=== PATIENT | female | born 1965 | race Caucasian/White ===

== ENCOUNTER 2021-01-18 08:35 | Outpatient (REF) | payer OTHER, SELFPAY ==
--- NOTE | ~2021-01-18 | XR_ITS ---
EXAMINATION: XR CHEST CLINICAL INFORMATION: Asthma. COMPARISON: None TECHNIQUE: 2 views of the chest were obtained. FINDINGS: The lungs are clear. The cardiomediastinal silhouette is normal in size. There is no pleural effusion or pneumothorax. No acute osseous abnormality. XR/XR chest 2V IMPRESSION: No acute cardiopulmonary findings.
[2021-01-18 11:00] LABS: Basophils Absolute Auto 0.1 X10*3/uL (0.0-0.2); Basophils Percent Auto 0.9 % (0-2); Eosinophils Absolute Auto 3.2 X10*3/uL (0.0-0.4); Eosinophils Percent Auto 38.9 % (0-4); Hemoglobin 12.3 g/dl (12.0-16.0); Imm Gran Abs Auto 0.01 X10*3/uL (0.00-0.03); Imm Gran Pct Auto 0.1 % (0.0-0.4); Lymphocytes Absolute Auto 1.7 X10*3/uL (1.2-4.9); Lymphocytes Percent Auto 20.6 % (20-40); Mean Corpuscular HGB Conc 30.8 g/dl (31.0-35.0); Mean Corpuscular Hemoglobin 29.1 pg (27.0-33.0); Mean Corpuscular Volume 94.6 fL (80-98); Mean Platelet Volume 10.8 fL (9.4-12.3); Monocytes Absolute Auto 0.7 X10*3/uL (0.1-1.2); Monocytes Percent Auto 7.9 % (2-11); Neutrophils Absolute Auto 2.6 X10*3/uL (2.0-8.3); Neutrophils Percent Auto 31.6 % (45-73); Platelet Count 293 X10*3/uL (160-400); Red Blood Count 4.23 X10*6/uL (4.20-5.50); Red Cell Distribution Width 14.4 % (11.0-16.0); White Blood Count 8.2 X10*3/uL (4.8-10.8)
[2021-01-18 11:02] LABS: MANUAL DIFF FLAG SCAN
[2021-01-18 11:34] LABS: SLIDE REVIEW VERIFIED
[2021-01-18 11:35] LABS: Erythrocyte Sedimentation Rate 29 MM/HR (0-20)
[2021-01-20 14:56] LABS: IgA 437 mg/dL (47-310); IgG 1676 mg/dL (600-1640); IgM 199 mg/dL (50-300)
[2021-01-25 23:57] LABS: Asperg fumigatus Precip Abs NEGATIVE (NEGATIVE); Micropoly faeni Abs NEGATIVE (NEGATIVE); Pigeon serum Abs NEGATIVE (NEGATIVE); Saccharo pora viridis Abs NEGATIVE (NEGATIVE); Thermo candidus Abs NEGATIVE (NEGATIVE); Thermoa vulgaris #1 NEGATIVE (NEGATIVE)
== END 2021-01-18 08:36 | disposition home or self-care (01) ==
LOC: HO.XRAY 08:35
PROVIDERS: PCP Internal Medicine; Visit Provider Hospitalist
DX: J45.51 Severe persistent asthma with (acute) exacerbation (principal); R91.8 Other nonspecific abnormal finding of lung field; J30.9 Allergic rhinitis, unspecified; T78.40XA Allergy, unspecified, initial encounter
CPT/HCPCS: 36415; 71046; 82784; 82785; 85025; 85652; 86003; 86331; 86606; 86609; J2930

== ENCOUNTER → 2021-02-15 10:36 | Outpatient (BNVA) | payer OTHER, SELFPAY | PROVIDERS: PCP Internal Medicine; Visit Provider Hospitalist ==

== ENCOUNTER → 2021-04-21 09:20 | Outpatient (REF) | payer OTHER, SELFPAY ==
--- NOTE | ~2021-04-21 | XR_ITS ---
EXAMINATION: XR CHEST CLINICAL INFORMATION: Cough COMPARISON: 01/18/2021 TECHNIQUE: 2 views of the chest were obtained. FINDINGS: No significant abnormality is noted involving the heart, lungs, mediastinum, bony thorax or soft tissues. XR/XR chest 2V IMPRESSION: Unremarkable examination.
--- NOTE | 2021-04-21 10:08 | ECG_ITS ---
Test Reason : copd Blood Pressure : / mmHG Vent. Rate : 082 BPM Atrial Rate : 082 BPM P-R Int : 156 ms QRS Dur : 080 ms QT Int : 366 ms P-R-T Axes : 055 020 021 degrees QTc Int : 427 ms Normal sinus rhythm Normal ECG No previous ECGs available Referred By: Bg Garcia Electronically Signed By:REGGIE CANTU MD
== END ==
LOC: HO.CARD 09:20
PROVIDERS: PCP Internal Medicine; Visit Provider Hospitalist
DX: J44.9 Chronic obstructive pulmonary disease, unspecified (principal); J45.50 Severe persistent asthma, uncomplicated; M06.9 Rheumatoid arthritis, unspecified; J30.9 Allergic rhinitis, unspecified; T78.40XA Allergy, unspecified, initial encounter
CPT/HCPCS: 71046; 93005

== ENCOUNTER 2021-05-04 11:04 | Outpatient (REF) | payer OTHER, SELFPAY | END 2021-05-04 11:05 | disposition home or self-care (01) | LOC: HO.MDS 11:04 | PROVIDERS: PCP Internal Medicine; Visit Provider Hospitalist | DX: J45.50 Severe persistent asthma, uncomplicated (principal) | CPT/HCPCS: 96372; J0517 ==

== ENCOUNTER 2021-06-05 11:30 | Outpatient (REF) | payer OTHER, SELFPAY | END 2021-06-05 11:31 | disposition home or self-care (01) | LOC: HO.MDS 11:30 | PROVIDERS: PCP Internal Medicine; Visit Provider Hospitalist | DX: J45.50 Severe persistent asthma, uncomplicated (principal) | CPT/HCPCS: 96372; J0517 ==

== ENCOUNTER → 2021-07-26 09:48 | Outpatient (BNVA) | payer OTHER, SELFPAY | PROVIDERS: PCP Internal Medicine; Visit Provider Hospitalist | DX: J45.50 Severe persistent asthma, uncomplicated (principal); J44.9 Chronic obstructive pulmonary disease, unspecified; J30.9 Allergic rhinitis, unspecified; Z79.899 Other long term (current) drug therapy; Z91.09 Other allergy status, other than to drugs and biological substances | CPT/HCPCS: 99212 ==

== ENCOUNTER 2021-08-09 10:02 | Outpatient (REF) | payer OTHER, SELFPAY | END 2021-08-09 10:03 | disposition home or self-care (01) | LOC: HO.MDS 10:02 | PROVIDERS: PCP Internal Medicine; Visit Provider Hospitalist | DX: J45.50 Severe persistent asthma, uncomplicated (principal) | CPT/HCPCS: 96372; J0517 ==

== ENCOUNTER 2021-10-30 13:03 | Outpatient (REF) | payer OTHER, SELFPAY ==
[2021-10-30 14:21] LABS: MANUAL DIFF FLAG NO
[2021-10-30 14:32] LABS: Hematocrit 34.3 % (37.0-47.0); Hemoglobin 10.6 g/dl (12.0-16.0); Imm Gran Abs Auto 0.03 X10*3/uL (0.00-0.03); Imm Gran Pct Auto 0.6 % (0.0-0.4); Lymphocytes Absolute Auto 1.2 X10*3/uL (1.2-4.9); Lymphocytes Percent Auto 22.3 % (20-40); Mean Corpuscular HGB Conc 30.9 g/dl (31.0-35.0); Mean Corpuscular Hemoglobin 28.8 pg (27.0-33.0); Mean Corpuscular Volume 93.2 fL (80.0-98.0); Monocytes Absolute Auto 0.5 X10*3/uL (0.1-1.2); Monocytes Percent Auto 9.8 % (2-11); Neutrophils Absolute Auto 3.7 x10*3/uL (2.0-8.3); Neutrophils Percent Auto 67.3 % (45-73); Platelet Count 353 X10*3/uL (160-400); Red Blood Count 3.68 X10*6/uL (4.20-5.50); Red Cell Distribution Width 14.6 % (11.0-16.0); White Blood Count 5.4 X10*3/uL (4.8-10.8)
[2021-10-30 15:13] LABS: Erythrocyte Sedimentation Rate 77 MM/HR (0-20)
[2021-10-30 16:08] LABS: Alanine Aminotransferase 22 U/L (0-31); Albumin Level 3.8 g/dL (3.5-5.0); Alkaline Phosphatase 109 U/L (39-117); Anion Gap 11 (12-20); Aspartate Amino Transferase 19 U/L (5-31); Bilirubin Total 0.3 mg/dL (0.0-1.0); Blood Urea Nitrogen 13 mg/dL (9-16); C Reactive Protein 6.16 mg/dL (< or = 0.50); Calcium 9.1 mg/dL (8.4-10.2); Carbon Dioxide 28 mmol/L (22-29); Chloride 106 mmol/L (96-108); Estimated Glomerular Filt Rate > 60; Glucose Fasting 84 mg/dL (60-99); Potassium 4.8 mmol/L (3.3-5.1); Sodium 140 mmol/L (135-145); Total Protein 7.8 g/dL (6.5-8.0)
== END 2021-10-30 13:04 | disposition home or self-care (01) ==
LOC: HO.LAB 13:03
PROVIDERS: PCP Internal Medicine; Visit Provider Internal Medicine Rheumatology
DX: M05.9 Rheumatoid arthritis with rheumatoid factor, unspecified (principal); Z79.899 Other long term (current) drug therapy; Z96.651 Presence of right artificial knee joint
CPT/HCPCS: 36415; 80053; 85025; 85652; 86140; 99212

== ENCOUNTER 2021-12-13 11:05 | Outpatient (REF) | payer OTHER, SELFPAY | END 2021-12-13 11:06 | disposition home or self-care (01) | LOC: HO.MDS 11:05 | PROVIDERS: PCP Internal Medicine; Visit Provider Hospitalist | DX: J45.50 Severe persistent asthma, uncomplicated (principal) | CPT/HCPCS: 96372; J0517 ==

== ENCOUNTER → 2022-01-18 10:00 | Outpatient (BNVA) | payer OTHER, SELFPAY | PROVIDERS: PCP Internal Medicine; Visit Provider Hospitalist | DX: J45.50 Severe persistent asthma, uncomplicated (principal); J30.9 Allergic rhinitis, unspecified; T78.40XA Allergy, unspecified, initial encounter | CPT/HCPCS: 99212 ==

== ENCOUNTER 2022-02-07 09:58 | Outpatient (REF) | payer OTHER, SELFPAY | END 2022-02-07 09:59 | disposition home or self-care (01) | LOC: HO.MDS 09:58 | PROVIDERS: Visit Provider Hospitalist | DX: J45.50 Severe persistent asthma, uncomplicated (principal) | CPT/HCPCS: 96372; J0517 ==

== ENCOUNTER 2022-04-09 15:09 | Outpatient (REF) | payer MEDICARE, SELFPAY ==
--- NOTE | ~2022-04-09 | XR_ITS ---
EXAMINATION: XR CHEST CLINICAL INFORMATION: COPD COMPARISON: Previous chest x-ray most recent April 2021 TECHNIQUE: 2 views of the chest were obtained. FINDINGS: The cardiac and mediastinal contours are stable. The lungs are clear. There is no pleural effusion or pneumothorax. Bony structures are unremarkable. XR/XR chest 2V IMPRESSION: Unremarkable examination.
[2022-04-09 15:43] LABS: MANUAL DIFF FLAG NO
[2022-04-09 16:18] LABS: Basophils Percent Auto 0.2 % (0-2); Hematocrit 38.3 % (37.0-47.0); Hemoglobin 11.8 g/dl (12.0-16.0); Lymphocytes Percent Auto 22.8 % (20-40); Mean Corpuscular HGB Conc 30.8 g/dl (31.0-35.0); Mean Corpuscular Hemoglobin 28.9 pg (27.0-33.0); Mean Corpuscular Volume 93.6 fL (80.0-98.0); Mean Platelet Volume 10.6 fL (9.4-12.3); Monocytes Absolute Auto 0.6 X10*3/uL (0.1-1.2); Neutrophils Absolute Auto 2.7 x10*3/uL (2.0-8.3); Platelet Count 305 X10*3/uL (160-400); Red Blood Count 4.09 X10*6/uL (4.20-5.50); White Blood Count 4.2 X10*3/uL (4.8-10.8)
[2022-04-09 16:42] LABS: Alanine Aminotransferase 14 U/L (0-31); Aspartate Amino Transferase 21 U/L (5-31); C Reactive Protein 1.24 mg/dL (< or = 0.50); Estimated Glomerular Filt Rate > 60
[2022-04-09 17:01] LABS: Erythrocyte Sedimentation Rate 70 MM/HR (0-20)
== END 2022-04-09 15:10 | disposition home or self-care (01) ==
LOC: HO.LAB 15:09
PROVIDERS: Absent Provider Hospitalist; PCP Nurse Practitioner Family; Visit Provider Internal Medicine Rheumatology
DX: M05.9 Rheumatoid arthritis with rheumatoid factor, unspecified (principal); J44.9 Chronic obstructive pulmonary disease, unspecified; Z79.899 Other long term (current) drug therapy
CPT/HCPCS: 36415; 71046; 82565; 84450; 84460; 85025; 85652; 86140; 99212

== ENCOUNTER → 2022-04-20 10:24 | Outpatient (BNVA) | payer MEDICARE, SELFPAY | PROVIDERS: PCP Nurse Practitioner Family; Visit Provider Hospitalist | DX: J45.50 Severe persistent asthma, uncomplicated (principal); J44.9 Chronic obstructive pulmonary disease, unspecified; K21.9 Gastro-esophageal reflux disease without esophagitis; R05.9 Cough, unspecified; J30.9 Allergic rhinitis, unspecified; T78.40XA Allergy, unspecified, initial encounter | CPT/HCPCS: 99212 ==

== ENCOUNTER 2022-06-12 11:35 | Outpatient (REF) | payer MEDICARE, SELFPAY ==
[2022-06-12 14:07] LABS: MANUAL DIFF FLAG NO
[2022-06-12 14:18] LABS: Basophils Percent Auto 0.5 % (0-2); Eosinophils Absolute Auto 0.2 X10*3/uL (0.0-0.4); Eosinophils Percent Auto 3.4 % (0-4); Hematocrit 34.5 % (37.0-47.0); Hemoglobin 10.6 g/dl (12.0-16.0); Imm Gran Abs Auto 0.03 X10*3/uL (0.00-0.03); Imm Gran Pct Auto 0.5 % (0.0-0.4); Lymphocytes Absolute Auto 0.8 X10*3/uL (1.2-4.9); Lymphocytes Percent Auto 14.7 % (20-40); Mean Corpuscular HGB Conc 30.7 g/dl (31.0-35.0); Mean Corpuscular Hemoglobin 28.5 pg (27.0-33.0); Mean Corpuscular Volume 92.7 fL (80.0-98.0); Mean Platelet Volume 11.1 fL (9.4-12.3); Monocytes Absolute Auto 0.4 X10*3/uL (0.1-1.2); Monocytes Percent Auto 7.2 % (2-11); Neutrophils Absolute Auto 4.1 x10*3/uL (2.0-8.3); Neutrophils Percent Auto 73.7 % (45-73); Platelet Count 353 X10*3/uL (160-400); Red Blood Count 3.72 X10*6/uL (4.20-5.50); Red Cell Distribution Width 14.3 % (11.0-16.0); White Blood Count 5.6 X10*3/uL (4.8-10.8)
[2022-06-12 14:31] LABS: Alanine Aminotransferase 15 U/L (0-31); Aspartate Amino Transferase 19 U/L (5-31)
[2022-06-12 14:53] LABS: Alanine Aminotransferase 14 U/L (0-31); Albumin Level 3.9 g/dL (3.5-5.0); Alkaline Phosphatase 92 U/L (39-117); Anion Gap 10 (12-20); Aspartate Amino Transferase 19 U/L (5-31); Bilirubin Total 0.3 mg/dL (0.0-1.0); Blood Urea Nitrogen 15 mg/dL (9-16); C Reactive Protein 3.02 mg/dL (< or = 0.50); Carbon Dioxide 26 mmol/L (22-29); Chloride 108 mmol/L (96-108); Cholesterol 131 mg/dL; Estimated Glomerular Filt Rate > 60; Glucose Fasting 89 mg/dL (60-99); HDL Cholesterol 45 mg/dL; LDL Cholesterol Calculated 75 mg/dl; Potassium 4.4 mmol/L (3.3-5.1); Sodium 140 mmol/L (135-145); TSH reflex Free T4 2.01 uIU/mL (0.32-4.0); Total Protein 7.8 g/dL (6.5-8.0); Triglycerides 57 mg/dL
[2022-06-12 15:09] LABS: Erythrocyte Sedimentation Rate 81 MM/HR (0-20)
== END 2022-06-12 11:36 | disposition home or self-care (01) ==
LOC: HO.HMGCLDS 11:35
PROVIDERS: Absent Provider Internal Medicine Rheumatology; PCP Internal Medicine; Visit Provider Internal Medicine
DX: Z00.00 Encounter for general adult medical examination without abnormal findings (principal); J30.9 Allergic rhinitis, unspecified; J44.9 Chronic obstructive pulmonary disease, unspecified; M05.79 Rheumatoid arthritis with rheumatoid factor of multiple sites without organ or systems involvement; T78.40XA Allergy, unspecified, initial encounter; Z79.899 Other long term (current) drug therapy
CPT/HCPCS: 36415; 80053; 80061; 84443; 84450; 84460; 85025; 85652; 86140

== ENCOUNTER → 2022-06-26 08:07 | Outpatient (BNVA) | payer MEDICARE, SELFPAY | PROVIDERS: PCP Internal Medicine; Visit Provider Internal Medicine Rheumatology | DX: M05.79 Rheumatoid arthritis with rheumatoid factor of multiple sites without organ or systems involvement (principal); Z96.651 Presence of right artificial knee joint; Z79.899 Other long term (current) drug therapy | CPT/HCPCS: 99212 ==

== ENCOUNTER 2022-07-17 14:25 | Outpatient (REF) | payer MEDICARE, SELFPAY ==
--- NOTE | ~2022-07-17 | MM_ITS ---
EXAMINATION: MM SCREENING DIGITAL BREAST TOMOSYNTHESIS, BILATERAL CLINICAL INFORMATION: Screening. Asymptomatic. The lifetime risk of breast cancer based on the Tyrer-Cuzick Model is 7%. COMPARISON: Outside mammography: 05/22/2021, 01/28/2019, 10/23/2017 TECHNIQUE: Digital breast tomosynthesis is performed in both the craniocaudal and mediolateral oblique views along with computer-aided detection (CAD). Synthesized 2D images are generated from the tomosynthesis. FINDINGS: The breasts are heterogeneously dense, which may obscure small masses (ACR BI-RADS breast composition Category c). Parenchymal pattern is similar to outside studies and there is no significant mass or interval architectural abnormality or developing density. Again, there are scattered bilateral vascular and some punctate and rim calcifications. There are interval grouped relatively coarse calcifications posterior 9:00 right breast since 2019. These may be related to fibroadenomatous changes. Patient will be recalled for additional imaging to fully characterize with magnification views. MM/MM tomosynthesis screening BI IMPRESSION: Right: -Grouped calcifications posterior 9:00 position, possibly fibroadenomatous change. Left: -No mammographic evidence of malignancy. ASSESSMENT: BI-RADS 0: Incomplete - Need Additional Imaging Evaluation RECOMMENDATION: 1. Additional views of the right breast (magnification CC, magnification ML). 2. Radiology department staff will contact the patient for additional imaging. This patient's information was entered into a reminder system with a target due date for their next mammogram.
== END 2022-07-17 14:26 | disposition home or self-care (01) ==
LOC: HO.MAMMO 14:25
PROVIDERS: PCP Internal Medicine; Visit Provider Internal Medicine
DX: Z12.31 Encounter for screening mammogram for malignant neoplasm of breast (principal)
CPT/HCPCS: 77063; 77067

== ENCOUNTER → 2022-07-19 13:31 | Outpatient (BNVA) | payer MEDICARE, SELFPAY | PROVIDERS: PCP Internal Medicine; Visit Provider Advanced Practice Midwife | DX: Z13.89 Encounter for screening for other disorder (principal) ==

== ENCOUNTER 2022-07-23 14:04 | Outpatient (REF) | payer MEDICARE, SELFPAY ==
--- NOTE | ~2022-07-23 | MM_ITS ---
EXAMINATION: MM DIAGNOSTIC DIGITAL MAMMOGRAPHY, RIGHT CLINICAL INFORMATION: Recall from screening for interval calcifications posterior 9:00 right breast since 2019, possibly fibroadenomatous change. The lifetime risk of breast cancer based on the Tyrer-Cuzick Model is 7%. COMPARISON: Mammography: 07/17/2022; outside mammography 05/12/2021, 01/28/2019 ([place]). TECHNIQUE: Digital mammography is performed right breast is performed in the following views: Magnification right CC, magnification right ML. FINDINGS: The breasts are heterogeneously dense, which may obscure small masses (ACR BI-RADS breast composition Category c). The additional magnification views show grouped coarse benign-appearing calcifications in the area of interest posterior upper outer right breast. These may be related to fibroadenomatous changes. There is no mass or architectural abnormality. Results are discussed with the patient at time of visit. Management plan is for short interval six-month follow-up right mammography. MM/MM diagnostic mammo unilat RT IMPRESSION: Probable benign possibly fibroadenomatous calcifications upper outer quadrant right breast. ASSESSMENT: BI-RADS 3: Probably Benign RECOMMENDATION: Diagnostic right mammography in 6 months. This patient's information was entered into a reminder system with a target due date for their next mammogram.
== END 2022-07-23 14:05 | disposition home or self-care (01) ==
LOC: HO.MAMMO 14:04
PROVIDERS: PCP Internal Medicine; Visit Provider Internal Medicine
DX: R92.1 Mammographic calcification found on diagnostic imaging of breast (principal)
CPT/HCPCS: 77062; 77065

== ENCOUNTER 2022-08-31 14:29 | Outpatient (REF) | payer OTHER, SELFPAY ==
[2022-08-31 16:50] LABS: MANUAL DIFF FLAG NO
[2022-08-31 16:55] LABS: Basophils Absolute Auto 0.1 X10*3/uL (0.0-0.2); Eosinophils Absolute Auto 0.3 X10*3/uL (0.0-0.4); Eosinophils Percent Auto 4.8 % (0-4); Hematocrit 39.4 % (37.0-47.0); Hemoglobin 12.2 g/dl (12.0-16.0); Imm Gran Abs Auto 0.01 X10*3/uL (0.00-0.03); Imm Gran Pct Auto 0.2 % (0.0-0.4); Lymphocytes Absolute Auto 1.2 X10*3/uL (1.2-4.9); Mean Corpuscular Hemoglobin 28.4 pg (27.0-33.0); Mean Corpuscular Volume 91.6 fL (80.0-98.0); Mean Platelet Volume 11.4 fL (9.4-12.3); Monocytes Absolute Auto 0.7 X10*3/uL (0.1-1.2); Monocytes Percent Auto 11.3 % (2-11); Neutrophils Absolute Auto 3.6 x10*3/uL (2.0-8.3); Neutrophils Percent Auto 61.7 % (45-73); Platelet Count 300 X10*3/uL (160-400); Red Cell Distribution Width 14.8 % (11.0-16.0); White Blood Count 5.8 X10*3/uL (4.8-10.8)
[2022-08-31 17:21] LABS: Alanine Aminotransferase 17 U/L (0-31); Aspartate Amino Transferase 25 U/L (5-31); C Reactive Protein 2.21 mg/dL (< or = 0.50); Estimated Glomerular Filt Rate > 60
[2022-08-31 18:07] LABS: Erythrocyte Sedimentation Rate 51 MM/HR (0-20)
== END 2022-08-31 14:30 | disposition home or self-care (01) ==
LOC: HO.HMGCLDS 14:29
PROVIDERS: PCP Internal Medicine; Visit Provider Internal Medicine Rheumatology
DX: M05.79 Rheumatoid arthritis with rheumatoid factor of multiple sites without organ or systems involvement (principal); Z79.899 Other long term (current) drug therapy
CPT/HCPCS: 36415; 82565; 84450; 84460; 85025; 85652; 86140

== ENCOUNTER → 2022-09-04 10:00 | Outpatient (BNVA) | payer MEDICARE, MEDICAID, SELFPAY | PROVIDERS: PCP Internal Medicine; Visit Provider Internal Medicine Rheumatology | DX: J44.9 Chronic obstructive pulmonary disease, unspecified (principal); M05.79 Rheumatoid arthritis with rheumatoid factor of multiple sites without organ or systems involvement; Z79.899 Other long term (current) drug therapy; Z96.651 Presence of right artificial knee joint | CPT/HCPCS: 99212 ==

== ENCOUNTER → 2022-10-17 11:09 | Outpatient (BNVA) | payer OTHER, SELFPAY | PROVIDERS: PCP Internal Medicine; Visit Provider Hospitalist | DX: J45.50 Severe persistent asthma, uncomplicated (principal); J30.9 Allergic rhinitis, unspecified; J44.9 Chronic obstructive pulmonary disease, unspecified; T78.40XD Allergy, unspecified, subsequent encounter | CPT/HCPCS: 99212 ==

== ENCOUNTER → 2022-10-25 10:38 | Outpatient (BNVA) | payer OTHER, SELFPAY | PROVIDERS: PCP Internal Medicine; Visit Provider Internal Medicine Rheumatology ==

== ENCOUNTER 2022-10-25 11:57 | Outpatient (REF) | payer OTHER, SELFPAY ==
[2022-10-25 13:35] LABS: MANUAL DIFF FLAG NO
[2022-10-25 13:37] LABS: Basophils Absolute Auto 0.1 X10*3/uL (0.0-0.2); Basophils Percent Auto 0.8 % (0-2); Eosinophils Absolute Auto 0.8 X10*3/uL (0.0-0.4); Eosinophils Percent Auto 13.2 % (0-4); Hematocrit 37.2 % (37.0-47.0); Hemoglobin 11.4 g/dl (12.0-16.0); Imm Gran Abs Auto 0.01 X10*3/uL (0.00-0.03); Imm Gran Pct Auto 0.2 % (0.0-0.4); Lymphocytes Percent Auto 16.2 % (20-40); Mean Corpuscular HGB Conc 30.6 g/dl (31.0-35.0); Mean Corpuscular Hemoglobin 28.2 pg (27.0-33.0); Mean Corpuscular Volume 92.1 fL (80.0-98.0); Mean Platelet Volume 11.4 fL (9.4-12.3); Monocytes Absolute Auto 0.6 X10*3/uL (0.1-1.2); Monocytes Percent Auto 9.6 % (2-11); Neutrophils Absolute Auto 3.5 x10*3/uL (2.0-8.3); Platelet Count 305 X10*3/uL (160-400); Red Blood Count 4.04 X10*6/uL (4.20-5.50); White Blood Count 5.9 X10*3/uL (4.8-10.8)
[2022-10-25 13:51] LABS: Alanine Aminotransferase 14 U/L (0-31); Aspartate Amino Transferase 20 U/L (5-31); Estimated Glomerular Filt Rate > 60
[2022-10-25 14:28] LABS: Erythrocyte Sedimentation Rate 69 MM/HR (0-20)
== END 2022-10-25 11:58 | disposition home or self-care (01) ==
LOC: HO.10HDL 11:57
PROVIDERS: Visit Provider Internal Medicine Rheumatology
DX: M17.12 Unilateral primary osteoarthritis, left knee (principal); M05.79 Rheumatoid arthritis with rheumatoid factor of multiple sites without organ or systems involvement; Z79.899 Other long term (current) drug therapy
CPT/HCPCS: 20610; 36415; 82565; 84450; 84460; 85025; 85652; 86140; 99212

== ENCOUNTER 2022-10-31 11:03 | Outpatient (REF) | payer OTHER, SELFPAY | END 2022-10-31 11:04 | disposition home or self-care (01) | LOC: HO.MDS 11:03 | PROVIDERS: Visit Provider Hospitalist | DX: J45.50 Severe persistent asthma, uncomplicated (principal) | CPT/HCPCS: 96372 ==

== ENCOUNTER 2022-12-24 14:25 | Outpatient (REF) | payer OTHER, SELFPAY ==
[2022-12-24 16:34] LABS: MANUAL DIFF FLAG NO
[2022-12-24 16:50] LABS: Hematocrit 38.1 % (37.0-47.0); Hemoglobin 11.9 g/dl (12.0-16.0); Imm Gran Abs Auto 0.03 X10*3/uL (0.00-0.03); Imm Gran Pct Auto 0.5 % (0.0-0.4); Lymphocytes Absolute Auto 1.1 X10*3/uL (1.2-4.9); Lymphocytes Percent Auto 17.9 % (20-40); Mean Corpuscular HGB Conc 31.2 g/dl (31.0-35.0); Mean Corpuscular Hemoglobin 28.7 pg (27.0-33.0); Mean Corpuscular Volume 91.8 fL (80.0-98.0); Mean Platelet Volume 11.6 fL (9.4-12.3); Monocytes Absolute Auto 0.8 X10*3/uL (0.1-1.2); Monocytes Percent Auto 12.5 % (2-11); Neutrophils Absolute Auto 4.3 x10*3/uL (2.0-8.3); Neutrophils Percent Auto 69.1 % (45-73); Platelet Count 311 X10*3/uL (160-400); Red Blood Count 4.15 X10*6/uL (4.20-5.50); Red Cell Distribution Width 13.9 % (11.0-16.0); White Blood Count 6.2 X10*3/uL (4.8-10.8)
[2022-12-24 17:13] LABS: Alanine Aminotransferase 14 U/L (0-31); Aspartate Amino Transferase 22 U/L (5-31); C Reactive Protein 2.57 mg/dL (< or = 0.50); Estimated Glomerular Filt Rate > 60
[2022-12-24 17:47] LABS: Erythrocyte Sedimentation Rate 51 MM/HR (0-20)
== END 2022-12-24 14:26 | disposition home or self-care (01) ==
LOC: HO.HMGCLDS 14:25
PROVIDERS: PCP Internal Medicine Gastroenterology; Visit Provider Internal Medicine Rheumatology
DX: M05.79 Rheumatoid arthritis with rheumatoid factor of multiple sites without organ or systems involvement (principal); Z79.899 Other long term (current) drug therapy
CPT/HCPCS: 36415; 82565; 84450; 84460; 85025; 85652; 86140

== ENCOUNTER → 2022-12-25 10:11 | Outpatient (BNVA) | payer OTHER, SELFPAY | PROVIDERS: PCP Internal Medicine Gastroenterology; Visit Provider Internal Medicine Rheumatology | DX: M05.79 Rheumatoid arthritis with rheumatoid factor of multiple sites without organ or systems involvement (principal); M47.817 Spondylosis without myelopathy or radiculopathy, lumbosacral region; M17.12 Unilateral primary osteoarthritis, left knee; M54.50 Low back pain, unspecified; Z79.899 Other long term (current) drug therapy | CPT/HCPCS: 99212 ==

== ENCOUNTER 2022-12-26 11:13 | Outpatient (REF) | payer OTHER, SELFPAY | END 2022-12-26 11:14 | disposition home or self-care (01) | LOC: HO.MDS 11:13 | PROVIDERS: Visit Provider Hospitalist | DX: J45.50 Severe persistent asthma, uncomplicated (principal) | CPT/HCPCS: 96372; J0517 ==

== ENCOUNTER 2023-02-20 11:05 | Outpatient (REF) | payer OTHER, SELFPAY | END 2023-02-20 11:06 | disposition home or self-care (01) | LOC: HO.MDS 11:05 | PROVIDERS: Visit Provider Hospitalist | DX: J45.50 Severe persistent asthma, uncomplicated (principal) | CPT/HCPCS: 96372 ==

== ENCOUNTER → 2023-02-20 14:30 | Outpatient (BNV) | payer OTHER, SELFPAY | PROVIDERS: PCP Internal Medicine; Visit Provider Radiology Diagnostic Radiology | DX: R92.1 Mammographic calcification found on diagnostic imaging of breast (principal) | CPT/HCPCS: 77065 ==

== ENCOUNTER 2023-02-20 14:35 | Outpatient (REF) | payer OTHER, SELFPAY ==
--- NOTE | ~2023-02-20 | MM_ITS ---
EXAMINATION: MM DIAGNOSTIC DIGITAL BREAST TOMOSYNTHESIS, RIGHT CLINICAL INFORMATION: Follow-up grouped calcifications upper outer right breast, posterior one third. The lifetime risk of breast cancer based on the Tyrer-Cuzick Model is 7%. COMPARISON: Mammography: 07/23/2022, 07/17/2022, 05/22/2021, and dating back to 10/23/2017. TECHNIQUE: Digital breast tomosynthesis is performed in both the craniocaudal and mediolateral oblique views along with computer-aided detection (CAD). Synthesized 2D images are generated from the tomosynthesis. In addition, 2-D spot magnification right CC and ML views were performed. FINDINGS: The breasts are heterogeneously dense, which may obscure small masses (ACR BI-RADS breast composition Category c). There are grouped calcifications in the upper outer left breast, posterior one third, which are unchanged from the prior examinations and have a coarse appearance. These are consistent with benign calcifications, likely related to an underlying degenerating fibroadenoma. There have been no suspicious changes. Otherwise, there are are no suspicious masses, suspicious grouped calcifications, or areas of architectural distortion within the right breast. The parenchymal pattern is stable from prior exams. Results were provided to the patient at time of visit by the technologist. MM/MM tomosynthesis diagnostic RT IMPRESSION: Benign findings right breast. Recommend the patient return to routine annual screening mammography. ASSESSMENT: BI-RADS BI-RADS 2 - Benign Findings RECOMMENDATION: 1 year F/U This patient's information was entered into a reminder system with a target due date for their next mammogram.
== END 2023-02-20 14:36 | disposition home or self-care (01) ==
LOC: HO.MAMMO 14:35
PROVIDERS: PCP Internal Medicine; Visit Provider Internal Medicine
DX: R92.1 Mammographic calcification found on diagnostic imaging of breast (principal)
CPT/HCPCS: 77061; 77065

== ENCOUNTER 2023-03-26 12:25 | Outpatient (REF) | payer OTHER, SELFPAY ==
[2023-03-26 16:10] LABS: MANUAL DIFF FLAG NO
[2023-03-26 16:24] LABS: Hematocrit 37.3 % (37.0-47.0); Hemoglobin 11.5 g/dl (12.0-16.0); Imm Gran Abs Auto 0.01 X10*3/uL (0.00-0.03); Imm Gran Pct Auto 0.2 % (0.0-0.4); Lymphocytes Percent Auto 24.3 % (20-40); Mean Corpuscular HGB Conc 30.8 g/dl (31.0-35.0); Mean Corpuscular Hemoglobin 28.5 pg (27.0-33.0); Mean Corpuscular Volume 92.3 fL (80.0-98.0); Mean Platelet Volume 12.4 fL (9.4-12.3); Monocytes Absolute Auto 0.4 X10*3/uL (0.1-1.2); Monocytes Percent Auto 9.9 % (2-11); Neutrophils Absolute Auto 2.8 x10*3/uL (2.0-8.3); Neutrophils Percent Auto 65.6 % (45-73); Platelet Count 297 X10*3/uL (160-400); Red Blood Count 4.04 X10*6/uL (4.20-5.50); Red Cell Distribution Width 14.8 % (11.0-16.0); White Blood Count 4.2 X10*3/uL (4.8-10.8)
[2023-03-26 17:17] LABS: Erythrocyte Sedimentation Rate 66 MM/HR (0-20)
== END 2023-03-26 12:26 | disposition home or self-care (01) ==
LOC: HO.HMGCLDS 12:25
PROVIDERS: PCP Internal Medicine; Visit Provider Internal Medicine Rheumatology
DX: M05.79 Rheumatoid arthritis with rheumatoid factor of multiple sites without organ or systems involvement (principal); Z79.899 Other long term (current) drug therapy
CPT/HCPCS: 36415; 85025; 85652

== ENCOUNTER 2023-03-27 10:09 | Outpatient (AMB) | payer OTHER, SELFPAY ==
--- NOTE | 2023-03-27 10:12 | MHC.OFFVIS ---
Intake Vital Signs 03/27/23 10:17 Height 5 ft 1 in Weight 171 lb 15.369 oz BMI 32.5 BP 120/64 Blood Pressure Location Lt brachial Position Sitting Pulse 80 Pulse Source Pulse Oximeter Temp 97.5 F Temp Source Skin Pulse Oximetry (%) 94 Oxygen Delivery Method Room Air Intake Visit Reasons: RA Intake Note: Here for RA follow up. 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 She remains on Enbrel 50 mg weekly, oral methotrexate 20 mg weekly, folic acid 1 mg daily, diclofenac 50 mg b.i.d. to t.i.d., hydroxychloroquine 300 mg daily, and sulfasalazine 1 g b.i.d.. She still is having some pain in the hands and the left knee. At present she is not planning on knee replacement until she comes back from a wedding in [place] in May. She has not made an appointment with orthopedics however. The asthma has been better since she is back on the [facility]. This had also resulted in her not needing to take any prednisone. She does report that about an hour after she takes the 20 mg weekly methotrexate she gets nauseated. She does not vomit but she feels sickly for about 3 hours afterwards. [facility] Medical History Allergies Asthma Asthma-COPD overlap syndrome Cataract Chronic allergic rhinitis Cough Long-term use of immunosuppressant medication Seropositive rheumatoid arthritis Surgical History History of knee replacement procedure of right knee Family History Father Asthma Maternal Grandmother Asthma Social History Household Members: Spouse Housing: House Alcohol intake: never Patient Tobacco Use Status: Never used Tobacco e-Cigarette/Vaping Use: Never Used Current occupational status: unemployed Sexual orientation: Straight/Heterosexual Gender identity: Female Cognitive needs: No Hearing needs: No Vision needs: Yes Review of Systems Const Details: Some fatigue at times. Negative for appetite change, weight change, fever, chills, malaise Eyes Details: Negative for vision change, dry eyes,headaches and dizziness ENT Details: Negative for hearing change, tinnitus, oral ulcer, nose bleeds and oral dryness. Card Details: Negative chest pain, edema and syncope Resp Details: Negative for SOB, cough and wheezing GI Details: Nausea after methotrexate ingestion. Negative indigestion/heartburn, abdominal pain, bowel changes, diarrhea, constipation and bloody stool. Psych Details: Negative for anxiety, depression and stress Endo Details: Negative for polyuria and polydypsia Wiley/Lymph Details: Negative for excessive bruising or bleeding. Physical Exam Vital Signs: Last Vital Signs Temp 97.5 F 03/27/23 10:17 Pulse 80 03/27/23 10:17 BP 120/64 03/27/23 10:17 Pulse Ox 94 03/27/23 10:17 Oxygen Delivery Method Room Air 03/27/23 10:17 BMI result Body Mass Index 32.5 APPEARANCE: Patient in no acute distress ABD: Normal bowel sounds, no organomegaly, masses or tenderness. EXTREMITIES: No edema, no calf tenderness, normal peripheral pulses. JOINT EXAM: ?? Cervical Spine:.? Mild discomfort with extremes of motion.? No tenderness. Thoracic Spine:.? No scoliosis.? No tenderness on palpation. Lumbar Spine:.? Alignment normal.? Full range of motion without pain, no tenderness. Chest Wall:.? No tenderness, swelling, increased warmth or erythema. Hands:? Right:? joint mild swelling of the 1st 4 MCP joints and the 1st 3 MCP are mildly tender..? There is soft tissue swelling of the 1st 3 PIP joints with slight tenderness at the 3rd PIP.? Left:? There is mild swelling of all the MCP joints.? The 3rd MCP is slightly tender.; there is some mild flexion deformity in these MCPs.? There is mild tenderness and swelling in the thumb IP in the 2nd and 3rd PIP joints.? No thenar atrophy or sensory loss. Wrists:.? Right:? Slight pain with flexion extension 75 degrees with some minimal tenderness but no swelling.? Left:? Mild pain with flexion at 60 degrees or extension at 45 degrees.? There is some mild soft tissue swelling and mild moderate tenderness.? No redness or warmth. Elbows:. Normal pain-free range of motion without tenderness, swelling, increased warmth or erythema. Shoulders:? Right: Mild? pain with extremes of normal abduction or with more than 20 degrees of internal or external rotation.? There is mild anterior tenderness.? There is questionable abductor weakness but no swelling or adenopathy.? Left:? Mild to moderate pain with abduction at 90 degrees or with more than 20 degrees of internal or external rotation.? There is mild anterior and posterior tenderness.? Questionable abductor weakness without adenopathy.. Hips:.? Full range of motion without pain. Hip bursa:.? No tenderness. Knees:.??Right:? Large anterior scar, healed well with some slight scaling.? She has no discomfort with full extension or flexion to 90 degrees.? There is no swelling, tenderness, redness or warmth.? Left: mild to moderate pain with 45 degrees of range of motion.? She can with much pain passively extend the knee.? There is a small? to moderate effusion without redness or warmth.? She has mild to moderate popliteal, medial and lateral tenderness.? I do not feel any popliteal swelling. Ankles:.? Normal pain-free range of motion without tenderness, swelling, increased warmth or erythema. Feet: Slight tenderness in the MTP joints.? Minimal swelling and bony enlargement at the 1st MTP.? There are hammertoe deformities at the right 2nd 3rd toe and left 2nd toe but none of these are tender.? Results Reviewed Results Reviewed: Laboratory Tests 12/24/22 03/26/23 14:30 12:32 WBC 4.2 L Hgb 11.5 L ESR 66 H Creatinine 0.67 AST 22 ALT 14 C-Reactive Protein 2.57 H Assessment & Plan Assessment & Plan (1) Osteoarthritis of lumbosacral spine: Code(s): M47.817 - Spondylosis without myelopathy or radiculopathy, lumbosacral region (2) Long-term use of immunosuppressant medication: Code(s): Z79.899 - Other tank terminal gauger (current) drug therapy (3) Osteoarthritis of left knee: Code(s): M17.12 - Unilateral primary osteoarthritis, left knee (4) Seropositive rheumatoid arthritis of multiple joints: Comment: Onset about 2000; RF and CCP positive. Erosive changes on hand films 07/18. On hydroxychloroquine and sulfasalzine since ? 2004? Methotrexate added 05/18. Enbrel added September 2012. Eye exam normal January 2014, 2014, November 2015, 05/25; 09/23; 03/27, 09/2020, 03/2021,10/2021, 04/2022 Methotrexate stopped 03/22 due to shingles. hydroxychloroquine, Enbrel and sulfasalazine continued, methotrexate added back 06/22. lost coverage for Enbrel 2021.restarted 07/2022 Code(s): M05.79 - Rheumatoid arthritis with rheumatoid factor of multiple sites without organ or systems involvement Plan: Longstanding rheumatoid arthritis with now more consistent use of the Enbrel. However she still has some tenderness in the hands and acute phase reactants remain elevated so I think there is not optimal control of her illness. The OA in the LS spine seems stable. She is also having some nausea with oral methotrexate. We will see if we can switch her to injectable methotrexate with a 15 mg prefilled syringe. She has deformities in her hands making it difficult for her to draw up the methotrexate injection properly. I offered her an injection corticosteroid for the left knee but she wants to hold off for now. She tells me she may want to pursue a knee replacement next spring. We will see her back in about 2 months with lab work before that visit. Hopefully we will get approval of the use of the prefilled syringe for her to use to avoid the GI toxicity of taking it orally. We may want to switch to a different biologic if synovitis remains. Orders: Orders Alanine Aminotransferase Today M05.79 - Rheumatoid arthritis with rheumatoid factor of multiple sites without organ or systems involvement, Z79.899 - Other tank terminal gauger (current) drug therapy Aspartate Amino Transferase Today M05.79 - Rheumatoid arthritis with rheumatoid factor of multiple sites without organ or systems involvement, Z79.899 - Other halfway (current) drug therapy Creatinine Today M05.79 - Rheumatoid arthritis with rheumatoid factor of multiple sites without organ or systems involvement, Z79.899 - Other tank terminal gauger (current) drug therapy Erythrocyte Sedimentation Rate Today M05.79 - Rheumatoid arthritis with rheumatoid factor of multiple sites without organ or systems involvement C Reactive Protein Today M05.79 - Rheumatoid arthritis with rheumatoid factor of multiple sites without organ or systems involvement Complete Blood Count Auto Diff Today M05.79 - Rheumatoid arthritis with rheumatoid factor of multiple sites without organ or systems involvement, Z79.899 - Other tank terminal gauger (current) drug therapy Medications: New methotrexate (PF) 15 mg (0.4 mL) subcut QWEEK 1.6 mL 5RF Coding Level of Care Code Est Pt Level 4 (03195) Diagnoses Osteoarthritis of lumbosacral spine M47.817 Long-term use of immunosuppressant medication Z79.899 Osteoarthritis of left knee M17.12 Seropositive rheumatoid arthritis of multiple joints M05.79
[2023-03-27 10:17] VITALS: BP 120/64; PULSE 80; TEMP 36.4; O2SAT 94; BMI 32.5
== END 2023-03-27 10:42 | disposition home or self-care (01) ==
PROVIDERS: PCP Internal Medicine Gastroenterology; Visit Provider Internal Medicine Rheumatology
DX: M47.817 Spondylosis without myelopathy or radiculopathy, lumbosacral region (principal); Z79.899 Other long term (current) drug therapy; M17.12 Unilateral primary osteoarthritis, left knee; M05.79 Rheumatoid arthritis with rheumatoid factor of multiple sites without organ or systems involvement
CPT/HCPCS: 99214

== ENCOUNTER → 2023-03-27 10:09 | Outpatient (BNVA) | payer OTHER, SELFPAY | PROVIDERS: PCP Internal Medicine Gastroenterology; Visit Provider Internal Medicine Rheumatology | DX: M05.79 Rheumatoid arthritis with rheumatoid factor of multiple sites without organ or systems involvement (principal); M17.12 Unilateral primary osteoarthritis, left knee; M47.817 Spondylosis without myelopathy or radiculopathy, lumbosacral region; Z79.899 Other long term (current) drug therapy | CPT/HCPCS: 99212 ==

== ENCOUNTER 2023-04-05 10:11 | Outpatient (AMB) | payer OTHER, SELFPAY ==
[2023-04-05 10:21] VITALS: PULSE 84; O2SAT 98; BMI 32.5
--- NOTE | 2023-04-05 10:21 | A.OFFVIS_ITS ---
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 She has been struggling with her asthma now for many years. But has been getting worse in few months. She has tried many inhalers previously Symbicort and now recently switched to Trelegy inhaler by her doctors. She did not see any significant improvement. She typically responds better to the nebulized therapy. She does use the nebulizer 3 to 4 times a day. The patient is also required prednisone for her exacerbation on a frequent basis. In regards of her rheumatoid arthritis she has having discomfort but has been TNF inhibitors and also methotrexate for many years. She is not aware of any pulmonary adverse effects these medications. In the office she has significant wheezing. Patient did have evidence significant bronchospasms and she did received 2 DuoNeb treatments with significant improvement although she was to wheezing. Patient did receive Solu-Medrol 125 mg IM x1 to further alleviate her. The patient likely needs more aggressive asthma therapy in the form biologic therapy or in the form nebulize therapies. Therefore, will keep her on the trilogy and DuoNeb and also add budesonide nebulized therapy that she would use conjunction with the patient will undergo work in addition to to see if she biologic therapies at this time in the meantime were assess her hypersensitivity pneumonitis since she does have birds in her home. 02/15/2021 the patient is here for pulmonary follow-up visit. Overall she is feeling a little better. She feels that the budesonide nebulized therapy has been partially helpful. During the last visit the patient did receive Solu- Medrol after couple treatments via the nebulizer. She was prescribed prednisone but she did not use it. Today on examination she still has significant wheezing but she has gotten used to it. Patient had blood work and we did reviewed. Her CBC demonstrated critically high eosinophils greater than 3000 and a percentage of 38% which is significantly elevated. In addition to that her allergy testing demonstrating significant allergies to multiple environmental factors including cats and dogs and dust mites. Her IgE level was up to 700. at this point based on her significant allergies and eosinophilic asthma the patient would benefit from biologic therapy. Fasenra will be a good medication for her. She has been on prednisone multiple times the patient has severe persistent asthma currently uncontrolled. She is reluctant to use prednisone because she is concerned about the adverse effects. She also has rheumatoid arthritis and is currently on other medications that can affect her immune system. At this point will start the patient on Fasenra as the best option. Other alternatives would be Dupixent. Will follow-up in 2 months and the patient will continue with current respiratory therapy. 04/21/2021 the patient is here for a pul monary follow-up visit. She is starting to feel little better. The budesonide has been helpful. However, she continues to have significant wheezing in significant chest tightness. She did improve with prednisone. Now that she is off the prednisone again she is starting to have symptoms. The patient was approved to start Fasenra. Will make the arrangements for her to start her loading dose. In the meantime I will send her azithromycin 3 times a week in addition to another prednisone taper. She does take hydrochloroquine 2 therefore will have her undergo an EKG to make sure QT can handle the macrolide therapy. In addition to that she will undergo a chest x-ray. Will follow up in a couple months. 07/26/2021 the patient is here for pulmonary follow-up visit. Since we last spoke the patient lost her insurance and she did get a new insurance recently. Therefore since she lost insurance she has to stop for biologic injections. It will working very good for her. She was starting to feel better. However, she had no shortness but to change insurance. The Trelegy inhaler has been working well for her. I will make sure to send her some to the pharmacy. She is also using the budesonide nebs which also help control her asthma symptoms and decrease her exacerbations. Hopefully when she starts back on biologic therapy we can stop the budesonide. The patient does have an allergic phenotype with eosinophilia and respond well to Fasenra. in the meantime the patient does have significant rheumatoid arthritis. 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 Will help with some her medications that she may need in the meantime. 01/18/2022 the patient is here for a pulmonary follow-up visit. Overall she is doing well. She does continue to use her nebulized therapy 3 times a day however. The budesonide also has been affecting beneficial. She did go back to the Fasenra injections. These are also helping. She denies any need for prednisone at this time. She has not had any recent imaging studies to review. She did follow-up with Rheumatology and she is going to maintain on her current therapy. She does use methotrexate. She is on high dose. I will send folate acid to the pharmacy for her to take in view of her alopecia. She can talk to her engineering drawings checker regarding the outpatient her next visit with them. No evidence of any adverse effects from the methotrexate from pulmonary standpoint at this time. 04/20/2022 the patient is here for a pulmonary follow-up visit. Seems to be doing better. The patient continues to be on the Trelegy. She also continues on the Fasenra injections. She has not required any additional prednisone. She also responds well to the budesonide although is very expensive for her. Explained to her that with the Fasenra I am hopeful that she does not require additional inhaled steroid such as budesonide. The patient only has samples right now for Trelegy. When she runs out she may not be able to afford. Therefore I will give her prescription on paper for AirDuo that she could still be there with her insurance or with good Rx card. This to be a lot cheaper and more reasonable for her. The patient still doing with significant active arthritis. She is working closely with Rheumatology in order to start biologic therapy. She continues to be on high dose of methotrexate. I do not believe at this point that the methotrexate is affecting her lungs adversely. 10/17/2022 the patient is here for a pulm onary follow-up visit. The patient still having hard time with her breathing. She completed a course of prednisone for her arthritis and that was helping her breathing. She has been off most of her inhalers now that she had an insurance change. She did get the approval for the Fasenra injections which is reassuring. We did give her the number for her to call the infusion center in order for her to get the scheduled to get the Fasenra injections. In the meantime she also needs to go back on Trelegy that is a very effective inhaler. She has been using the nebulizer 3 to 4 times a day and also using budesonide along with it. The patient still has significant wheezing on examination. She has gained weight which is concerned because she needs to have potentially a left knee replacement and she does know what to have issues with weight affecting her surgery. Therefore will hold off on additional prednisone at this time. She is working closely with Rheumatology regarding her rheumatoid arthritis and medications. 04/05/2023 the patient is here for a pulmonary follow-up visit. The patient has been having hard time with her breathing. Continues to have significant wheezing chest tightness. She does required her rescue inhaler multiple times a day. She has been on biologics. She is been on Fasenra injections. Although he did not appear to be working well for her. She continues on the Trelegy inhaler. She continues the methotrexate for her rheumatoid arthritis. This point the patient's asthma is uncontrolled. She will need additional prednisone. Since she is been on biologics and we do not see any significant improvement will go ahead and request a change in the biologic to Tezspire. she will continue on Trelegy and also the budesonide nebulizer therapy for now and also will be provided with a prednisone taper. Hopefully once she is on Tezspire and she sees the improvement then we can start deescalating some of her medicines. [facility] Medical History Allergies Asthma Asthma-COPD overlap syndrome Cataract Chronic allergic rhinitis Cough Long-term use of immunosuppressant medication Seropositive rheumatoid arthritis Surgical History History of knee replacement procedure of right knee Family History Father Asthma Maternal Grandmother Asthma Social History Household Members: Spouse Housing: House Alcohol intake: never Patient Tobacco Use Status: Never used Tobacco e-Cigarette/Vaping Use: Never Used Current occupational status: unemployed Sexual orientation: Straight/Heterosexual Gender identity: Female Cognitive needs: No Hearing needs: No Vision needs: Yes Review of Systems Const Denies night sweats ENT Denies change in voice, Denies lip swelling, Denies mouth pain, Reports nasal congestion, Reports nasal discharge and Denies tongue swelling Card Denies chest pain Resp Reports cough and Reports wheezing GI Denies abdominal pain Musc Denies no additional complaints Neuro Denies Neuro-related abnormal movements Psych Denies no additional complaints Wiley/Lymph Denies easy bleeding and Denies lymphadenopathy Aller/Immun Denies lip swelling, Denies tongue swelling and Reports wheezing Physical Exam Vital Signs: Last Vital Signs Pulse 84 04/05/23 10:21 Pulse Ox 98 04/05/23 10:21 Oxygen Delivery Method Room Air 04/05/23 10:21 BMI result Body Mass Index 32.5 Const General: alert Neck Neck: Yes normal visual inspection, Yes full ROM and Yes no lymphadenopathy Chest Chest palpation & inspection: normal inspection of the chest Resp Auscultation: wheezes and diminished lung sounds Cardio Rate: regular rate Rhythm: regular rhythm Heart sounds: S1 normal heart sound present and S2 normal heart sound present GI Palpation (GI): Soft to palpation and nontender Auscultation: normal bowel sounds Skin General skin exam: rashes and/or lesions noted Assessment & Plan Assessment & Plan (1) Asthma: Code(s): J45.909 - Unspecified asthma, uncomplicated Qualifiers: Asthma complication type: uncomplicated Asthma persistence: persistent Asthma severity: severe Qualified Code(s): J45.50 - Severe persistent asthma, uncomplicated (2) Chronic allergic rhinitis: Code(s): J30.9 - Allergic rhinitis, unspecified (3) Allergies: Code(s): T78.40XA - Allergy, unspecified, initial encounter Qualifiers: Encounter type: initial encounter Qualified Code(s): T78.40XA - Allergy, unspecified, initial encounter (4) Asthma-COPD overlap syndrome: Code(s): J44.9 - Chronic obstructive pulmonary disease, unspecified Plan continue Budesonide for now start Prednisone taper stop Trelegy 200, then segway to Airduo if too expensive start Breztri stop Fasenra Requesting she start Tezspire Continue Singulair F/U 2-3 months Medications: New gnznnltmew-caqgcguy-ergzgpihqf 160-9-4.8 mcg/actuation (Breztri Aerosphere) 2 inhalations inhalation BID 10.7 grams 11RF prednisone PO daily; Take 2 tabs daily x 5 days, then 1 tablet daily x 5 days 10 days 15 tabs 0RF Coding Level of Care Code Est Pt Level 4 (17286) Diagnoses Severe persistent asthma without complication J45.50 Asthma complication type: uncomplicated Asthma persistence: persistent Asthma severity: severe Chronic allergic rhinitis J30.9 Allergy, initial encounter T78.40XA Encounter type: initial encounter Asthma-COPD overlap syndrome J44.9 Time Spent (min) 17
== END 2023-04-05 10:41 | disposition home or self-care (01) ==
PROVIDERS: PCP Internal Medicine Gastroenterology; Visit Provider Hospitalist
DX: J45.50 Severe persistent asthma, uncomplicated (principal); J30.9 Allergic rhinitis, unspecified; T78.40XA Allergy, unspecified, initial encounter; J44.9 Chronic obstructive pulmonary disease, unspecified
CPT/HCPCS: 99214

== ENCOUNTER → 2023-04-05 10:11 | Outpatient (BNVA) | payer OTHER, SELFPAY | PROVIDERS: Visit Provider Hospitalist | DX: J45.50 Severe persistent asthma, uncomplicated (principal); J30.9 Allergic rhinitis, unspecified; J44.9 Chronic obstructive pulmonary disease, unspecified; T78.40XD Allergy, unspecified, subsequent encounter | CPT/HCPCS: 99212 ==

== ENCOUNTER 2023-04-30 13:32 | Outpatient (AMB) | payer OTHER, SELFPAY ==
[2023-04-30 13:54] VITALS: BP 112/58; PULSE 80; O2SAT 96
--- NOTE | 2023-04-30 13:54 | A.OFFVIS_ITS ---
Intake Vital Signs 04/30/23 13:54 Weight 79 kg BP 112/58 L Blood Pressure Location Rt brachial Position Sitting Pulse 80 Pulse Source Pulse Oximeter Pulse Oximetry (%) 96 Oxygen Delivery Method Room Air Intake Visit Reasons: Dupixent teach Allergies almond Allergy (Severe, Verified 04/30/23 13:54) Hives and Rash Medication List - Last Reconciled 04/30/23 by Valencia Floyd LPN albuterol sulfate 2.5 mg inhalation TID PRN albuterol sulfate 90 mcg/actuation 2 puffs inhalation Q6H PRN 30 days benralizumab (Fasenra) 30 mg subcut Q8W 365 days budesonide 0.5 mg (2 mL) inhalation BID 30 days xjrdjozzcz-vrlgmdur-pvtgiojaeb 160-9-4.8 mcg/actuation (Breztri Aerosphere) 2 inhalations inhalation BID diclofenac sodium 50 mg PO TID PRN dupilumab (Dupixent) 300 mg (2 mL) subcut Q2W 365 days etanercept (Enbrel) 50 mg subcut QWEEK iuyvylbxzly-hmhtlttpm-xyvnlpyk 200-62.5-25 mcg 1 ea PO DAILY 30 days folic acid 1 mg PO DAILY heating pads As directed hydroxychloroquine 300 mg (1.5 x 200 mg) PO DAILY ipratropium-albuterol 0.5 mg-3 mg(2.5 mg base)/3 mL 3 mL inhalation QID 90 days leg brace (Knee Support Brace) As directed methotrexate (PF) 15 mg (0.6 mL) subcut QWEEK montelukast 10 mg PO BEDTIME 90 days nebulizers As directed prednisone PO daily; Take 2 tabs daily x 5 days, then 1 tablet daily x 5 days 10 days Shower Chair As directed sulfasalazine 500 mg PO QID HPI Dupixent teach HPI Details Sahara is here for a Dupixent teach she was educated on hand washing, injection preparation, administration, and disposal. Sahara was able to return demonstrate proper technique for hand washing, injection preparation, administration and disposal of needle and states she has no questions at this time. Medication Dupixent 300mg/2mL pre-filled syringe (patient?s own meds) Loading dose of 600mg given by the patient in 2 SQ injections; injection #1 L abdomen ;? injection #2 R abdomen? Lot#[id number] expires 07/2023. Patient aware her next injection is in 15 days. Nurse visit only.? [facility] Medical History Allergies Asthma Asthma-COPD overlap syndrome Cataract Chronic allergic rhinitis Cough Long-term use of immunosuppressant medication Seropositive rheumatoid arthritis Surgical History History of knee replacement procedure of right knee Family History Father Asthma Maternal Grandmother Asthma Social History Household Members: Spouse Housing: House Alcohol intake: never Patient Tobacco Use Status: Never used Tobacco e-Cigarette/Vaping Use: Never Used Current occupational status: unemployed Sexual orientation: Straight/Heterosexual Gender identity: Female Cognitive needs: No Hearing needs: No Vision needs: Yes Assessment & Plan Assessment & Plan (1) Asthma-COPD overlap syndrome: Code(s): J44.9 - Chronic obstructive pulmonary disease, unspecified Coding Level of Care Code Established Pt Est Pt Level 1 (97403) Patient Type Established Diagnoses Asthma-COPD overlap syndrome J44.9 Comment NURSE VISIT ONLY
== END 2023-04-30 14:18 | disposition home or self-care (01) ==
PROVIDERS: PCP Internal Medicine Gastroenterology; Visit Provider Hospitalist
DX: J44.9 Chronic obstructive pulmonary disease, unspecified (principal)

== ENCOUNTER → 2023-04-30 13:32 | Outpatient (BNVA) | payer OTHER, SELFPAY | PROVIDERS: PCP Internal Medicine Gastroenterology; Visit Provider Hospitalist | DX: J44.9 Chronic obstructive pulmonary disease, unspecified (principal); Z71.89 Other specified counseling | CPT/HCPCS: 99211 ==

== ENCOUNTER 2023-05-15 12:43 | Outpatient (REF) | payer OTHER, SELFPAY ==
[2023-05-15 12:57] LABS: MANUAL DIFF FLAG NO
[2023-05-15 13:48] LABS: Basophils Percent Auto 0.3 % (0-2); Hematocrit 37.7 % (37.0-47.0); Hemoglobin 11.8 g/dl (12.0-16.0); Imm Gran Abs Auto 0.01 X10*3/uL (0.00-0.03); Imm Gran Pct Auto 0.3 % (0.0-0.4); Lymphocytes Percent Auto 26.5 % (20-40); Mean Corpuscular HGB Conc 31.3 g/dl (31.0-35.0); Mean Corpuscular Hemoglobin 28.6 pg (27.0-33.0); Mean Corpuscular Volume 91.3 fL (80.0-98.0); Mean Platelet Volume 11.2 fL (9.4-12.3); Monocytes Absolute Auto 0.5 X10*3/uL (0.1-1.2); Monocytes Percent Auto 13.2 % (2-11); Neutrophils Absolute Auto 2.2 x10*3/uL (2.0-8.3); Neutrophils Percent Auto 59.7 % (45-73); Platelet Count 290 X10*3/uL (160-400); Red Blood Count 4.13 X10*6/uL (4.20-5.50); Red Cell Distribution Width 14.3 % (11.0-16.0); White Blood Count 3.7 X10*3/uL (4.8-10.8)
[2023-05-15 14:28] LABS: Alanine Aminotransferase 14 U/L (0-31); Aspartate Amino Transferase 25 U/L (5-31); C Reactive Protein 1.06 mg/dL (< or = 0.50); Estimated Glomerular Filt Rate > 60
[2023-05-15 15:18] LABS: Erythrocyte Sedimentation Rate 64 MM/HR (0-20)
== END 2023-05-15 12:44 | disposition home or self-care (01) ==
LOC: HO.LAB 12:43
PROVIDERS: PCP Internal Medicine; Visit Provider Internal Medicine Rheumatology
DX: M05.79 Rheumatoid arthritis with rheumatoid factor of multiple sites without organ or systems involvement (principal); Z79.899 Other long term (current) drug therapy
CPT/HCPCS: 36415; 82565; 84450; 84460; 85025; 85652; 86140

== ENCOUNTER 2023-05-20 14:09 | Outpatient (AMB) | payer OTHER, SELFPAY ==
--- NOTE | 2023-05-20 14:10 | A.OFFVIS_ITS ---
Intake Vital Signs 05/20/23 14:11 Height 5 ft 1 in Weight 171 lb 15.369 oz BMI 32.5 BP 126/70 Blood Pressure Location Lt brachial Position Sitting Pulse 76 Pulse Source Pulse Oximeter Temp 97.5 F Temp Source Skin Pulse Oximetry (%) 96 Oxygen Delivery Method Room Air Intake Visit Reasons: ra Intake Note: Patient presents today to follow up on RA. MTX SubQ has been on backorder but patient was able to obtain vials from [facility] pharmacy. Requesting rx for syringes. C/o left knee pain. Would like cortisone injection. Program Trainer Required: No Information Interpreted: clinical only Accompanied by: Self / Same As Patient Allergies almond Allergy (Severe, Verified 05/20/23 14:16) Hives and Rash HPI HPI Comments 2 History of Present Illness Details The patient returns for evaluation of her rheumatoid arthritis. She remains on Enbrel 50 mg weekly, sulfasalazine 1 g b.i.d., diclofenac 50 once or twice a day, hydroxychloroquine 200 b.i.d., and folic acid 1 mg daily. At her last visit she reported some nausea after taking her 20 mg weekly methotrexate. This did not improve with splitting the dose to 10 b.i.d. on the day she takes it. We have since ordered methotrexate 15 mg prefilled syringes for her. However these were not available due to the shortage of the methotrexate. There is apparently a 50 mg per 2 mL vial of methotrexate available and she does have that here today. She also has been prescribed although has not pick them up at the pharmacy some syringes to use, taking 0.6 cc of the methotrexate solution once a week. She needs some instruction on how to draw it up to from the vial. The joints are fairly stable with exception of the left knee. This has clearly got worse in the past month. She had a right knee replacement last year and that is doing fairly well. She had thought about having the left knee done but has been holding off because her mother was ill in [place]. The mother has subsequently but the patient's father now is depressed and needs assistance at his home in [place]. She may go there in the next few weeks. She has been reluctant to schedule surgery because of these events within the family. [facility] Medical History Allergies Asthma Asthma-COPD overlap syndrome Cataract Chronic allergic rhinitis Cough Long-term use of immunosuppressant medication Seropositive rheumatoid arthritis Surgical History History of knee replacement procedure of right knee Family History Father Asthma Maternal Grandmother Asthma Social History Household Members: Spouse Housing: House Alcohol intake: never Patient Tobacco Use Status: Never used Tobacco e-Cigarette/Vaping Use: Never Used Current occupational status: unemployed Sexual orientation: Straight/Heterosexual Gender identity: Female Cognitive needs: No Hearing needs: No Vision needs: Yes Review of Systems Const Details: Negative for appetite change, weight change, fever, chills, malaise and fatigue Card Details: Negative chest pain, edema and syncope Resp Details: She is occasionally having flare-ups of asthma. The pulmonary doctor did prescribe some prednisone but the patient so far it has thought she does not need it. She is doing better with a new inhaler. Negative for cough and sputum production. GI Details: Nausea as noted above. Negative indigestion/heartburn, nausea, abdominal pain, bowel changes, diarrhea, constipation and bloody stool. Details: Negative for dysuria, hematuria, nocturia, decreased force/flow and genital discharge Skin/Breast Details: Negative for itching, rash, hives, Raynaud's symptoms, sun sensitivity, and skin cancer Psych Details: Family stress in her parents who of been ill. Her mother of an NH. She wonders if she could have that problem. Negative for anxiety, depression Endo Details: Negative for polyuria and polydypsia Wiley/Lymph Details: Negative for excessive bruising or bleeding. Physical Exam Vital Signs: Last Vital Signs Temp 97.5 F 05/20/23 14:11 Pulse 76 05/20/23 14:11 BP 126/70 05/20/23 14:11 Pulse Ox 96 05/20/23 14:11 Oxygen Delivery Method Room Air 05/20/23 14:11 BMI result Body Mass Index 32.5 APPEARANCE: Patient in no acute distress EYES no redness, pupils equal and reactive to light, eyelids normal EXTREMITIES: No edema, no calf tenderness, normal peripheral pulses. JOINT EXAM: Cervical Spine:.? Mild discomfort with extremes of motion.? No tenderness. Thoracic Spine:.? No scoliosis.? No tenderness on palpation. Lumbar Spine:.? Alignment normal.? Full range of motion without pain, no tenderness. Chest Wall:.? No tenderness, swelling, increased warmth or erythema. Hands:? Right:? joint mild swelling of the 1st 4 MCP joints and the 1st 3 MCP are mildly tender..? There is soft tissue swelling of the 1st 3 PIP joints with slight tenderness at the 3rd PIP.? Left:? There is mild swelling of all the MCP joints.? The 3rd MCP is slightly tender.; there is some mild flexion deformity in these MCPs.? There is mild tenderness and swelling in the thumb IP in the 2nd and 3rd PIP joints.? No thenar atrophy or sensory loss. Wrists:.? Right:? Slight pain with flexion extension 75 degrees with some minimal tenderness but no swelling.? Left:? Mild pain with flexion at 60 degrees or extension at 45 degrees.? There is some mild soft tissue swelling and mild moderate tenderness.? No redness or warmth. Elbows:. Normal pain-free range of motion without tenderness, swelling, increased warmth or erythema. Shoulders:? Right: Mild? pain with extremes of normal abduction or with more than 20 degrees of internal or external rotation.? There is mild anterior tenderness.? There is questionable abductor weakness but no swelling or adenopathy.? Left:? Mild to moderate pain with abduction at 90 degrees or with more than 20 degrees of internal or external rotation.? There is mild anterior and posterior tenderness.? Questionable abductor weakness without adenopathy.. Hips:.? Full range of motion without pain. Hip bursa:.? No tenderness. Knees:.??Right:? Large anterior scar, healed well with some slight scaling.? She has no discomfort with full extension or flexion to 90 degrees.? There is no swelling, tenderness, redness or warmth.? Left: mild to moderate pain with 45 degrees of range of motion.? She can with much pain passively extend the knee.? There is a small? to moderate effusion without redness or warmth.? She has mild to moderate popliteal, medial and lateral tenderness.? I do not feel any popliteal swelling. Ankles:.? Normal pain-free range of motion without tenderness, swelling, increased warmth or erythema. Feet: Slight tenderness in the MTP joints.? Minimal swelling and bony enlargement at the 1st MTP.? There are hammertoe deformities at the right 2nd 3rd toe and left 2nd toe but none of these are tender.? ?? Office Procedures Joint Injection/Drain Joint Injection/Drain Primary Site: left knee Injected: 40 mg of, Kenalog, with 1 mL of and 1% plain lidocaine Coding Details: With the patient's consent the left knee was prepped with ChloraPrep and alcohol. The skin was anesthetized with 2 cc of 1% lidocaine. The knee was then injected with 40 mg of triamcinolone and 1 cc of I % lidocaine. The patient tolerated the procedure with no immediate adverse effects. 02757 - Large joint Procedure code (CPT) selection complete Results Reviewed Results Reviewed: Laboratory Tests 05/15/23 12:56 WBC 3.7 L Hgb 11.8 L ESR 64 H Creatinine 0.73 AST 25 ALT 14 C-Reactive Protein 1.06 H Assessment & Plan Assessment & Plan (1) Seropositive rheumatoid arthritis of multiple joints: Comment: Onset about 2000; RF and CCP positive. Erosive changes on hand films 07/18. On hydroxychloroquine and sulfasalzine since ? 2004? Methotrexate added 05/18. Enbrel added September 2012. Eye exam normal January 2014, 2014, November 2015, 05/25; 09/23; 03/27, 09/2020, 03/2021,10/2021, 04/2022 Methotrexate stopped 03/22 due to shingles. hydroxychloroquine, Enbrel and sulfasalazine continued, methotrexate added back 06/22. lost coverage for Enbrel 2021.restarted 07/2022May 2023: Methotrexate changed to 15 mg subcu weekly Code(s): M05.79 - Rheumatoid arthritis with rheumatoid factor of multiple sites without organ or systems involvement (2) Osteoarthritis of left knee: Code(s): M17.12 - Unilateral primary osteoarthritis, left knee Plan The patient is on a multi drug regimen here but still has some painful synovitis in the left knee. I think much of that is probably osteoarthritis. Another corticosteroid injection today seems reasonable for the knee. We reviewed potential benefits and side effects. With the patient's consent the left knee was prepped with ChloraPrep and alcohol. The skin was anesthetized with 2 cc of 1% lidocaine. The knee was then injected with 40 mg of triamcinolone and 1 cc of I % lidocaine. The patient tolerated the procedure with no immediate adverse effects. She will waste picker the syringes for the methotrexate later today but we had the emergency medicine medical director work with her to try to learn how to use the syringes to draw the methotrexate solution from the vial. It does not appear like she has that skill mastered yet so so we will have her come back in a week with the RN for further instruction. The other joints are stable. I am also concerned that the nausea continues. I suspect this is in part related to the diclofenac so she should hold that for now. She can take acetaminophen for pain in its place. She would be due for lab work before the next visit in about 3 months. Orders: Orders Erythrocyte Sedimentation Rate Today M05.79 - Rheumatoid arthritis with rheumatoid factor of multiple sites without organ or systems involvement C Reactive Protein Today M05.79 - Rheumatoid arthritis with rheumatoid factor of multiple sites without organ or systems involvement Aspartate Amino Transferase Today M05.79 - Rheumatoid arthritis with rheumatoid factor of multiple sites without organ or systems involvement, Z79.899 - Other terminal make up operator (current) drug therapy Complete Blood Count Auto Diff Today M05.79 - Rheumatoid arthritis with rheumatoid factor of multiple sites without organ or systems involvement, Z79.899 - Other terminal make up operator (current) drug therapy Creatinine Today M05.79 - Rheumatoid arthritis with rheumatoid factor of multiple sites without organ or systems involvement, Z79.899 - Other terminal make up operator (current) drug therapy Alanine Aminotransferase Today M05.79 - Rheumatoid arthritis with rheumatoid factor of multiple sites without organ or systems involvement, Z79.899 - Other terminal make up operator (current) drug therapy Lipid Panel Today M05.79 - Rheumatoid arthritis with rheumatoid factor of multiple sites without organ or systems involvement, Z82.49 - Family history of ischemic heart disease and other diseases of the circulatory system AMB Joint Injection/Aspiration Today M17.12 - Unilateral primary osteoarthritis, left knee Medications: Discontinued diclofenac sodium Discontinued Reason: Doctor's Order 50 mg PO TID PRN 90 tabs 5RF for pain M17.12 - Unilateral primary osteoarthritis, left knee Coding Level of Care Code Est Pt Level 4 (11447) Diagnoses Seropositive rheumatoid arthritis of multiple joints M05.79 Osteoarthritis of left knee M17.12 CPT Codes Coding - Large joint: 25054 - Large joint ([id number])
[2023-05-20 14:11] VITALS: BP 126/70; PULSE 76; TEMP 36.4; O2SAT 96; BMI 32.5
== END 2023-05-20 15:09 | disposition home or self-care (01) ==
PROVIDERS: PCP Internal Medicine; Visit Provider Internal Medicine Rheumatology
DX: M05.79 Rheumatoid arthritis with rheumatoid factor of multiple sites without organ or systems involvement (principal); M17.12 Unilateral primary osteoarthritis, left knee
CPT/HCPCS: 20610; 99214

== ENCOUNTER → 2023-05-20 14:09 | Outpatient (BNVA) | payer OTHER, SELFPAY | PROVIDERS: PCP Internal Medicine; Visit Provider Internal Medicine Rheumatology | DX: M05.79 Rheumatoid arthritis with rheumatoid factor of multiple sites without organ or systems involvement (principal); M17.12 Unilateral primary osteoarthritis, left knee | CPT/HCPCS: 20610; 99212 ==

== ENCOUNTER 2023-07-05 11:23 | Outpatient (AMB) | payer OTHER, SELFPAY ==
[2023-07-05 11:27] VITALS: PULSE 83; O2SAT 96; BMI 32.5
--- NOTE | 2023-07-05 11:27 | MHC.OFFVIS ---
Intake Vital Signs 07/05/23 11:27 Height 5 ft 1 in Weight 172 lb BMI 32.5 Pulse 83 Pulse Source Pulse Oximeter Pulse Oximetry (%) 96 Oxygen Delivery Method Room Air Intake Visit Reasons: Asthma Computer Equipment Repairer Required: No Allergies almond Allergy (Severe, Verified 07/05/23 11:28) Hives and Rash HPI HPI Comments History of Present Illness Details Patient is a 58-year-old woman with known history of rheumatoid arthritis in addition to severe persistent. She has been struggling with her asthma now for many years. But has been getting worse in few months. She has tried many inhalers previously Symbicort and now recently switched to Trelegy inhaler by her doctors. She did not see any significant improvement. She typically responds better to the nebulized therapy. She does use the nebulizer 3 to 4 times a day. The patient is also required prednisone for her exacerbation on a frequent basis. In regards of her rheumatoid arthritis she has having discomfort but has been TNF inhibitors and also methotrexate for many years. She is not aware of any pulmonary adverse effects these medications. In the office she has significant wheezing. Patient did have evidence significant bronchospasms and she did received 2 DuoNeb treatments with significant improvement although she was to wheezing. Patient did receive Solu-Medrol 125 mg IM x1 to further alleviate her. The patient likely needs more aggressive asthma therapy in the form biologic therapy or in the form nebulize therapies. Therefore, will keep her on the trilogy and DuoNeb and also add budesonide nebulized therapy that she would use conjunction with the patient will undergo work in addition to to see if she biologic therapies at this time in the meantime were assess her hypersensitivity pneumonitis since she does have birds in her home. 04/20/2022 the patient is here for a pulmonary follow-up visit. Seems to be doing better. The patient continues to be on the Trelegy. She also continues on the Fasenra injections. She has not required any additional prednisone. She also responds well to the budesonide although is very expensive for her. Explained to her that with the Fasenra I am hopeful that she does not require additional inhaled steroid such as budesonide. The patient only has samples right now for Trelegy. When she runs out she may not be able to afford. Therefore I will give her prescription on paper for AirDuo that she could still be there with her insurance or with good Rx card. This to be a lot cheaper and more reasonable for her. The patient still doing with significant active arthritis. She is working closely with Rheumatology in order to start biologic therapy. She continues to be on high dose of methotrexate. I do not believe at this point that the methotrexate is affecting her lungs adversely. 10/17/2022 the patient is here for a pulmonary follow-up visit. The patient still having hard time with her breathing. She completed a course of prednisone for her arthritis and that was helping her breathing. She has been off most of her inhalers now that she had an insurance change. She did get the approval for the Fasenra injections which is reassuring. We did give her the number for her to call the infusion center in order for her to get the scheduled to get the Fasenra injections. In the meantime she also needs to go back on Trelegy that is a very effective inhaler. She has been using the nebulizer 3 to 4 times a day and also using budesonide along with it. The patient still has significant wheezing on examination. She has gained weight which is concerned because she needs to have potentially a left knee replacement and she does know what to have issues with weight affecting her surgery. Therefore will hold off on additional prednisone at this time. She is working closely with Rheumatology regarding her rheumatoid arthritis and medications. 04/05/2023 the patient is here for a pulmonary follow-up visit. The patient has been having hard time with her breathing. Continues to have significant wheezing chest tightness. She does required her rescue inhaler multiple times a day. She has been on biologics. She is been on Fasenra injections. Although he did not appear to be working well for her. She continues on the Trelegy inhaler. She continues the methotrexate for her rheumatoid arthritis. This point the patient's asthma is uncontrolled. She will need additional prednisone. Since she is been on biologics and we do not see any significant improvement will go ahead and request a change in the biologic to Tezspire. she will continue on Trelegy and also the budesonide nebulizer therapy for now and also will be provided with a prednisone taper. Hopefully once she is on Tezspire and she sees the improvement then we can start deescalating some of her medicines. 07/05/2023 The patient is here for a pulmonary follow up visit. She has been doing very well on the dupixent. Does have intermittent cough, moderate in severity. Associated with wheezing. She has been using her respiratory therapy as well. She has been off the prednisone . She has been having significant knee pain. She has significant OA and will need a TKR. She also has significant RA and currently on biologic therapy. [facility] Medical History Allergies Asthma Asthma-COPD overlap syndrome Cataract Chronic allergic rhinitis Cough Long-term use of immunosuppressant medication Seropositive rheumatoid arthritis Surgical History History of knee replacement procedure of right knee Family History Father Asthma Maternal Grandmother Asthma Social History Household Members: Spouse Housing: House Alcohol intake: never Patient Tobacco Use Status: Never used Tobacco e-Cigarette/Vaping Use: Never Used Current occupational status: unemployed Sexual orientation: Straight/Heterosexual Gender identity: Female Cognitive needs: No Hearing needs: No Vision needs: Yes Review of Systems Const Denies night sweats ENT Denies change in voice, Denies lip swelling, Denies mouth pain, Reports nasal congestion, Reports nasal discharge and Denies tongue swelling Card Denies chest pain Resp Reports cough and Reports wheezing GI Denies abdominal pain Musc Denies no additional complaints Neuro Denies Neuro-related abnormal movements Psych Denies no additional complaints Wiley/Lymph Denies easy bleeding and Denies lymphadenopathy Aller/Immun Denies lip swelling, Denies tongue swelling and Reports wheezing Physical Exam Vital Signs: Last Vital Signs Pulse 83 07/05/23 11:27 Pulse Ox 96 07/05/23 11:27 Oxygen Delivery Method Room Air 07/05/23 11:27 BMI result Body Mass Index 32.5 Const General: alert Neck Neck: Yes normal visual inspection, Yes full ROM and Yes no lymphadenopathy Chest Chest palpation & inspection: normal inspection of the chest Resp Auscultation: no wheezes and diminished lung sounds Cardio Rate: regular rate Rhythm: regular rhythm Heart sounds: S1 normal heart sound present and S2 normal heart sound present GI Palpation (GI): Soft to palpation and nontender Auscultation: normal bowel sounds Skin General skin exam: rashes and/or lesions noted Immunizations pneumoc 20-danilo conj-dip cr(PF) 0.5 mL IM syringe Performing Provider: Bg Garcia MD Performing Location: [facility] [place] Pulmonology Services Administered by: Bg Garcia MD on 07/05/23 12:56 Dose Route Admin Location Dispensed Lot Number Expiration Date [employer] Log[employer] Operations Director 0.5 mL IM Left Deltoid 0.5 mL [id number] 01/06/24 [employer] VIS Given Date VIS Provided VIS Publication Date 07/05/23 Single Vaccine 21 Eligibility Eligibility Date Funding Source Not [facility] Eligible 07/05/23 Private Assessment & Plan Assessment & Plan (1) Asthma: Code(s): J45.909 - Unspecified asthma, uncomplicated Qualifiers: Asthma complication type: uncomplicated Asthma persistence: persistent Asthma severity: severe Qualified Code(s): J45.50 - Severe persistent asthma, uncomplicated (2) Chronic allergic rhinitis: Code(s): J30.9 - Allergic rhinitis, unspecified (3) Asthma-COPD overlap syndrome: Code(s): J44.9 - Chronic obstructive pulmonary disease, unspecified Plan stop Budesonide for now continue Breztri Duoneb as needed continue Dupixent Continue Singulair Needs to see Orthopedics for a TKR F/U 6 months Orders: Orders Pneumococcal 20 Immunization 07/05/23 Z23 - Encounter for immunization Medications: Refilled ipratropium-albuterol 0.5 mg-3 mg(2.5 mg base)/3 mL 3 mL inhalation QID 90 days 360 ea 3RF J44.9 - Chronic obstructive pulmonary disease, unspecified Discontinued budesonide Discontinued Reason: Doctor's Order 0.5 mg (2 mL) inhalation BID 30 days 120 mL 11RF J44.9 - Chronic obstructive pulmonary disease, unspecified Coding Level of Care Code Est Pt Level 4 (79025) Diagnoses Severe persistent asthma without complication J45.50 Asthma complication type: uncomplicated Asthma persistence: persistent Asthma severity: severe Chronic allergic rhinitis J30.9 Asthma-COPD overlap syndrome J44.9 Time Spent (min) 17
== END 2023-07-05 11:44 | disposition home or self-care (01) ==
PROVIDERS: PCP Internal Medicine Gastroenterology; Visit Provider Hospitalist
DX: J45.50 Severe persistent asthma, uncomplicated (principal); J30.9 Allergic rhinitis, unspecified; J44.9 Chronic obstructive pulmonary disease, unspecified
CPT/HCPCS: 99214

== ENCOUNTER → 2023-07-05 11:23 | Outpatient (BNVA) | payer OTHER, SELFPAY | PROVIDERS: PCP Internal Medicine Gastroenterology; Visit Provider Hospitalist | DX: J44.9 Chronic obstructive pulmonary disease, unspecified (principal); J45.50 Severe persistent asthma, uncomplicated; J30.9 Allergic rhinitis, unspecified; Z23 Encounter for immunization | CPT/HCPCS: 90471; 90677; 99212 ==

== ENCOUNTER 2023-07-25 11:59 | Outpatient (REF) | payer OTHER, SELFPAY ==
[2023-07-25 13:16] LABS: MANUAL DIFF FLAG NO
[2023-07-25 13:31] LABS: Basophils Percent Auto 0.8 % (0-2); Eosinophils Absolute Auto 0.4 X10*3/uL (0.0-0.4); Hematocrit 36.2 % (37.0-47.0); Hemoglobin 11.5 g/dl (12.0-16.0); Lymphocytes Absolute Auto 1.1 X10*3/uL (1.2-4.9); Lymphocytes Percent Auto 22.3 % (20-40); Mean Corpuscular HGB Conc 31.8 g/dl (31.0-35.0); Mean Corpuscular Hemoglobin 28.8 pg (27.0-33.0); Mean Corpuscular Volume 90.7 fL (80.0-98.0); Mean Platelet Volume 11.6 fL (9.4-12.3); Monocytes Absolute Auto 0.6 X10*3/uL (0.1-1.2); Monocytes Percent Auto 11.3 % (2-11); Neutrophils Percent Auto 58.6 % (45-73); Platelet Count 317 X10*3/uL (160-400); Red Blood Count 3.99 X10*6/uL (4.20-5.50); Red Cell Distribution Width 14.1 % (11.0-16.0); White Blood Count 5.1 X10*3/uL (4.8-10.8)
[2023-07-25 14:04] LABS: Alanine Aminotransferase 11 U/L (0-31); Aspartate Amino Transferase 18 U/L (5-31); C Reactive Protein 2.69 mg/dL (< or = 0.50); Cholesterol 127 mg/dL (<200); Estimated Glomerular Filt Rate > 60; HDL Cholesterol 38 mg/dL (>40); LDL Cholesterol Calculated 80 mg/dL (<100); Triglycerides 45 mg/dL (<150)
[2023-07-25 14:14] LABS: Erythrocyte Sedimentation Rate 67 MM/HR (0-20)
== END 2023-07-25 12:00 | disposition home or self-care (01) ==
LOC: HO.HMGCLDS 11:59
PROVIDERS: PCP Internal Medicine; Visit Provider Internal Medicine Rheumatology
DX: M05.79 Rheumatoid arthritis with rheumatoid factor of multiple sites without organ or systems involvement (principal); Z82.49 Family history of ischemic heart disease and other diseases of the circulatory system; Z79.899 Other long term (current) drug therapy
CPT/HCPCS: 36415; 80061; 82565; 84450; 84460; 85025; 85652; 86140

== ENCOUNTER 2023-07-31 15:05 | Outpatient (AMB) | payer OTHER, SELFPAY ==
[2023-07-31 15:21] VITALS: BP 126/72; PULSE 84; RESP 16; TEMP 37; O2SAT 98; BMI 31.8
--- NOTE | 2023-07-31 15:21 | MHC.OFFVIS ---
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 Allergies almond Allergy (Severe, Verified 07/31/23 15:28) Hives and Rash Medication List - Last Reconciled 07/31/23 by Shira Ramos RN albuterol sulfate 2.5 mg inhalation TID PRN albuterol sulfate 90 mcg/actuation 2 puffs inhalation Q6H PRN 30 days hmrcazekrl-kyrycdne-bsyqvmdwxo 160-9-4.8 mcg/actuation (Breztri Aerosphere) 2 inhalations inhalation BID dupilumab (Dupixent) 300 mg (2 mL) subcut Q2W 365 days etanercept (Enbrel) 50 mg subcut QWEEK bfkgjmlfjuj-dlyvuedbk-wivttznp 200-62.5-25 mcg 1 ea PO DAILY 30 days folic acid 1 mg PO DAILY heating pads As directed hydroxychloroquine 300 mg (1.5 x 200 mg) PO DAILY insulin syringe-needle U-100 (BD Insulin Syringe) Inject 15 mg methotrexate (.6cc) 25 mg/cc once a week ipratropium-albuterol 0.5 mg-3 mg(2.5 mg base)/3 mL 3 mL inhalation QID 90 days leg brace (Knee Support Brace) As directed methotrexate (PF) (Rasuvo (PF)) mg subcut montelukast 10 mg PO BEDTIME 90 days nebulizers As directed Shower Chair As directed sulfasalazine 500 mg PO QID tolterodine ER 2 mg PO DAILY HPI HPI Comments History of Present Illness Details Ms. Shoemaker, 58yoF returns for evaluation of her rheumatoid arthritis. She remains on Enbrel 50 mg weekly, sulfasalazine 1 g b.i.d., diclofenac 50 once or twice a day, hydroxychloroquine 200 b.i.d., and folic acid 1 mg daily. At her last she was switched from oral 20 mg weekly methotrexate to Subq due to nausea. The methotrexate 15 mg prefilled syringes were ordered but were not available due to the shortage of the methotrexate. She has been using the self aspirator 50 mg per 2 mL vial of methotrexate but finds it challenging to pull up the solution due to reduced dexterity. She has increased swelling and synovitis to he hands and the left knee cotninues to be painful and stiffness to the right knee. She had a right knee replacement last year and that is doing fairly well but cannot bend it. She had thought about having the left knee done but has been holding off because her mother was ill in [place]. The mother has subsequently but the patient's father now is depressed and needs assistance at his home in [place]. She may go there in the next few weeks. She has been reluctant to schedule surgery because of these events within the family. [facility] Medical History (Updated 07/31/23 @ 16:38 by WING Hall) Screening examination for infectious disease Left knee pain Cataract Long-term use of immunosuppressant medication Seropositive rheumatoid arthritis Asthma-COPD overlap syndrome Cough Allergies Chronic allergic rhinitis Asthma Surgical History History of knee replacement procedure of right knee Family History Father Asthma Maternal Grandmother Asthma Social History Household Members: Spouse Housing: House Alcohol intake: never Patient Tobacco Use Status: Never used Tobacco e-Cigarette/Vaping Use: Never Used Current occupational status: unemployed Sexual orientation: Straight/Heterosexual Gender identity: Female Cognitive needs: No Hearing needs: No Vision needs: Yes Review of Systems Const All systems reviewed & are unremarkable except as noted in HPI and below Physical Exam Vital Signs: Last Vital Signs Temp 98.6 F 07/31/23 15:21 Pulse 84 07/31/23 15:21 Resp 16 07/31/23 15:21 BP 126/72 07/31/23 15:21 Pulse Ox 98 07/31/23 15:21 Oxygen Delivery Method Room Air 07/31/23 15:21 BMI result Body Mass Index 31.8 APPEARANCE: Patient in no acute distress EYES no redness, pupils equal and reactive to light, eyelids normal EXTREMITIES: No edema, no calf tenderness, normal peripheral pulses. JOINT EXAM: Cervical Spine:.? Mild discomfort with extremes of motion.? No tenderness. Thoracic Spine:.? No scoliosis.? No tenderness on palpation. Lumbar Spine:.? Alignment normal.? Full range of motion without pain, no tenderness. Chest Wall:.? No tenderness, swelling, increased warmth or erythema. Hands:? Right:? joint mild swelling of the 1st 4 MCP joints and the 1st 3 MCP are mildly tender..? There is soft tissue swelling of the 1st 3 PIP joints with slight tenderness at the 3rd PIP.? Left:? There is mild swelling of all the MCP joints.? The 3rd MCP is slightly tender.; there is some mild flexion deformity in these MCPs.? There is mild tenderness and swelling in the thumb IP in the 2nd and 3rd PIP joints.? No thenar atrophy or sensory loss. Wrists:.? Right:? Slight pain with flexion extension 75 degrees with some minimal tenderness but no swelling.? Left:? Mild pain with flexion at 60 degrees or extension at 45 degrees.? There is some mild soft tissue swelling and mild moderate tenderness.? No redness or warmth. Elbows:. Normal pain-free range of motion without tenderness, swelling, increased warmth or erythema. Shoulders:? Right: Mild? pain with extremes of normal abduction or with more than 20 degrees of internal or external rotation.? There is mild anterior tenderness.? There is questionable abductor weakness but no swelling or adenopathy.? Left:? Mild to moderate pain with abduction at 90 degrees or with more than 20 degrees of internal or external rotation.? There is mild anterior and posterior tenderness.? Questionable abductor weakness without adenopathy.. Hips:.? Full range of motion without pain. Hip bursa:.? No tenderness. Knees:.??Right:? Large anterior scar, healed well with some slight scaling.? She has no discomfort with full extension or flexion to 90 degrees.? There is no swelling, tenderness, redness or warmth.? Left: mild to moderate pain with 45 degrees of range of motion.? She can with much pain passively extend the knee.? There is a small? to moderate effusion without redness or warmth.? She has mild to moderate popliteal, medial and lateral tenderness.? I do not feel any popliteal swelling. Ankles:.? Normal pain-free range of motion without tenderness, swelling, increased warmth or erythema. Feet: Slight tenderness in the MTP joints.? Minimal swelling and bony enlargement at the 1st MTP.? There are hammertoe deformities at the right 2nd 3rd toe and left 2nd toe but none of these are tender.? ?? Results Reviewed Results Reviewed: Laboratory Tests 07/25/23 12:09 WBC 5.1 RBC 3.99 L Hgb 11.5 L Hct 36.2 L ESR 67 H AST 18 ALT 11 C-Reactive Protein 2.69 H Assessment & Plan Assessment & Plan (1) Seropositive rheumatoid arthritis of multiple joints: Comment: Onset about 2000; RF and CCP positive. Erosive changes on hand films 07/18. On hydroxychloroquine and sulfasalzine since ? 2004? Methotrexate added 05/18. Enbrel added September 2012. Eye exam normal January 2014, 2014, November 2015, 05/25; 09/23; 03/27, 09/2020, 03/2021,10/2021, 04/2022 Methotrexate stopped 03/22 due to shingles. hydroxychloroquine, Enbrel and sulfasalazine continued, methotrexate added back 06/22. 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 Much of the knee is probably osteoarthritis and would benefit from ortho referral so I will send that in. Perhaps HLA injections is an option. The last injection lasted three weeks per patient. I have considered to start her on RINVOQ given the persistent synovitis and knee pain and continuous marked elevation in ESR/CRP. She has been on Enbrel for approximately 3 years. It is the hope that this is provide more symptomatic relief and reduce the systemic inflammation. I will obtain an xray for her knee. #Snf Use: We will obtain labs for starting Rinvoq. Lipid panel is grossly normal. We will continue to monitor CBC and LFTS while on the DMARDs. Follow-up in 8 weeks. I have spent 30 minutes reviewing chart, evaluating patient and documenting. Orders: Orders XR knee LT 3V Today M05.79 - Rheumatoid arthritis with rheumatoid factor of multiple sites without organ or systems involvement, M17.12 - Unilateral primary osteoarthritis, left knee Hepatitis A,B,C Profile Today Z11.9 - Encounter for screening for infectious and parasitic diseases, unspecified T Spot TB Today Z11.9 - Encounter for screening for infectious and parasitic diseases, unspecified Referrals Orthopedics Referral M17.12 - Unilateral primary osteoarthritis, left knee, M25.562 - Pain in left knee Medications: Refilled folic acid 1 mg PO DAILY 90 tabs 3RF M05.79 - Rheumatoid arthritis with rheumatoid factor of multiple sites without organ or systems involvement Coding Level of Care Code Tele Est Pt Level 4 (81211) Diagnoses Seropositive rheumatoid arthritis of multiple joints M05.79 Primary osteoarthritis of left knee M17.12 Osteoarthritis type: primary Long-term use of immunosuppressant medication Z79.899 Chronic pain of left knee M25.562; G89.29 Chronicity: chronic Screening examination for infectious disease Z11.9
== END 2023-07-31 16:09 | disposition home or self-care (01) ==
PROVIDERS: PCP Internal Medicine; Visit Provider Nurse Practitioner Family
DX: M05.79 Rheumatoid arthritis with rheumatoid factor of multiple sites without organ or systems involvement (principal); M17.12 Unilateral primary osteoarthritis, left knee; Z79.899 Other long term (current) drug therapy; M25.562 Pain in left knee; G89.29 Other chronic pain; Z11.9 Encounter for screening for infectious and parasitic diseases, unspecified
CPT/HCPCS: 99214

== ENCOUNTER → 2023-07-31 15:05 | Outpatient (BNVA) | payer OTHER, SELFPAY | PROVIDERS: PCP Internal Medicine; Visit Provider Nurse Practitioner Family | DX: M05.79 Rheumatoid arthritis with rheumatoid factor of multiple sites without organ or systems involvement (principal); Z11.9 Encounter for screening for infectious and parasitic diseases, unspecified; M17.12 Unilateral primary osteoarthritis, left knee; M25.562 Pain in left knee; G89.29 Other chronic pain; Z79.899 Other long term (current) drug therapy | CPT/HCPCS: 99212 ==

== ENCOUNTER 2023-08-07 12:48 | Outpatient (REF) | payer OTHER, SELFPAY ==
--- NOTE | ~2023-08-07 | XR_ITS ---
EXAMINATION: XR KNEE, LEFT CLINICAL INFORMATION: Left knee osteoarthritis COMPARISON: None available. TECHNIQUE: Three views of the left knee. FINDINGS: BONES: Bony structures are intact. Marked sclerosis and osteophytosis are seen in left medial femoral condyle, medial tibial plateau, left patellar articular border and distal left femoral articular trochlea. There is no focal bone destruction or periosteal reaction seen. JOINTS: Alignment of joints is normal. SOFT TISSUE: Left suprapatellar fat pad shows bulging increase in density. No radiopaque foreign body or abnormal air collection is seen. XR/XR knee LT 3V IMPRESSION: 1. Advanced medial compartment left tibiofemoral joint and left patellofemoral joint osteoarthritis. 2. Left knee effusion is present. 3. No fracture or dislocation or signs of osteomyelitis are found.
== END 2023-08-07 12:49 | disposition home or self-care (01) ==
LOC: HO.XRAY 12:48
PROVIDERS: PCP Internal Medicine; Visit Provider Nurse Practitioner Family
DX: M17.12 Unilateral primary osteoarthritis, left knee (principal); M05.79 Rheumatoid arthritis with rheumatoid factor of multiple sites without organ or systems involvement
CPT/HCPCS: 73562

== ENCOUNTER 2023-08-19 11:05 | Outpatient (AMB) | payer OTHER, SELFPAY ==
[2023-08-19 11:06] VITALS: BMI 31.7
--- NOTE | 2023-08-19 11:06 | A.OFFVIS_ITS ---
Intake Vital Signs 08/19/23 11:06 Height 5 ft 1 in Weight 168 lb BMI 31.7 Intake Visit Reasons: New Pt - Left Knee OA Intake Note: Sahara is a 58 year old female who presents today as a new patient with complaints of left knee pain. Santa reports ongoing knee pain for quite some time now, history of cortisone injections with mild relief. She is looking to discuss gel injections or cortisone Allergies almond Allergy (Severe, Verified 07/31/23 15:28) Hives and Rash HPI New Pt - Left Knee OA HPI Details Sahara is a 58 year old woman who presents with complaints of left knee OA pain. She complains of pain with daily activity, worse with prolonged walking, standing, or using stairs. SHe is unable to get through her ADLs and has constant pain. Her QOL is decreased and she feels injections have not been helpful. She has RA and has followed with Rheumatology for several years. She takes multiple medications for her RA, including Enbrel & Methotrexate, but these have not been very helpful for her knee pain. She would like to discuss treatment options, she reports mild relief from steroid injections in the past. She has a hx of a right TKA in 2022, at an outside clinic. She says this went well and she is happy with the results of her surgery. [facility] Medical History (Updated 07/31/23 @ 16:38 [facility] Screening examination for infectious disease Left knee pain Cataract Long-term use of immunosuppressant medication Seropositive rheumatoid arthritis Asthma-COPD overlap syndrome Cough Allergies Chronic allergic rhinitis Asthma Surgical History History of knee replacement procedure of right knee Family History Father Asthma Maternal Grandmother Asthma Social History Household Members: Spouse Housing: House Alcohol intake: never Patient Tobacco Use Status: Never used Tobacco e-Cigarette/Vaping Use: Never Used Current occupational status: unemployed Sexual orientation: Straight/Heterosexual Gender identity: Female Cognitive needs: No Hearing needs: No Vision needs: Yes Review of Systems Const All systems reviewed & are unremarkable except as noted in HPI and below Physical Exam Vital Signs: BMI result Body Mass Index 31.7 Const General: no acute distress, alert and awake Orientation/consciousness: patient oriented x3 HEENT Head: Yes normocephalic and Yes atraumatic Eyes EOM: EOMs intact bilaterally Resp Effort & Inspection: normal respiratory effort and able to speak in complete sentences Cardio Jugular venous distension: no JVD Skin General skin exam: turgor normal Rashes: no rashes Neuro General: patient oriented x3 Psych Appearance: grossly normal Affect: normal affect Attitude: cooperative Results Reviewed Results Reviewed: I personally reviewed relevant radiographs. 1. Advanced medial compartment left tibiofemoral joint and left patellofemoral joint osteoarthritis. 2. Left knee effusion is present. 3. No fracture or dislocation or signs of osteomyelitis are found. Assessment & Plan Assessment & Plan (1) Osteoarthritis of left knee: Code(s): M17.12 - Unilateral primary osteoarthritis, left knee Qualifiers: Osteoarthritis type: primary Qualified Code(s): M17.12 - Unilateral primary osteoarthritis, left knee Plan: Severe left knee OA. She has failed conservative measures. Her radiographs demonstrate severe disease and her QOL is poor. SHe had a successful right TKA several years ago. I recommend left TKA. I explained the risks, benefits and alternatives to surgery including but not limited to infection, pain, stiffness, need for further surgery and medical complications such as blood clots, pneumonia and cardiopulmonary complications. I answered all the patient's questions. She expressed understanding. We will have her see her Cpc Coder and clarify timing of medication cessation. (2) Seropositive rheumatoid arthritis of multiple joints: Comment: Onset about 2000; RF and CCP positive. Erosive changes on hand films 07/18. On hydroxychloroquine and sulfasalzine since ? 2004? Methotrexate added 05/18. Enbrel added September 2012. Eye exam normal January 2014, Mar. 2014, November 2015, 05/25; 09/23; 03/27, 09/2020, 03/2021,10/2021, 04/2022 Methotrexate stopped 03/22 due to shingles. hydroxychloroquine, Enbrel and sulfasalazine continued, methotrexate added back 06/22. lost coverage for Enbrel 2021.restarted 07/2022May 2023: Methotrexate changed to 15 mg subcu weekly Code(s): M05.79 - Rheumatoid arthritis with rheumatoid factor of multiple sites without organ or systems involvement Plan Prepared for John Carter MD by Juan Francisco Sheridan, medical and health services manager, on 08/19/23 at 11:12 AM, EST. Coding Level of Care Code New Pt Level 4 (36128) Diagnoses Primary osteoarthritis of left knee M17.12 Osteoarthritis type: primary Seropositive rheumatoid arthritis of multiple joints M05.79
== END 2023-08-19 12:11 | disposition home or self-care (01) ==
PROVIDERS: PCP Internal Medicine; Visit Provider Orthopaedic Surgery
DX: M17.12 Unilateral primary osteoarthritis, left knee (principal); M05.79 Rheumatoid arthritis with rheumatoid factor of multiple sites without organ or systems involvement
CPT/HCPCS: 99204

== ENCOUNTER → 2023-08-19 11:05 | Outpatient (BNVA) | payer OTHER, SELFPAY | PROVIDERS: PCP Internal Medicine; Visit Provider Orthopaedic Surgery | DX: M17.12 Unilateral primary osteoarthritis, left knee (principal); M05.79 Rheumatoid arthritis with rheumatoid factor of multiple sites without organ or systems involvement | CPT/HCPCS: 99202 ==

== ENCOUNTER 2023-09-23 11:34 | Outpatient (REF) | payer OTHER, SELFPAY ==
[2023-09-24 08:39] LABS: HBsAGNum1 0.52 S/CO (0.00-0.99); Hepatitis A Antibody IgM 0.16 Index (0-0.79); Hepatitis B Core Antibody Nonreactive (Nonreactive); Hepatitis B Surface Antigen Negative (Negative); ~HepC Num1 0.25 S/CO (0.00-0.79); ~Hepatitis A Antibody IgM Nonreactive (Nonreactive); ~Hepatitis B Surface Antibody NONREACTIVE (Nonreactive); ~Hepatitis C Antibody Nonreactive (Nonreactive)
[2023-09-25 22:23] LABS: TS Negative Control Passed; TS Panel A 0; TS Panel B 0; TS Positive Control Passed; TSpotTB Negative (Negative)
== END 2023-09-23 11:35 | disposition home or self-care (01) ==
LOC: HO.HMGCLDS 11:34
PROVIDERS: PCP Internal Medicine; Visit Provider Nurse Practitioner Family
DX: Z11.9 Encounter for screening for infectious and parasitic diseases, unspecified (principal)
CPT/HCPCS: 36415; 86481; 86704; 86706; 86709; 86803; 87340

== ENCOUNTER → 2023-09-24 10:08 | Outpatient (BNVA) | payer OTHER, SELFPAY | PROVIDERS: PCP Internal Medicine; Visit Provider Orthopaedic Surgery ==

== ENCOUNTER → 2023-09-24 10:08 | Outpatient (BNVA) | payer OTHER, SELFPAY | PROVIDERS: PCP Internal Medicine; Visit Provider Orthopaedic Surgery ==

== ENCOUNTER 2023-10-01 13:44 | Outpatient (AMB) | payer OTHER, SELFPAY ==
--- NOTE | 2023-10-01 13:46 | A.OFFVIS_ITS ---
Intake Vital Signs 10/01/23 13:51 Height 5 ft 1 in Weight 168 lb BMI 31.7 BP 120/72 Blood Pressure Location Rt brachial Position Sitting Pulse 82 Pulse Source Pulse Oximeter Pulse Oximetry (%) 96 Oxygen Delivery Method Room Air Intake Visit Reasons: RA/CM Intake Note: Patient last seen 07/31/23 by Isidro, presents today for follow up. Reports not starting new med. Marzipan Maker Required: No Accompanied by: Self / Same As Patient Allergies almond Allergy (Severe, Verified 10/01/23 13:51) Hives and Rash HPI HPI Comments History of Present Illness Details Ms. Shoemaker, 58yoF returns for follow-up of her rheumatoid arthritis. She remains on Enbrel 50 mg weekly, sulfasalazine 1 g b.i.d., diclofenac 50 once or twice a day, hydroxychloroquine 200 b.i.d., and folic acid 1 mg daily. She did not start the Rinvoq that was prescribed last visit. Per patient she forgot which medication she was to stop and which she is to start. At her last she was switched from oral 20 mg weekly methotrexate to Subq due to nausea. She is managing well with the the methotrexate 15 mg syringes. She is using the self aspirator 50 mg per 2 mL vial of methotrexate. She is scheduled for left knee surgery on October 30. She had a right knee replacement last year and that is doing fairly well but cannot bend it. Overall she says she is doing well. [facility] Medical History (Updated 10/01/23 @ 14:06 by Eliza Felix, [facility]) Bilateral hand swelling Screening examination for infectious disease Left knee pain Cataract Long-term use of immunosuppressant medication Seropositive rheumatoid arthritis Asthma-COPD overlap syndrome Cough Allergies Chronic allergic rhinitis Asthma Surgical History History of knee replacement procedure of right knee Family History Father Asthma Maternal Grandmother Asthma Social History Household Members: Spouse Housing: House Alcohol intake: never Patient Tobacco Use Status: Never used Tobacco e-Cigarette/Vaping Use: Never Used Current occupational status: unemployed Sexual orientation: Straight/Heterosexual Gender identity: Female Cognitive needs: No Hearing needs: No Vision needs: Yes Review of Systems Const All systems reviewed & are unremarkable except as noted in HPI and below Physical Exam Vital Signs: Last Vital Signs Pulse 82 10/01/23 13:51 BP 120/72 10/01/23 13:51 Pulse Ox 96 10/01/23 13:51 Oxygen Delivery Method Room Air 10/01/23 13:51 BMI result Body Mass Index 31.7 APPEARANCE: Patient in no acute distress EYES no redness, pupils equal and reactive to light, eyelids normal EXTREMITIES: No edema, no calf tenderness, normal peripheral pulses. JOINT EXAM: Cervical Spine:.? Mild discomfort with extremes of motion.? No tenderness. Thoracic Spine:.? No scoliosis.? No tenderness on palpation. Lumbar Spine:.? Alignment normal.? Full range of motion without pain, no tenderness. Chest Wall:.? No tenderness, swelling, increased warmth or erythema. Hands:? Right:? joint mild swelling of the 1st 4 MCP joints and the 1st 3 MCP are mildly tender..? There is soft tissue swelling of the 1st 3 PIP joints with slight tenderness at the 3rd PIP.? Left:? There is mild swelling of all the MCP joints.? The 3rd MCP is slightly tender.; there is some mild flexion deformity in these MCPs.? There is mild tenderness and swelling in the thumb IP in the 2nd and 3rd PIP joints.? No thenar atrophy or sensory loss. Wrists:.? Right:? Slight pain with flexion extension 75 degrees with some minimal tenderness but no swelling.? Left:? Mild pain with flexion at 60 degrees or extension at 45 degrees.? There is some mild soft tissue swelling and mild moderate tenderness.? No redness or warmth. Elbows:. Normal pain-free range of motion without tenderness, swelling, increased warmth or erythema. Shoulders:? Right: Mild? pain with extremes of normal abduction or with more than 20 degrees of internal or external rotation.? There is mild anterior tenderness.? There is questionable abductor weakness but no swelling or ara nopathy.? Left:? Mild to moderate pain with abduction at 90 degrees or with more than 20 degrees of internal or external rotation.? There is mild anterior and posterior tenderness.? Questionable abductor weakness without adenopathy.. Hips:.? Full range of motion without pain. Hip bursa:.? No tenderness. Knees:.??Right:? Large anterior scar, healed well with some slight scaling.? She has no discomfort with full extension or flexion to 90 degrees.? There is no swelling, tenderness, redness or warmth.? Left: mild to moderate pain with 45 degrees of range of motion.? She can with much pain passively extend the knee.? There is a small? to moderate effusion without redness or warmth.? She has mild to moderate popliteal, medial and lateral tenderness.? I do not feel any popliteal swelling. Ankles:.? Normal pain-free range of motion without tenderness, swelling, increased warmth or erythema. Feet: Slight tenderness in the MTP joints.? Minimal swelling and bony enlargement at the 1st MTP.? There are hammertoe deformities at the right 2nd 3rd toe and left 2nd toe but none of these are tender.? ?? Results Reviewed Results Reviewed: I personally reviewed relevant radiographs. 1. Advanced medial compartment left tibiofemoral joint and left patellofemoral joint osteoarthritis. 2. Left knee effusion is present. 3. No fracture or dislocation or signs of osteomyelitis are found. Results Reviewed Laboratory Tests 07/25/23 12:09 WBC 5.1 RBC 3.99 L Hgb 11.5 L Hct 36.2 L ESR 67 H AST 18 ALT 11 C-Reactive Protein 2.69 H Assessment & Plan Assessment & Plan (1) Seropositive rheumatoid arthritis of multiple joints: Comment: Onset about 2000; RF and CCP positive. Erosive changes on hand films 07/18. On hydroxychloroquine and sulfasalzine since ? 2004? Methotrexate added 05/18. Enbrel added September 2012. Eye exam normal January 2014, 2014, November 2015, 05/25; 09/23; 03/27, 09/2020, 03/2021,10/2021, 04/2022 Methotrexate stopped 03/22 due to shingles. hydroxychloroquine, Enbrel and sulfasalazine continued, methotrexate added back 06/22. lost coverage for Enbrel 2021.restarted 07/2022May 2023: Methotrexate changed to 15 mg subcu weekly Code(s): M05.79 - Rheumatoid arthritis with rheumatoid factor of multiple sites without organ or systems involvement (2) Long-term use of immunosuppressant medication: Code(s): Z79.899 - Other terminal carman (current) drug therapy (3) Bilateral hand swelling: Code(s): M79.89 - Other specified soft tissue disorders Plan Seropositive rheumatoid arthritis: We had intended for her to start Rinvoq and stopped the Enbrel. However patient had not followed through on those i nstructions. She does have surgery scheduled for October 30 for her left knee. Considering that patient has to hold her medication at least 2 weeks prior to surgery, at this point she will continue her Enbrel (she does have some at home) and we will start the Rinvoq after surgery when she is cleared by the surgeon. She will continue hydroxychloroquine and methotrexate as prescribed with folic a donna. Follow-up in 3 months Spent 25 minutes reviewing chart, evaluating patient and discussing process for surgery and medications, and documenting Orders: Orders Comprehensive Met. Panel 10/01/23 M05.79 - Rheumatoid arthritis with rheumatoid factor of multiple sites without organ or systems involvement, Z79.899 - Other terminal carman (current) drug therapy C Reactive Protein 10/01/23 M05.79 - Rheumatoid arthritis with rheumatoid factor of multiple sites without organ or systems involvement, Z79.899 - Other terminal carman (current) drug therapy Uric Acid 10/01/23 M79.89 - Other specified soft tissue disorders Erythrocyte Sedimentation Rate 10/01/23 M05.79 - Rheumatoid arthritis with rheumatoid factor of multiple sites without organ or systems involvement, Z79.899 - Other prison (current) drug therapy Complete Blood Count Auto Diff 10/01/23 M05.79 - Rheumatoid arthritis with rheumatoid factor of multiple sites without organ or systems involvement, Z79.899 - Other prison (current) drug therapy Medications: Refilled etanercept (Enbrel) 50 mg subcut QWEEK 4 mL 5RF M05.79 - Rheumatoid arthritis with rheumatoid factor of multiple sites without organ or systems involvement On Hold upadacitinib ER (Rinvoq) Hold Comment: Doctor's Order 15 mg PO DAILY 30 tabs 1RF M05.79 - Rheumatoid arthritis with rheumatoid factor of multiple sites without organ or systems involvement Coding Level of Care Code Est Pt Level 3 (74257) Diagnoses Seropositive rheumatoid arthritis of multiple joints M05.79 Long-term use of immunosuppressant medication Z79.899 Bilateral hand swelling M79.89
[2023-10-01 13:51] VITALS: BP 120/72; PULSE 82; O2SAT 96; BMI 31.7
== END 2023-10-01 14:11 | disposition home or self-care (01) ==
PROVIDERS: PCP Internal Medicine; Visit Provider Nurse Practitioner Family
DX: M05.79 Rheumatoid arthritis with rheumatoid factor of multiple sites without organ or systems involvement (principal); Z79.899 Other long term (current) drug therapy; M79.89 Other specified soft tissue disorders
CPT/HCPCS: 99213

== ENCOUNTER → 2023-10-01 13:44 | Outpatient (BNVA) | payer OTHER, SELFPAY | PROVIDERS: PCP Internal Medicine; Visit Provider Nurse Practitioner Family | DX: M05.79 Rheumatoid arthritis with rheumatoid factor of multiple sites without organ or systems involvement (principal); M79.89 Other specified soft tissue disorders; Z79.899 Other long term (current) drug therapy | CPT/HCPCS: 99212 ==

== ENCOUNTER → 2023-10-17 13:16 | Outpatient (BNV) | payer OTHER, SELFPAY | PROVIDERS: Admitting Provider Orthopaedic Surgery; PCP Internal Medicine; Visit Provider Internal Medicine Cardiovascular Disease | DX: Z01.810 Encounter for preprocedural cardiovascular examination (principal) | CPT/HCPCS: 93010 ==

== ENCOUNTER 2023-10-24 12:15 | Outpatient (REF) | payer OTHER, SELFPAY ==
--- NOTE | ~2023-10-24 | XR_ITS ---
EXAMINATION: XR KNEE, LEFT CLINICAL INFORMATION: Pain in left knee Preop COMPARISON: Left knee 08/07/2023 TECHNIQUE: AP standing view of both knees and lateral sunrise view of the left knee. FINDINGS: Right knee: Right total knee arthroplasty is satisfactory in appearance. No evidence of hardware complication. No fracture. Left knee: No fracture. Small joint effusion there is severe narrowing of the medial joint compartment with [id number] appearance and subchondral sclerosis of the adjacent articular surfaces. Subchondral cyst is seen in the medial proximal tibia. There are tricompartment marginal osteophytes. XR/XR knee LT 3V IMPRESSION: 1. Severe osteoarthritis of the medial joint compartment of the left knee. 2. Right total knee arthroplasty without evidence of hardware complication.
== END 2023-10-24 12:16 | disposition home or self-care (01) ==
LOC: HO.HOSX 12:15
PROVIDERS: Visit Provider Physician Assistant
DX: Z96.652 Presence of left artificial knee joint (principal)
CPT/HCPCS: 73562; 99212

== ENCOUNTER 2023-10-24 13:26 | Outpatient (AMB) | payer OTHER, SELFPAY ==
[2023-10-24 13:33] VITALS: BMI 31.7
--- NOTE | 2023-10-24 13:33 | MHC.OFFVIS ---
Vital Signs 10/24/23 13:33 Height 5 ft 1 in Weight 168 lb BMI 31.7 Intake Visit Reasons: pre-op Left TKA on 10/29/23 with NE Intake Note: Sahara a 58 year old female who presents today for a preoperative left TKA on 10/29/23 NE. Pain management agreement reviewed and signed. Allergies almond Allergy (Severe, Verified 10/24/23 13:35) Hives and Rash Medication List - Last Reconciled 10/24/23 by Sourav Atwood PA-C albuterol sulfate 2.5 mg inhalation TID PRN albuterol sulfate 90 mcg/actuation 2 puffs inhalation Q6H PRN 30 days etdakcckch-ucwusyoc-crrqhzvqxp 160-9-4.8 mcg/actuation (Breztri Aerosphere) 2 inhalations inhalation BID diclofenac potassium 50 mg PO TID PRN dupilumab (Dupixent) 300 mg (2 mL) subcut Q2W 365 days etanercept (Enbrel) 50 mg subcut QWEEK folic acid 1 mg PO DAILY heating pads As directed hydroxychloroquine 300 mg (1.5 x 200 mg) PO DAILY insulin syringe-needle U-100 (BD Insulin Syringe) Inject 15 mg methotrexate (.6cc) 25 mg/cc once a week ipratropium-albuterol 0.5 mg-3 mg(2.5 mg base)/3 mL 3 mL inhalation QID 90 days leg brace (Knee Support Brace) As directed methotrexate (PF) (Otrexup (PF)) 15 mg (0.4 mL) subcut QWEEK montelukast 10 mg PO BEDTIME 90 days nebulizers As directed Shower Chair As directed sulfasalazine 500 mg PO QID tolterodine ER 2 mg PO QPM upadacitinib ER (Rinvoq) 15 mg PO DAILY walker Folding Front wheeled walker HPI Comments Details: Ms Riddle presents to the office today for preop visit. She is scheduled for left total knee arthroplasty with Dr. Carter. She continues to have ongoing pain and difficulty with ambulation in the left knee, which is affecting her quality of life; therefore, she has elected to move forward with surgery. [facility] Medical History (Updated 10/17/23 @ 12:11 by Cesilia Cardoza RN) Osteoarthritis Bilateral hand swelling Left knee pain Cataract Long-term use of immunosuppressant medication Seropositive rheumatoid arthritis Asthma-COPD overlap syndrome Cough Allergies Chronic allergic rhinitis Surgical History (Updated 10/17/23 @ 12:14 by Cesilia Cardoza RN) Hx of appendectomy History of knee replacement procedure of right knee Family History Father Asthma Maternal Grandmother Asthma Social History Household Members: Spouse Housing: House Are you a primary healthcare project manager to a significant other at home: No Do you presently have 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) Alcohol intake: never Patient Tobacco Use Status: Never used Tobacco e-Cigarette/Vaping Use: Never Used Current occupational status: unemployed Sexual orientation: Straight/Heterosexual Gender identity: Female Cognitive needs: No Hearing needs: No Vision needs: Yes Physical Exam Vital Signs: BMI result Body Mass Index 31.7 Const General: cooperative, healthy appearing, comfortable, no acute distress, well developed and alert Orientation/consciousness: patient oriented x3 HEENT Head: Yes normal to inspection, Yes normocephalic and Yes atraumatic Eyes General: appearance normal, both eyes and all related structures Neck Neck: Yes normal visual inspection and Yes no lymphadenopathy Resp Effort & Inspection: normal respiratory effort and able to speak in complete sentences Cardio Rate: regular rate Peripheral pulses: Peripheral pulses 2+ throughout GI Inspection: Yes normal to inspection Palpation (GI): Soft to palpation Skin General skin exam: no rashes or lesions noted Neuro General: patient oriented x3 Extrem Other: Left knee skin intact, without open wounds or abraisons. ROM 0-100 Calf supple non tender NVI Psych Appearance: grossly normal Mental Status: mental status grossly normal Results Reviewed Results Reviewed: X-rays of the left knee obtained in the office today for preop planning show tricompartmental osteoarthritis with osteophyte formation. Assessment & Plan Assessment & Plan (1) Osteoarthritis of left knee: Code(s): M17.12 - Unilateral primary osteoarthritis, left knee Category: Medical Qualifiers: Osteoarthritis type: primary Qualified Code(s): M17.12 - Unilateral primary osteoarthritis, left knee Plan: I discussed in detail the procedure and what to expect pre and post operatively. We discussed the risks, benefits and alternatives to the surgery as well as the rehabilitation course. The risks; which include, but are not limited to infection, bleeding, nerve injury, ongoing pain, swelling, and stiffness, perioperative risk of injury to bones and soft tissues, and blood clots. I?ve answered all questions and with their understanding they have consented to move forward with Left total knee arthroplasty with Dr. Carter PT ordered and she plans to attend [facility] or [facility] Orders: Orders XR knee LT 3V Today M25.562 - Pain in left knee PT Evaluation and Treatment Today Z96.652 - Presence of left artificial knee joint Medications: New [food tray] As directed 1 ea 0RF M17.12 - Unilateral primary osteoarthritis, left knee Refilled walker Folding Front wheeled walker 1 ea 0RF duration: 99days M17.12 - Unilateral primary osteoarthritis, left knee
== END 2023-10-24 14:06 | disposition home or self-care (01) ==
PROVIDERS: PCP Internal Medicine; Visit Provider Physician Assistant
DX: M17.12 Unilateral primary osteoarthritis, left knee (principal)
CPT/HCPCS: 99024

== ENCOUNTER 2023-10-29 12:57 | Inpatient (IN) | payer OTHER, SELFPAY ==
--- NOTE | 2023-10-17 | ECG_ITS ---
Test Reason : PREOP Blood Pressure : / mmHG Vent. Rate : 070 BPM Atrial Rate : 070 BPM P-R Int : 160 ms QRS Dur : 084 ms QT Int : 388 ms P-R-T Axes : 060 020 017 degrees QTc Int : 419 ms Normal sinus rhythm Normal ECG When compared with ECG of 21-APR-2021 10:23, No significant change was found Referred By: Constanza Martinez Electronically Signed By:Wiliam West
[2023-10-17 12:25] VITALS: BP 141/64; PULSE 73; RESP 20; O2SAT 96; BMI 33.9
[2023-10-17 13:50] LABS: Hematocrit 36.6 % (37.0-47.0); Hemoglobin 11.8 g/dl (12.0-16.0); Mean Corpuscular HGB Conc 32.2 g/dl (31.0-35.0); Mean Corpuscular Hemoglobin 29.3 pg (27.0-33.0); Mean Corpuscular Volume 90.8 fL (80.0-98.0); Mean Platelet Volume 10.6 fL (9.4-12.3); Platelet Count 259 X10*3/uL (160-400); Red Blood Count 4.03 X10*6/uL (4.20-5.50); Red Cell Distribution Width 14.5 % (11.0-16.0); White Blood Count 6.9 X10*3/uL (4.8-10.8)
[2023-10-17 14:33] LABS: Anion Gap 10 (12-20); Blood Urea Nitrogen 12 mg/dL (9-16); Calcium 9.2 mg/dL (8.4-10.2); Carbon Dioxide 26 mmol/L (22-29); Chloride 107 mmol/L (96-108); Creatinine Clr Calc Pharmacy 96.3; Estimated Glomerular Filt Rate > 60; Glucose Random 88 mg/dL (60-115); Sodium 139 mmol/L (135-145)
[2023-10-17 16:10] LABS: MRSA Nasal PCR NEGATIVE (Negative); SA Nasal PCR NEGATIVE (Negative)
[2023-10-29] VITALS (13 sets, daily range): BP systolic 98–149; BP diastolic 46–81; PULSE 62–93; RESP 12–20; TEMP 36.1–36.7; O2SAT 94–99
--- NOTE | ~2023-10-29 | XR_ITS ---
EXAMINATION: XR KNEE, LEFT CLINICAL INFORMATION: Left total knee replacement COMPARISON: None available. TECHNIQUE: 2 views of the left knee. FINDINGS: Left total knee replacement has been performed. Prosthetic components appear appropriate in position and alignment is satisfactory. Postoperative air, small suprapatellar effusion and surgical skin ronal identified in the immediate postoperative state. XR/XR knee LT 2V IMPRESSION: Left total knee replacement.
--- NOTE | 2023-10-29 12:35 | MHC.SHP ---
Pre-Procedural Eval Section A - 24 Hr Update-Section A only Date of Service: 10/29/23 The patient is an INPATIENT: No Changes since office visit: No Cold of Flu in the past 2 weeks, No New Medical Problems, No Changes in Medication and No Patient answered all questions The patient has been examined within 24 hours of the surgical procedure. The History & Physical has been completed within 30 days and I have reviewed it.: Yes Section B - Complete if H&P > 30 days Chief Complaint: Unilateral primary osteoarthritis, left knee Allergies: Allergies Allergy/AdvReac Type Severity Reaction Status Date / Time almond Allergy Severe Hives and Verified 10/24/23 13:35 Rash Plan I have reviewed the history and physical and performed a pertinent physical examination on my patient. No changes have occurred unless specified. Time Spent With Patient Time: Total time managing care of this patient today ____ minutes.
[2023-10-29] MEDS: Lactated Ringers 1,000 ML 100 ML IVCONT ×3 (13:05→18:51)
--- NOTE | 2023-10-29 13:45 | HO.ANESPROP2 ---
Documented by User: Constanza Martinez NP 10/28/23 11:49 HPI - Anesthesia Eval Consult details Narrative: 58yo F for Left Knee Replacement Total Medically cleared Pulmo cleared No recent illness. Some coughing at PAT d/t recent dusting. No CP/SOB within RA: immunologics, methotrexate (on hold) Asthma-COPD: Daily breztri, Albuterol inhaler daily, Nebulizer 1-2 x daily PMFSH Active Problems Active Problems: All Active Problems Screening examination for infectious disease (Acute) Family history of coronary artery disease (Acute) Osteoarthritis of lumbosacral spine (Acute) Low back pain (Acute) Osteoarthritis involving joint of left upper arm (Acute) Osteoarthritis of left knee (Acute) Seropositive rheumatoid arthritis of multiple joints (Acute) Bilateral hand swelling (Acute) Left knee pain (Acute) Cataract (Acute) Long-term use of immunosuppressant medication (Acute) History of knee replacement procedure of right knee (Acute) Asthma-COPD overlap syndrome (Acute) Allergies (Acute) Chronic allergic rhinitis (Acute) Past Medical History Medical History Osteoarthritis Bilateral hand swelling Left knee pain Cataract Long-term use of immunosuppressant medication Seropositive rheumatoid arthritis Asthma-COPD overlap syndrome Cough Allergies Chronic allergic rhinitis Family History Family History Father Asthma Maternal Grandmother Asthma Surgical History Surgical History Hx of appendectomy History of knee replacement procedure of right knee History of Problems with Anesthesia: No Social History Social History Household Members: Spouse Housing: House Are you a primary wound care specialist to a significant other at home: No Do you presently have visiting nurse or other home services: 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 If so, by whom?: No Are you DNR?: No Advance Directives: No Advance Directives Information Provided: Yes (brochure given) Advance Directives on File: No Recently lost weight without trying: No Eating poorly because of decreased appetite: No Nutrition Risks: No Nutritional Risk Poor oral hygiene: No (upper front two teeth-dental work-? cap vs. bonding, patient unsure) Current occupational status: unemployed Sexual orientation: Straight/Heterosexual Gender identity: Female Cognitive needs: No Hearing needs: No Vision needs: Yes Meds Allergies Allergy/AdvReac Type Severity Reaction Status Date / Time almond Allergy Severe Hives and Verified 10/24/23 13:35 Rash Home Medications ?Medication ?Instructions ?Recorded ?Confirmed ?Last Taken ?Type albuterol sulfate 2.5 mg/3 mL 2.5 mg inhalation TID PRN 01/18/21 10/29/23 Unknown History (0.083 %) solution for nebulization Shortness Of Breath nebulizers 04/20/22 10/29/23 Unknown History tolterodine 2 mg capsule,extended 2 mg PO QPM 05/20/23 10/29/23 Unknown History release 24 hr diclofenac potassium 50 mg tablet 50 mg PO TID PRN Pain 10/17/23 10/29/23 Unknown History Exam Pertinent Lab Results Pertinent Lab Results: Lab Results 10/17/23 10/17/23 10/17/23 Range/Units 12:25 13:24 13:33 WBC 6.9 (4.8-10.8) X10*3/uL RBC 4.03 L (4.20-5.50) X10*6/uL Hgb 11.8 L (12.0-16.0) g/dl Hct 36.6 L (37.0-47.0) % MCV 90.8 (80.0-98.0) fL MCH 29.3 (27.0-33.0) pg MCHC 32.2 (31.0-35.0) g/dl RDW 14.5 (11.0-16.0) % Plt Count 259 (160-400) X10*3/uL MPV 10.6 (9.4-12.3) fL Absolute Nucleated RBC 0.000 (0.0-0.012) X10*3/uL Nucleated RBC % (auto) 0.0 (0.0-0.2) /100WBC Sodium 139 (135-145) mmol/L Potassium 4.0 (3.3-5.1) mmol/L Chloride 107 (96-108) mmol/L Carbon Dioxide 26 (22-29) mmol/L Anion Gap 10 L (12-20) BUN 12 (9-16) mg/dL Creatinine 0.60 (0.5-1.4) mg/dL Estim Creat Clear Calc 96.3 Estimated GFR > 60 Random Glucose 88 (60-115) mg/dL Calcium 9.2 (8.4-10.2) mg/dL Nasal Screen MRSA (PCR) NEGATIVE (Negative) Nasal S. aureus Screen NEGATIVE (Negative) Nasal MRSA/S.aureus Interp SEE NOTE Blood Type O Negative Antibody Screen NEGATIVE Narrative Narrative: EKG 10/2023 Vent. Rate : 070 BPM Atrial Rate : 070 BPM P-R Int : 160 ms QRS Dur : 084 ms QT Int : 388 ms P-R-T Axes : 060 020 017 degrees QTc Int : 419 ms Normal sinus rhythm Normal ECG When compared with ECG of 21-APR-2021 10:23, No significant change was found Airway Mallampati Class: II TM Dist: >3cm Neck ROM: Full Loose/Missing/Broken Teeth: Yes (2 front upper capped, crowned molars) Heart: RRR Lungs: Clear upper, dim lower Assessment and Plan Assessment Anesthesia Assessment: Anesthesia Plan Discussed and PAT Visit Final Anesthetic Review History of Problems with Anesthesia: No Documented by User: Bozena Anderson DO 10/29/23 15:00 [facility] Past Medical History Medical History Osteoarthritis Bilateral hand swelling Left knee pain Cataract Long-term use of immunosuppressant medication Seropositive rheumatoid arthritis Asthma-COPD overlap syndrome Cough Allergies Chronic allergic rhinitis Family History Family History Father Asthma Maternal Grandmother Asthma Family history of problems with anesthesia: No Surgical History Surgical History Hx of appendectomy History of knee replacement procedure of right knee History of Problems with Anesthesia: No Social History Social History Household Members: Spouse Housing: House Are you a primary wound care specialist to a significant other at home: No Do you presently have visiting nurse or other home services: 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 If so, by whom?: No Are you DNR?: No Advance Directives: No Advance Directives Information Provided: Yes (brochure given) Advance Directives on File: No Recently lost weight without trying: No Eating poorly because of decreased appetite: No Nutrition Risks: No Nutritional Risk Poor oral hygiene: No (upper front two teeth-dental work-? cap vs. bonding, patient unsure) Current occupational status: unemployed Sexual orientation: Straight/Heterosexual Gender identity: Female Cognitive needs: No Hearing needs: No Vision needs: Yes Meds Allergies Allergy/AdvReac Type Severity Reaction Status Date / Time almond Allergy Severe Hives and Verified 10/24/23 13:35 Rash Home Medications ?Medication ?Instructions ?Recorded ?Confirmed ?Last Taken ?Type albuterol sulfate 2.5 mg/3 mL 2.5 mg inhalation TID PRN 01/18/21 10/29/23 Unknown History (0.083 %) solution for nebulization Shortness Of Breath nebulizers 04/20/22 10/29/23 Unknown History tolterodine 2 mg capsule,extended 2 mg PO QPM 05/20/23 10/29/23 Unknown History release 24 hr diclofenac potassium 50 mg tablet 50 mg PO TID PRN Pain 10/17/23 10/29/23 Unknown History Exam Exam Date and Time: October 29, 2023 1345 Height,Weight and Vital Signs: Height 5 ft 1 in Weight 81.3 kg Vital Signs Pulse Rate 73 10/17/23 12:25 Respiratory Rate 20 10/17/23 12:25 Blood Pressure 141/64 H 10/17/23 12:25 Pulse Oximetry 96 10/17/23 12:25 Oxygen Delivery Method Room Air 10/17/23 12:25 Temperature 98.0 F 10/29/23 12:49 Pulse Rate 93 10/29/23 12:49 Respiratory Rate 16 10/29/23 12:49 Blood Pressure 149/81 H 10/29/23 12:49 Pulse Oximetry 99 10/29/23 12:49 Oxygen Delivery Method Room Air 10/29/23 12:49 Airway Mallampati Class: II TM Dist: >3cm Neck ROM: Limited Heart: S1S2 Lungs: CTAB Assessment and Plan Assessment Anesthesia Assessment: Anesthesia Plan Discussed and Chart Reviewed Final Anesthetic Review Family History of Problems with Anesthesia: No History of Problems with Anesthesia: No NPO: Yes ASA Class: III Final Preanesthetic Review: No Changes in Pt Med Stat, Meds/Allgs Chart Reviewed, Consent Obtained/Reviewed and Anes Risks/Benef Reviewed Patient Risk: Intermediate Procedure Risk: Intermediate Anesthetic Plan Anesthetic Plan: Spinal, Regional Block (left adductor canal block and left ipack block) and Agree w/ Assess. and Plan Disposition: Standard PACU
--- NOTE | 2023-10-29 15:47 | PM.OP ---
Brief Operative Note Date of Service: 10/29/23 Pre-op diagnosis: left knee OA Post-op diagnosis: same Procedure: Left TKA Implants: Adriana Triathlon posterior stabilized 08/10/12ps/s Surgeon: John Carter MD Anesthesia: GETA and regional Was an Holistic Specialist used for this Procedure?: Yes Holistic Specialist: Kaya Bland Estimated blood loss (mL): 20 Tourniquet time (min): 65 IV fluids (mL): 1,000 Pathology: other Condition: stable Disposition: PACU
--- NOTE | 2023-10-29 17:42 | P.CONHOSP_ITS ---
History of Present Illness Data of Consult Service Date: 10/29/23 Requesting physician: Kaya Bland Primary Care Provider: Cira Lancaster MD HPI Reason for consult: medical management 58 year old female with history of asthma/copd not on home O2, RA among others admitted to orthopedic surgery with consult placed to hospitalist service for medical management. She underwent L TKA earlier today and reports pain in the L knee. Otherwise has no complaints. She remains on 2L supplemental o2, desatting to 90% on RA. Vitals otherwise stable. No etoh, illicit drugs, or cigarettes. Review of Systems 2 Review of Systems: Yes all other systems are reviewed and are negative [facility] Medical History Osteoarthritis Bilateral hand swelling Left knee pain Cataract Long-term use of immunosuppressant medication Seropositive rheumatoid arthritis Asthma-COPD overlap syndrome Cough Allergies Chronic allergic rhinitis Family History Father Asthma Maternal Grandmother Asthma Surgical History Hx of appendectomy History of knee replacement procedure of right knee Social History Household Members: Spouse Housing: House Are you a primary childbirth and infant care teacher to a significant other at home: No Do you presently have visiting nurse or 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 If so, by whom?: No Are you DNR?: No Advance Directives: No Advance Directives Information Provided: Yes (brochure given) Advance Directives on File: No Recently lost weight without trying: No Eating poorly because of decreased appetite: No Nutrition Risks: No Nutritional Risk Poor oral hygiene: No (upper front two teeth-dental work-? cap vs. bonding, patient unsure) Current occupational status: unemployed Sexual orientation: Straight/Heterosexual Gender identity: Female Cognitive needs: No Hearing needs: No Vision needs: Yes Meds Allergies Allergy/AdvReac Type Severity Reaction Status Date / Time almond Allergy Severe Hives and Verified 10/24/23 13:35 Rash Active Medications: Current Medications Acetaminophen (Acetaminophen 325 Mg Tablet) 650 mg PO Q6H PRN PRN Reason: Pain, Mild (Pain Scale 1-3) Albuterol Sulfate (Albuterol Sulfate (0.083%) 2.5 Mg/3 Ml Vial.Neb) 2.5 mg INHALE ONCE PRN PRN Reason: Shortness of Breath/Wheezing Albuterol Sulfate (Albuterol Sulfate (0.083%) 2.5 Mg/3 Ml Vial.Neb) 2.5 mg INHALE TID PRN PRN Reason: Shortness Of Breath Albuterol Sulfate (Albuterol Sulfate 90 Mcg 8 Gm Inhaler) 2 puff INHALE Q6H PRN PRN Reason: shortness of breath or wheezing Albuterol/Ipratropium (Albuterol/Iprat 2.5/0.5mg 3 Ml Ampul.Neb) 3 ml INHALE RQID CHANDRA Aspirin (Aspirin 325 Mg Tablet) 325 mg PO BID CHANDRA Celecoxib (Celecoxib 200 Mg Capsule) 200 mg PO BID [facility] Docusate Sodium (Docusate Sodium 100 Mg Capsule) 100 mg PO BID [facility] Folic Acid (Folic Acid 1 Mg Tablet) 1 mg PO DAILY CHANDRA Hydromorphone HCl (Hydromorphone Hcl 0.5 Mg/0.5 Ml Syringe) 0.25 mg IVPUSH Q4H PRN; Protocol PRN Reason: Pain, Severe (Pain Scale 7-10) Hydroxychloroquine Sulfate (Hydroxychloroquine Sulfate 200 Mg Tablet) 300 mg PO DAILY [facility] Lactated Ringer's (Lr) 1,000 mls @ 100 mls/hr IVCONT .Q10H [facility] Last Admin: 10/29/23 13:05 Dose: 100 mls/hr Lactated Ringer's (Lr) 1,000 mls @ 100 mls/hr IVCONT .Q10H [facility] Cefazolin Sodium/Dextrose (Ancef) 2 gm in 50 mls @ 100 mls/hr IV POSTOP ONE Stop: 10/29/23 20:29 Montelukast Sodium (Montelukast Sodium 10 Mg Tablet) 10 mg PO BEDTIME [facility] Non-Formulary Medication (Rbhosfjrgt-Tcyenead-Ugdywsopvb [Breztri Aerosphere]) 2 inhalation INHALE BID [facility] Non-Formulary Medication (Diclofenac Potassium) 50 mg PO TID PRN PRN Reason: Pain Non-Formulary Medication (Dupilumab [Dupixent Syringe]) 300 mg SUBCUT Q2W [facility] Non-Formulary Medication (Etanercept [Enbrel]) 50 mg SUBCUT QWEEK [facility] Non-Formulary Medication (Methotrexate (Pf) [Otrexup (Pf)]) 15 mg SUBCUT QWEEK [facility] Non-Formulary Medication (Upadacitinib [Rinvoq]) 15 mg PO DAILY [facility] Oxycodone HCl (Oxycodone Hcl Immed Release 5 Mg Tablet) 5 mg PO Q4H PRN PRN Reason: Pain, Moderate(Pain Scale 4-6) Oxycodone HCl (Oxycodone Hcl Er 10 Mg Tab.Er.12h) 10 mg PO BID [facility] Sodium Chloride (0.9 % Sodium Chloride Flush 3 Ml Syringe) 3 ml IVFLUSH QSHIFT [facility] Sulfasalazine (Sulfasalazine 500 Mg Tablet) 500 mg PO QID [facility] Tolterodine Tartrate (Tolterodine Tartrate La 2 Mg Cap.Er.24h) 2 mg PO BEDTIME [facility] Home Medications ?Medication ?Instructions ?Recorded ?Confirmed ?Last Taken ?Type albuterol sulfate 2.5 mg/3 mL 2.5 mg inhalation TID PRN 01/18/21 10/29/23 Unknown History (0.083 %) solution for nebulization Shortness Of Breath nebulizers 04/20/22 10/29/23 Unknown History tolterodine 2 mg capsule,extended 2 mg PO QPM 05/20/23 10/29/23 Unknown History release 24 hr diclofenac potassium 50 mg tablet 50 mg PO TID PRN Pain 10/17/23 10/29/23 Unknown History Physical Exam 2 Vital Signs and Narrative: Vital Signs: Last Vital Signs Temp 97.4 F 10/29/23 17:05 Pulse 64 10/29/23 17:05 Resp 12 10/29/23 17:05 BP 109/57 L 10/29/23 17:05 Pulse Ox 97 10/29/23 17:05 O2 Del Method Nasal Cannula wit h Capnography 10/29/23 17:05 O2 Flow Rate 2 10/29/23 17:05 BMI result Body Mass Index 33.9 Constitutional - Awake and Alert, No apparent distress Eyes - PERRLA, EOMI Cardiovascular - S1S2, RRR, No edema Respiratory - Normal lung expansion, Normal respiratory effort, No respiratory distress, CTA bilaterally Gastrointestinal - NT / ND; +BS; No rebound or guarding Extremities - no calf tenderness bilaterally, no swelling Skin - Warm/Dry Neurological - Alert & oriented x3 Psychological - Appropriate affect Results Labs 10/17/23 13:33 10/17/23 13:33 Imaging Radiologist's Impressions: Impressions Knee X-Ray 10/29/23 16:43 IMPRESSION: Left total knee replacement. Assessment and Plan (1) Osteoarthritis of left knee: Qualifiers: Osteoarthritis type: primary Qualified Code(s): M17.12 - Unilateral primary osteoarthritis, left knee Status: Acute Plan 58 year old female with history of asthma/copd not on home O2, RA among others admitted to orthopedic surgery with consult placed to hospitalist service for medical management. #OA L knee s/p TKA -plan per ortho surgery -wean supplemental O2 as tolerated per protocol #Asthma/copd overlap -wean o2 as tolerated per protocol, not on home o2 -no acute exacebration -continue maintenance inhalers and albuterol prn #RA -continue home meds as prescribed Thank you for allowing me to participate in this consult. Signing off at this time. Please do not hesitate to call for further questions or for any acute medical issues
[2023-10-29] MEDS: oxyCODONE HCl Immed Release 5 MG TABLET PO (18:50)
[2023-10-29] MEDS: ceFAZolin Sodium/Dextrose,Iso 2 GM/50 ML PIGGYBACK IV (20:20)
[2023-10-29] MEDS: Montelukast Sodium 10 MG TABLET PO (20:23)
[2023-10-29] MEDS: oxyCODONE HCl ER 10 MG TAB.ER.12H PO (20:23)
[2023-10-29] MEDS: Docusate Sodium 100 MG CAPSULE PO (20:23)
[2023-10-29] MEDS: Celecoxib 200 MG CAPSULE PO (20:23)
[2023-10-29] MEDS: Aspirin 325 MG TABLET PO (20:23)
--- NOTE | 2023-10-29 20:31 | PC.NURSE ---
Patient found incontinent of large amt of urineat 193 ,patient states she was not able to feel she needed to urinate,bladder scanned for 133 ml will monitor
[2023-10-29] MEDS: Acetaminophen 325 MG TABLET 650 MG PO (20:32)
[2023-10-29] MEDS: Albuterol/Iprat 2.5/0.5MG 3 ML AMPUL.NEB INHALE (20:49)
[2023-10-29] MEDS: sulfaSALAzine 500 MG TABLET PO (21:14)
[2023-10-29] MEDS: Tolterodine Tartrate LA 2 MG CAP.ER.24H PO (21:14)
[2023-10-30] VITALS (8 sets, daily range): BP systolic 102–146; BP diastolic 54–68; PULSE 57–99; RESP 16–20; TEMP 36–36.9; O2SAT 94–99
[2023-10-30] MEDS: oxyCODONE HCl Immed Release 5 MG TABLET PO ×3 (03:16→13:24)
[2023-10-30] MEDS: Lactated Ringers 1,000 ML 100 ML IVCONT ×3 (03:18→22:57)
[2023-10-30 06:25] LABS: MANUAL DIFF FLAG NO
[2023-10-30 06:48] LABS: Anion Gap 11 (12-20); Blood Urea Nitrogen 14 mg/dL (9-16); Calcium 8.7 mg/dL (8.4-10.2); Carbon Dioxide 24 mmol/L (22-29); Chloride 106 mmol/L (96-108); Creatinine Clr Calc Pharmacy 94.7; Estimated Glomerular Filt Rate > 60; Glucose Fasting 126 mg/dL (60-99); Potassium 4.1 mmol/L (3.3-5.1); Sodium 137 mmol/L (135-145)
[2023-10-30 06:52] LABS: Basophils Percent Auto 0.4 % (0-2); Eosinophils Percent Auto 0.1 % (0-4); Hematocrit 30.8 % (37.0-47.0); Hemoglobin 9.9 g/dl (12.0-16.0); Imm Gran Abs Auto 0.03 X10*3/uL (0.00-0.03); Imm Gran Pct Auto 0.4 % (0.0-0.4); Lymphocytes Absolute Auto 0.7 X10*3/uL (1.2-4.9); Lymphocytes Percent Auto 8.6 % (20-40); Mean Corpuscular HGB Conc 32.1 g/dl (31.0-35.0); Mean Corpuscular Hemoglobin 28.9 pg (27.0-33.0); Mean Corpuscular Volume 90.1 fL (80.0-98.0); Monocytes Absolute Auto 0.8 X10*3/uL (0.1-1.2); Monocytes Percent Auto 9.3 % (2-11); Neutrophils Absolute Auto 6.9 x10*3/uL (2.0-8.3); Neutrophils Percent Auto 81.2 % (45-73); Platelet Count 237 X10*3/uL (160-400); Red Blood Count 3.42 X10*6/uL (4.20-5.50); Red Cell Distribution Width 14.3 % (11.0-16.0); White Blood Count 8.5 X10*3/uL (4.8-10.8)
[2023-10-30] MEDS: ondansetron HCL 4 MG/2 ML VIAL IVPUSH (08:43)
[2023-10-30] MEDS: Aspirin 325 MG TABLET PO ×2 (09:10→20:54)
[2023-10-30] MEDS: oxyCODONE HCl ER 10 MG TAB.ER.12H PO ×2 (09:10→20:54)
[2023-10-30] MEDS: Hydroxychloroquine Sulfate 200 MG TABLET 300 MG PO (09:11)
[2023-10-30] MEDS: Folic Acid 1 MG TABLET PO (09:11)
[2023-10-30] MEDS: Celecoxib 200 MG CAPSULE PO ×2 (09:11→20:54)
[2023-10-30] MEDS: Docusate Sodium 100 MG CAPSULE PO ×2 (09:11→20:55)
[2023-10-30] MEDS: sulfaSALAzine 500 MG TABLET PO ×4 (09:23→21:03)
--- NOTE | 2023-10-30 09:56 | MHC.CM.PN ---
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
[2023-10-30] MEDS: Albuterol/Iprat 2.5/0.5MG 3 ML AMPUL.NEB INHALE ×3 (11:27→21:43)
--- NOTE | 2023-10-30 12:14 | HO.POSTANES ---
Post Anesthesia Evaluation Post Anesthesia Evaluation Date of Service: 10/29/23 Vital Signs: Vital Signs Temp Pulse Resp BP Pulse Ox O2 Del Method O2 Flow Rate 10/30/23 11:29 63 18 10/30/23 07:20 96.8 F 57 18 146/67 H 97 Nasal Cannula 2 10/30/23 03:09 96.9 F 58 20 144/67 H 96 Nasal Cannula 2 Anesthesia: Spinal Mental Status: Awake Pain Control: Satisfactory Nausea/Vomiting: None Hydration: Adequate Anesthesia-Related Issues: No Anes. Related Issues
--- NOTE | 2023-10-30 14:19 | P.PNOP_ITS ---
Subjective Subjective Date of Service: 10/30/23 Interval history: POD1 s/p LTKA Patient is resting in bed comfortably No overnight events Pain is managed Did not have P.T. POD0 No additional complaints Physical Exam Vital Signs: Vital Signs: Last Vital Signs Temp 96.8 F 10/30/23 07:20 Pulse 63 10/30/23 11:29 Resp 18 10/30/23 11:29 BP 146/67 H 10/30/23 07:20 Pulse Ox 97 10/30/23 07:20 O2 Del Method Nasal Cannula 10/30/23 07:20 O2 Flow Rate 2 10/30/23 07:20 BMI result Body Mass Index 33.9 Const: General: cooperative, healthy appearing and no acute distress Resp: Effort & Inspection: normal respiratory effort and able to speak in com plete sentences Cardio: Rate: regular rate Peripheral pulses: Peripheral pulses 2+ throughout GI: Palpation (GI): Soft to palpation Skin: Lesions: no lesions Rashes: no rashes Extrem: Other: left knee dressing is c/d/i. Able to dorsi/plantar flex. Calf is supple and nontender. Sensation intact. Pedal pulse intact. Procedures Date of Service Date of Service: 10/30/23 Progress Note: A&P Assessment and plan (1) Status post total knee replacement, left: Status: Acute Plan Continue pain mgmnt Begin ASA for dvt ppx begin PT for LTKA Dispo planning-Pending PT eval, pain mgmnt Time Spent With Patient Time: Total time managing care of this patient today ____ minutes. Quality Stroke Does the patient have a stroke diagnosis?: No VTE Prior VTE?: No VTE Risk Level:: Medical - moderate - high VTE Device Contraindication: N/A - Device Ordered VTE Drug Contraindication: N/A - Med Ordered
[2023-10-30] MEDS: HYDROmorphone HCl 0.5 MG/0.5 ML SYRINGE 0.25 MG IVPUSH ×2 (15:04→19:52)
[2023-10-30] MEDS: 0.9 % Sodium Chloride Flush 3 ML SYRINGE IVFLUSH (19:55)
[2023-10-30] MEDS: Tolterodine Tartrate LA 2 MG CAP.ER.24H PO (20:54)
[2023-10-30] MEDS: Montelukast Sodium 10 MG TABLET PO (20:55)
[2023-10-31] MEDS: HYDROmorphone HCl 0.5 MG/0.5 ML SYRINGE 0.25 MG IVPUSH ×3 (00:29→12:57)
[2023-10-31 02:29] VITALS: BP 147/67; PULSE 100; RESP 16; TEMP 36.6; O2SAT 92
[2023-10-31] MEDS: oxyCODONE HCl Immed Release 5 MG TABLET PO ×2 (04:54→09:32)
[2023-10-31] MEDS: Lactated Ringers 1,000 ML 100 ML IVCONT (07:19)
[2023-10-31 07:20] VITALS: BP 153/67; PULSE 94; RESP 18; TEMP 36.4; O2SAT 93
[2023-10-31] MEDS: Hydroxychloroquine Sulfate 200 MG TABLET 300 MG PO (08:32)
[2023-10-31] MEDS: Aspirin 325 MG TABLET PO (08:32)
[2023-10-31] MEDS: Folic Acid 1 MG TABLET PO (08:32)
[2023-10-31] MEDS: Celecoxib 200 MG CAPSULE PO (08:32)
[2023-10-31] MEDS: sulfaSALAzine 500 MG TABLET PO ×2 (08:32→12:57)
[2023-10-31] MEDS: Docusate Sodium 100 MG CAPSULE PO (08:32)
[2023-10-31 08:33] LABS: Hemoglobin 9.5 g/dl (12.0-16.0)
[2023-10-31] MEDS: oxyCODONE HCl ER 10 MG TAB.ER.12H PO (08:33)
--- NOTE | 2023-10-31 10:21 | PM.DS ---
DS: Providers Provider Date of Service: 10/31/23 Date of admission: 10/29/23 12:57 Primary care physician: Cira Lancaster MD Consults: 10/29/23 17:28 Consult to Hospitalist Routine Comment: Consulting Provider: Hospitalist Reason For Exam: routine medical management DS: Diagnosis Discharge Diagnosis (1) Status post total knee replacement, left: Status: Acute DS: Summary Hospital Course Hospital Course: The patient underwent a successful left total knee arthroplasty on, was transferred to PACU and then to the floor to recover. During their stay, their vitals were stable, afebrile at 97.6 . Labs were unremarkable, H/H 9.5/30.0. POD 1 she was started on ASA 325mg tbas po bid for DVT ppx, they also received Physical Therapy services twice a day. Physical therapy should include gait training, ROM to tolerance and quad strength. He is WBAT. Prior to discharge, his dressing was changed, incision clean dry and intact, new Aquacel dressing applied. The Aquacel dressing should remain intact and dry at all times. Any concerns with the dressing, please contact orthopedic office. No showering. The plan is to be discharged home with vna Time Attestation Discharge Coordination Time (in mins): 30 Quality: Safe Use of Opioids Does Pt have an Active Cancer Diagnosis on the Problem List?: No Quality: Stroke Does the patient have a stroke diagnosis?: No Physical Exam Vital Signs: Vital Signs: Last Vital Signs Temp 97.6 F 10/31/23 07:20 Pulse 94 10/31/23 07:20 Resp 18 10/31/23 07:20 BP 153/67 H 10/31/23 07:20 Pulse Ox 93 10/31/23 07:20 O2 Del Method Room Air 10/31/23 07:20 O2 Flow Rate 2 10/30/23 07:20 BMI result Body Mass Index 33.9 DS: Data Data Completed and Pending Pending studies at discharge: Pending at discharge 10/29/23 14:49 Surgical [PTH] Routine Labs on day of discharge: Laboratory Results - last 24 hr 10/31/23 08:17 Hgb 9.5 L Hct 30.0 L Discharge Plan Discharge Anticipated Discharge Date/Time: 10/31/23 08:43 Patient Disposition: Home Health Service Discharge Diagnosis: lt tka Referrals: [facility] [Outside] - 1 Day (HOME PHYSICAL THERAPY, A THERAPIST WILL REACH OUT TO YOU FOR FIRST VISIT ON TUESDAY 10/31.) Sourav Atwood PA-C [Physician Wind Tunnel Mechanic] - 2 Weeks (11/14/23 13:00 [facility] Sourav Atwood PA-C) Discharge Medications: New celecoxib 200 mg Capsule 200 mg PO BID 30 Days Qty: 60 0RF acetaminophen 325 mg Tablet 650 mg PO Q6H PRN (Reason: Pain, Mild (Pain Scale 1-3)) 30 Days Qty: 240 0RF aspirin 325 mg Tablet 325 mg PO BID 42 Days Qty: 84 0RF docusate sodium 100 mg Capsule 100 mg PO BID 14 Days Qty: 28 0RF oxycodone 5 mg Tablet 5 mg PO Q4H PRN (Reason: Pain, Moderate(Pain Scale 4-6)) 7 Days Qty: 42 0RF Rx Instructions: Partial Fill upon patient request. Continued Dupixent Syringe 300 mg/2 mL syringe 300 mg subcut Q2W 365 Days Qty: 56 0RF Rx Instructions: LOading dose: 600mg SC x 1, then 300mg every 2 weeks (DME) insulin syringe-needle U-100 [BD Insulin Syringe] 1 mL 27 gauge x 1/2 syringe See Rx Instructions .Route Qty: 12 3RF Rx Instructions: Inject 15 mg methotrexate (.6cc) 25 mg/cc once a week sulfasalazine 500 mg tablet 500 mg PO QID Qty: 360 2RF hydroxychloroquine 200 mg tablet 300 mg PO DAILY Qty: 135 2RF Otrexup (PF) 15 mg/0.4 mL auto-injector 15 mg subcut QWEEK Qty: 1.6 2RF Rinvoq 15 mg tablet extended release 24 hr 15 mg PO DAILY Qty: 30 1RF Hold Instructions: Doctor's Order diclofenac potassium 50 mg Tablet 50 mg PO TID PRN (Reason: Pain) albuterol sulfate 2.5 mg /3 mL (0.083 %) solution for nebulization 2.5 mg inhalation TID PRN (Reason: Shortness Of Breath) albuterol sulfate 90 mcg/actuation HFA aerosol inhaler 2 puff inhalation Q6H PRN (Reason: shortness of breath or wheezing) 30 Days Qty: 8.5 6RF montelukast 10 mg tablet 10 mg PO BEDTIME 90 Days Qty: 90 3RF (DME) nebulizers Mis See Rx Instructions .Route Rx Instructions: As directed Ferny Aerosphere 160-9-4.8 mcg/actuation HFA aerosol inhaler 2 inh inhalation BID Qty: 10.7 11RF (DME) Shower Chair Misc See Rx Instructions .Route Qty: 1 0RF Rx Instructions: As directed (DME) heating pads Pad See Rx Instructions .Route Qty: 1 0RF Rx Instructions: As directed (DME) Knee Support Brace Misc See Rx Instructions .Route Qty: 1 0RF Rx Instructions: As directed Enbrel 50 mg/mL (1 mL) syringe 50 mg subcut QWEEK Qty: 4 5RF tolterodine 2 mg capsule,extended release 24hr 2 mg PO QPM ipratropium-albuterol 0.5 mg-3 mg(2.5 mg base)/3 mL solution for nebulization 3 ml inhalation QID 90 Days Qty: 360 3RF folic acid 1 mg tablet 1 mg PO DAILY Qty: 90 3RF (DME) walker Misc See Rx Instructions .MEDSUPPLY Qty: 1 0RF Rx Instructions: Folding Front wheeled walker (DME) food tray See Rx Instructions .Route .MEDSUPPLY Qty: 1 0RF Rx Instructions: As directed Discharge Orders: Discharge Order (Routine); Ordered 10/31/23 Ordered By: Sourav Atwood Diet: Regular diet Activity on Discharge: Use cane or walker Stand Alone Forms: Patient Portal Discharge page Print Language: Urdu Care Plan Goals: Restore function of joint Health Concerns: none Plan of Treatment: Physical Therapy Pain management DVT prophylaxis Assessment: Physical Therapy for Total knee arthroplasty: WBAT, gait training, ROM 0-12, quad strength Limit stair climbing No showering, no tub bath-keep dressing clean, dry and intact No driving x6 weeks Continue Aspirin twice a day x 6 weeks Follow up with [facility] [place] [facility] weeks:
--- NOTE | 2023-10-31 10:22 | P.F2F_ITS ---
Service Date Service Date: 10/31/23 Encounter Date of encounter: 10/31/23 Reasons for Services Signs and symptoms assessed: Weakness, poor balance, poor gait mechanics Reason for physical therapy: home safety and mobility, therapeutic exercises, restore joint function, gait/transfer training and ADL training Reason for occupational therapy: home safety and mobility, therapeutic exercises, restore joint function, gait/transfer training and ADL training Homebound: Leaving the home is medically contraindicated at this time without the asist of a device and/or another person due th the listed conditions above and below. Reason homebound: unsteady gait / fall risk, poor balance / fall risk and unable to drive Homebound supporting statement: Pt. is considered home bound due to recent surgery. Unable to drive, poor balance, poor gait mechanics. Certification: Based on the above findings, I certify that this patient is confined to the home and needs intermittent senior living care, physical therapy and/or speech therapy, or continues to need occupational therapy. The patient is under my care, and I have initiated the establishment of the plan of care. The patient will be followed by a physician who will periodically review the plan of care. Time Spent With Patient Time: Total time managing care of this patient today ____ minutes.
[2023-10-31] MEDS: Albuterol/Iprat 2.5/0.5MG 3 ML AMPUL.NEB INHALE (11:44)
[2023-10-31 11:48] VITALS: PULSE 94; RESP 18; O2SAT 95
[2023-10-31 12:00] VITALS: BP 144/65; PULSE 102; RESP 18; TEMP 36.2; O2SAT 93
--- NOTE | 2023-10-31 13:08 | MHC.CM.PN ---
PT MEDICALLY CLEARED FOR DC HOME W/NEW [facility] FOR HOME PT, PT'S FLATTENING PRESS OPERATOR WILL TRANSPORT AT 3PM
--- NOTE | 2023-11-04 09:00 | P.OP_ITS ---
Operative Note Operative Note Date of Service: 10/29/23 Narrative: Date of Service: 10/29/23 Pre-op diagnosis: left knee OA Post-op diagnosis: same Procedure: Left TKA Implants: [place] Triathlon posterior stabilized 2/3/12ps/27s Surgeon: John Carter MD Anesthesia: GETA and regional Was an Corporate General Manager used for this Procedure?: Yes Corporate General Manager: Kaya Bland Estimated blood loss (mL): 20 Tourniquet time (min): 65 IV fluids (mL): 1,000 Pathology: other Condition: stable Disposition: PACU Procedure in detail: The patient was brought to the operating room and prepped and draped in standard sterile fashion. A time-out was called to identify proper site proper procedure proper surgeon and IV antibiotics were administered. 1 g of IV tranexamic acid was administered. I began by making a midline incision to the retinaculum and performed a medial parapatellar arthrotomy. The patella was translated laterally and the knee was flexed up. The medial compartment was eburnated. I performed a small medial peel and resected the infrapatellar fat pad. [place]'s line was then used to drill my intramedullary femoral guide and my distal femur cut of 10 mm was made in 5 degrees of valgus while protecting the soft tissues. I then measured a # 2 femur and placed my cutting guide and made my anterior posterior and chamfer cuts protecting the soft tissues at all times. I then made my box but removing the PCL. Once I was satisfied with my cuts I turned my attention to the tibia. I removed the meniscus medially and laterally and , using an external cutting guide, in line with the tibial crest and the third ray, I made my distal tibial cut in 0 deg slope of while protecting the posterior soft tissues at all times. An extension block was used to confirm appropriate amount of bony resection. I then sized a #3 tibia and once I was satisfied that there was complete tibial coverage I placed my trial and with the trial femur in place took the knee through range of motion. I was satisfied with the extension and flexion as well as the balance at 0, 30 and 90 degrees. I then turned my attention to the patella where I removed 1 cm from the undersurface of the patella and then trialed a 27s patellar button. Again the knee was taken through range of motion I was satisfied with the tracking. I then prepared the tibia with a drill and punch. A femoral bone plug was placed and the knee was irrigated copiously. 2 bags of bone cement was prepared on the back table using third gen cementation technique. I then cemented the patella, tibia and femur in standard fashion. Axial compression and a clamp were used while the cement dried. Once the cement was hard on the back table all excess cement was removed and I trialed different inserts until I selected a #12ps insert. The final insert was placed and local TXA was administered. The knee was then closed with a running Quill suture, a 3 0 Vicryl and ronal on the skin. Patient was then placed in sterile dressing and brought to recovery room in stable condition there were no known complications.
== END 2023-10-31 14:38 | disposition home health service (06) | DRG 470 ==
LOC: HO.SSSA 12:58 → HO.S3 16:56
PROVIDERS: Nurse Practitioner; Physician Assistant; Admitting Provider Orthopaedic Surgery; PCP Internal Medicine; Visit Provider Orthopaedic Surgery
PROC: 0SRD0J9 Replacement of Left Knee Joint with Synthetic Substitute, Cemented, Open Approach (ICD-10-PCS; CPT 27447; principal; 2023-10-29 13:40)
DX: M17.12 Unilateral primary osteoarthritis, left knee (principal); G89.18 Other acute postprocedural pain; J44.9 Chronic obstructive pulmonary disease, unspecified; M05.9 Rheumatoid arthritis with rheumatoid factor, unspecified; Z79.631 Long term (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 of antimetabolite agent; Z79.69 Long term (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 of other immunomodulators and immunosuppressants; Z79.899 Other long term (current) drug therapy
CPT/HCPCS: 36415; 73560; 80048; 85014; 85018; 85025; 85027; 86850; 86900; 86901; 87640; 87641; 88304; 88305; 88311; 93005; 94640; 97110; 97116; 97162; C1713; C1776; J0131; J0665; J0690; J1100; J1170; J2250; J2371; J2405; J2704; J3010; J7120

== ENCOUNTER → 2023-10-29 12:57 | Outpatient (BNV) | payer OTHER, SELFPAY | PROVIDERS: Admitting Provider Orthopaedic Surgery; PCP Internal Medicine; Visit Provider Physician Assistant | DX: M17.12 Unilateral primary osteoarthritis, left knee (principal) | CPT/HCPCS: 99222 ==

== ENCOUNTER → 2023-10-29 12:57 | Outpatient (BNV) | payer OTHER, SELFPAY | PROVIDERS: Admitting Provider Orthopaedic Surgery; PCP Internal Medicine; Visit Provider Orthopaedic Surgery | DX: Z47.1 Aftercare following joint replacement surgery (principal); Z96.652 Presence of left artificial knee joint | CPT/HCPCS: 27447; 99024; G0180 ==

== ENCOUNTER 2023-11-14 12:31 | Outpatient (AMB) | payer OTHER, SELFPAY ==
--- NOTE | 2023-11-14 12:48 | MHC.OFFVIS ---
Intake Visit Reasons: PO Left TKA on 10/29/23 with NE Intake Note: Sahara a 58 year old female who presents today for a post operative visit s/p left TKA, DOS 10/29/23. Patient reports she is doing well, states a lot of pain however she finds relief with pain medication. Allergies almond Allergy (Severe, Verified 11/14/23 12:49) Hives and Rash HPI HPI PO Left TKA on 10/29/23 with NE: Details: 58-year-old female who returns to the office today for post-op left TKA, 10/29/[address] Carter. She states she has chronic pain in her knee. She finds relief with her pain medication. She has no other concerns today. [facility] Medical History Osteoarthritis Bilateral hand swelling Left knee pain Cataract Long-term use of immunosuppressant medication Seropositive rheumatoid arthritis Asthma-COPD overlap syndrome Cough Allergies Chronic allergic rhinitis Surgical History Hx of appendectomy History of knee replacement procedure of right knee Family History Father Asthma Maternal Grandmother Asthma Social History Household Members: Spouse Housing: House Are you a primary personal care attendant to a significant other at home: No Do you presently have visiting nurse or other home services: No Alcohol intake: never Patient Tobacco Use Status: Never used Tobacco e-Cigarette/Vaping Use: Never Used service: No Current occupational status: unemployed Sexual orientation: Straight/Heterosexual Gender identity: Female Cognitive needs: No Hearing needs: No Vision needs: Yes Review of Systems Const All systems reviewed & are unremarkable except as noted in HPI and below Physical Exam Extrem Other: Left knee: Incision clean, dry and intact. No erythema or drainage. He does have swelling on the LLE with what appears to be a palpable cord on the medial aspect of calf. Assessment & Plan Assessment & Plan (1) Status post total knee replacement, left: Code(s): Z96.652 - Presence of left artificial knee joint Category: Surgical Plan Cummings removed, steri strips applied. She will begin to transition to Outpatient PT to continue working on Gait training, ROM and quad strength. No driving for another 4 weeks. She will require ppx abx for dental procedures. She will f/u in 4 weeks, sooner if needed. She was also sent for STAT u/s LLE Orders: Orders US venous duplex LE LT Today R60.9 - Edema, unspecified Patient Instructions: Scribed for Sourav Atwood PA-C, by Napoleon Templeton medical assistant cardiology, on 11/14/2023 at 1:00 PM EST. I, Sourav Atwood PA-C, have personally reviewed and agree with the information entered by the scribe. Coding Level of Care Code Global (23742) Diagnoses Status post total knee replacement, left Z96.652
== END 2023-11-14 13:23 | disposition home or self-care (01) ==
PROVIDERS: PCP Internal Medicine; Visit Provider Physician Assistant
DX: Z96.652 Presence of left artificial knee joint (principal)
CPT/HCPCS: 99024

== ENCOUNTER → 2023-11-14 12:31 | Outpatient (BNVA) | payer OTHER, SELFPAY | PROVIDERS: PCP Internal Medicine; Visit Provider Physician Assistant | DX: Z47.1 Aftercare following joint replacement surgery (principal); Z96.652 Presence of left artificial knee joint | CPT/HCPCS: 99212 ==

== ENCOUNTER 2023-11-15 12:33 | Outpatient (REF) | payer OTHER, SELFPAY ==
--- NOTE | ~2023-11-15 | US_ITS ---
EXAMINATION: US VENOUS ULTRASOUND WITH DOPPLER LOWER EXTREMITY, LEFT CLINICAL INFORMATION: Edema and pain. 2 weeks postoperative. COMPARISON: None available. TECHNIQUE: Ultrasound of the deep veins is performed from the hip to the calf with compression sonography and color and pulse Doppler assessment. Spectral analysis with color-flow imaging is performed. FINDINGS: Acute occlusive deep venous thrombosis in the posterior tibialis vein. The visualized common femoral vein, superficial femoral vein, profunda femoral vein, popliteal vein, and the trifurcation region shows no evidence of deep venous thrombosis. There is no significant popliteal fossa cyst. US/US venous duplex LE IMPRESSION: Acute occlusive deep venous thrombosis in the posterior tibialis vein of the left lower extremity. This critical result was discussed with Shawnee Ojeda MA at 11/15/2023 2:25 PM and it was ascertained that the content and urgency of the report was understood at the time of direct communication.
== END 2023-11-15 12:34 | disposition home or self-care (01) ==
LOC: HO.HMGCX 12:33
PROVIDERS: PCP Internal Medicine; Visit Provider Physician Assistant
DX: R60.0 Localized edema (principal)
CPT/HCPCS: 93971

== ENCOUNTER 2023-12-05 12:41 | Outpatient (AMB) | payer OTHER, SELFPAY ==
--- NOTE | 2023-12-05 12:48 | A.OFFVIS_ITS ---
Intake Visit Reasons: 6 wk PO Left TKA on 10/29/23 with NE Intake Note: Sahara a 58 year old female who presents today for a 6 week post operative visit s/p left TKA, DOS 10/29/23. Patient reports that she hasn't went to PT yet, due to having a blood clot and having to get injections. However she is still having pain and discomfort. Allergies almond Allergy (Severe, Verified 12/05/23 12:52) Hives and Rash HPI HPI 6 wk PO Left TKA on 10/29/23 with NE: Details: surgery c/b DVT but is doing well. Starting PT with minimal pain. PFSH Medical History Osteoarthritis Bilateral hand swelling Left knee pain Cataract Long-term use of immunosuppressant medication Seropositive rheumatoid arthritis Asthma-COPD overlap syndrome Cough Allergies Chronic allergic rhinitis Surgical History Hx of appendectomy History of knee replacement procedure of right knee Family History Father Asthma Maternal Grandmother Asthma Social History Household Members: Spouse Housing: House Are you a primary customer care manager to a significant other at home: No Do you presently have visiting nurse or other home services: No Alcohol intake: never Patient Tobacco Use Status: Never used Tobacco e-Cigarette/Vaping Use: Never Used service: No Current occupational status: unemployed Sexual orientation: Straight/Heterosexual Gender identity: Female Cognitive needs: No Hearing needs: No Vision needs: Yes Physical Exam Extrem Other: inc c/d/i 0-120 stable arc of motion mild calf ttp Assessment & Plan Assessment & Plan (1) Status post total knee replacement, left: Code(s): Z96.652 - Presence of left artificial knee joint Category: Surgical Plan: Outpatient PT f/u 6 weeks Coding Level of Care Code Global (51713) Diagnoses Status post total knee replacement, left Z96.652
== END 2023-12-05 13:05 | disposition home or self-care (01) ==
PROVIDERS: PCP Internal Medicine; Visit Provider Orthopaedic Surgery
DX: Z96.652 Presence of left artificial knee joint (principal)
CPT/HCPCS: 99024

== ENCOUNTER → 2023-12-05 12:41 | Outpatient (BNVA) | payer OTHER, SELFPAY | PROVIDERS: PCP Internal Medicine; Visit Provider Orthopaedic Surgery | DX: Z96.652 Presence of left artificial knee joint (principal) | CPT/HCPCS: 99212 ==

== ENCOUNTER 2023-12-31 12:05 | Outpatient (REF) | payer OTHER, SELFPAY ==
[2023-12-31 13:08] LABS: MANUAL DIFF FLAG NO
[2023-12-31 13:26] LABS: Basophils Percent Auto 0.9 % (0-2); Eosinophils Absolute Auto 0.4 X10*3/uL (0.0-0.4); Eosinophils Percent Auto 11.7 % (0-4); Hematocrit 34.5 % (37.0-47.0); Hemoglobin 10.9 g/dl (12.0-16.0); Lymphocytes Absolute Auto 0.9 X10*3/uL (1.2-4.9); Lymphocytes Percent Auto 28.1 % (20-40); Mean Corpuscular HGB Conc 31.6 g/dl (31.0-35.0); Mean Corpuscular Hemoglobin 28.3 pg (27.0-33.0); Mean Corpuscular Volume 89.6 fL (80.0-98.0); Mean Platelet Volume 11.3 fL (9.4-12.3); Monocytes Absolute Auto 0.3 X10*3/uL (0.1-1.2); Monocytes Percent Auto 8.2 % (2-11); Neutrophils Absolute Auto 1.6 x10*3/uL (2.0-8.3); Neutrophils Percent Auto 51.1 % (45-73); Platelet Count 318 X10*3/uL (160-400); Red Blood Count 3.85 X10*6/uL (4.20-5.50); Red Cell Distribution Width 15.1 % (11.0-16.0); White Blood Count 3.2 X10*3/uL (4.8-10.8)
[2023-12-31 14:20] LABS: Erythrocyte Sedimentation Rate 73 MM/HR (0-20)
[2023-12-31 14:29] LABS: Alanine Aminotransferase 11 U/L (0-31); Albumin Level 3.9 g/dL (3.5-5.0); Alkaline Phosphatase 86 U/L (39-117); Anion Gap 12 (12-20); Aspartate Amino Transferase 21 U/L (5-31); Bilirubin Total 0.3 mg/dL (0.0-1.0); Blood Urea Nitrogen 14 mg/dL (9-16); C Reactive Protein 1.16 mg/dL (< or = 0.50); Calcium 9.3 mg/dL (8.4-10.2); Carbon Dioxide 26 mmol/L (22-29); Chloride 108 mmol/L (96-108); Estimated Glomerular Filt Rate > 60; Glucose Random 81 mg/dL (60-115); Sodium 142 mmol/L (135-145); Total Protein 8.2 g/dL (6.5-8.0)
== END 2023-12-31 12:06 | disposition home or self-care (01) ==
LOC: HO.HMGCLDS 12:05
PROVIDERS: PCP Internal Medicine; Visit Provider Nurse Practitioner Family
DX: M05.79 Rheumatoid arthritis with rheumatoid factor of multiple sites without organ or systems involvement (principal); M79.89 Other specified soft tissue disorders; Z79.899 Other long term (current) drug therapy
CPT/HCPCS: 36415; 80053; 84550; 85025; 85652; 86140

== ENCOUNTER 2024-01-16 13:33 | Outpatient (AMB) | payer OTHER, SELFPAY ==
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
== END 2024-01-16 14:04 | disposition home or self-care (01) ==
PROVIDERS: PCP Internal Medicine; Visit Provider Orthopaedic Surgery
DX: Z96.652 Presence of left artificial knee joint (principal)
CPT/HCPCS: 99024

== ENCOUNTER 2024-01-16 13:33 | Outpatient (REF) | payer OTHER, SELFPAY | END 2024-01-16 13:34 | disposition home or self-care (01) | LOC: HO.HOSX 13:33 | PROVIDERS: PCP Internal Medicine; Visit Provider Orthopaedic Surgery | DX: M25.562 Pain in left knee (principal); Z47.1 Aftercare following joint replacement surgery; Z96.652 Presence of left artificial knee joint | CPT/HCPCS: 99212 ==

== ENCOUNTER 2024-02-13 13:00 | Outpatient (RCR) | payer OTHER, SELFPAY ==
--- NOTE | 2023-12-16 11:54 | MHC.PT.EP ---
[facility] [place] Office [place] Office [place] Office [address] Skye Yusuf 140 [facility] [phone] F: [phone] F: [phone] F: [phone] F: [phone] Physical Therapy Plan of Care Date of Evaluation: 12/16/23 Date of Surgery: 10/29/23 Diagnosis: This is a 58 yo female presenting to skilled PT with a script for L TKA. Assessment: This is a 58 yo female presenting to skilled PT with a script for L TKA. Patient had her surgery 10/29/23 at [facility] with Dr. Carter. She was DC'd home with home services after 2 days in the hospital. She had home PT for 2 weeks. On 11/13 ronal were removed and steri strips applied. She has not had outpatient PT yet as she experienced a DVT following surgery which was found on 11/14 (still on Eliquis). Pain is throughout the knee joint but is also throughout the quad and posterior knee, described as sensitive and sharp. She reports that she has been using the FWW prior to the surgery and still is. She has a cane that she occasionally uses. Assessment reveals pain that ranges from up to a 10/10 at the worst. Patient demos L knee and hip/ankle ROM, strength of BLE's, TTP at medial and lateral joint lines and incision, impaired posture with forward head and rounded shoulders as well as impaired balance and gait all expected s/p TKR. Based on functional limitations, impaired QOL and pain tolerance patient is a good candidate for skilled PT 2x/wk for 5wks. Frequency and Duration: The patient will be seen 2x/wk for 5wks Short Term Goals: (in 2 weeks) Patient will improve knee AROM by at least 10 degs without assist Patient will demo good undestanding and performance of quad set in multiple different planes without cues from PT Patient will be I in HEP Senior Living Goals: (in 5 weeks) Patient will report 75% improvement in balance and strength of LLE as evidenced by reports no of falls or buckling in LE Patient will improve LEFs by 10 points Patient will demo WFL AROM of knee and ankle Patient will demo proper squat and lift techniques without increase in pain Treatment Plan: Modalities to reduce pain, spasms and effusion. Manual therapy to restore motion and function. Therapeutic exercise to improve strength and flexibility. Neuromuscular re-education for posture and balance. Therapeutic activities to return to functional activities of daily living. Electronically signed by: Katie Love PT Please sign and return to therapist. Thank you for your referral.
--- NOTE | 2024-02-13 15:04 | MHC.PT.EP ---
[facility] [place] Office [place] Office [place] Office [address] Skye Yusuf 140 [facility] [phone] F: [phone] F: [phone] F: [phone] F: [phone] Physical Therapy Plan of Care Date of Evaluation: 12/16/23 Date of Surgery: 10/29/23 Diagnosis: This is a 58 yo female presenting to skilled PT with a script for L TKA. Assessment: This is a 58 yo female presenting to skilled PT with a script for L TKA. Patient had her surgery 10/29/23 at [facility] with [place]. Carter. She was DC'd home with home services after 2 days in the hospital. She had home PT for 2 weeks. On 11/13 ronal were removed and steri strips applied. She has not had outpatient PT yet as she experienced a DVT following surgery which was found on 11/14 (still on Eliquis). Pain is throughout the knee joint but is also throughout the quad and posterior knee, described as sensitive and sharp. She reports that she has been using the FWW prior to the surgery and still is. She has a cane that she occasionally uses. Assessment reveals pain that ranges from up to a 10/10 at the worst. Patient demos L knee and hip/ankle ROM, strength of BLE's, TTP at medial and lateral joint lines and incision, impaired posture with forward head and rounded shoulders as well as impaired balance and gait all expected s/p TKR. Based on functional limitations, impaired QOL and pain tolerance patient is a good candidate for skilled PT 2x/wk for 5wks. Frequency and Duration: The patient will be seen 2x/wk for 4wks Short Term Goals: (in 2 weeks) Patient will improve knee AROM by at least 10 degs without assist (MET but would benefit from another STG to increase 10 degs) Patient will demo good understanding and performance of quad set in multiple different planes without cues from PT (MET) Patient will be I in HEP (MET) Steward/Stewardess Tourist Class Goals: (in 5 weeks) Patient will report 75% improvement in balance and strength of LLE as evidenced by reports no of falls or buckling in LE (NOT MET) Patient will improve LEFs by 10 points (NOT MET) Patient will demo WFL AROM of knee and ankle (NOT MET) Patient will demo proper squat and lift techniques without increase in pain (MET) Treatment Plan: Modalities to reduce pain, spasms and effusion. Manual therapy to restore motion and function. Therapeutic exercise to improve strength and flexibility. Neuromuscular re-education for posture and balance. Therapeutic activities to return to functional activities of daily living. Electronically signed by: Katie Love PT Please sign and return to therapist. Thank you for your referral.
== END 2024-02-13 15:04 | disposition home or self-care (01) ==
LOC: HO.PTCHIC 13:00
PROVIDERS: PCP Internal Medicine; Visit Provider Physician Assistant
DX: Z96.652 Presence of left artificial knee joint (principal)
CPT/HCPCS: 97110; 97112; 97162; 97164; 97530

== ENCOUNTER 2024-02-17 13:53 | Outpatient (AMB) | payer OTHER, SELFPAY ==
--- NOTE | 2024-02-17 13:55 | MHC.OFFVIS ---
Vital Signs 02/17/24 14:03 Height 5 ft 1 in Weight 180 lb 12.465 oz BMI 34.2 BP 140/82 H Blood Pressure Location Lt brachial Position Sitting Respiration 18 Pulse 75 Pulse Source Pulse Oximeter Pulse Oximetry (%) 96 Oxygen Delivery Method Room Air Intake Visit Reasons: RA/Left Knee Surgery Intake Note: Patient presents for RA/left knee surgery. Allergies almond Allergy (Severe, Verified 02/17/24 14:02) Hives and Rash Medication List - Last Reconciled 02/17/24 by Huber Higgins MD acetaminophen 650 mg (2 x 325 mg) PO Q6H PRN 30 days albuterol sulfate 2.5 mg inhalation TID PRN albuterol sulfate 90 mcg/actuation 2 puffs PO Q6H PRN apixaban (Eliquis) 5 mg PO BID aspirin 325 mg PO BID 42 days ogoehvcksf-slyvukcm-vepwzdlqpa 160-9-4.8 mcg/actuation (Breztri Aerosphere) 2 inhalations inhalation BID [Cane As directed] celecoxib 200 mg PO BID diclofenac potassium 50 mg PO TID PRN docusate sodium 100 mg PO BID 14 days dupilumab (Dupixent) 300 mg (2 mL) subcut Q2W 28 days folic acid 1 mg PO DAILY [food tray As directed] heating pads As directed hydroxychloroquine 300 mg (1.5 x 200 mg) PO DAILY insulin syringe-needle U-100 (BD Insulin Syringe) Inject 15 mg methotrexate (.6cc) 25 mg/cc once a week ipratropium-albuterol 0.5 mg-3 mg(2.5 mg base)/3 mL 3 mL inhalation QID 90 days leg brace (Knee Support Brace) As directed montelukast 10 mg PO BEDTIME 90 days nebulizers As directed Otrexup (PF) (methotrexate (PF)) 15 mg (0.4 mL) subcut QWEEK NS oxycodone 5 mg PO Q4H PRN 7 days Shower Chair As directed sulfasalazine 500 mg PO QID tolterodine ER 2 mg PO QPM upadacitinib ER (Rinvoq) 15 mg PO DAILY walker Folding Front wheeled walker HPI Comments Details: This is a 58-year-old female with seropositive erosive RA who presents for follow-up. She is on sulfasalazine, methotrexate, Rinvoq and hydroxychloroquine. Patient is s/p left knee replacement 10/2023. A few weeks after the knee replacement she developed an acute DVT of the left lower extremity, she is now on Eliquis. She had held her Rinvoq perioperatively. She states that she has good and bad days with her arthritis. But overall seems to be her baseline. Has not had any recent illnesses. [facility] Medical History Osteoarthritis of left knee Osteoarthritis Bilateral hand swelling Left knee pain Cataract Long-term use of immunosuppressant medication Seropositive rheumatoid arthritis Asthma-COPD overlap syndrome Cough Allergies Chronic allergic rhinitis Surgical History Hx of appendectomy History of knee replacement procedure of right knee Family History Father Asthma Maternal Grandmother Asthma Social History Household Members: Spouse Housing: House Are you a primary urgent care to a significant other at home: No Do you presently have visiting nurse or other home services: No Alcohol intake: never Patient Tobacco Use Status: Never used Tobacco e-Cigarette/Vaping Use: Never Used service: No Current occupational status: unemployed Sexual orientation: Straight/Heterosexual Gender identity: Female Cognitive needs: No Hearing needs: No Vision needs: Yes Female Reproductive History Menstrual Total pregnancies: 4 Number of Living Children: 1 Ab spontaneous: 3 Review of Systems Musc Reports arthralgias, Reports joint swelling and Reports stiffness Physical Exam Vital Signs: Last Vital Signs Pulse 75 02/17/24 14:03 Resp 18 02/17/24 14:03 BP 140/82 H 02/17/24 14:03 Pulse Ox 96 02/17/24 14:03 Oxygen Delivery Method Room Air 02/17/24 14:03 BMI result Body Mass Index 34.2 Const General: cooperative, healthy appearing and comfortable Nutritional Appearance: obese Orientation/consciousness: patient oriented x3 Limitations: no limitations HEENT Head: Yes normocephalic and Yes atraumatic Mouth: moist mucous membranes Resp Effort & Inspection: normal respiratory effort and able to speak in complete sentences Auscultation: clear to auscultation bilaterally Cardio Rate: regular rate Rhythm: regular rhythm Skin General skin exam: no rashes or lesions noted Neuro General: patient oriented x3 Extrem Other: No wrist swelling or tenderness bilaterally Right hand significant synovial thickening of 2nd through 5th MCPs Right 3rd MCP tenderness Left hand synovial thickening of MCPs with mild ulnar deviation Rheumatoid nodules both elbows Normal range of motion of elbows without pain Normal range of motion of shoulders without pain Left knee warmth Mild left lower extremity edema Assessment & Plan Assessment & Plan (1) Seropositive rheumatoid arthritis of multiple joints: Comment: Onset about 2000 +++ RF+++CCP positive. Erosive changes on hand films 07/18. On HCQ & SSZ since ? 2004? MTX added 05/2011. Enbrel added 09/2012. MTX stopped 03/22 due to shingles. HCQ, Enbrel and SSZ continued, MTX added back 06/22. lost coverage for Enbrel 2021.restarted 07/2022May 2023: Methotrexate changed to 15 mg subcu weekly Enbrel DC ineffective Rinvoq 12/2023 Code(s): M05.79 - Rheumatoid arthritis with rheumatoid factor of multiple sites without organ or systems involvement Category: Medical Plan: This is a 58-year-old female with seropositive erosive RA presents for follow-up. This is her 1st visit with me. She is on a complicated DMARD list including Rinvoq 15 mg p.o. daily, methotrexate 15 mg subcutaneously weekly, sulfasalazine 500 mg q.i.d. and hydroxychloroquine 300 mg daily it seems patient developed left lower extremity DVT perioperatively, she was not on Rinvoq at the time. I think DVT is provoked by the surgery as well as her rheumatoid arthritis rather than Rinvoq On exam today patient has minimal synovitis. She can continue current meds I think the mild thromboembolic risk of Rinvoq is degraded by taking Eliquis. I will repeat lower extremity venous duplex before next visit. Check labs today and before next visit in 3 months. Over time I think we can optimize her injectable methotrexate and reduce her sulfasalazine (2) Long-term use of immunosuppressant medication: Code(s): Z79.899 - Other administrative office manager (current) drug therapy Category: Medical Plan: Monitor safety labs while on methotrexate, Rinvoq and sulfasalazine (3) Long-term use of hydroxychloroquine: Comment: Eye exam normal January 2014, 2014, November 2015, 05/25; 09/23; 03/27, 09/2020, 03/2021,10/2021, 04/2022 Code(s): Z79.899 - Other residential (current) drug therapy Category: Medical Plan: Will request most recent eye exam from [facility] C[facility] sent (4) Left leg DVT: Code(s): I82.402 - Acute embolism and thrombosis of unspecified deep veins of left lower extremity Category: Medical Qualifiers: Affected thrombotic vein of extremity: tibial Chronicity: acute Qualified Code(s): I82.442 - Acute embolism and thrombosis of left tibial vein Plan: Will check bilateral lower extremity venous duplex (5) Immunization counseling: Code(s): Z71.85 - Encounter for immunization safety counseling Category: Medical Plan: Advised patient to get the Shingrix vaccine specially that she had shingles in the past and she is on Rinvoq. Advised patient to hold Rinvoq 3 days before and after each vaccine dose & skip 2 methotrexate doses Plan This is patient's 1st visit with me, I spent 49 minutes reviewing patient's chart, evaluating patient, ordering diagnostic workup, counseling patient and documenting in the chart Orders: Orders Complete Blood Count Auto Diff Today M05.79 - Rheumatoid arthritis with rheumatoid factor of multiple sites without organ or systems involvement, Z79.899 - Other residential (current) drug therapy Comprehensive Met. Panel Today M05.79 - Rheumatoid arthritis with rheumatoid factor of multiple sites without organ or systems involvement, Z79.899 - Other administrative office manager (current) drug therapy Erythrocyte Sedimentation Rate Today M05.79 - Rheumatoid arthritis with rheumatoid factor of multiple sites without organ or systems involvement, Z79.899 - Other administrative office manager (current) drug therapy US venous duplex LE BI 3 Months I82.402 - Acute embolism and thrombosis of unspecified deep veins of left lower extremity Complete Blood Count Auto Diff 3 Months M05.79 - Rheumatoid arthritis with rheumatoid factor of multiple sites without organ or systems involvement, Z79.899 - Other administrative office manager (current) drug therapy Comprehensive Met. Panel 3 Months M05.79 - Rheumatoid arthritis with rheumatoid factor of multiple sites without organ or systems involvement, Z79.899 - Other residential (current) drug therapy C Reactive Protein 3 Months M05.79 - Rheumatoid arthritis with rheumatoid factor of multiple sites without organ or systems involvement, Z79.899 - Other administrative office manager (current) drug therapy Erythrocyte Sedimentation Rate 3 Months M05.79 - Rheumatoid arthritis with rheumatoid factor of multiple sites without organ or systems involvement, Z79.899 - Other administrative office manager (current) drug therapy C Reactive Protein Today M05.79 - Rheumatoid arthritis with rheumatoid factor of multiple sites without organ or systems involvement, Z79.899 - Other administrative office manager (current) drug therapy Beta-2 Glycoprotein Antibody Today I82.402 - Acute embolism and thrombosis of unspecified deep veins of left lower extremity Cardiolipin Antibodies Today I82.402 - Acute embolism and thrombosis of unspecified deep veins of left lower extremity Lupus Anticoagulant Panel Today I82.402 - Acute embolism and thrombosis of unspecified deep veins of left lower extremity Medications: Refilled hydroxychloroquine 300 mg (1.5 x 200 mg) PO DAILY 135 tabs 2RF M05.9 - Rheumatoid arthritis with rheumatoid factor, unspecified folic acid 1 mg PO DAILY 90 tabs 3RF M05.79 - Rheumatoid arthritis with rheumatoid factor of multiple sites without organ or systems involvement Otrexup (PF) (methotrexate (PF)) 15 mg (0.4 mL) subcut QWEEK 1.6 mL 2RF NS M05.79 - Rheumatoid arthritis with rheumatoid factor of multiple sites without organ or systems involvement upadacitinib ER (Rinvoq) 15 mg PO DAILY 30 tabs 2RF M05.79 - Rheumatoid arthritis with rheumatoid factor of multiple sites without organ or systems involvement sulfasalazine 500 mg PO QID 360 tabs 2RF M05.9 - Rheumatoid arthritis with rheumatoid factor, unspecified Discontinued enoxaparin (Lovenox) Discontinued Reason: Patient Completed Course 80 mg (0.8 mL) subcut Q12H 44.8 mL 0RF 4 weeks Coding Level of Care Code Est Pt Level 5 (42633) Complex EM visit Add On G2211 Diagnoses Seropositive rheumatoid arthritis of multiple joints M05.79 Long-term use of immunosuppressant medication Z79.899 Long-term use of hydroxychloroquine Z79.899 Acute deep vein thrombosis (DVT) of tibial vein of left lower extremity I82.442 Affected thrombotic vein of extremity: tibial Chronicity: acute Immunization counseling Z71.85
[2024-02-17 14:03] VITALS: BP 140/82; PULSE 75; RESP 18; O2SAT 96; BMI 34.2
== END 2024-02-17 14:34 | disposition home or self-care (01) ==
PROVIDERS: PCP Internal Medicine; Visit Provider Student in an Organized Health Care Education/Training Program
DX: M05.79 Rheumatoid arthritis with rheumatoid factor of multiple sites without organ or systems involvement (principal); Z79.899 Other long term (current) drug therapy; I82.442 Acute embolism and thrombosis of left tibial vein; Z71.85 Encounter for immunization safety counseling
CPT/HCPCS: 99215; G2211

== ENCOUNTER 2024-02-17 14:58 | Outpatient (REF) | payer OTHER, SELFPAY ==
[2024-02-17 15:38] LABS: MANUAL DIFF FLAG NO
[2024-02-17 15:57] LABS: Basophils Percent Auto 0.8 % (0-2); Eosinophils Absolute Auto 0.5 X10*3/uL (0.0-0.4); Eosinophils Percent Auto 9.8 % (0-4); Hematocrit 37.4 % (37.0-47.0); Hemoglobin 11.6 g/dl (12.0-16.0); Imm Gran Abs Auto 0.02 X10*3/uL (0.00-0.03); Imm Gran Pct Auto 0.4 % (0.0-0.4); Lymphocytes Absolute Auto 0.9 X10*3/uL (1.2-4.9); Lymphocytes Percent Auto 16.5 % (20-40); Mean Corpuscular Hemoglobin 27.7 pg (27.0-33.0); Mean Corpuscular Volume 89.3 fL (80.0-98.0); Mean Platelet Volume 11.1 fL (9.4-12.3); Monocytes Absolute Auto 0.5 X10*3/uL (0.1-1.2); Neutrophils Absolute Auto 3.3 x10*3/uL (2.0-8.3); Neutrophils Percent Auto 63.5 % (45-73); Platelet Count 266 X10*3/uL (160-400); Red Blood Count 4.19 X10*6/uL (4.20-5.50); Red Cell Distribution Width 16.6 % (11.0-16.0); White Blood Count 5.2 X10*3/uL (4.8-10.8)
[2024-02-17 16:36] LABS: Erythrocyte Sedimentation Rate 44 MM/HR (0-20)
[2024-02-17 16:45] LABS: Alanine Aminotransferase 14 U/L (0-31); Albumin Level 4.1 g/dL (3.5-5.0); Alkaline Phosphatase 101 U/L (39-117); Anion Gap 13 (12-20); Aspartate Amino Transferase 22 U/L (5-31); Bilirubin Total 0.3 mg/dL (0.0-1.0); Blood Urea Nitrogen 15 mg/dL (9-16); C Reactive Protein 1.58 mg/dL (< or = 0.50); Calcium 9.3 mg/dL (8.4-10.2); Carbon Dioxide 25 mmol/L (22-29); Chloride 106 mmol/L (96-108); Estimated Glomerular Filt Rate > 60; Glucose Random 90 mg/dL (60-115); Potassium 4.3 mmol/L (3.3-5.1); Sodium 140 mmol/L (135-145); Total Protein 8.1 g/dL (6.5-8.0)
[2024-02-18 20:53] LABS: Cardiolipin IgG Ab <2.0 GPL-U/mL; Cardiolipin IgM Ab <2.0 MPL-U/mL
[2024-02-21 07:13] LABS: PTT (LAC) Screen 33 sec (<=40)
[2024-02-24 08:14] LABS: Beta-2 Glycoprotein IgA <2.0 U/mL (<20.0); Beta-2 Glycoprotein IgG <2.0 U/mL (<20.0); Beta-2 Glycoprotein IgM <2.0 U/mL (<20.0)
== END 2024-02-17 14:59 | disposition home or self-care (01) ==
LOC: HO.HMGCLDS 14:58
PROVIDERS: PCP Internal Medicine; Visit Provider Student in an Organized Health Care Education/Training Program
DX: I82.402 Acute embolism and thrombosis of unspecified deep veins of left lower extremity (principal); M05.79 Rheumatoid arthritis with rheumatoid factor of multiple sites without organ or systems involvement; Z79.899 Other long term (current) drug therapy; I82.442 Acute embolism and thrombosis of left tibial vein; Z71.85 Encounter for immunization safety counseling
CPT/HCPCS: 36415; 80053; 85025; 85597; 85598; 85613; 85652; 85730; 86140; 86146; 86147; 99212

== ENCOUNTER 2024-02-26 13:10 | Outpatient (REF) | payer OTHER, SELFPAY ==
--- NOTE | ~2024-02-26 | MM_ITS ---
EXAMINATION: MM SCREENING DIGITAL BREAST TOMOSYNTHESIS, BILATERAL CLINICAL INFORMATION: Screening. Asymptomatic. COMPARISON: Mammography: Comparison is made with available priors. TECHNIQUE: Digital breast tomosynthesis is performed in both the craniocaudal and mediolateral oblique views along with computer-aided detection (CAD). Synthesized 2D images are generated from the tomosynthesis. FINDINGS: There are scattered areas of fibroglandular density (ACR BI-RADS breast composition Category b). Grouped coarse calcifications in the upper outer right breast posterior depth are unchanged from priors 1 year ago. There are no significant masses, abnormal calcifications, or other abnormalities. MM/MM tomosynthesis screening BI IMPRESSION: No mammographic evidence of malignancy. ASSESSMENT: BI-RADS BI-RADS 2 - Benign Findings RECOMMENDATION: Routine annual mammography screening. 1 year F/U This examination should not preclude the clinical evaluation of a suspicious palpable abnormality. This patient's information was entered into a reminder system with a target due date for their next mammogram. Electronically signed by: Jemma Alfonso DO 03/25/2024 09:22 PM EDT
== END 2024-02-26 13:11 | disposition home or self-care (01) ==
LOC: HO.MAMMO 13:10
PROVIDERS: PCP Internal Medicine; Referring Provider Advanced Practice Midwife; Visit Provider Internal Medicine
DX: Z12.31 Encounter for screening mammogram for malignant neoplasm of breast (principal)
CPT/HCPCS: 77063; 77067

== ENCOUNTER → 2024-02-26 13:15 | Outpatient (BNV) | payer OTHER, SELFPAY | PROVIDERS: PCP Internal Medicine; Referring Provider Advanced Practice Midwife; Visit Provider Internal Medicine | DX: Z12.31 Encounter for screening mammogram for malignant neoplasm of breast (principal) | CPT/HCPCS: 77063; 77067 ==

== ENCOUNTER 2024-03-06 11:19 | Outpatient (AMB) | payer OTHER, SELFPAY ==
--- NOTE | 2024-03-06 11:23 | MHC.OFFVIS ---
Vital Signs 03/06/24 11:27 Height 5 ft 1 in Weight 180 lb BMI 34.0 Pulse 84 Pulse Source Pulse Oximeter Pulse Oximetry (%) 97 Oxygen Delivery Method Room Air Intake Visit Reasons: Asthma Loan Examiner Required: No Allergies almond Allergy (Severe, Verified 03/06/24 11:28) Hives and Rash HPI Comments Details: Patient is a 58-year-old woman with known history of rheumatoid arthritis in addition to severe persistent. She has been struggling with her asthma now for many years. But has been getting worse in few months. She has tried many inhalers previously Symbicort and now recently switched to Trelegy inhaler by her doctors. She did not see any significant improvement. She typically responds better to the nebulized therapy. She does use the nebulizer 3 to 4 times a day. The patient is also required prednisone for her exacerbation on a frequent basis. In regards of her rheumatoid arthritis she has having discomfort but has been TNF inhibitors and also methotrexate for many years. She is not aware of any pulmonary adverse effects these medications. In the office she has significant wheezing. Patient did have evidence significant bronchospasms and she did received 2 DuoNeb treatments with significant improvement although she was to wheezing. Patient did receive Solu-Medrol 125 mg IM x1 to further alleviate her. The patient likely needs more aggressive asthma therapy in the form biologic therapy or in the form nebulize therapies. Therefore, will keep her on the trilogy and DuoNeb and also add budesonide nebulized therapy that she would use conjunction with the patient will undergo work in addition to to see if she biologic therapies at this time in the meantime were assess her hypersensitivity pneumonitis since she does have birds in her home. 07/05/2023 The patient is here for a pulmonary follow up visit. She has been doing very well on the dupixent. Does have intermittent cough, moderate in severity. Associated with wheezing. She has been using her respiratory therapy as well. She has been off the prednisone . She has been having significant knee pain. She has significant OA and will need a TKR. She also has significant RA and currently on biologic therapy. 03/06/2024 the patient is here for pulmonary follow-up visit. She continues to do well from a respiratory status. The Dupixent injections have been affecting beneficial. She also continues on respiratory therapy. She has not required any prednisone. She typically does not use her rescue inhaler often typically less than 2 times a week. She did undergo her total knee replacement. Afterwards she did have an issue with a blood clot. She was diagnosed with a DVT. No evidence of any thromboembolic disease. She has been on Eliquis and she has been tolerating it well. Otherwise The patient does not have any other respiratory complaints. She does complaint about her alopecia. She has not methotrexate. She will have to talk to her iron cutter regarding any other alternatives. [facility] Medical History Osteoarthritis of left knee Osteoarthritis Bilateral hand swelling Left knee pain Cataract Long-term use of immunosuppressant medication Seropositive rheumatoid arthritis Asthma-COPD overlap syndrome Cough Allergies Chronic allergic rhinitis Surgical History Hx of appendectomy History of knee replacement procedure of right knee Family History Father Asthma Maternal Grandmother Asthma Social History Household Members: Spouse Housing: House Are you a primary hearing healthcare practitioner to a significant other at home: No Do you presently have visiting nurse or other home services: No Alcohol intake: never Patient Tobacco Use Status: Never used Tobacco e-Cigarette/Vaping Use: Never Used service: No Current occupational status: unemployed Sexual orientation: Straight/Heterosexual Gender identity: Female Cognitive needs: No Hearing needs: No Vision needs: Yes Review of Systems Const Denies night sweats ENT Denies change in voice, Denies lip swelling, Denies mouth pain, Reports nasal congestion, Reports nasal discharge and Denies tongue swelling Card Denies chest pain Resp Reports cough and Denies wheezing GI Denies abdominal pain Musc Reports as per HPI Neuro Denies Neuro-related abnormal movements Psych Denies no additional complaints Wiley/Lymph Reports as per HPI, Denies easy bleeding and Denies lymphadenopathy Aller/Immun Denies lip swelling, Denies tongue swelling and Denies wheezing Physical Exam Vital Signs: Last Vital Signs Pulse 84 03/06/24 11:27 Pulse Ox 97 03/06/24 11:27 Oxygen Delivery Method Room Air 03/06/24 11:27 BMI result Body Mass Index 34.0 Const General: alert Neck Neck: Yes normal visual inspection, Yes full ROM and Yes no lymphadenopathy Chest Chest palpation & inspection: normal inspection of the chest Resp Auscultation: no wheezes and diminished lung sounds Cardio Rate: regular rate Rhythm: regular rhythm Heart sounds: S1 normal heart sound present and S2 normal heart sound present GI Palpation (GI): Soft to palpation and nontender Auscultation: normal bowel sounds Skin General skin exam: rashes and/or lesions noted Assessment & Plan Assessment & Plan (1) Asthma: Code(s): J45.909 - Unspecified asthma, uncomplicated Category: Medical Qualifiers: Asthma complication type: uncomplicated Asthma persistence: persistent Asthma severity: severe Qualified Code(s): J45.50 - Severe persistent asthma, uncomplicated (2) Chronic allergic rhinitis: Code(s): J30.9 - Allergic rhinitis, unspecified Category: Medical (3) Asthma-COPD overlap syndrome: Code(s): J44.9 - Chronic obstructive pulmonary disease, unspecified Category: Medical (4) Left leg DVT: Code(s): I82.402 - Acute embolism and thrombosis of unspecified deep veins of left lower extremity Category: Medical Qualifiers: Affected thrombotic vein of extremity: tibial Chronicity: acute Qualified Code(s): I82.442 - Acute embolism and thrombosis of left tibial vein Plan continue Breztri Duoneb as needed continue Dupixent Continue Singulair Eliquis for a provoked DVT. Likely 6 months. Should have a repeat US doppler to make sure it has completely resolved F/U 6-8 months Medications: Changed From albuterol sulfate 2.5 mg inhalation TID PRN Shortness Of Breath To albuterol sulfate 2.5 mg (3 mL) inhalation TID PRN 180 mL 11RF Shortness Of Breath 30 days Coding Level of Care Code Est Pt Level 4 (86321) Diagnoses Severe persistent asthma without complication J45.50 Asthma complication type: uncomplicated Asthma persistence: persistent Asthma severity: severe Chronic allergic rhinitis J30.9 Asthma-COPD overlap syndrome J44.9 Acute deep vein thrombosis (DVT) of tibial vein of left lower extremity I82.442 Affected thrombotic vein of extremity: tibial Chronicity: acute Time Spent (min) 16
[2024-03-06 11:27] VITALS: PULSE 84; O2SAT 97; BMI 34.0
== END 2024-03-06 11:42 | disposition home or self-care (01) ==
PROVIDERS: PCP Internal Medicine; Visit Provider Hospitalist
DX: J45.50 Severe persistent asthma, uncomplicated (principal); J30.9 Allergic rhinitis, unspecified; J44.9 Chronic obstructive pulmonary disease, unspecified; I82.442 Acute embolism and thrombosis of left tibial vein
CPT/HCPCS: 99214

== ENCOUNTER → 2024-03-06 11:19 | Outpatient (BNVA) | payer OTHER, SELFPAY | PROVIDERS: PCP Internal Medicine Gastroenterology; Visit Provider Hospitalist | DX: J44.9 Chronic obstructive pulmonary disease, unspecified (principal); J45.50 Severe persistent asthma, uncomplicated; J30.9 Allergic rhinitis, unspecified; Z79.899 Other long term (current) drug therapy | CPT/HCPCS: 99212 ==

== ENCOUNTER 2024-05-08 12:58 | Outpatient (REF) | payer OTHER, SELFPAY ==
--- NOTE | ~2024-05-08 | US_ITS ---
EXAMINATION: US TRIPLEX LOWER EXTREMITY, BILATERAL CLINICAL INFORMATION: Acute embolism and thrombosis of unspecified deep veins of left lower extremity COMPARISON: 11/15/2023 TECHNIQUE: Color-flow triplex imaging with spectral analysis and compression Doppler were performed on the bilateral lower extremities. FINDINGS: Respiratory variation, normal compression and augmented flow are noted throughout the bilateral lower extremities. The visualized common femoral vein, superficial femoral vein, profunda femoral vein, popliteal vein and midcalf peroneal and posterior tibial venous segments show no evidence of deep venous thrombosis bilaterally. There is no Kelly's cyst. Target ultrasound in the left mid calf demonstrates a 2 mm hypoechoic subcutaneous nodule, nonspecific, possibly a small sebaceous cyst. US/US venous duplex LE BI IMPRESSION: No evidence of deep venous thrombosis involving the bilateral lower extremities. Electronically signed by: Fabrizio Greenberg MD 05/27/2024 07:32 AM [facility]
[2024-05-08 13:56] LABS: MANUAL DIFF FLAG NO
[2024-05-08 14:24] LABS: Basophils Percent Auto 0.8 % (0-2); Eosinophils Absolute Auto 0.2 X10*3/uL (0.0-0.4); Eosinophils Percent Auto 5.9 % (0-4); Hematocrit 35.5 % (37.0-47.0); Imm Gran Abs Auto 0.01 X10*3/uL (0.00-0.03); Imm Gran Pct Auto 0.3 % (0.0-0.4); Lymphocytes Absolute Auto 1.1 X10*3/uL (1.2-4.9); Lymphocytes Percent Auto 29.4 % (20-40); Mean Corpuscular Hemoglobin 28.7 pg (27.0-33.0); Mean Corpuscular Volume 92.7 fL (80.0-98.0); Mean Platelet Volume 10.8 fL (9.4-12.3); Monocytes Absolute Auto 0.4 X10*3/uL (0.1-1.2); Monocytes Percent Auto 9.6 % (2-11); Platelet Count 356 X10*3/uL (160-400); Red Blood Count 3.83 X10*6/uL (4.20-5.50); Red Cell Distribution Width 14.6 % (11.0-16.0); White Blood Count 3.7 X10*3/uL (4.8-10.8)
[2024-05-08 14:43] LABS: Alanine Aminotransferase 17 U/L (0-31); Albumin Level 4.1 g/dL (3.5-5.0); Alkaline Phosphatase 100 U/L (39-117); Anion Gap 13 (12-20); Aspartate Amino Transferase 34 U/L (5-31); Bilirubin Total 0.2 mg/dL (0.0-1.0); Blood Urea Nitrogen 17 mg/dL (9-16); C Reactive Protein 1.27 mg/dL (< or = 0.50); Calcium 9.2 mg/dL (8.4-10.2); Carbon Dioxide 24 mmol/L (22-29); Chloride 107 mmol/L (96-108); Estimated Glomerular Filt Rate > 60; Glucose Random 89 mg/dL (60-115); Potassium 4.3 mmol/L (3.3-5.1); Sodium 140 mmol/L (135-145); Total Protein 8.3 g/dL (6.5-8.0)
[2024-05-08 15:00] LABS: Erythrocyte Sedimentation Rate 67 MM/HR (0-20)
== END 2024-05-08 12:59 | disposition home or self-care (01) ==
LOC: HO.US 12:58
PROVIDERS: PCP Internal Medicine; Visit Provider Student in an Organized Health Care Education/Training Program
DX: M05.79 Rheumatoid arthritis with rheumatoid factor of multiple sites without organ or systems involvement (principal); I82.402 Acute embolism and thrombosis of unspecified deep veins of left lower extremity; Z79.899 Other long term (current) drug therapy
CPT/HCPCS: 36415; 80053; 85025; 85652; 86140; 93970

== ENCOUNTER 2024-05-14 13:28 | Outpatient (AMB) | payer OTHER, SELFPAY ==
--- NOTE | 2024-05-14 13:32 | A.OFFVIS_ITS ---
Vital Signs 05/14/24 13:37 Height 5 ft 1 in Weight 178 lb 12.718 oz BMI 33.8 BP 130/72 Blood Pressure Location Rt brachial Position Sitting Respiration 18 Pulse 71 Pulse Source Pulse Oximeter Pulse Oximetry (%) 98 Oxygen Delivery Method Room Air Intake Visit Reasons: RA/CM Intake Note: Patient presents for RA. Allergies almond Allergy (Severe, Verified 05/14/24 13:37) Hives and Rash Medication List - Last Reconciled 05/14/24 by Huber Higgins MD acetaminophen 650 mg (2 x 325 mg) PO Q6H PRN 30 days albuterol sulfate 90 mcg/actuation 2 puffs PO Q6H PRN albuterol sulfate 2.5 mg (3 mL) inhalation TID PRN 30 days apixaban (Eliquis) 5 mg PO BID aspirin 325 mg PO BID 42 days iblquqjedw-yfnecqga-pjmtlczafl 160-9-4.8 mcg/actuation (Breztri Aerosphere) 2 inhalations PO BID [Cane As directed] diclofenac potassium 50 mg PO TID PRN docusate sodium 100 mg PO BID 14 days dupilumab (Dupixent) 300 mg (2 mL) subcut Q2W 28 days folic acid 1 mg PO DAILY [food tray As directed] heating pads As directed hydroxychloroquine 300 mg (1.5 x 200 mg) PO DAILY insulin syringe-needle U-100 (BD Insulin Syringe) Inject 15 mg methotrexate (.6cc) 25 mg/cc once a week ipratropium-albuterol 0.5 mg-3 mg(2.5 mg base)/3 mL 3 mL inhalation QID 90 days leg brace (Knee Support Brace) As directed methotrexate (PF) (Otrexup (PF)) 15 mg (0.4 mL) subcut QWEEK montelukast 10 mg PO BEDTIME 90 days nebulizers As directed Shower Chair As directed sulfasalazine 500 mg PO QID tolterodine ER 2 mg PO QPM upadacitinib ER (Rinvoq) 15 mg PO DAILY walker Folding Front wheeled walker HPI Comments Details: This is a 59-year-old female with seropositive erosive RA who presents for follow-up. She is on sulfasalazine, methotrexate, Rinvoq and hydroxychloroquine. She states that she continues to have flare-ups. She has 3-4 flare-ups a month. Every flare lasts about 3 days. She states that she takes diclofenac 50 mg daily and when in a flare-up she takes 3 times a day. She remains on Eliquis. She states that she is doing well today in terms of her RA. [facility] Medical History Osteoarthritis of left knee Osteoarthritis Bilateral hand swelling Left knee pain Cataract Long-term use of immunosuppressant medication Seropositive rheumatoid arthritis Asthma-COPD overlap syndrome Cough Allergies Chronic allergic rhinitis Surgical History Hx of appendectomy History of knee replacement procedure of right knee Family History Father Asthma Maternal Grandmother Asthma Social History Household Members: Spouse Housing: House Are you a primary women's health care nurse practitioner to a significant other at home: No Do you presently have visiting nurse or other home services: No Alcohol intake: never Patient Tobacco Use Status: Never used Tobacco e-Cigarette/Vaping Use: Never Used service: No Current occupational status: unemployed Sexual orientation: Straight/Heterosexual Gender identity: Female Cognitive needs: No Hearing needs: No Vision needs: Yes Female Reproductive History Menstrual Total pregnancies: 4 Number of Living Children: 1 Ab spontaneous: 3 Review of Systems Musc Reports arthralgias, Reports joint swelling and Reports stiffness Physical Exam Vital Signs: Last Vital Signs Pulse 71 05/14/24 13:37 Resp 18 05/14/24 13:37 BP 130/72 05/14/24 13:37 Pulse Ox 98 05/14/24 13:37 Oxygen Delivery Method Room Air 05/14/24 13:37 BMI result Body Mass Index 33.8 Const General: cooperative, healthy appearing and comfortable Nutritional Appearance: obese Orientation/consciousness: patient oriented x3 Limitations: no limitations HEENT Head: Yes normocephalic and Yes atraumatic Mouth: moist mucous membranes Resp Effort & Inspection: normal respiratory effort and able to speak in complete sentences Auscultation: diminished lung sounds Cardio Rate: regular rate Rhythm: regular rhythm Skin General skin exam: no rashes or lesions noted Neuro General: patient oriented x3 Extrem Other: No wrist swelling or tenderness bilaterally Right hand significant synovial thickening of 2nd through 5th MCPs, no tenderness Left hand synovial thickening of MCPs with mild ulnar deviation Rheumatoid nodules both elbows Normal range of motion of elbows without pain Normal range of motion of shoulders without pain Left knee warmth No ankle swelling or tenderness bilaterally Negative MTP squeeze test bilaterally Assessment & Plan Assessment & Plan (1) Seropositive rheumatoid arthritis of multiple joints: Comment: Onset about 2000 +++ RF+++CCP positive. Erosive changes on hand films 07/18. On HCQ & SSZ since ? 2004? MTX added 05/2011. Enbrel added 09/2012. MTX stopped 03/22 due to shingles. HCQ, Enbrel and SSZ continued, MTX added back 06/22. lost coverage for Enbrel 2021.restarted 07/2022May 2023: Methotrexate changed to 15 mg subcu weekly Enbrel DC ineffective Rinvoq 12/2023 Code(s): M05.79 - Rheumatoid arthritis with rheumatoid factor of multiple sites without organ or systems involvement Category: Medical Plan: This is a 58-year-old female with seropositive erosive RA presents for follow- up. She is on a complicated DMARD list including Rinvoq 15 mg p.o. daily, methotrexate 15 mg subcutaneously weekly, sulfasalazine 500 mg q.i.d. and hydroxychloroquine 300 mg daily it seems patient developed left lower extremity DVT perioperatively, she was not on Rinvoq at the time. I think DVT is provoked by the surgery as well as her rheumatoid arthritis rather than Rinvoq Patient continues to report intermittent flare-ups. She has 3-4 flare-ups a month each lasting 3-4 days. Requiring the use of diclofenac 50 mg 3 times a day. She takes diclofenac 50 mg daily. Advised patient that she can not combine diclofenac with Eliquis due to increased risk of bleeding. She can take prednisone 5-10 mg once daily as needed for flare-ups Due to the ongoing flare-ups and persistently elevated inflammatory markers I think we need to make some change in her DMARDs. Discontinue Rinvoq. Discussed risks and benefits of Actemra. Patient agreed to proceed. Will start prior authorization for Actemra. Continue other meds as prescribed Repeat venous duplex was done, results pending Ground-glass opacity seen on CT scans dating back to 2020. Repeat high- resolution CT chest and PFTs Labs before next visit in 3 months (2) Long-term use of immunosuppressant medication: Code(s): Z79.899 - Other long wall mining machine tender (current) drug therapy Category: Medical Plan: Monitor safety labs while on methotrexate, Actemra and sulfasalazine (3) Long-term use of hydroxychloroquine: Comment: Eye exam normal January 2014, 2014, November 2015, 05/25; 09/23; 03/27, 09/2020, 03/2021,10/2021, 04/2022, 02/2024 Code(s): Z79.899 - Other long wall mining machine tender (current) drug therapy Category: Medical Plan: Continue to follow-up regularly with lay brother (4) Left leg DVT: Code(s): I82.402 - Acute embolism and thrombosis of unspecified deep veins of left lower extremity Category: Medical Qualifiers: Affected thrombotic vein of extremity: tibial Chronicity: acute Qualified Code(s): I82.442 - Acute embolism and thrombosis of left tibial vein Plan: Remains on Eliquis. Repeat venous duplex was done, results pending. (5) Immunization counseling: Code(s): Z71.85 - Encounter for immunization safety counseling Category: Medical Plan: Advised patient to get the Shingrix vaccine specially that she had shingles in the past and she is on Rinvoq. Advised patient to skip 2 methotrexate doses after Shingrix vaccination She received the flu vaccine for this season Plan I spent 45 minutes reviewing patient's chart, evaluating patient, ordering diagnostic workup, counseling patient and documenting in the chart Orders: Orders Complete Blood Count Auto Diff 3 Months M05.79 - Rheumatoid arthritis with rheumatoid factor of multiple sites without organ or systems involvement Erythrocyte Sedimentation Rate 3 Months M05.79 - Rheumatoid arthritis with rheumatoid factor of multiple sites without organ or systems involvement Comprehensive Met. Panel 3 Months M05.79 - Rheumatoid arthritis with rheumatoid factor of multiple sites without organ or systems involvement C Reactive Protein 3 Months M05.79 - Rheumatoid arthritis with rheumatoid factor of multiple sites without organ or systems involvement CT chest wo con - High Res Today M05.79 - Rheumatoid arthritis with rheumatoid factor of multiple sites without organ or systems involvement PFT pulmonary function test Today M05.79 - Rheumatoid arthritis with rheumatoid factor of multiple sites without organ or systems involvement Medications: New prednisone see taper instructions 5 - 10 mg (1 - 2 x 5 mg) PO DAILY PRN 30 tabs 0RF Joint pain Coding Level of Care Code Est Pt Level 5 (45569) Complex EM visit Add On G2211 Diagnoses Seropositive rheumatoid arthritis of multiple joints M05.79 Long-term use of immunosuppressant medication Z79.899 Long-term use of hydroxychloroquine Z79.899 Acute deep vein thrombosis (DVT) of tibial vein of left lower extremity I82.442 Affected thrombotic vein of extremity: tibial Chronicity: acute Immunization counseling Z71.85
[2024-05-14 13:37] VITALS: BP 130/72; PULSE 71; RESP 18; O2SAT 98; BMI 33.8
== END 2024-05-14 14:07 | disposition home or self-care (01) ==
LOC: HO.RHE 13:28
PROVIDERS: PCP Internal Medicine; Visit Provider Student in an Organized Health Care Education/Training Program
DX: M05.79 Rheumatoid arthritis with rheumatoid factor of multiple sites without organ or systems involvement (principal); Z79.899 Other long term (current) drug therapy; I82.442 Acute embolism and thrombosis of left tibial vein; Z71.85 Encounter for immunization safety counseling
CPT/HCPCS: 99215; G2211

== ENCOUNTER → 2024-05-14 13:28 | Outpatient (BNVA) | payer OTHER, SELFPAY | PROVIDERS: PCP Internal Medicine; Visit Provider Student in an Organized Health Care Education/Training Program | DX: M05.79 Rheumatoid arthritis with rheumatoid factor of multiple sites without organ or systems involvement (principal); I82.442 Acute embolism and thrombosis of left tibial vein; Z71.85 Encounter for immunization safety counseling; Z79.01 Long term (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 of anticoagulants; Z79.899 Other long term (current) drug therapy | CPT/HCPCS: 99212 ==

== ENCOUNTER 2024-07-03 13:36 | Outpatient (REF) | payer OTHER, SELFPAY ==
--- NOTE | ~2024-07-03 | CT_ITS ---
CLINICAL HISTORY: M05.79 - Rheumatoid arthritis with rheumatoid factor of multiple sites w... CT chest without IV contrast. COMPARISON: None FINDINGS: Visualized thyroid is unremarkable. No supraclavicular or axillary lymphadenopathy. Normal chest wall. Ascending aorta and main pulmonary artery are normal in caliber. No pericardial effusion. Small hiatal hernia. No mediastinal lymphadenopathy. No pleural effusion. No consolidation. Trachea and central airways are clear. No significant bronchial wall thickening. No bronchiectasis. Minimal mucoid impaction present within the left lower lobe. Left lower lobe 3 mm fissural pulmonary nodule (series 8, image 70). Left lower lobe 2 mm fissural pulmonary nodule (series 8, image 68) Visualized portions of the upper abdomen are unremarkable. Mild spondylosis. No acute fracture or suspicious bone lesion. IMPRESSION: 1. No acute intrathoracic findings. 2. Left lower lobe fissural pulmonary nodules measuring 2 mm and 3 mm. Recommend comparison with prior imaging if available. If none available, consider follow-up imaging in 12 months if patient has risk factors for malignancy. 3. Small hiatal hernia. This document has been electronically signed by: Phuc Washington MD on 07/06/2024 13:39:45
== END 2024-07-03 13:37 | disposition home or self-care (01) ==
LOC: HO.CT 13:36
PROVIDERS: PCP Internal Medicine; Visit Provider Student in an Organized Health Care Education/Training Program
DX: M05.79 Rheumatoid arthritis with rheumatoid factor of multiple sites without organ or systems involvement (principal)
CPT/HCPCS: 71250

== ENCOUNTER → 2024-07-03 13:38 | Outpatient (BNV) | payer OTHER, SELFPAY | PROVIDERS: PCP Internal Medicine; Visit Provider Radiology Diagnostic Radiology | DX: M05.79 Rheumatoid arthritis with rheumatoid factor of multiple sites without organ or systems involvement (principal) | CPT/HCPCS: 71250 ==

== ENCOUNTER 2024-07-07 13:04 | Outpatient (REF) | payer OTHER, SELFPAY ==
[2024-07-07 09:47] VITALS: PULSE 86; O2SAT 96
--- NOTE | 2024-07-07 13:07 | PFT_ITS ---
Indication: Rheumatoid arthritis Spirometry [FEV1 to FVC 64%; FEV1 1.27 L; FVC 1.99 L. there is a significant response to bronchodilators noted.] Lung Volumes [Total lung capacity 78% predicted; residual volume 106% predicted] Diffusion Capacity [DLCO 105% predicted] Comparisons [None] Interpretation [There is an obstructive ventilatory defect consistent with a moderate to severe COPD. This is a significant response to bronchodilators noted. Patient also has a mild restrictive ventilatory defect consistent with mild restrictive lung disease. Diffusing capacity is within normal limits. Clinical correlation warranted.] MTDD
== END 2024-07-07 13:05 | disposition home or self-care (01) ==
LOC: HO.RESP 13:04
PROVIDERS: PCP Internal Medicine; Visit Provider Student in an Organized Health Care Education/Training Program
DX: R06.02 Shortness of breath (principal); M05.79 Rheumatoid arthritis with rheumatoid factor of multiple sites without organ or systems involvement
CPT/HCPCS: 94010; 94640; 94727; 94729

== ENCOUNTER → 2024-07-07 13:07 | Outpatient (BNV) | payer OTHER, SELFPAY | PROVIDERS: PCP Internal Medicine; Visit Provider Hospitalist | DX: R06.02 Shortness of breath (principal) | CPT/HCPCS: 94060; 94727; 94729 ==

== ENCOUNTER 2024-07-16 12:23 | Outpatient (REF) | payer OTHER, SELFPAY | END 2024-07-16 12:24 | disposition home or self-care (01) | LOC: HO.HOSX 12:23 | PROVIDERS: Visit Provider Orthopaedic Surgery | DX: Z96.652 Presence of left artificial knee joint (principal) | CPT/HCPCS: 99212 ==

== ENCOUNTER 2024-07-16 13:41 | Outpatient (AMB) | payer OTHER, SELFPAY ==
--- NOTE | 2024-07-16 14:44 | MHC.OFFVIS ---
Intake Visit Reasons: OV Left TKA on 10/29/23 with NE Intake Note: Sahara is a 59 year old female who presents today for a follow up of her left knee s/p Left TKA 10/29/23. Allergies almond Allergy (Severe, Verified 05/14/24 13:37) Hives and Rash HPI HPI OV Left TKA on 10/29/23 with NE: Details: Sahara is a 59 year old female who presents today for a follow up of her left knee s/p Left TKA 10/29/23. She had been doing well until the maybe for 6 weeks ago she stepped awkwardly and fell onto her knee. The pain has improved but she d did notice some mild tenderness on palpation.. Now she can move her knee fully and can walk comfortably. [facility] Medical History Osteoarthritis of left knee Osteoarthritis Bilateral hand swelling Left knee pain Cataract Long-term use of immunosuppressant medication Seropositive rheumatoid arthritis Asthma-COPD overlap syndrome Cough Allergies Chronic allergic rhinitis Surgical History Hx of appendectomy History of knee replacement procedure of right knee Family History Father Asthma Maternal Grandmother Asthma Social History Household Members: Spouse Housing: House Are you a primary personal care worker to a significant other at home: No Do you presently have visiting nurse or other home services: No Alcohol intake: never Patient Tobacco Use Status: Never used Tobacco e-Cigarette/Vaping Use: Never Used service: No Current occupational status: unemployed Sexual orientation: Straight/Heterosexual Gender identity: Female Cognitive needs: No Hearing needs: No Vision needs: Yes Physical Exam Extrem Other: Left knee with full range of motion. (0-125 degrees). No sharp tenderness to palpation. No effusion. Assessment & Plan Assessment & Plan (1) Status post total knee replacement, left: Code(s): Z96.652 - Presence of left artificial knee joint Category: Surgical Plan: Doing well status post left knee replacement. Continuing to improve. I had a minor setback which seems to have resolved. I would follow up at the 1 year time point. No intervention warranted at this time. Continue activity as tolerated. Coding Level of Care Code Est Pt Level 3 (53140) Diagnoses Status post total knee replacement, left Z96.652
== END 2024-07-16 14:48 | disposition home or self-care (01) ==
LOC: HO.HOS 13:41
PROVIDERS: PCP Internal Medicine; Visit Provider Orthopaedic Surgery
DX: Z47.89 Encounter for other orthopedic aftercare (principal); Z96.652 Presence of left artificial knee joint
CPT/HCPCS: 99212

== ENCOUNTER 2024-07-24 11:23 | Outpatient (AMB) | payer OTHER, SELFPAY ==
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
[2024-07-24 12:10] VITALS: BP 130/80; PULSE 77; O2SAT 98
== END 2024-07-24 13:00 | disposition home or self-care (01) ==
PROVIDERS: PCP Internal Medicine; Visit Provider Physician Assistant
DX: M62.838 Other muscle spasm (principal); V89.2XXA Person injured in unspecified motor-vehicle accident, traffic, initial encounter; S86.911A Strain of unspecified muscle(s) and tendon(s) at lower leg level, right leg, initial encounter; Z04.3 Encounter for examination and observation following other accident; S86.912A Strain of unspecified muscle(s) and tendon(s) at lower leg level, left leg, initial encounter

== ENCOUNTER → 2024-07-24 11:23 | Outpatient (BNVA) | payer OTHER, SELFPAY | PROVIDERS: PCP Internal Medicine ==

== ENCOUNTER 2024-08-17 12:21 | Outpatient (REF) | payer OTHER, SELFPAY ==
--- OUTSIDE RECORDS SUMMARY | 2024-08-17 13:28 | XMS_ITS | Encounter Summary ---
Author Organization Formerly [facility] Address [address] [place] [address] Care Team Providers Care Mechanical Engineering Officer Name Role Phone Cira Lancaster MD Primary Care Provider [phone] Encounter Details Date Type Department Care Team Description 11/01/2023 Home Health Certification Medical Records [address] [place] [address] [facility] Nurse [facility], [address] [address] Social History Tobacco Use Types Packs/Day Years Used Date Smoking Tobacco: Never Smokeless Tobacco: Never Alcohol Use Standard Drinks/Week Comments No 0 (1 standard drink = 0.6 oz pur e alcohol) Financial Resource Strain Answer Date R ecorded How hard is it for you to pa y for the very basics like food, housing, medical care, and heating? Not very hard 04/13/2020 Food Insecurity Answer Date Recorded Within the past 12 months, y ou worried that your food would run out before you got money to buy more. Never true 04/13/2020 Within the past 12 months, t he food you bought just didn't last and you didn't have money to get more. Never true 04/13/2020 Transportation Needs Answer Date Record ed In the past 12 months, has l ack of transportation kept you from medical appointments or from getting medications? No 01/2020 In the past 12 months, has l ack of transportation kept you from meetings, work, or getting things needed for daily living? No 04/13/2020 Sex Assigned at Date Recorded Not on file Job Start Date Occupation Industry Not on file Not on file Not on file documented as of this encounter Plan of Treatment Not on file documented as of this encounter Visit Diagnoses Not on filedocumented in this encounter Care Teams Mechanical Engineering Officer Relationship Specialty Start Date End Date Cira Lancaster MD [address] [place] [id number] PCP - General Internal Medicine 09/24/22 documented as of this encounter
--- OUTSIDE RECORDS SUMMARY | 2024-08-17 13:28 | XMS_ITS | Encounter Summary ---
Author Organization [facility] Address [address] [place] [address] Care Team Providers Care It Professional Name Role Phone Cira Lancaster MD Primary Care Provider [phone] Reason for Visit * Reason Onset Date Comments Portacath Flush With Labs 09/20/2023 Encounter Details Date Type Department Care Team Description 09/20/2023 Telephone Adult Medicine [facility] [address] [place] [id number] Cira Lancaster MD [address] [place] [id number] Portacath Flush With Labs Social History Tobacco Use Types Packs/Day Years [...] on file documented as of this encounter Miscellaneous Notes * Telephone Encounter - Yue Savage - 09/20/2023 12:18 PM EDT Message sent to preop pool on preop encounter * Telephone Encounter - Adenike Fu - 09/20/2023 11:01 AM EDT Patient is having surgery 09/28/23 and has an appointment on 09/20/23. Mckenna mcneil is calling requesting we also do an A1C on her as well. Please adise. documented in this encounter Plan of Treatment Not on file documented as of this encounter Visit Diagnoses Not on filedocumented in this encounter Care Teams It Professional Relationship Specialty Start Date End Date Cira Lancaster MD [address] [place] [phone] PCP - General Internal Medicine 09/24/22 documented as of this encounter
--- OUTSIDE RECORDS SUMMARY | 2024-08-17 13:28 | XMS_ITS | Encounter Summary ---
Author Organization [facility] Address [address] [place] [address] Care Team Providers Care Sound System Installer Name Role Phone Cira Lancaster MD Primary Care Provider [phone] Encounter Details Date Type Department Care Team Description 10/01/2023 Rn Office Report Medical Records [address] [place] [address] Eliza Felix NP Social History Tobacco Use Types Packs/Day Years [...] on filedocumented in this encounter Care Teams Sound System Installer Relationship Specialty Start Date End Date Cira Lancaster MD [address] [place] [address] PCP - General Internal Medicine 09/24/22 documented as of this encounter
--- OUTSIDE RECORDS SUMMARY | 2024-08-17 13:28 | XMS_ITS | Encounter Summary ---
Author Organization [facility] Address [address] [place] [address] Care Team Providers Care Greens Tier Name Role Phone Dianna Olmos MD Primary Care Provider Unava Sandra Burch MD Primary Care Provider [phone] Jaylen Newman MD Primary Care Provider UnaCira Ortiz MD Primary Care Provider [phone] Encounter Details Date Type Department Care Team Description 10/15/2017 Telephone Pulmonology [address] [place] [address] Robert Davis MD 175 [facility] [address] [place] [address] Social History Tobacco Use Types Packs/Day Years [...] encounter Miscellaneous Notes * Telephone Encounter - Robert Davis MD - 10/15/2017 1:34 PM EDT I called her by telephone. I left a message in Tristan[place]. I reviewed the CT scan done yesterday. Small Lingular GGO, small. I will requested another CT scan in 6 months for reevaluation. documented in this encounter Plan of Treatment Not on file documented as of this encounter Visit Diagnoses Diagnosis Ground glass opacity present on imaging of lung- Primary Abnormal CT of the chest Nonspecific (abnormal) findings on radiological and other examination of other intrathoracic organs documented in this encounter Care Teams Greens Tier Relationship Specialty Start Date End Date Dianna Olmos MD PCP - General Internal Medicine 02/11/17 05/16/21 Sandra Clemente MD [address] [place] [address] PCP - General Internal Medicine 05/17/21 10/16/21 Jaylen Newman MD [address] [place] [address] PCP - General Internal Medicine 10/17/21 09/23/22 Cira Lancaster MD [address] [place] [address] PCP - General Internal Medicine 09/24/22 documented as of this encounter
--- OUTSIDE RECORDS SUMMARY | 2024-08-17 13:28 | XMS_ITS | Encounter Summary ---
Author Organization [facility] Address [address] [place] [address] Care Team Providers Care Non Licensed Nuclear Plant Operator Name Role Phone Dianna Olmos MD Primary Care Provider Sandra Clemons MD Primary Care Provider [phone] Jaylen Newman MD Primary Care Provider Cira Mata MD Primary Care Provider [phone] Reason for Visit * Reason Onset Date Comments refill request 04/28/2021 Encounter Details Date Type Department Care Team Description 04/28/2021 Refill Rheumatology - [address] [address] Jarred Doss MD refill request Social History Tobacco Use Types Packs/Day Years [...] file Not on file Not on file COVID-19 Exposure Response Date Recorded In the last month, have you been in contact with someone who was confirmed or suspected to have Coronavirus / COVID-19? No / Unsure 04/28/2021 3:16 PM EDT documented as of this encounter Miscellaneous Notes * Telephone Encounter - Zulma Mixon - 04/28/2021 10:24 AM EDT Patient would like script to be: E-PRESCRIBED/FAXED TO PHARMACY (THE MEDICATION REQUESTED IS ON THE MED LIST ABOVE) All of the medications requested were on the CURRENT MEDS list Did you check the Pharmacy information above?: YES Patient wants: 90 -day supply Is this a mail order prescription request ? NO If the refill is from a FAXED refill request what is the RX # listed on the fax? N/A Patients current insurance carrier is: Payor: [employer] [place] / Plan: Salt Rights $10 [place] 1 / Product Type: HMO [id number] documented in this encounter Plan of Treatment Not on file documented as of this encounter Visit Diagnoses Diagnosis Seropositive rheumatoid arthritis Rheumatoid arthritis documented in this encounter Care Teams Non Licensed Nuclear Plant Operator Relationship Specialty Start Date End Date Dianna Olmos MD PCP - General Internal Medicine 02/11/17 05/16/21 Sandra Clemente MD [address] [place] [address] PCP - General Internal Medicine 05/17/21 10/16/21 Jaylen Newman MD [address] [place] [address] PCP - General Internal Medicine 10/17/21 09/23/22 Cira Lancaster MD [address] [place] [address] PCP - General Internal Medicine 09/24/22 documented as of this encounter
--- OUTSIDE RECORDS SUMMARY | 2024-08-17 13:28 | XMS_ITS | Encounter Summary ---
Author Organization [facility] Address [address] [place] [address] Care Team Providers Care Retail Presentation Specialist Name Role Phone Jacoby Martinez MD Primary Care Provider [phone] Dianna Olmos MD Primary Care Provider Unava Sandra Burch MD Primary Care Provider [phone] Jaylen Newman MD Primary Care Provider Unava Cira Ramos MD Primary Care Provider [phone] Encounter Details Date Type Department Care Team Description 03/16/2013 Telephone [facility] - [address] [id number] Jarred Doss MD Social History Tobacco Use Types Packs/Day Years [...] encounter Miscellaneous Notes * Telephone Encounter - Sadaf Johnson L.P.N. - 03/16/2013 10:06 AM EDT She called back to say she is feeling much better and has very little pain. documented in this encounter Plan of Treatment Not on file documented as of this encounter Visit Diagnoses Not on filedocumented in this encounter Care Teams Retail Presentation Specialist Relationship Specialty Start Date End Date Jacoby Martinez MD [address] [place] [address] PCP - General 04/14/09 02/10/17 Dianna Olmos MD [address] [place], [place] [address] PCP - General Internal Medicine 02/11/17 05/16/21 Sandra Clemente MD [address] [place] [address] PCP - General Internal Medicine 05/17/21 10/16/21 Jaylen Newman MD [address] [place] [address] PCP - General Internal Medicine 10/17/21 09/23/22 Cira Lancaster MD [address] [place] [address] PCP - General Internal Medicine 09/24/22 documented as of this encounter
--- OUTSIDE RECORDS SUMMARY | 2024-08-17 13:28 | XMS_ITS | Encounter Summary ---
Author Organization [facility] Address [address] [place] [address] Care Team Providers Care Transportation Sales Consultant Name Role Phone Jacoby Martinez MD Primary Care Provider [phone] Dianna Olmos MD Primary Care Provider Unava Sandra Burch MD Primary Care Provider [phone] Jaylen Newman MD Primary Care Provider Unava Cira Ramos MD Primary Care Provider [phone] Reason for Visit * Reason Onset Date Comments Medication 11/06/2012 Encounter Details Date Type Department Care Team Description 11/06/2012 Telephone Rheumatology - [address] [address] Jarred Doss MD Medication Social History Tobacco Use Types Packs/Day Years [...] encounter Miscellaneous Notes * Telephone Encounter - Bettie Perry L.P.N. - 11/06/2012 11:12 AM EDT Message left for pt on am * Telephone Encounter - Jarred Doss MD - 11/06/2012 10:59 AM EDT Script for Enbrel syringes sent to [facility] * Telephone Encounter - Bettie Perry L.P.NCr - 11/06/2012 10:48 AM EDT Pt stopped by with card for enbrel ,requests injections like her mom ,card in your in box documented in this encounter Plan of Treatment Not on file documented as of this encounter Visit Diagnoses Diagnosis Rheumatoid arthritis(714.0)- Primary Rheumatoid arthritis documented in this encounter Care Teams Transportation Sales Consultant Relationship Specialty Start Date End Date Jacoby Martinez MD [address] [place] [address] PCP - General 04/14/09 02/10/17 Dianna Olmos MD [address] [place] [address] PCP - General Internal Medicine 02/11/17 05/16/21 Sandra Clemente MD [address] [place] [address] PCP - General Internal Medicine 05/17/21 10/16/21 Jaylen Newman MD [address] [place] [address] PCP - General Internal Medicine 10/17/21 09/23/22 Cira Lancaster MD [address] [place] [address] PCP - General Internal Medicine 09/24/22 documented as of this encounter
--- OUTSIDE RECORDS SUMMARY | 2024-08-17 13:28 | XMS_ITS | Encounter Summary ---
Author Organization [facility] Address [address] [place] [address] Care Team Providers Care Tennis Camp Instructor Name Role Phone Cira Lancaster MD Primary Care Provider [phone] Encounter Details Date Type Department Care Team Description 03/27/2023 Paint Pourer Report Medical Records [address] [place] [address] Jarred Doss MD Social History Tobacco Use [...] on filedocumented in this encounter Care Teams Tennis Camp Instructor Relationship Specialty Start Date End Date Cira Lancaster MD [address] [place] [address] PCP - General Internal Medicine 09/24/22 documented as of this encounter
--- OUTSIDE RECORDS SUMMARY | 2024-08-17 13:28 | XMS_ITS | Encounter Summary ---
Author Organization [facility] Address [address] [place] [address] Care Team Providers Care Cryptologic Linguist Name Role Phone Dianna Olmos MD Primary Care Provider Sandra Clemons MD Primary Care Provider [phone] Jaylen Newman MD Primary Care Provider Cira Mata MD Primary Care Provider [phone] Encounter Details Date Type Department Care Team Description 02/20/2018 Release of Information Medical Records [address] [place] [address] Abstract, Provider Social History Tobacco Use Types Packs/Day Years [...] on filedocumented in this encounter Care Teams Cryptologic Linguist Relationship Specialty Start Date End Date Dianna Olmos MD PCP - General Internal Medicine 02/11/17 05/16/21 Sandra Clemente MD [address] [place] [address] PCP - General Internal Medicine 05/17/21 10/16/21 Jaylen Newman MD [address] [place] [address] PCP - General Internal Medicine 10/17/21 09/23/22 Cira Lancaster MD [address] [place] [address] PCP - General Internal Medicine 09/24/22 documented as of this encounter
--- OUTSIDE RECORDS SUMMARY | 2024-08-17 13:28 | XMS_ITS | Encounter Summary ---
Author Organization [facility] Address [address] [place] [address] Care Team Providers Care Access Coordinator Name Role Phone Cira Lancaster MD Primary Care Provider [phone] Encounter Details Date Type Department Care Team Description 10/31/2023 Hospital Medical Records [address] [place] [address] John Carter MD Social History Tobacco Use Types Packs/Day [...] on filedocumented in this encounter Care Teams Access Coordinator Relationship Specialty Start Date End Date Cira Lancaster MD [address] [place] [address] PCP - General Internal Medicine 09/24/22 documented as of this encounter
--- OUTSIDE RECORDS SUMMARY | 2024-08-17 13:28 | XMS_ITS | Encounter Summary ---
Author Organization [facility] Address [address] [place] [address] Care Team Providers Care Signal Tower Director Name Role Phone Jacoby Martinez MD Primary Care Provider [phone] Dianna Olmos MD Primary Care Provider UnaSandra Brown MD Primary Care Provider [phone] Jaylen Newman MD Primary Care Provider UnaCira Ortiz MD Primary Care Provider [phone] Reason for Visit * Reason Onset Date Comments Walk In 03/24/2015 pain, stomach 03/24/2015 Encounter Details Date Type Department Care Team Description 03/24/2015 Telephone Adult [address] [id number] Jacoby Martinez MD [address] [place] [phone] Walk In; pain, stomach Social History Tobacco Use Types Packs/Day Years [...] encounter Miscellaneous Notes * Telephone Encounter - Irma Aiken R.N. - 03/24/2015 9:55 AM EDT Pt to see sydnee phillips at 11:15 * Telephone Encounter - Aranza Coulter - 03/24/2015 9:45 AM EDT Symptoms patient is presenting: Abdomin pain going into back on leftside of abdomin and left Leg since Saturday . Patient also stated that She has a Red rash on the same sidePatient stated that her pain started after she Took her Enberl injection. If pain or injury related was it due to an accident at work or from a motor vehicle accident? NO If yes, gather 3rd democrat insurance information Date of accident/Injury: na How long has patient had these symptoms?: 03/20/15 PCP: Jacoby Martinez Payor: [facility] / Plan: O $10 [place] 1 / Product Type: HMO [id number] documented in this encounter Plan of Treatment Not on file documented as of this encounter Visit Diagnoses Not on filedocumented in this encounter Care Teams Signal Tower Director Relationship Specialty Start Date End Date Jacoby Martinez MD [address] [place] [address] PCP - General 04/14/09 02/10/17 Dianna Olmos MD [address] [place] [address] PCP - General Internal Medicine 02/11/17 05/16/21 Sandra Clemente MD [address] [place] [address] PCP - General Internal Medicine 05/17/21 10/16/21 Jaylen Newman MD [address] [place] [address] PCP - General Internal Medicine 10/17/21 09/23/22 Cira Lancaster MD [address] [place] [address] PCP - General Internal Medicine 09/24/22 documented as of this encounter
--- OUTSIDE RECORDS SUMMARY | 2024-08-17 13:28 | XMS_ITS | Encounter Summary ---
Author Organization [facility] Address [address] [place] [address] Care Team Providers Care Net Washer Name Role Phone Cira Lancaster MD Primary Care Provider [phone] Encounter Details Date Type Department Care Team Description 08/06/2023 Orders Only Medical Records [address] [place] [address] Jarred Doss MD Social History Tobacco Use [...] on file documented as of this encounter Procedures Procedure Name Priority Date/Time Associated Diagnosis Comments OUTSIDE LAB Routine 07/25/2023 documented in this encounter Results * OUTSIDE LAB (07/25/2023) Jarred Doss MD LAB documented in this encounter Visit Diagnoses Not on filedocumented in this encounter Care Teams Net Washer Relationship Specialty Start Date End Date Cira Lancaster MD [address] [place] [address] PCP - General Internal Medicine 09/24/22 documented as of this encounter
--- OUTSIDE RECORDS SUMMARY | 2024-08-17 13:28 | XMS_ITS | Encounter Summary ---
Author Organization [facility] Address [address] [place] [address] Care Team Providers Care Hack Saw Operator Name Role Phone Cira Lancaster MD Primary Care Provider [phone] Encounter Details Date Type Department Care Team Description 12/25/2022 Clay Preparation Supervisor Report Medical Records [address] [place] [address] Jarred Doss MD Social History Tobacco Use [...] Exposure Response Date Recorded In the last 10 days, have yo u been in contact with someone who was confirmed or suspected to have Coronavirus/COVID-19? No / Unsure 12/12/2022 4:13 PM EDT documented as of this encounter Plan of Treatment Not on file documented as of this encounter Visit Diagnoses Not on filedocumented in this encounter Care Teams Hack Saw Operator Relationship Specialty Start Date End Date Cira Lancaster MD [address] [place] [address] PCP - General Internal Medicine 09/24/22 documented as of this encounter
--- OUTSIDE RECORDS SUMMARY | 2024-08-17 13:28 | XMS_ITS | Encounter Summary ---
Author Organization [facility] Address [address] [place] [address] Care Team Providers Care Diesel Trailer Mechanic Name Role Phone Cira Lancaster MD Primary Care Provider [phone] Encounter Details Date Type Department Care Team Description 11/22/2023 Orders Only Medical Records [address] [place] [address] Sourav Atwood Social History Tobacco Use Types Packs/Day Years [...] Name Priority Date/Time Associated Diagnosis Comments OUTSIDE VASCULAR STUDY Routine 11/15/2023 documented in this encounter Results * OUTSIDE VASCULAR STUDY (11/15/2023) Sourav Atwood CARDIOLOGY documented in this encounter Visit Diagnoses Not on filedocumented in this encounter Care Teams Diesel Trailer Mechanic Relationship Specialty Start Date End Date Cira Lancaster MD [address] [place] [address] PCP - General Internal Medicine 09/24/22 documented as of this encounter
--- OUTSIDE RECORDS SUMMARY | 2024-08-17 13:28 | XMS_ITS | Encounter Summary ---
Author Organization [facility] Address [address] [place] [address] Care Team Providers Care Wool Supplier Name Role Phone Dianna Olmos MD Primary Care Provider UnaSandra Brown MD Primary Care Provider [phone] Jaylen Newman MD Primary Care Provider UnaCira Ortiz MD Primary Care Provider Encounter Details Date Type Department Care Team Description 08/27/2020 Refill Pulmonology - [place] 175 [facility] [address] [place] [phone] Robert Davis MD 175 [facility] [address] [place] [phone] Social History Tobacco Use Types Packs/Day Years [...] have Coronavirus / COVID-19? No / Unsure 08/11/2020 4:45 PM EST documented as of this encounter Plan of Treatment Not on file documented as of this encounter Visit Diagnoses Diagnosis Mild persistent asthma without complication Unspecified asthma Bronchitis Bronchitis, not specified as acute or chronic documented in this encounter Care Teams Wool Supplier Relationship Specialty Start Date End Date Dianna Olmos MD PCP - General Internal Medicine 02/11/17 05/16/21 Sandra Clemente MD [address] [place] [address] PCP - General Internal Medicine 05/17/21 10/16/21 Jaylen Newman MD [address] [place] [address] PCP - General Internal Medicine 10/17/21 09/23/22 Cira Lancaster MD [address] [place] [address] PCP - General Internal Medicine 09/24/22 documented as of this encounter
--- OUTSIDE RECORDS SUMMARY | 2024-08-17 13:28 | XMS_ITS | Encounter Summary ---
Author Organization [facility] Address [address] [place] [address] Care Team Providers Care Metallurgical Inspector Name Role Phone Sandra Clemente MD Primary Care Provider [phone] Jaylen Newman MD Primary Care Provider Cira Mata MD Primary Care Provider [phone] Encounter Details Date Type Department Care Team Description 10/03/2021 Hospital Medical Records [address] [place] [address] Shay Quan MD Social History Tobacco Use Types Packs/Day [...] on filedocumented in this encounter Care Teams Metallurgical Inspector Relationship Specialty Start Date End Date Sandra Clemente MD [address] [place] [address] PCP - General Internal Medicine 05/17/21 10/16/21 Jaylen Newman MD [address] [place] [address] PCP - General Internal Medicine 10/17/21 09/23/22 Cira Lancaster MD [address] [place] [address] PCP - General Internal Medicine 09/24/22 documented as of this encounter
--- OUTSIDE RECORDS SUMMARY | 2024-08-17 13:28 | XMS_ITS | Encounter Summary ---
Author Organization [facility] Address [address] [place] [address] Care Team Providers Care Substation Designer Name Role Phone Dianna Olmos MD Primary Care Provider Unava Sandra Burch MD Primary Care Provider [phone] Jaylen Newman MD Primary Care Provider Unava Cira Ramos MD Primary Care Provider [phone] Reason for Visit * Reason Onset Date Comments Testing 07/17/2018 Encounter Details Date Type Department Care Team Description 07/17/2018 Telephone Pulmonology - [place] 175 [facility] [address] [place] [address] Robert Davis MD [address] [facility] [address] [place] [address] Testing Social History Tobacco Use Types Packs/Day Years [...] encounter Miscellaneous Notes * Telephone Encounter - Kathy Rivera - 07/17/2018 7:47 PM EST Sahara Riddle has not responded to the telephone calls that were made on 06/10/2018 and 06/12/2018 as well as the letter that was sent on 06/16/[address] Scan of Chest; therefore we are removing the test from our Scheduled Orders Report. Please note that this test must be reordered if required in the future. Kathy Rivera BSR documented in this encounter Plan of Treatment Not on file documented as of this encounter Visit Diagnoses Not on filedocumented in this encounter Care Teams Substation Designer Relationship Specialty Start Date End Date Dianna Olmos MD PCP - General Internal Medicine 02/11/17 05/16/21 aSndra Clemente MD [address] [place] [address] PCP - General Internal Medicine 05/17/21 10/16/21 Jaylen Newman MD [address] [place] [address] PCP - General Internal Medicine 10/17/21 09/23/22 Cira Lancaster MD [address] [place] [address] PCP - General Internal Medicine 09/24/22 documented as of this encounter
--- OUTSIDE RECORDS SUMMARY | 2024-08-17 13:28 | XMS_ITS | Encounter Summary ---
Author Organization [facility] Address [address] [place] [address] Care Team Providers Care Fish Hatchery Superintendent Name Role Phone Dianna Olmos MD Primary Care Provider Sandra Clemons MD Primary Care Provider [phone] Jaylen Newman MD Primary Care Provider Cira Mata MD Primary Care Provider [phone] Encounter Details Date Type Department Care Team Description 08/06/2018 Refill Rheumatology - [place] [address] [place] [address] Jarred Doss MD Social History Tobacco Use [...] encounter Miscellaneous Notes * Telephone Encounter - Adenike Santos M.A. - 08/07/2018 10:39 AM EST Message left for patient to return my call. * Telephone Encounter - Jarred Doss MD - 08/06/2018 4:49 PM EST Ranjana, please call patient [phone] (home) When did she Have her eye exam . It looks like it is overdue. She needs it once a year at this point Dr. Doss * Telephone Encounter - Adenike Santos M.A. - 08/06/2018 4:32 PM ESTFrom: Sahara Riddle To: Jarred Doss MD Sent: 08/06/2018 4:27 PM EST Subject: Medication Renewal Request Original authorizing provider: MD Sahara Barker would like a refill of the following medications: hydroxychloroquine (PLAQUENIL) 200 MG tablet [Jarred Doss MD] Preferred pharmacy: [facility] [address] [place] [address] Comment: documented in this encounter Plan of Treatment Not on file documented as of this encounter Visit Diagnoses Diagnosis Seropositive rheumatoid arthritis Rheumatoid arthritis documented in this encounter Care Teams Fish Hatchery Superintendent Relationship Specialty Start Date End Date Dianna Olmos MD PCP - General Internal Medicine 02/11/17 05/16/21 Sandra Clemente MD [address] [place] [address] PCP - General Internal Medicine 05/17/21 10/16/21 Jaylen Newman MD [address] [place] [address] PCP - General Internal Medicine 10/17/21 09/23/22 Cira Lancaster MD [address] [place] [address] PCP - General Internal Medicine 09/24/22 documented as of this encounter
--- OUTSIDE RECORDS SUMMARY | 2024-08-17 13:28 | XMS_ITS | Encounter Summary ---
Author Organization [facility] Address [address] [place] [address] Care Team Providers Care Starch And Prosize Mixer Name Role Phone Cira Lancaster MD Primary Care Provider [phone] Encounter Details Date Type Department Care Team Description 10/24/2023 Comb Capper Report Medical Records [address] [place] [address] Sourav Atwood Social History Tobacco Use Types [...] on filedocumented in this encounter Care Teams Starch And Prosize Mixer Relationship Specialty Start Date End Date Cira Lancaster MD [address] [place] [address] PCP - General Internal Medicine 09/24/22 documented as of this encounter
--- OUTSIDE RECORDS SUMMARY | 2024-08-17 13:28 | XMS_ITS | Clinical Summary ---
Author Organization [facility] Address [address] [place] [address] Care Team Providers Care Lan/Wan Engineer Name Role Phone Cira Lancaster MD Primary Care Provider [phone] Allergies Active Allergy Reactions Criticality Noted Date Comments [place] Anaphylaxis High 12/03/2023 Medications Medication Sig Dispensed Refills Start Date End Date Status acetaminophen (TYLENOL) 325 MG tablet Take 1 tablet (325 mg total) by mouth every 6 (six) hours as needed for pain. 0 Active celecoxib (CeleBREX) 200 MG capsule Take 1 capsule (200 mg total) by mouth daily. 0 Active enoxaparin (LOVENOX) 80 MG/0.8ML SOSY Inject 0.8 mL (80 mg total) under the skin every 12 (twelve) hours. 0 Active docusate sodium (COLACE) 100 MG capsule Take 1 capsule (100 mg total) by mouth 2 (two) times a day. 0 Active oxyCODONE (ROXICODONE) 5 MG immediate release tablet Take 1 tablet (5 mg total) by mouth every 4 (four) hours as needed for pain. 0 Active Upadacitinib ER (Rinvoq) 15 MG TB24 Take by mouth. 0 A ctive Petrolatum OINT Apply topically. 0 Act daria methotrexate, PF, (Otrexup) 15 MG/0.4ML SOAJ subcutaneous injection Inject under the skin. 0 Active dupilumab 300 MG/2ML SOPN subcutaneous injection Inject under the skin once. 0 Active Budeson-Glycopyrrol- Formoterol (Breztri Aerosphere) 160-9-4.8 MCG/ACT AERO Inhale into the lungs. 0 Active budesonide (PULMICORT) 0.5 MG/2ML nebulizer solution Take 2 mL (0.5 mg total) by nebulization every 12 (twelve) hours. 0 Active ipratropium-albutero l (DUO-NEB) 0.5-2.5 mg/mL nebulizer Inhale 3 mL into the lungs. 0 Active sulfaSALAzine (AZULFIDINE) 500 MG tablet Take 1 tablet (500 mg total) by mouth 4 (four) times a day. 0 Active hydroxychloroquine (PLAQUENIL) 200 MG tablet Take by mouth daily. 0 Acti ve EPINEPHrine (ADRENALIN) 1 MG/10ML SOSY (1:10,000) inj syringe Inject into the vein once. 0 Active diclofenac (VOLTAREN) 50 MG EC tablet Take 1 tablet (50 mg total) by mouth 2 (two) times a day. 0 Active Albuterol Sulfate 108 (90 Base) MCG/ACT AEPB Inhale into the lungs. 0 Active albuterol (PROVENTIL) (2.5 MG/3ML) 0.083% nebulizer solution Take 3 mL (2.5 mg total) by nebulization every 6 (six) hours as needed for wheezing. 0 Active Biotin 10 MG TABS Take by mouth. 0 Act daria vitamin D3 (cholecalciferol) 25 MCG (1000 UT) tablet Take 1 tablet (25 mcg total) by mouth daily. 0 Active ascorbic acid (VITAMIN C) 500 MG tablet Take 1 tablet (500 mg total) by mouth daily. 0 Active folic acid (FOLVITE) tablet 1 mg Take 1 tablet (1 mg total) by mouth daily. 0 Active montelukast (SINGULAIR) 10 MG tablet Take 1 tablet (10 mg total) by mouth every night at bedtime. 0 Active Active Problems No known active problems Social History Tobacco Use Types Packs/Day Years Used Date Smoking Tobacco: Never Smokeless Tobacco: Never Tobacco Cessation:Counseling Given: Not Answered Alcohol Use Standard Drinks/Week Comments Never 0 (1 standard drink = 0.6 oz pur e alcohol) Sex and Gender Information Value Date Recorded Sex Assigned at Not on file Gender Identity Not on file Sexual Orientation Not on file Job Start Date Occupation Industry Not on file Not on file Not on file Last Filed Vital Signs Vital Sign Reading Time Taken Comments Blood Pressure 147/59 12/03/2023 11:15 AM EDT Pulse 83 12/03/2023 11:15 AM EDT Temperature 36.4 ??C (97.6 ??F) 12/03/2023 11:15 AM E DT Respiratory Rate - - Oxygen Saturation 96% 12/03/2023 11:15 AM EDT Inhaled Oxygen Concentration - - Weight 78.5 kg (173 lb) 12/03/2023 11:15 AM EDT Height - - Body Mass Index - - Plan of Treatment Health Maintenance Due Date Last Done Comments Hepatitis C Screening 1963 Depression Screening 1975 Preventative Health Evaluation 1981 Cervical Cancer Screening (Pap Smear) 1984 Colon Cancer Screening (Colonoscopy) 2008 Breast Cancer Screening (Mammogram) 2013 Shingrix-Zoster Vaccine (1 of 2) 2013 DTap / Tdap / Td (2 - Td or Tdap) 06/30/2019 06/30/2009 COVID-19 Vaccine ( season) 2024 08/04/2021, 11/03/2020, 10/12/2020 Influenza Vaccine (#1) 2024 , 05/24/2021, 03/08/2020, Additional history exists RSV Adult > 60+ Yrs or (1 - 1-dose 75+ series) 2038 Pneumococcal Vaccine Aged Out 10/13/2014, 09/15/19 11 No longer eligible based on patient's age to complete this topic Hepatitis B Vaccines Aged Out No long er eligible based on patient's age to complete this topic RSV Ped < 20 months Aged Out No longe r eligible based on patient's age to complete this topic Care Teams Lan/Wan Engineer Relationship Specialty Start Date End Date Cira Lancaster MD [address] [place] [place] [address] PCP - General Internal Medicine 11/18/23
--- OUTSIDE RECORDS SUMMARY | 2024-08-17 13:28 | XMS_ITS | Encounter Summary ---
Author Organization [facility] Address [address] [place] [address] Care Team Providers Care Autocad Draftsman Name Role Phone Cira Lancaster MD Primary Care Provider [phone] Encounter Details Date Type Department Care Team Description 03/13/[address] [facility] [address] [place] [address] Cira Lancaster MD [address] [place] [address] Social History Tobacco Use Types Packs/Day Years [...] on filedocumented in this encounter Care Teams Autocad Draftsman Relationship Specialty Start Date End Date Cira Lancaster MD [address] [place] [address] PCP - General Internal Medicine 09/24/22 documented as of this encounter
--- OUTSIDE RECORDS SUMMARY | 2024-08-17 13:28 | XMS_ITS | Encounter Summary ---
Author Organization [facility] Address [address] [place] [address] Care Team Providers Care Configuration Management Consultant Name Role Phone Dianna Olmos MD Primary Care Provider Sandra Clemons MD Primary Care Provider [phone] Jaylen Newman MD Primary Care Provider Cira Mata MD Primary Care Provider [phone] Encounter Details Date Type Department Care Team Description 04/21/2021 Maintenance And Utilities Supervisor Report Medical Records [address] [place] [address] Bg Garcia MD Social History Tobacco Use Types Packs/Day [...] have Coronavirus / COVID-19? No / Unsure 04/04/2021 1:28 PM EDT documented as of this encounter Plan of Treatment Not on file documented as of this encounter Visit Diagnoses Not on filedocumented in this encounter Care Teams Configuration Management Consultant Relationship Specialty Start Date End Date Dianna Olmos MD PCP - General Internal Medicine 02/11/17 05/16/21 Sandra Clemente MD [address] [place] [address] PCP - General Internal Medicine 05/17/21 10/16/21 Jaylen Newman MD [address] [place] [address] PCP - General Internal Medicine 10/17/21 09/23/22 Cira Lancaster MD [address] [place], [place] [id number] PCP - General Internal Medicine 09/24/22 documented as of this encounter
--- OUTSIDE RECORDS SUMMARY | 2024-08-17 13:28 | XMS_ITS | Encounter Summary ---
Author Organization [facility] Address [address] [place] [address] Care Team Providers Care It Software Engineer Name Role Phone Cira Lancaster MD Primary Care Provider [phone] Encounter Details Date Type Department Care Team Description 07/05/2023 Social Service Director Report Medical Records [address] [place] [address] Bg Garcia MD Social History Tobacco Use [...] filedocumented in this encounter Care Teams It Software Engineer Relationship Specialty Start Date End Date Cira Lancaster MD [address] [place] [id number] PCP - General Internal Medicine 09/24/22 documented as of this encounter
--- OUTSIDE RECORDS SUMMARY | 2024-08-17 13:28 | XMS_ITS | Encounter Summary ---
Author Organization [facility] Address [address] [place] [address] Care Team Providers Care Sales Floor Team Member Name Role Phone Sandra Clemente MD Primary Care Provider [phone] Jaylen Newman MD Primary Care Provider Cira Mata MD Primary Care Provider [phone] Encounter Details Date Type Department Care Team Description 09/27/2021 Hospital Medical Records [address] [place] [address] Shay Quan MD Social History Tobacco Use [...] on filedocumented in this encounter Care Teams Sales Floor Team Member Relationship Specialty Start Date End Date Sandra Clemente MD [address] [place] [address] PCP - General Internal Medicine 05/17/21 10/16/21 Jaylen Newman MD [address] [place] [address] PCP - General Internal Medicine 10/17/21 09/23/22 Cira Lancaster MD [address] [place] [address] PCP - General Internal Medicine 09/24/22 documented as of this encounter
--- OUTSIDE RECORDS SUMMARY | 2024-08-17 13:28 | XMS_ITS | Encounter Summary ---
Author Organization [facility] Address [address] [place] [address] Care Team Providers Care Civil Service Clerk Name Role Phone Dianna Olmos MD Primary Care Provider Sandra Clemons MD Primary Care Provider [phone] Jaylen Newman MD Primary Care Provider Cira Mata MD Primary Care Provider [phone] Reason for Visit * Reason Onset Date Comments Medication 04/14/2020 colon Encounter Details Date Type Department Care Team Description 04/14/2020 Refill Gastroenterology - [place] [address] [facility] [address] [place] [address] Josh Trujillo MD Medication (colon) Social History Tobacco Use Types Packs/Day Years [...] have Coronavirus / COVID-19? No / Unsure 04/13/2020 11:19 AM EDT documented as of this encounter Plan of Treatment Not on file documented as of this encounter Visit Diagnoses Not on filedocumented in this encounter Care Teams Civil Service Clerk Relationship Specialty Start Date End Date Dianna Olmos MD PCP - General Internal Medicine 02/11/17 05/16/21 Sandra Clemente MD [address] [place] [address] PCP - General Internal Medicine 05/17/21 10/16/21 Jaylen Newman MD [address] [place] [address] PCP - General Internal Medicine 10/17/21 09/23/22 Cira Lancaster MD [address] [place] [address] PCP - General Internal Medicine 09/24/22 documented as of this encounter
--- OUTSIDE RECORDS SUMMARY | 2024-08-17 13:28 | XMS_ITS | Encounter Summary ---
Author Organization [facility] Address [address] [place] [address] Care Team Providers Care Oven Builder Name Role Phone Cira Lancaster MD Primary Care Provider [phone] Encounter Details Date Type Department Care Team Description 04/05/2023 Slate Cutter Operator Report Medical Records [address] [place] [address] Bg Garcia MD Social History Tobacco Use [...] on filedocumented in this encounter Care Teams Oven Builder Relationship Specialty Start Date End Date Cira Lancaster MD [address] [place] [address] PCP - General Internal Medicine 09/24/22 documented as of this encounter
--- OUTSIDE RECORDS SUMMARY | 2024-08-17 13:28 | XMS_ITS | Encounter Summary ---
Author Organization [facility] Address [address] [place] [address] Care Team Providers Care Printer Floor Covering Assistant Name Role Phone Jacoby Martinez MD Primary Care Provider Dianna Olmos MD Primary Care Provider UnaSandra Brown MD Primary Care Provider [phone] Jaylen Newman MD Primary Care Provider UnaCira Ortiz MD Primary Care Provider [phone] Reason for Visit * Reason Onset Date Comments refill request 03/31/2015 Encounter Details Date Type Department Care Team Description 03/31/2015 Refill Adult Medicine [address] [phone] Jacoby Martinez MD [address] [place] [address] [phone] refill request Social History Tobacco Use Types [...] encounter Miscellaneous Notes * Telephone Encounter - Frannie Marie L.P.N. - 04/01/2015 10:28 AM EDT Do you want to refill this. Please advise * Telephone Encounter - So Sheriff - 03/31/2015 2:02 PM EDT Patient would like script to be: E-PRESCRIBED/FAXED TO PHARMACY WHEN WAS THE PATIENT'S LAST APPOINTMENT IN ADULT MEDICINE? 03/24/15 WHEN WAS THE LAST TIME THE PATIENT SAW THEIR PCP? 10/19/14 Does patient have an upcoming appointment? Yes 04/20/15 (THE MEDICATION REQUESTED IS ON THE MED LIST ABOVE) All of the medications requested were on the CURRENT MEDS list Did you check the Pharmacy information above?: YES Patient wants: 30 -day supply Is this a mail order prescription request ? NO Patients current insurance carrier is: Payor: [employer] / Plan: HMO $10 [employer] 1 / Product Type: HMO [id number] documented in this encounter Plan of Treatment Not on file documented as of this encounter Visit Diagnoses Diagnosis examination or test, unconfirmed Shingles Herpes zoster without mention of complication Rheumatoid arthritis documented in this encounter Care Teams Printer Floor Covering Assistant Relationship Specialty Start Date End Date Jacoby Martinez MD [address] [place] [address] PCP - General 04/14/09 02/10/17 Dianna Olmos MD [address] [place], [place] [phone] PCP - General Internal Medicine 02/11/17 05/16/21 Sandra Clemente MD [address] [place] [address] PCP - General Internal Medicine 05/17/21 10/16/21 Jaylen Newman MD [address] [place], [place] [phone] PCP - General Internal Medicine 10/17/21 09/23/22 Cira Lancaster MD [address] [place] [address] PCP - General Internal Medicine 09/24/22 documented as of this encounter
--- OUTSIDE RECORDS SUMMARY | 2024-08-17 13:28 | XMS_ITS | Encounter Summary ---
Author Organization [facility] Address [address] [place] [address] Care Team Providers Care Technical Developer Name Role Phone Dianna Olmos MD Primary Care Provider Sandra Clemons MD Primary Care Provider [phone] Jaylen Newman MD Primary Care Provider Cira Mata MD Primary Care Provider [phone] Encounter Details Date Type Department Care Team Description 02/23/2019 Industrial Waste Inspector Report Medical Records [address] [place] [address] Fabrizio Roque Social History Tobacco Use Types Packs/Day Years [...] on filedocumented in this encounter Care Teams Technical Developer Relationship Specialty Start Date End Date Dainna Olmos MD PCP - General Internal Medicine 02/11/17 05/16/21 Sandra Clemente MD [address] [place] [address] PCP - General Internal Medicine 05/17/21 10/16/21 Jaylen Newman MD [address] [place] [address] PCP - General Internal Medicine 10/17/21 09/23/22 Cira Lancaster MD [address] [place] [address] PCP - General Internal Medicine 09/24/22 documented as of this encounter
--- OUTSIDE RECORDS SUMMARY | 2024-08-17 13:28 | XMS_ITS | Encounter Summary ---
Author Organization [facility] Address [address] [place] [address] Care Team Providers Care Senior Safety Management Consultant Name Role Phone Dianna Olmos MD Primary Care Provider UnaSandra Brown MD Primary Care Provider [phone] Jaylen Newman MD Primary Care Provider UnaCira Ortiz MD Primary Care Provider Reason for Visit * Reason Onset Date Comments medication problems 11/23/2020 Encounter Details Date Type Department Care Team Description 11/23/2020 Telephone Pulmonology - [place] [address] [facility] [address] [place] [address] Robert Davis MD [address] [facility] [address] [place] [id number] medication problems Social History Tobacco Use Types Packs/Day [...] have Coronavirus / COVID-19? No / Unsure 11/22/2020 3:13 PM EDT documented as of this encounter Miscellaneous Notes * Telephone Encounter - Robert Davis MD - 11/25/2020 2:01 PM EDT Nop, is suppose to be 1 tab of 5 mg daily. * Telephone Encounter - Francine Starkey - 11/23/2020 11:27 AM EDT Who is calling? A pharmacist: Pharmacy: [facility] Pharmacist Name: N/A Pharmacy Phone # [phone] Name of the medication Prednisone 5 mg Steve What is the specific problem or interaction? Need Claification. Is this suppose to be 6,5,4,3,2,1, tapered dosing? Sig. States one tab daily If the patient is having a problem with taking the med - how long has the problem been going on? N/A documented in this encounter Plan of Treatment Not on file documented as of this encounter Visit Diagnoses Not on filedocumented in this encounter Care Teams Senior Safety Management Consultant Relationship Specialty Start Date End Date Dianna Olmos MD PCP - General Internal Medicine 02/11/17 05/16/21 Sandra Clemente MD [address] [place] [address] PCP - General Internal Medicine 05/17/21 10/16/21 Jaylen Newman MD [address] [place] [address] PCP - General Internal Medicine 10/17/21 09/23/22 Cira Lancaster MD [address] [place] [address] PCP - General Internal Medicine 09/24/22 documented as of this encounter
--- OUTSIDE RECORDS SUMMARY | 2024-08-17 13:28 | XMS_ITS | Encounter Summary ---
Author Organization [facility] Address [address] [place] [address] Care Team Providers Care Nut Sifter Name Role Phone Dianna Olmos MD Primary Care Provider Sandra Clemons MD Primary Care Provider [phone] Jaylen Newman MD Primary Care Provider Cira Mata MD Primary Care Provider [phone] Encounter Details Date Type Department Care Team Description 05/05/2018 Refill Rheumatology - [place] [address] [place] [address] Jarred Doss MD Social History Tobacco Use [...] arthritis documented in this encounter Care Teams Nut Sifter Relationship Specialty Start Date End Date Dianna Olmos MD PCP - General Internal Medicine 02/11/17 05/16/21 Sandra Clemente MD [address] [place] [address] PCP - General Internal Medicine 05/17/21 10/16/21 Jaylen Newman MD [address] [place] [address] PCP - General Internal Medicine 10/17/21 09/23/22 Cira Lancaster MD [address] [place] [address] PCP - General Internal Medicine 09/24/22 documented as of this encounter
--- OUTSIDE RECORDS SUMMARY | 2024-08-17 13:28 | XMS_ITS | Encounter Summary ---
Author Organization [facility] Address [address] [place] [address] Care Team Providers Care Elementary School Tutor Name Role Phone Cira Lancaster MD Primary Care Provider [phone] Encounter Details Date Type Department Care Team Description 07/31/2023 Colorectal Surgeon Report Medical Records [address] [place] [address] Eliza Felix NP Social History Tobacco Use [...] on filedocumented in this encounter Care Teams Elementary School Tutor Relationship Specialty Start Date End Date Cira Lancaster MD [address] [place] [address] PCP - General Internal Medicine 09/24/22 documented as of this encounter
--- OUTSIDE RECORDS SUMMARY | 2024-08-17 13:28 | XMS_ITS | Clinical Summary ---
Author Organization [address] Address [address] [place] [phone] Phone Care Team Providers Care Baggage Porter Head Name Role Phone Cira Lancaster MD Primary Care Provider [phone] Allergies Active Allergy Reactions Criticality Noted Date Comments [place] Anaphylaxis High 12/03/2023 Nut - Unspecified 06/02/2018 [place] Medications ergocalciferol (VITAMIN D-2) 1,250 mcg (50,000 unit) capsule Take 1 Capsule by mouth once a week. 03/13/20 24 Active acetaminophen (TYLENOL) 325 mg tablet TAKE 2 TABLETS BY MOUTH EVERY 6 HOURS NEEDED FOR MILD PAIN (PAIN SCALE 1-3) 10/31/19 24 Active white petrolatum (Petroleum Jelly) ointment Apply 1 Applicator topically See Admin Instructions. Apply to skin after bathing 11/18/19 24 Active methotrexate, PF, (Otrexup, PF,) 15 mg/0.4 mL auto-injector 10/01/19 24 Active dupilumab (Dupixent Syringe) 300 mg/2 mL syringe 04/23/20 23 Active budesonide-glycop yr-formoterol (Breztri Aerosphere) 160-9-4.8 mcg/actuation HFA aerosol inhaler inhaler Inhale 2 puffs by mouth 2 (two) times a day. 04/06/20 23 Active medical supply, miscellaneous (MISCELLANEOUS MEDICAL SUPPLY MISC) Incontinence Supply Disposable (Feminine Wipes) Misc 1 Units by Does not apply route 6 times daily. 04/29/20 23 Active budesonide (PULMICORT) 0.5 mg/2 mL nebulizer solution Take 1 vial by nebulization 2 (two) times a day. 11/24/19 Active ipratropium-albut Crys (DUONEB) 0.5-2.5 mg/3 mL nebulizer solution 01/31/20 Active medical supply, miscellaneous (MISCELLANEOUS MEDICAL SUPPLY MIS) Incontinence Supply Disposable (Bladder Control Pads Regular) Misc 4 Each by Does not apply route daily. ROSENDO-99 4/day 120/month 11 refills 01/31/20 Active sulfaSALAzine (AZULFIDINE) 500 mg tablet Take 1 tablet by mouth 4 times daily. 05/31/20 Active hydroxychloroquin e (PLAQUENIL) 200 mg tablet Take 1.5 tablets (300 mg total) by mouth 1 (one) time each day. 04/28/20 Active diclofenac (CATAFLAM) 50 mg tablet Take 1 Tab by mouth 3 times daily. 09/15/19 Active albuterol HFA (PROAIR HFA ; PROVENTIL HFA ; VENTOLIN HFA) 90 mcg/actuation inhaler 08/29/19 Active albuterol 2.5 mg /3 mL (0.083 %) nebulizer solution Take 1 Vial by nebulization 3 times daily for 180 days. 08/29/19 Active biotin 10 mg tablet Take by mouth daily. Active cholecalciferol, vitamin D3, (VITAMIN D3 ORAL) Take by mouth daily. Active ascorbic acid (VITAMIN C) 500 mg CR tablet Take 500 mg by mouth daily. Active folic acid (FOLVITE) 1 mg tablet Take 1 tablet (1,000 mcg total) by mouth 1 (one) time each day. 09/03/19 Active montelukast (SINGULAIR) 10 mg tablet Take 1 Tab by mouth at bedtime. 08/04/19 Active medical supply, miscellaneous (MISCELLANEOUS MEDICAL SUPPLY MIS) Spacer/Aero Chamber Mouthpiece Misc 1 Device by Does not apply route as needed (use with inhaler). 06/06/20 Active Actemra ACTPen subcutaneous injection Inject 0.9 mL (162 mg total) under the skin every 14 (fourteen) days. 05/22/20 Active EPINEPHrine (Auvi-Q) 0.3 mg/0.3 mL injection Inject 0.3 mL (0.3 mg total) into the thigh if needed for anaphylaxis. 1 each 06/18/20 24 Active nystatin-triamcin olone (MYCOLOG II) creamIndications: Intertrigo Apply to affect area twice a day for 7-14 days then as needed for rash. 30 g 1 06/18/20 24 025 Active nystatin (MYCOSTATIN) 100,000 unit/gram powderIndications :Intertrigo Apply thin layer to affected area BID for 2 weeks then stop. 30 g 1 06/18/20 24 Active Active Problems Problem Noted Date Diagnosed Date DVT (deep venous thrombosis) 02/24/2024 Overview (05/15/2024): Left leg following left knee replacement. Asthma, severe persistent 01/24/2021 Chronic allergic rhinitis 01/24/2021 Overview (05/15/2024): Dog, cat, pollen, dust mite Varicose veins of both lower extremities with pa in 04/13/2020 Lichen sclerosus 02/05/2018 Overview (05/15/2024): Last Assessment & Plan: Reviewed findings with patient. I reviewed the importance of regular maintenance topical steroid use to prevent symptoms, further scarring, and squamous cell cancer of the vulva. I also explained the importance of regular follow up to ensure she has no evidence of precancerous or cancerous changes and that she is not having side effects from her medication. I reviewed areas of application and amount of medication to use. Osteoarthritis of both knees 01/27/2018 Ground glass opacity present on imaging of lung 11/29/2017 Herpes zoster 04/20/2015 Overview (05/15/2024): While under treatment for RA 2014 Seropositive rheumatoid arthritis 06/30/2009 Overview (05/15/2024): Onset about 2000; RF and CCP positive. Erosive changes on hand films 07/18. On hydroxychloroquine and sulfasalzine since ? 2004? Methotrexate added 05/18. Enbrel added September 2012. Eye exam normal January 2014, 2014, November 2015, 05/25; 09/23; 03/27, 09/2020, 03/2021 Methotrexate stopped 03/22 due to shingles. hydroxychloroquine, Enbrel and sulfasalazine continued, methotrexate added back 06/22 Last Assessment & Plan: Continue current medications Lab tests in January and March Encounters Date Type Department Care Team Description 06/18/2024 3:00 PM EST - 06/18/2024 11:59 PM EST Hospital Encounter [facility] [address] [place] [phone] Injury of left knee, initial encounter Discharge Disposition: Home or Self Care 06/18/2024 2:00 PM EST Office Visit Adult Medicine [facility] [address] [place] [phone] Cira Lancaster MD Injury of left knee, initial encounter (Primary Dx); Intertrigo; Other fatigue; BMI 33.0-33.9,adult from Last 3 Months Immunizations Name Administration Dates Next Due Influenza Quadravalent, MDCK , 0.5ml, preservative free (Flucelvax) 6mo and older 03/12/2024,05/02/2023,05/24/2021,03/08,05/28/2018 Influenza Quadravalent, MDCK , 0.5ml, with preservative (Flucelvax) 6mo and older 04/02/2017 Influenza trivalent, 0.5mL ( Fluad) 65yo and older 06/27/2016 Influenza trivalent, 0.5mL, preservative free (Fluarix; FluLaval; Fluzone) ages 6mo and older (Afluria) 3 years and older 04/20/2015,04/13/2014,03/12/2012,03/29,05/12/2010,08/05/2009 Influenza, Unspecified 04/13/2014 PPD Test 09/01/2012 Pneumococcal conjugate 13 va lent (Prevnar 13, PCV13) 2mo and older 10/13/2014 Pneumococcal polysaccharide 23 valent (Pneumovax 23) 2yo and older 09/14/2010 Td Tetanus diptheria (Tdvax) 7yo and older 03/08/2020 Tdap Tetanus diptheria acell ular pertussis (Boostrix; Adacel) 7yo and older 06/30/2009 Surgical History Surgery Date Site/Laterality Comments APPENDECTOMY PROCEDURE: HISTORICAL APPENDECTOMY OTHER SURGICAL HISTORY 02/23/2019 PROCEDURE: MI LARYNGOSCOPY FLEXIBLE DIAGNOSTIC; COMMENT: Dr Roque TOTAL KNEE ARTHROPLASTY Bilateral PROCEDURE: HISTORICAL TOTAL KNEE REPLACE Medical History Medical History Date Comments Rheumatoid arthritis(714.0) 06/30/2009 DX:R heumatoid arthritis(714.0) Asthma 06/30/2009 DX:Asthma Herpes zoster 04/20/2015 DX:Herpes zoster ; COMMENT: While under treatment for RA 2014 Osteoarthritis of both knees 01/27/2018 DX: Osteoarthritis of both knees Perennial allergic rhinitis 01/24/2021 DX:P erennial allergic rhinitis Chronic allergic rhinitis 01/24/2021 DX:Chr onic allergic rhinitis; COMMENT: Dog, cat, pollen, dust mite Family History Medical History Relation Name Comments Asthma Father Diabetes Maternal Grandmother RA Other: rheumatoid arthritis Mother Breast cancer Neg Hx Colon cancer Neg Hx Ovarian cancer Neg Hx Uterine cancer Neg Hx Relation Name Status Comments Father Maternal Grandmother Mother Social History Tobacco Use Types Packs/Day Years Used Date Smoking Tobacco: Never Smokeless Tobacco: Never Alcohol Use Standard Drinks/Week Comments No 0 (1 standard drink = 0.6 oz pur e alcohol) Comments No Sex and Gender Information Value Date Recorded Sex Assigned at Not on file Legal Sex Female 5:02 AM EST Gender Identity Not on file Sexual Orientation Not on file Obstetrics History Last Filed Vital Signs Vital Sign Reading Time Taken Comments Blood Pressure 136/70 06/18/2024 3:03 PM EST Pulse 80 06/18/2024 2:21 PM EST Temperature 36.4 ??C (97.5 ??F) 06/18/2024 2:21 PM ES T Respiratory Rate 14 06/18/2024 2:21 PM EST Oxygen Saturation - - Inhaled Oxygen Concentration - - Weight 79.8 kg (176 lb) 06/18/2024 2:21 PM EST Height 154.9 cm (5' 1 ) 06/18/2024 2:21 PM EST Body Mass Index 33.25 06/18/2024 2:21 PM EST Plan of Treatment Upcoming Encounters Date Type Department Care Team (Late st Contact Info) Description 09/08/2024 2:30 PM EST Office Visit Adult Medicine [facility] [address] [place] [phone] Yelena Wilburn PA [address] [place] [phone] Health Maintenance Due Date Last Done Comments Zoster Vaccines (1 of 2) 2013 Depression Screening 06/16/2022 HIV Screening 06/16/2022 Medicare Annual Wellness Visit 06/16/2022 Social Influencers of Health Screening 06/16/2022 RSV Immunization Patients 60+ Years Old (1 - Risk 60-74 years 1-dose series) 2023 Breast Cancer Screening 05/22/2023 05/22/20, 01/28/2019, 10/23/2017, Additional history exists COVID-19 Vaccine ( - season) 2024 08/04/2021, 11/03/2020, 10/12/2020 Cholesterol Screening (Lipid Panel) 03/08/2025 03/08/2020 Cervical Cancer Screening: HPV 02/27/2029 02/28/2024 Colorectal Cancer Screening: Colonoscopy 05/24/2030 05/24/2020 DTaP,Tdap,and Td Vaccines (4 - Td or Tdap) 06/12/2032 06/12/2022, 03/08/2020, 06/30/2009 Hepatitis C Screening Completed 09/03/2019 Pneumococcal Vaccine: 50+ Years Completed 07/05/2023, 10/13/2014, 09/14/2010 Pneumococcal Vaccine: Pediatrics (0 to 5 Years) and At-Risk Patients (6 to 64 Years) Completed 07/05/2023, 10/13/2014, 09/14/2010 Influenza Vaccine Completed 03/12/2024, , 06/12/2022, Additional history exists HIB Vaccines Aged Out No longer eligi ble based on patient's age to complete this topic HPV Vaccines Aged Out No longer eligi ble based on patient's age to complete this topic Hepatitis A Vaccines Aged Out No long er eligible based on patient's age to complete this topic Hepatitis B Vaccines Aged Out No long er eligible based on patient's age to complete this topic IPV Vaccines Aged Out No longer eligi ble based on patient's age to complete this topic MMR Vaccines Aged Out No longer eligi ble based on patient's age to complete this topic Meningococcal ACWY Vaccine Aged Out N o longer eligible based on patient's age to complete this topic Meningococcal B Vacine Aged Out No lo nger eligible based on patient's age to complete this topic RSV Immunization Patients Under 20 months Aged Out No longer eligible based on patient's age to complete this topic Varicella Vaccines Aged Out No longer eligible based on patient's age to complete this topic Procedures Procedure Name Priority Date/Time Associated Diagnosis Comments CBC WITH AUTO DIFFERENTIAL Routine 06/18/2024 3:26 PM EST Other fatigue CBC AND DIFFERENTIAL Routine 06/18/2024 3:26 PM EST Other fatigue BASIC METABOLIC PANEL Routine 06/18/2024 3:26 PM EST Other fatigue IRON AND TIBC Routine 06/18/2024 3:26 PM EST Other fatigue FERRITIN Routine 06/18/2024 3:26 PM EST Other fatigue VITAMIN B12 AND FOLATE Routine 06/18/2024 3:26 PM EST Other fatigue VITAMIN D 25 HYDROXY Routine 06/18/2024 3:26 PM EST Other fatigue XR KNEE 4+ VIEWS LEFT Routine 06/18/2024 3:11 PM EST Injury of left knee, initial encounter HPV Routine 02/28/2024 SCREENING MAMMOGRAPHY BI 2-VIEW BREAST INC CAD Routine 05/22/2021 11:32 AM EST Encounter for screening mammogram for malignant neoplasm of breast COLONOSCOPY Routine 05/24/2020 LIPID PANEL Routine 03/08/2020 HEPATITIS C SCREENING Routine 09/03/2019 from Last 3 Months or Most Recently Relevant to Health Maintenance Results * (ABNORMAL) Vitamin B12 and folate (06/18/2024 3:26 PM EST) [facility] Vitamin B-12 308 250 - 900 pcg/mL LAB CHEMISTRY METHOD 06/18/2024 7:15 PM EST [facility] Folate >20.0(H) 2.8 - 17.0 ng/ml LAB CHEMISTRY METHOD 06/18/2024 7:15 PM EST [facility] Blood Venous blood specimen / Unknown Venipuncture / Unknown 06/18/2024 3:26 PM EST 06/18/2024 3:26 PM EST us Cira Lancaster MD LAB BLOOD ORDERABLES Final Resul t [facility] [address] [place] [address], * (ABNORMAL) CBC auto differential (06/18/2024 3:26 PM EST) [facility] WBC 4.9 4.8 - 10.8 K/mcL LAB HEMETOLOGY METHOD 06/18/2024 4:59 PM [facility] RBC 3.90 3.80 - 4.80 M/mcL LAB HEMETOLOGY METHOD 06/18/2024 4:59 PM [facility] Hemoglobin 11.4(L) 11.5 - 16.0 g/dL LAB HEMETOLOGY METHOD 06/18/2024 4:59 PM [facility] Hematocrit 36.9 35.0 - 47.0 % LAB HEMETOLOGY METHOD 06/18/2024 4:59 PM [facility] MCV 93.7 79.0 - 98.0 FL LAB HEMETOLOGY METHOD 06/18/2024 4:59 PM [facility] MCH 28.9 27.0 - 32.0 pcg LAB HEMETOLOGY METHOD 06/18/2024 4:59 PM [facility] MCHC 30.9(L) 32.0 - 37.0 g/dL LAB HEMETOLOGY METHOD 06/18/2024 4:59 PM [facility] RDW 14.4 11.0 - 15.0 % LAB HEMETOLOGY METHOD 06/18/2024 4:59 PM [facility] Platelets 307 130 - 400 K/mcL LAB HEMETOLOGY METHOD 06/18/2024 4:59 PM [facility] MPV 11.9(H) 7.0 - 11.0 FL LAB HEMETOLOGY METHOD 06/18/2024 4:59 PM [facility] NRBC 0.0 <1.0 % LAB HEMETOLOGY METHOD 06/18/2024 4:59 PM [facility] NRBC Absolute 0.00 <0.10 K/mcL LAB HEMETOLOGY METHOD 06/18/2024 4:59 PM [facility] Neutrophils Relative 60.6 % LAB HEMETOLOGY METHOD 06/18/2024 4:59 PM [facility] Lymphocytes Relative 22.5 % LAB HEMETOLOGY METHOD 06/18/2024 4:59 PM [facility] Monocytes Relative 10.3 % LAB HEMETOLOGY METHOD 06/18/2024 4:59 PM [facility] Eosinophils Relative 5.6 % LAB HEMETOLOGY METHOD 06/18/2024 4:59 PM [facility] Basophils Relative 0.6 % LAB HEMETOLOGY METHOD 06/18/2024 4:59 PM [facility] Immature Granulocytes Relative 0.4 % LAB HEMETOLOGY METHOD 06/18/2024 4:59 PM [facility] Neutrophils Absolute 2.94 1.50 - 7.00 K/mcL LAB HEMETOLOGY METHOD 06/18/2024 4:59 PM EST [facility] Lymphocytes Absolute 1.09 1.00 - 5.00 K/mcL LAB HEMETOLOGY METHOD 06/18/2024 4:59 PM EST [facility] Monocytes Absolute 0.50 0.20 - 1.00 K/mcL LAB HEMETOLOGY METHOD 06/18/2024 4:59 PM EST [facility] Eosinophils Absolute 0.27 0.00 - 0.50 K/mcL LAB HEMETOLOGY METHOD 06/18/2024 4:59 PM EST [facility] Basophils Absolute 0.03 0.00 - 0.20 K/mcL LAB HEMETOLOGY METHOD 06/18/2024 4:59 PM EST [facility] Immature Granulocytes Absolute 0.02 0.00 - 0.03 K/mcL LAB HEMETOLOGY METHOD 06/18/2024 4:59 PM EST [facility] Blood Venous blood specimen / Unknown Venipuncture / Unknown 06/18/2024 3:26 PM EST 06/18/2024 3:26 PM EST us Cira Lancaster MD LAB BLOOD ORDERABLES Final Resul t [facility] [address] [place] [address], * Iron and TIBC (06/18/2024 3:26 PM EST) Iron 72 40 - 150 mcg/dL LAB CHEMISTRY METHOD 06/18/2024 6:51 PM EST [facility] TIBC 335 250 - 450 mcg/dL LAB CHEMISTRY METHOD 06/18/2024 6:51 PM EST [facility] Iron Saturation 21 15 - 50 % LAB CHEMISTRY METHOD 06/18/2024 6:51 PM EST [facility] Blood Venous blood specimen / Unknown Venipuncture / Unknown 06/18/2024 3:26 PM EST 06/18/2024 3:26 PM EST us Cira Lancaster MD LAB BLOOD ORDERABLES Final Resul t Performing Organization Address [facility] Co de Phone Number [facility] [address] [place] [address], [place] [phone] * Vitamin D 25 hydroxy (06/18/2024 3:26 PM EST) Vit D, 25-Hydroxy 65.6 30.0 - 80.0 ng/mL LAB CHEMISTRY METHOD 06/18/2024 6:58 PM EST [facility] Blood Venous blood specimen / Unknown Venipuncture / Unknown 06/18/2024 3:26 PM EST 06/18/2024 3:26 PM EST us Cira Lancaster MD LAB BLOOD ORDERABLES Final Resul t Performing Organization Address [facility] Co de Phone Number [facility] [address] [place] [address], [place] [phone] * Ferritin (06/18/2024 3:26 PM EST) Pathologist [facility] Ferritin 56 8 - 252 ng/mL LAB CHEMISTRY METHOD 06/18/2024 7:15 PM EST [facility] Blood Venous blood specimen / Unknown Venipuncture / Unknown 06/18/2024 3:26 PM EST 06/18/2024 3:26 PM EST us Cira Lancaster MD LAB BLOOD ORDERABLES Final Resul t Performing Organization Address [facility]/ZIP Co de Phone Number [facility] [address] [place] [address], [place] [phone] * Basic metabolic panel (06/18/2024 3:26 PM EST) Pathologist [facility] Sodium 140 133 - 145 mmol/L LAB CHEMISTRY METHOD 06/18/2024 6:51 PM EST [facility] Potassium 4.2 3.5 - 5.5 mmol/L LAB CHEMISTRY METHOD 06/18/2024 6:51 PM [facility] Chloride 109 96 - 110 mmol/L LAB CHEMISTRY METHOD 06/18/2024 6:51 PM [facility] CO2 27 21 - 32 mmol/L LAB CHEMISTRY METHOD 06/18/2024 6:51 PM [facility] Anion Gap 4 3 - 11 LAB CHEMISTRY METHOD 06/18/2024 6:51 PM [facility] Glucose 87 70 - 100 mg/dL LAB CHEMISTRY METHOD 06/18/2024 6:51 PM [facility] BUN 16 5 - 25 mg/dL LAB CHEMISTRY METHOD 06/18/2024 6:51 PM [facility] Creatinine 0.60 0.50 - 1.10 mg/dL LAB CHEMISTRY METHOD 06/18/2024 6:51 PM [facility] eGFR 102 >=60 mL/min/1. 73m2 LAB CHEMISTRY METHOD 06/18/2024 6:51 PM [facility] Comment:Calculation based on the??Chronic Kidney Disease Epidemiology Collaboration (CKD-EPI) equation refit??without adjustment for race. BUN/Creatinine Ratio 26.7 LAB CHEMISTRY METHOD 06/18/2024 6:51 PM [facility] Calcium 9.2 8.5 - 10.5 mg/dL LAB CHEMISTRY METHOD 06/18/2024 6:51 PM [facility] Blood Venous blood specimen / Unknown Venipuncture / Unknown 06/18/2024 3:26 PM EST 06/18/2024 3:26 PM EST us Cira Lancaster MD LAB BLOOD ORDERABLES Final Resul t [facility] [address] [place] [address], * XR Knee 4+ Views Left (06/18/2024 3:11 PM EST) Anatomical Region Laterality Modality Lower Extremities, Knee Left Radiogra [facility] 06/19/2024 8:26 AM EST Narrative 06/19/2024 8:28 AM EST Left knee, 4 views. HISTORY: Left knee pain after the fall. Recent total knee replacement. There is are total knee prosthesis in place. There is infrapatellar soft tissue swelling and thumb possible small effusion. No evidence of fractures or dislocations. Prosthesis is maintained in good position. CONCLUSIONS: Status post total left knee replacement. Infrapatellar soft tissue swelling. Possible small effusion. -------- FINAL REPORT -------- Dictated By: Maxine Magallon Dictated Date: 06/19/2024 08:26 ET Assigned Physician: Maxine Magallon Reviewed and Electronically Signed By: Maxine Magallon Signed Date: 06/19/2024 08:28 ET Workstation ID: [id number] Transcribed By: Self Edit Transcribed Date: 06/19/2024 08:26 ET Procedure Note Maxine Magallon MD - 06/19/2024 Left knee, 4 views. HISTORY: Left knee pain after the fall. Recent total knee replacement. There is are total knee prosthesis in place. There is infrapatellar softtissue swelling and thumb possible small effusion. No evidence offractures or dislocations. Prosthesis is maintained in good position. CONCLUSIONS: Status post total left knee replacement. Infrapatellar softtissue swelling. Possible small effusion. -------- FINAL REPORT -------- Dictated By: Maxine Magallon Dictated Date: 06/19/2024 08:26 ET Assigned Physician: Maxine Magallon Reviewed and Electronically Signed By: Maxine Magallon Signed Date: 06/19/2024 08:28 ET Workstation ID: [id number] Transcribed By: Self Edit Transcribed Date: 06/19/2024 08:26 ET us Cira Lancaster MD IMG XR PROCEDURES Final Result * Hm Cervical Cancer Screening: HPV (02/28/2024) Cervical Cancer Screening: HPV abstracted, negative Historical Provider HEALTH MAINTENANCE Final Result * SCREENING MAMMOGRAPHY BI 2-VIEW BREAST INC CAD (05/22/2021 11:32 AM EST) Anatomical Region Laterality Modality Radiographic Carole ging 03/08/2020 11:0 6 AM EDT Narrative 05/22/2021 8:16 PM EST This is a summary report. The complete report is available in the patient's medical record. If you cannot access the medical record, please contact the sending organization for a detailed fax or copy. Exam: Screening mammogram Findings: Digital bilateral full-field screening mammography is performed with tomosynthesis and interpreted with the aid of computer-aided detection. ??Comparison is made with 01/28/2019 and as far back as 10/17/2016. Breast parenchyma is heterogeneously dense, limiting mammographic sensitivity. ??No new suspicious mass, architectural distortion, or suspicious calcifications. Impression: No mammographic evidence of malignancy. BI-RADS 1 - negative Procedure Note Alem Joseph MD - 06/26/2022 This is a summary report. The complete report is available in thepatient's medical record. If you cannot access the medical record, pleasecontact the sending organization for a detailed fax or copy. Exam: Screening mammogram Findings: Digital bilateral full-field screening mammography is performedwith tomosynthesis and interpreted with the aid of computer-aideddetection. Comparison is made with 01/28/2019 and as far back as10/17/2016. Breast parenchyma is heterogeneously dense, limiting mammographicsensitivity. No new suspicious mass, architectural distortion, orsuspicious calcifications. Impression: No mammographic evidence of malignancy. BI-RADS 1 - negative Adenike GARCIA IMG XR PROCEDURES Final Result * Colonoscopy (05/24/2020) Colonoscopy no interpretation , abstracted Anatomical Region Laterality Modality Other Historical Provider HEALTH MAINTENANCE Final Result * Lipid panel (03/08/2020) LDL/HDL Ratio 3 0 - 4 Triglycerides 101 0 - 150 mg/dL Cholesterol 137 0 - 200 mg/dL HDL 41 >=40 mg/dL LDL Cholesterol 76 0 - 100 mg/dL Blood Venous blood specimen / Unknown Historical Provider LAB BLOOD ORDERABLES Evelyn l Result * Hepatitis C Screening (09/03/2019) Hepatitis C Screening abstracted Historical Provider HEALTH MAINTENANCE Final Result from Last 3 Months or Most Recently Relevant to Health Maintenance Insurance [facility] MEDICARE Member Subscriber Plan / Payer (Ef fective 2022-Present) Name:Sahara Riddle Relation to Subscriber:Self Name:Sahara Riddle Payer ID:[id number] Group ID:[id number] Type:Not on file Address: [place] [address] [address] [id number] Advance Directives Documents on File Type Date Recorded Patient Community Health Specialist Expl anation Health Care Decision (hx) 10/06/2021 HOMERO CARRENO DIRECTIVE Care Teams Baggage Porter Head Relationship Specialty Start Date End Date Cira Lancaster MD [address] [place] [phone] PCP - General Internal Medicine 09/24/22
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
--- OUTSIDE RECORDS SUMMARY | 2024-08-17 13:28 | XMS_ITS | Encounter Summary ---
Author Organization [facility] Address [address] [place] [address] Care Team Providers Care Sap Grc Security Name Role Phone Cira Tucker MD Primary Care Provider [phone] Reason for Visit * Reason Onset Date Comments Call From Office 11/15/2023 Encounter Details Date Type Department Care Team Description 11/15/2023 Telephone Adult Medicine [facility] [address] [place] [id number] Cira Tucker MD [address] [place] [phone] Call From Md Office Social History Tobacco Use Types Packs/Day Years [...] Telephone Encounter - Irma Aiken R.N. - 11/21/2023 8:53 AM EDT spoke with Eusebia at [facility]. They started on Lovenox when DVT was discovered as emergency measure but ask dr tucker to take over management of the DVT and prescribe oral agents as she prefers * Telephone Encounter - Irma Aiken R.N. - 11/18/2023 2:45 PM EDT Call to [facility] [phone]. Message to provider to call me back * Telephone Encounter - Cira Tucker MD - 11/18/2023 11:09 AM EDT Please call ortho to find out if there is certain period that she needs to be on Lovenox before shecan start oral anticoagulants. Patient is also requesting a phoen call from ortho for PT , as she has not had an outpatient Pt session and she is not sure about PT plan? * Telephone Encounter - Irma Aiken R.N. - 11/15/2023 2:25 PM EDT Pt has post op DVT and needs early f/u next week to start AC meds, will need TCM Please advise if there is an urgent slot for pt to be seen on your schedule * Telephone Encounter - Lionel Zuniga - 11/15/2023 2:16 PM EDT Anamika from [facility] is calling stating the Patient has suregry 10/29/23 and theyfound blood clot and stopped the asprin as of today 11/15/23 and started 80mg Lovenox 2x a day. Requesting the patient be seen [facility] so that provider can take over the Medications Order and the Care and oversight of the Patients Blood Clot. documented in this encounter Plan of Treatment Not on file documented as of this encounter Visit Diagnoses Not on filedocumented in this encounter Care Teams Sap Grc Security Relationship Specialty Start Date End Date Cira Tucker MD [address] [place] [id number] PCP - General Internal Medicine 09/24/22 documented as of this encounter
--- OUTSIDE RECORDS SUMMARY | 2024-08-17 13:28 | XMS_ITS | Encounter Summary ---
Author Organization [facility] Address [address] [place] [address] Care Team Providers Care Glass Checker Name Role Phone Dianna Olmos MD Primary Care Provider Sandra Clemons MD Primary Care Provider [phone] Jaylen Newman MD Primary Care Provider Cira Mata MD Primary Care Provider [phone] Encounter Details Date Type Department Care Team Description 05/23/2020 Orders Only Medical Records [address] [place] [address] Josh Trujillo MD Social History Tobacco Use Types Packs/Day [...] have Coronavirus / COVID-19? No / Unsure 05/26/2020 10:40 AM EST documented as of this encounter Plan of Treatment Not on file documented as of this encounter Procedures Procedure Name Priority Date/Time Associated Diagnosis Comments OUTSIDE LAB Routine 05/22/2020 documented in this encounter Results * OUTSIDE LAB (05/22/2020) Josh Trujillo MD LAB documented in this encounter Visit Diagnoses Not on filedocumented in this encounter Care Teams Glass Checker Relationship Specialty Start Date End Date Dianna Olmos MD PCP - General Internal Medicine 02/11/17 05/16/21 Sandra Clemente MD [address] [place] [address] PCP - General Internal Medicine 05/17/21 10/16/21 Jaylen Nweman MD [address] [place] [address] PCP - General Internal Medicine 10/17/21 09/23/22 Cira Lancaster MD [address] [place] [address] PCP - General Internal Medicine 09/24/22 documented as of this encounter
--- OUTSIDE RECORDS SUMMARY | 2024-08-17 13:28 | XMS_ITS | Encounter Summary ---
Author Organization [facility] Address [address] [place] [address] Care Team Providers Care Retail Seasonal Specialist Name Role Phone Dianna Olmos MD Primary Care Provider Sandra Clemons MD Primary Care Provider Jaylen Newman MD Primary Care Provider Cira Mata MD Primary Care Provider [phone] Encounter Details Date Type Department Care Team Description 02/15/2021 Rnp Report Medical Records [address] [place] [address] Bg Garcia MD Social History Tobacco Use [...] have Coronavirus / COVID-19? No / Unsure 01/25/2021 10:59 AM EDT documented as of this encounter Plan of Treatment Not on file documented as of this encounter Visit Diagnoses Not on filedocumented in this encounter Care Teams Retail Seasonal Specialist Relationship Specialty Start Date End Date Dianna Olmos MD PCP - General Internal Medicine 02/11/17 05/16/21 Sandra Clemente MD [address] [place] [address] PCP - General Internal Medicine 05/17/21 10/16/21 Jaylen Newman MD [address] [place] [address] PCP - General Internal Medicine 10/17/21 09/23/22 Cira Lancaster MD [address] [place], [place] [phone] PCP - General Internal Medicine 09/24/22 documented as of this encounter
--- OUTSIDE RECORDS SUMMARY | 2024-08-17 13:28 | XMS_ITS | Encounter Summary ---
Author Organization [facility] Address [address] [place] [address] Care Team Providers Care Operations Research Group Manager Name Role Phone Dianna Olmos MD Primary Care Provider Sandra Clemons MD Primary Care Provider [phone] Jaylen Newman MD Primary Care Provider Cira Mata MD Primary Care Provider [phone] Encounter Details Date Type Department Care Team Description 04/27/2017 Walk In Clinic Visit Medical Records [address] [place] [address] Abstract, Provider Social History Tobacco Use Types [...] on filedocumented in this encounter Care Teams Operations Research Group Manager Relationship Specialty Start Date End Date Dianna Olmos MD PCP - General Internal Medicine 02/11/17 05/16/21 Sandra Clemente MD [address] [place] [address] PCP - General Internal Medicine 05/17/21 10/16/21 Jaylen Newman MD [address] [place] [address] PCP - General Internal Medicine 10/17/21 09/23/22 Cira Lancaster MD [address] [place] [id number] PCP - General Internal Medicine 09/24/22 documented as of this encounter
[2024-08-17 16:09] LABS: MANUAL DIFF FLAG NO
[2024-08-17 16:15] LABS: Basophils Percent Auto 0.5 % (0-2); Eosinophils Absolute Auto 0.6 X10*3/uL (0.0-0.4); Hematocrit 34.8 % (37.0-47.0); Hemoglobin 10.8 g/dl (12.0-16.0); Imm Gran Abs Auto 0.03 X10*3/uL (0.00-0.03); Imm Gran Pct Auto 0.4 % (0.0-0.4); Lymphocytes Percent Auto 11.7 % (20-40); Mean Corpuscular Hemoglobin 28.6 pg (27.0-33.0); Mean Corpuscular Volume 92.1 fL (80.0-98.0); Mean Platelet Volume 11.7 fL (9.4-12.3); Monocytes Absolute Auto 0.9 X10*3/uL (0.1-1.2); Monocytes Percent Auto 10.3 % (2-11); Neutrophils Absolute Auto 5.8 x10*3/uL (2.0-8.3); Neutrophils Percent Auto 70.1 % (45-73); Platelet Count 325 X10*3/uL (160-400); Red Blood Count 3.78 X10*6/uL (4.20-5.50); White Blood Count 8.2 X10*3/uL (4.8-10.8)
[2024-08-17 16:26] LABS: Alanine Aminotransferase 28 U/L (0-31); Albumin Level 3.9 g/dL (3.5-5.0); Alkaline Phosphatase 93 U/L (39-117); Anion Gap 10 (12-20); Aspartate Amino Transferase 33 U/L (5-31); Bilirubin Total 0.2 mg/dL (0.0-1.0); Blood Urea Nitrogen 17 mg/dL (9-16); C Reactive Protein 5.33 mg/dL (< or = 0.50); Carbon Dioxide 24 mmol/L (22-29); Chloride 110 mmol/L (96-108); Estimated Glomerular Filt Rate > 60; Glucose Random 81 mg/dL (60-115); Sodium 140 mmol/L (135-145); Total Protein 8.2 g/dL (6.5-8.0)
[2024-08-17 19:57] LABS: Erythrocyte Sedimentation Rate 67 MM/HR (0-20)
== END 2024-08-17 12:22 | disposition home or self-care (01) ==
LOC: HO.HMGCLDS 12:21
PROVIDERS: PCP Internal Medicine; Visit Provider Student in an Organized Health Care Education/Training Program
DX: M05.79 Rheumatoid arthritis with rheumatoid factor of multiple sites without organ or systems involvement (principal)
CPT/HCPCS: 36415; 80053; 85025; 85652; 86140

== ENCOUNTER 2024-08-18 13:40 | Outpatient (AMB) | payer OTHER, SELFPAY ==
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
[2024-08-18 13:47] VITALS: BP 120/72; PULSE 71; O2SAT 98; BMI 34.3
--- OUTSIDE RECORDS SUMMARY | 2024-08-18 14:42 | XMS_ITS | Clinical Summary ---
Author Organization [facility] Address [address] [place] [address] Care Team Providers Care Kerrick Kleaner Operator Name Role Phone Cira Lancaster MD Primary Care Provider [phone] Allergies Active Allergy Reactions Criticality Noted Date Comments [place] Anaphylaxis High 12/03/2023 Medications Medication Sig Dispensed [...] age to complete this topic Care Teams Kerrick Kleaner Operator Relationship Specialty Start Date End Date Cira Lancaster MD [address] [facility] [place] [id number] PCP - General Internal Medicine 11/18/23
--- OUTSIDE RECORDS SUMMARY | 2024-08-18 14:42 | XMS_ITS | Clinical Summary ---
Author Organization [address] Address [address] [place] [phone] Phone Care Team Providers Care Guide Dog Instructor Name Role Phone Cira Lancaster MD Primary Care Provider [phone] Allergies Active Allergy Reactions Criticality Noted Date Comments [place] Anaphylaxis High 12/03/2023 Nut - Unspecified 06/02/2018 [...] if needed for anaphylaxis. 1 each 06/18/20 Active nystatin (MYCOSTATIN) 100,000 unit/gram powderIndications :Intertrigo Apply thin layer to affected area BID for 2 weeks then stop. 30 g 1 06/18/20 24 Active nystatin-triamcin olone (MYCOLOG II) creamIndications: Intertrigo Apply to affect area twice a day for 7-14 days then as needed for rash. 30 g 1 06/18/20 24 025 Active Problems Problem Noted Date Diagnosed Date [...] September 2012. Eye exam normal January 2014, Mar. 2014, November 2015, 05/25; 09/23; 03/27, 09/2020, 03/2021 Methotrexate stopped 03/22 due to shingles. hydroxychloroquine, Enbrel and sulfasalazine continued, methotrexate added back 06/22 Last Assessment & Plan: Continue current medications Lab tests in January and March Encounters Date Type Department Care Team Description 08/18/2024 Telephone Adult [facility] [address] [place] [address] Cira Lancaster MD Fitting for DME 06/18/2024 3:00 PM EST - 06/18/2024 11:59 PM EST [facility] [address] [place], [place] [phone] Injury of left knee, initial encounter Discharge Disposition: Home or Self Care 06/18/2024 2:00 PM EST [place] [facility] [place] [address] [place] [address] Cira Lancaster MD Injury of left knee, [...] HISTORICAL APPENDECTOMY OTHER SURGICAL HISTORY 02/23/2019 PROCEDURE: AR LARYNGOSCOPY FLEXIBLE DIAGNOSTIC; COMMENT: Dr Roque TOTAL [...] 2:30 PM EST [place] [facility] [address] [place] [address] Yelena Wilburn PA [address] [place] [address] Health Maintenance Due Date Last Done Comments [...] EST Injury of left knee, initial encounter HM HPV Routine 02/28/2024 SCREENING MAMMOGRAPHY BI 2-VIEW BREAST INC CAD Routine 05/22/2021 11:32 AM EST Encounter for screening mammogram for malignant neoplasm of breast HM COLONOSCOPY Routine 05/24/2020 LIPID PANEL Routine 03/08/2020 HEPATITIS C SCREENING Routine 09/03/2019 from Last 3 Months or Most Recently Relevant to Health Maintenance Results * (ABNORMAL) Vitamin B12 and folate (06/18/2024 3:26 PM EST) [facility] Vitamin B-12 308 250 - 900 pcg/mL LAB CHEMISTRY METHOD 06/18/2024 7:[address] [facility] Folate >20.0(H) 2.8 - 17.0 ng/ml LAB CHEMISTRY METHOD 06/18/2024 7:[address] [facility] Blood Venous blood specimen / Unknown Venipuncture / Unknown 06/18/2024 3:26 PM EST 06/18/2024 3:26 PM EST us Cira Lancaster MD LAB BLOOD ORDERABLES Final Resul t [facility] [address] [place] [address], [place] [phone] * (ABNORMAL) CBC auto differential (06/18/2024 3:26 PM EST) [facility] WBC 4.9 4.8 - 10.8 K/mcL LAB HEMETOLOGY METHOD 06/18/2024 4:[address] [facility] RBC 3.90 3.80 - 4.80 M/mcL LAB HEMETOLOGY METHOD 06/18/2024 4:59 PM [facility] Hemoglobin 11.4(L) 11.5 - 16.0 g/dL LAB HEMETOLOGY METHOD 06/18/2024 4:59 PM [facility] Hematocrit 36.9 35.0 - 47.0 % LAB HEMETOLOGY METHOD 06/18/2024 4:59 PM [facility] MCV 93.7 79.0 - 98.0 FL LAB HEMETOLOGY METHOD 06/18/2024 4:59 PM [facility] MCH 28.9 27.0 - 32.0 pcg LAB HEMETOLOGY METHOD 06/18/2024 4:59 PM [facility] MCHC 30.9(L) 32.0 - 37.0 g/dL LAB HEMETOLOGY METHOD 06/18/2024 4:59 PM [facility] RDW 14.4 11.0 - 15.0 % LAB HEMETOLOGY METHOD 06/18/2024 4:59 PM [facility] Platelets 307 130 - 400 K/mcL LAB HEMETOLOGY METHOD 06/18/2024 4:59 PM [facility] MPV 11.9(H) 7.0 - 11.0 FL LAB HEMETOLOGY METHOD 06/18/2024 4:59 PM [facility] NRBC 0.0 <1.0 % LAB HEMETOLOGY METHOD 06/18/2024 4:59 PM [facility] NRBC Absolute 0.00 <0.10 K/mcL LAB HEMETOLOGY METHOD 06/18/2024 4:59 PM [facility] Neutrophils Relative 60.6 % LAB HEMETOLOGY METHOD 06/18/2024 4:59 PM [facility] Lymphocytes Relative 22.5 % LAB HEMETOLOGY METHOD 06/18/2024 4:59 PM [facility] Monocytes Relative 10.3 % LAB HEMETOLOGY METHOD 06/18/2024 4:59 PM [facility] Eosinophils Relative 5.6 % LAB HEMETOLOGY METHOD 06/18/2024 4:59 PM [facility] Basophils Relative 0.6 % LAB HEMETOLOGY METHOD 06/18/2024 4:59 PM [facility] Immature Granulocytes Relative 0.4 % LAB HEMETOLOGY METHOD 06/18/2024 4:[address] [facility] Neutrophils Absolute 2.94 1.50 - 7.00 K/mcL LAB HEMETOLOGY METHOD 06/18/2024 4:[address] [facility] Lymphocytes Absolute 1.09 1.00 - 5.00 K/mcL LAB HEMETOLOGY METHOD 06/18/2024 4:[address] [facility] Monocytes Absolute 0.50 0.20 - 1.00 K/mcL LAB HEMETOLOGY METHOD 06/18/2024 4:[address] [facility] Eosinophils Absolute 0.27 0.00 - 0.50 K/mcL LAB HEMETOLOGY METHOD 06/18/2024 4:[address] [facility] Basophils Absolute 0.03 0.00 - 0.20 K/mcL LAB HEMETOLOGY METHOD 06/18/2024 4:59 PM [facility] Immature Granulocytes Absolute 0.02 0.00 - 0.03 K/mcL LAB HEMETOLOGY METHOD 06/18/2024 4:[address] [facility] Blood Venous blood specimen / Unknown Venipuncture / Unknown 06/18/2024 3:26 PM EST 06/18/2024 3:26 PM EST us Cira Lancaster MD LAB BLOOD ORDERABLES Final Resul t [facility] [address] [place] [address], * Iron and TIBC (06/18/2024 3:26 PM EST) Iron 72 40 - 150 mcg/dL LAB CHEMISTRY METHOD 06/18/2024 6:[address] [facility] TIBC 335 250 - 450 mcg/dL LAB CHEMISTRY METHOD 06/18/2024 6:51 PM [facility] Iron Saturation 21 15 - 50 % LAB CHEMISTRY METHOD 06/18/2024 6:[address] [facility] Blood Venous blood specimen / Unknown Venipuncture / Unknown 06/18/2024 3:26 PM EST 06/18/2024 3:26 PM EST us Cira Lancaster MD LAB BLOOD ORDERABLES Final Resul t Performing Organization Address City/[facility]/ZIP Co de Phone Number [facility] [address] [place] [address], [place] [phone] * Vitamin D 25 hydroxy (06/18/2024 3:26 PM EST) Vit D, 25-Hydroxy 65.6 30.0 - 80.0 ng/mL LAB CHEMISTRY METHOD 06/18/2024 6:[address] [facility] Blood Venous blood specimen / Unknown Venipuncture / Unknown 06/18/2024 3:26 PM EST 06/18/2024 3:26 PM EST us Cira Lancaster MD LAB BLOOD ORDERABLES Final Resul t Performing Organization Address [facility]/ZIP Co de Phone Number [facility] [address] [place] [address], [place] [phone] * Ferritin (06/18/2024 3:26 PM EST) Pathologist [facility] Ferritin 56 8 - 252 ng/mL LAB CHEMISTRY METHOD 06/18/2024 7:[address] [facility] Blood Venous blood specimen / Unknown Venipuncture / Unknown 06/18/2024 3:26 PM EST 06/18/2024 3:26 PM EST us Cira Lancaster MD LAB BLOOD ORDERABLES Final Resul t Performing Organization Address City/[facility]/ZIP Co de Phone Number [facility] [address] [place] [address], [place] [phone] * Basic metabolic panel (06/18/2024 3:26 PM EST) Sodium 140 133 - 145 mmol/L LAB CHEMISTRY METHOD 06/18/2024 6:51 PM [facility] Potassium 4.2 3.5 - 5.5 mmol/L LAB CHEMISTRY METHOD 06/18/2024 6:51 PM [facility] Chloride 109 96 - 110 mmol/L LAB CHEMISTRY METHOD 06/18/2024 6:51 PM [facility] CO2 27 21 - 32 mmol/L LAB CHEMISTRY METHOD 06/18/2024 6:51 PM [facility] Anion Gap 4 3 - 11 LAB CHEMISTRY METHOD 06/18/2024 6:51 PM [facility] Glucose 87 70 - 100 mg/dL LAB CHEMISTRY METHOD 06/18/2024 6:51 PM [facility] BUN 16 5 - 25 mg/dL LAB CHEMISTRY METHOD 06/18/2024 6:51 PM [facility] Creatinine 0.60 0.50 - 1.10 mg/dL LAB CHEMISTRY METHOD 06/18/2024 6:51 PM [facility] eGFR 102 >=60 mL/min/1. 73m2 LAB CHEMISTRY METHOD 06/18/2024 6:51 PM [facility] Comment:Calculation based on the??Chronic Kidney Disease Epidemiology Collaboration (CKD-EPI) equation refit??without adjustment for race. BUN/Creatinine Ratio 26.7 LAB CHEMISTRY METHOD 06/18/2024 6:51 PM [facility] Calcium 9.2 8.5 - 10.5 mg/dL LAB CHEMISTRY METHOD 06/18/2024 6:51 PM [facility] Blood Venous blood specimen / Unknown Venipuncture / Unknown 06/18/2024 3:26 PM EST 06/18/2024 3:26 PM EST us Cira Lancaster MD LAB BLOOD ORDERABLES Final Resul t [facility] [address] [place] [address], [place] [phone] * XR Knee 4+ Views Left (06/18/2024 3:11 PM EST) Anatomical Region Laterality Modality Lower Extremities, Knee Left [facility] 06/19/2024 8:26 AM EST Narrative 06/19/2024 [...] Signed Date: 06/19/2024 08:28 ET Workstation ID: [id number] Transcribed By: Self Edit Transcribed Date: 06/19/2024 [...] Signed Date: 06/19/2024 08:28 ET Workstation ID: [id number] Transcribed By: Self Edit Transcribed Date: 06/19/2024 08:26 ET us Cira Lancaster MD IMG XR PROCEDURES Final Result * Cervical Cancer Screening: HPV (02/28/2024) Cervical Cancer [...] evidence of malignancy. BI-RADS 1 - negative us Adenike GARCIA IMG XR PROCEDURES Final Result * Colonoscopy (05/24/2020) Colonoscopy no interpretation , abstracted Anatomical Region Laterality Modality Other Historical Provider HEALTH MAINTENANCE Final Result * Lipid panel (03/08/2020) Pathologist [facility] LDL/HDL Ratio 3 0 - 4 Triglycerides 101 0 - 150 mg/dL Cholesterol 137 0 - 200 mg/dL HDL 41 >=40 mg/dL LDL Cholesterol 76 0 - 100 mg/dL Blood Venous blood specimen / Unknown Historical Provider LAB BLOOD ORDERABLES Evelyn l Result * Hepatitis C Screening (09/03/2019) Pathologist [facility] Hepatitis C Screening abstracted Historical Provider HEALTH MAINTENANCE Final Result from Last 3 Months or Most Recently Relevant to Health Maintenance Insurance [facility] MEDICARE Member Subscriber Plan / Payer (Ef fective 2022-Present) Name:Sahara Riddle Relation to Subscriber:Self Name:Sahara Riddle Payer ID:[id number] Group ID:[id number] Type:Not on file Address: [place] [address] [address] [id number] Advance Directives Documents on File Type Date Recorded Patient Jacquard Card Cutter Expl anation Health Care Decision (hx) 10/06/2021 HOMERO CARRENO DIRECTIVE Care Teams Guide Dog Instructor Relationship Specialty Start Date End Date Cira Lancaster MD [address] [place] [phone] PCP - General Internal Medicine 09/24/22
--- OUTSIDE RECORDS SUMMARY | 2024-08-18 14:42 | XMS_ITS | Encounter Summary ---
Author Organization [facility] Address [address] [place] [address] Care Team Providers Care Principal Security Architect Name Role Phone Cira Lancaster MD Primary Care Provider [phone] Reason for Visit * Reason Onset Date Comments Fitting for DME 08/18/2024 Encounter Details Date Type Department Care Team (Late st Contact Info) Description 08/18/2024 Telephone Adult Medicine [address] [phone] Cira Lancaster MD [address] [place] [phone] Fitting for DME Social History Tobacco Use Types Packs/Day Years Used Date Smoking Tobacco: Never Smokeless Tobacco: Never Alcohol Use Standard Drinks/Week Comments No 0 (1 standard drink = 0.6 oz pur e alcohol) Comments No Sex and Gender Information Value Date Recorded Sex Assigned at Not on file Legal Sex Female 5:02 AM EST Gender Identity Not on file Sexual Orientation Not on file documented as of this encounter Progress Notes * Charo Acosta LPN - 08/18/2024 1:50 PM EST Form to Dr Lancaster to sign * Meron Lizarraga - 08/18/2024 10:03 AM EST DME REQUEST Name of Product: toilet safety frame/versa frame and overbed talbe Specific information about product # Needed 1 of each Reason patient is asking for this supply? Have you received this supply before? If yes , when?: Have you discussed the need for this supply with a provider at a recent visit? If yes, with who andwhen? When completed: Submit on line to [facility] Have you told the patient it will take 7-10 days for completion of this request? No documented in this encounter Plan of Treatment Upcoming Encounters Date Type Department Care Team (Late st Contact Info) Description 09/08/2024 2:30 PM EST Office Visit Adult Medicine [address] [phone] Yelena Wilburn PA [address] [place] [address] documented as of this encounter Visit Diagnoses Not on filedocumented in this encounter Care Teams Principal Security Architect Relationship Specialty Start Date End Date Cira Lancaster MD [address] [place] [phone] PCP - General Internal Medicine 09/24/22 documented as of this encounter
== END 2024-08-18 14:21 | disposition home or self-care (01) ==
LOC: HO.RHE 13:40
PROVIDERS: PCP Internal Medicine; Visit Provider Student in an Organized Health Care Education/Training Program
DX: M05.79 Rheumatoid arthritis with rheumatoid factor of multiple sites without organ or systems involvement (principal); Z51.81 Encounter for therapeutic drug level monitoring; Z79.620 Long term (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 of immunosuppressive biologic; Z79.899 Other long term (current) drug therapy; Z79.631 Long term (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 of antimetabolite agent
CPT/HCPCS: 99215; G2211

== ENCOUNTER → 2024-08-18 13:40 | Outpatient (BNVA) | payer OTHER, SELFPAY | PROVIDERS: PCP Internal Medicine; Visit Provider Student in an Organized Health Care Education/Training Program | DX: M05.79 Rheumatoid arthritis with rheumatoid factor of multiple sites without organ or systems involvement (principal); Z51.81 Encounter for therapeutic drug level monitoring; Z79.620 Long term (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 of immunosuppressive biologic; Z79.899 Other long term (current) drug therapy; Z79.631 Long term (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 of antimetabolite agent | CPT/HCPCS: 99212 ==

== ENCOUNTER 2024-10-07 11:04 | Outpatient (AMB) | payer OTHER, SELFPAY ==
--- NOTE | 2024-10-07 11:06 | A.OFFVIS_ITS ---
Vital Signs 10/07/24 11:07 Height 5 ft 1 in Weight 188 lb 7.924 oz BMI 35.6 BP 130/70 Blood Pressure Location Rt brachial Position Sitting Pulse 83 Pulse Source Pulse Oximeter Pulse Oximetry (%) 95 Oxygen Delivery Method Room Air Intake Visit Reasons: Asthma Allergies almond Allergy (Severe, Verified 10/07/24 11:09) Hives and Rash HPI Comments Details: Patient is a 59-year-old woman with known history of rheumatoid arthritis in addition to severe persistent. She has been struggling with her asthma now for many years. But has been getting worse in few months. She has tried many inhalers previously Symbicort and now recently switched to Trelegy inhaler by her doctors. She did not see any significant improvement. She typically responds better to the nebulized therapy. She does use the nebulizer 3 to 4 times a day. The patient is also required prednisone for her exacerbation on a frequent basis. In regards of her rheumatoid arthritis she has having discomfort but has been TNF inhibitors and also methotrexate for many years. She is not aware of any pulmonary adverse effects these medications. In the office she has significant wheezing. Patient did have evidence significant bronchospasms and she did received 2 DuoNeb treatments with significant improvement although she was to wheezing. Patient did receive Solu-Medrol 125 mg IM x1 to further alleviate her. The patient likely needs more aggressive asthma therapy in the form biologic therapy or in the form nebulize therapies. Therefore, will keep her on the trilogy and DuoNeb and also add budesonide nebulized therapy that she would use conjunction with the patient will undergo work in addition to to see if she biologic therapies at this time in the meantime were assess her hypersensitivity pneumonitis since she does have birds in her home. 07/05/2023 The patient is here for a pulmonary follow up visit. She has been doing very well on the dupixent. Does have intermittent cough, moderate in severity. Associated with wheezing. She has been using her respiratory therapy as well. She has been off the prednisone . She has been having significant knee pain. She has significant OA and will need a TKR. She also has significant RA and currently on biologic therapy. 03/06/2024 the patient is here for pulmonary follow-up visit. She continues to do well from a respiratory status. The Dupixent injections have been affecting beneficial. She also continues on respiratory therapy. She has not required any prednisone. She typically does not use her rescue inhaler often typically less than 2 times a week. She did undergo her total knee replacement. Afterwards she did have an issue with a blood clot. She was diagnosed with a DVT. No evidence of any thromboembolic disease. She has been on Eliquis and she has been tolerating it well. Otherwise The patient does not have any other respiratory complaints. She does complaint about her alopecia. She has not methotrexate. She will have to talk to her supervisor aircraft maintenance regarding any other alternatives. 10/07/2024 the patient is here for pulmonary follow-up visit. Overall she is doing well from the asthma standpoint. She continues Dupixent he continues with respiratory therapy with good effect. She did see the new supervisor aircraft maintenance and she was started on new medications for rheumatoid arthritis and she does feel better. She did have an issue with a neck ache. She was evaluated and placed on prednisone. She was given a little more prednisone that she usually takes. And she feels she got significantly swollen she gained significant weight from it. She does have significant lower extremity edema. She does not use any diuretics. I did caution her to avoid sodium in her diet. The meantime will give her some diuretics for 3 days to help her with her volume status. But hopefully after that she does not need any additional diuretics. If she continues to have significant swelling then which will request an echocardiogram to rule out any possibility of pulmonary hypertension or any other cardiac disease. [facility] Medical History (Updated 08/19/24 @ 08:24 by Courtney Rich MD) Encounter for methotrexate monitoring Encounter for monitoring tocilizumab therapy Osteoarthritis of left knee Osteoarthritis Bilateral hand swelling Left knee pain Cataract Long-term use of immunosuppressant medication Seropositive rheumatoid arthritis Asthma-COPD overlap syndrome Cough Allergies Chronic allergic rhinitis Surgical History Hx of appendectomy History of knee replacement procedure of right knee Family History Father Asthma Maternal Grandmother Asthma Social History Household Members: Spouse Housing: House Are you a primary career information specialist to a significant other at home: No Do you presently have visiting nurse or other home services: No Alcohol intake: never Patient Tobacco Use Status: Never used Tobacco e-Cigarette/Vaping Use: Never Used service: No Current occupational status: unemployed Sexual orientation: Straight/Heterosexual Gender identity: Female Cognitive needs: No Hearing needs: No Vision needs: Yes Review of Systems Const Denies night sweats and Reports weight gain ENT Denies change in voice, Denies lip swelling, Denies mouth pain, Reports nasal congestion, Reports nasal discharge and Denies tongue swelling Card Denies chest pain and Reports leg edema Resp Reports cough and Denies wheezing GI Denies abdominal pain Musc Reports as per HPI Neuro Denies Neuro-related abnormal movements Psych Denies no additional complaints Wiley/Lymph Reports as per HPI, Denies easy bleeding and Denies lymphadenopathy Aller/Immun Denies lip swelling, Denies tongue swelling and Denies wheezing Physical Exam Vital Signs: Last Vital Signs Pulse 83 10/07/24 11:07 BP 130/70 10/07/24 11:07 Pulse Ox 95 10/07/24 11:07 Oxygen Delivery Method Room Air 10/07/24 11:07 BMI result Body Mass Index 35.6 Const General: alert Neck Neck: Yes normal visual inspection, Yes full ROM and Yes no lymphadenopathy Chest Chest palpation & inspection: normal inspection of the chest Resp Auscultation: no wheezes and diminished lung sounds Cardio Rate: regular rate Rhythm: regular rhythm Heart sounds: S1 normal heart sound present and S2 normal heart sound present GI Palpation (GI): Soft to palpation and nontender Auscultation: normal bowel sounds Skin General skin exam: rashes and/or lesions noted Extrem General: Yes edema Assessment & Plan Assessment & Plan (1) Asthma: Code(s): J45.909 - Unspecified asthma, uncomplicated Category: Medical Qualifiers: Asthma complication type: uncomplicated Asthma persistence: persistent Asthma severity: severe Qualified Code(s): J45.50 - Severe persistent asthma, uncomplicated (2) Chronic allergic rhinitis: Code(s): J30.9 - Allergic rhinitis, unspecified Category: Medical (3) Asthma-COPD overlap syndrome: Code(s): J44.9 - Chronic obstructive pulmonary disease, unspecified Category: Medical Plan continue Breztri Duoneb as needed continue Dupixent Continue Singulair Stopped Eliquis for a provoked DVT. Lasix x 3 days. Consider ECHO Low Na diet F/U 6-8 months Medications: New furosemide (Lasix) 20 mg PO DAILY 3 tabs 0RF 3 days Coding Level of Care Code Est Pt Level 4 (17515) Diagnoses Severe persistent asthma without complication J45.50 Asthma complication type: uncomplicated Asthma persistence: persistent Asthma severity: severe Chronic allergic rhinitis J30.9 Asthma-COPD overlap syndrome J44.9 Time Spent (min) 16
[2024-10-07 11:07] VITALS: BP 130/70; PULSE 83; O2SAT 95; BMI 35.6
--- OUTSIDE RECORDS SUMMARY | 2024-10-07 13:25 | XMS_ITS | Clinical Summary ---
Author Organization [address] Address [address] [place] [phone] Phone Care Team Providers Care Paper Folder Name Role Phone Cira Lancaster MD Primary Care Provider [phone] Allergies Active Allergy Reactions Criticality Noted Date Comments [place] Anaphylaxis High 12/03/2023 Nut - Unspecified 06/02/2018 [place]s Medications white petrolatum (Petroleum Jelly) ointment Apply 1 [...] (two) times a day. 04/06/20 23 Active ipratropium-albut Crys (DUONEB) 0.5-2.5 mg/3 mL nebulizer solution 01/31/20 23 Active medical supply, miscellaneous (MISCELLANEOUS MEDICAL SUPPLY MISC) Incontinence Supply Disposable (Bladder Control Pads Regular) Misc 4 Each by Does not apply route daily. ROSENDO-99 4/day 120/month 11 refills 01/31/20 23 Active sulfaSALAzine (AZULFIDINE) 500 mg tablet Take 1 tablet by mouth 4 times daily. 11/24/20 21 Active hydroxychloroquin e (PLAQUENIL) 200 mg tablet [...] 1 tablet (1,000 mcg total) by mouth 3 (three) times a day. 09/03/19 Active montelukast (SINGULAIR) 10 mg tablet Take 1 Tab by mouth at bedtime. 08/04/19 Active medical supply, miscellaneous (MISCELLANEOUS MEDICAL SUPPLY [facility]) Spacer/Aero Chamber Mouthpiece Mis 1 Device by Does not apply route as needed (use with inhaler). 06/06/20 15 Active Actemra ACTPen subcutaneous injection Inject 0.9 mL (162 mg total) under the skin every 14 (fourteen) days. 05/22/20 24 Active EPINEPHrine (Auvi-Q) 0.3 mg/0.3 mL injection Inject 0.3 mL (0.3 mg total) into the thigh if needed for anaphylaxis. 1 each 06/18/20 24 Active nystatin (MYCOSTATIN) 100,000 unit/gram powderIndications :Intertrigo Apply thin layer to affected area BID for 2 weeks then stop. 30 g 1 06/18/20 24 Active solifenacin (VESICARE) 5 mg tabletIndications :bladder hyperactivity Take 1 tablet (5 mg total) by mouth 1 (one) time each day. Swallow tablet whole; do not crush, chew, or split. 90 each 1 09/03/19 25 //2 025 Active miscellaneous medical supply mis Incontinence supply, Wipes, Package of 48 wipes Dispense 8 packages Sig Use 1 wipe every 2 hours as needed for incontinence. 4 each 09/03/19 25 Active ergocalciferol (VITAMIN D-2) 1,250 mcg (50,000 unit) capsule Take 1 Capsule by mouth once a week. 03/13/20 025 Discontin ued(Thera py completed ) acetaminophen (TYLENOL) 325 mg tablet TAKE 2 TABLETS BY MOUTH EVERY 6 HOURS NEEDED FOR MILD PAIN (PAIN SCALE 1-3) 10/31/19 24 025 Discontin ued(Formu mack change) budesonide (PULMICORT) 0.5 mg/2 mL nebulizer solution Take 1 vial by nebulization 2 (two) times a day. 11/24/19 025 Discontin ued(Thera py completed ) Active Problems Problem Noted Date Diagnosed Date [...] Encounters Date Type Department Care Team Description 09/08/2024 2:30 PM EST Office Visit Adult Medicine [address] [phone] Yelena Wilburn PA Routine physical examination (Primary Dx); Seropositive rheumatoid arthritis (CMS/[facility]); Severe persistent asthma without complication ([facility]) 09/03/2024 11:45 AM EST Office Visit Urogynecology - [address] [phone] Tita Mcgee MD OAB (overactive bladder) (Primary Dx) 08/18/2024 Telephone Adult [address] [phone] Cira Lancaster MD Fitting for DME from Last 3 Months Immunizations Name Administration [...] 13, PCV13) 2mo and older 10/13/2014 Pneumococcal conjugate 20 va lent (Prevnar 20, PCV 20) 2mo and older 07/05/2023 Pneumococcal polysaccharide 23 valent (Pneumovax 23) 2yo and older 09/14/2010 Td Tetanus diptheria (Tdvax) 7yo and older 03/08/2020 Tdap Tetanus diptheria acell ular pertussis (Boostrix; Adacel) 7yo and older 06/12/2022,06/30/2009 Surgical History Surgery Date Site/Laterality Comments APPENDECTOMY PROCEDURE: HISTORICAL APPENDECTOMY OTHER SURGICAL HISTORY 02/23/2019 PROCEDURE: LA LARYNGOSCOPY FLEXIBLE DIAGNOSTIC; COMMENT: Dr Roque TOTAL [...] Not Answered Alcohol Use Standard Drinks/Week Comments No 0 (1 standard drink = 0.6 oz pur e alcohol) Housing Instability Answer Date Recorde d Are you worried that in the next 2 months you may not have stable housing? No 09/08/2024 Food Access & Nutrition Answer Date Rec orded Do you have access to a vari ety of food including fruits and vegetables? Yes 09/08/2024 Access to Healthcare Answer Date Record ed Within the last 3 months, ho w many times did you visit the emergency department for your medical care? 0 09/08/2024 Health Literacy Answer Date Recorded How often do you need to hav e someone help you when you read instructions, pamphlets, or other written material from your doctor or pharmacy? Never 09/08/2024 Caregiver: How often do you need to have someone help you when you read instructions, pamphlets, or other written material from your doctor or pharmacy? Not on file 09/08/2024 Financial Risk Answer Date Recorded How hard is it for you to pa y for the very basics like food, housing, medical care, and air conditioning / heating? Somewhat hard 09/08/2024 Transportation Answer Date Recorded Has the lack of transportati on kept you from meetings, work, or from getting things needed for daily living? No Has the lack of transportati on kept you from medical appointments or from getting medications? No 09/08/2024 Social Isolation Answer Date Recorded How often do you feel lonely or isolated from th ose around you? Never 09/08/2024 Food Risk Answer Date Recorded Within the past 12 months we worried whether our food would run out before we got money to buy more. Never true 09/08/2024 Within the past 12 months th e food we bought just didn't last and we didn't have money to get more. Never true 09/08/2024 Dependent Care Answer Date Recorded Do you need help finding or paying for care for your loved ones. For example, children's book author or elderly care for an older adult? No 09/08/2024 Education Answer Date Recorded Do you think completing more education or training, like finishing a GED, going to college, or learning a trade, would be helpful for you? No 09/08/2024 Employment and Income Answer Date Recor ded During the last four weeks, have you been actively looking for work? No 09/08/2024 Living Situation Answer Date Recorded What is your living situation? 0 09/08/2024 Comments No Sex and Gender Information Value Date Recorded Sex Assigned at Not on file Legal Sex Female 5:02 AM EST Gender Identity Not on file Sexual Orientation Not on file Obstetrics History Last Filed Vital Signs Vital Sign Reading Time Taken Comments Blood Pressure 114/72 09/08/2024 2:49 PM EST Pulse 78 09/08/2024 2:49 PM EST Temperature 36.5 ??C (97.7 ??F) 09/08/2024 2:49 PM ES T Respiratory Rate 12 09/08/2024 2:49 PM EST Oxygen Saturation - - Inhaled Oxygen Concentration - - Weight 80.6 kg (177 lb 12.8 oz) 09/08/2024 2:49 PM EST Height 152.4 cm (5') 09/08/2024 2:49 PM EST Body Mass Index 34.72 09/08/2024 2:49 PM EST Plan of Treatment Upcoming Encounters Date Type Department Care Team (Late st Contact Info) Description 03/04/2025 11:45 AM EDT Office Visit Urogynecology [address] [phone] Tita Mcgee MD [address] [place] [address] 03/09/2025 3:30 PM EDT Consult Bariatric Surgery - [place] [address] [phone] Kim Abbott MD [address] [address] 03/11/2025 1:15 PM EDT Office Visit Adult Medicine [address] [phone] Cira Lancaster MD [address] [place] [address] 09/14/2025 1:30 PM EDT Office Visit Adult Medicine [address] [phone] Cira Lancaster MD [address] [place] [address] Health Maintenance Due Date Last Done Comments HIV Screening 06/16/2022 Medicare Annual Wellness Visit 06/16/2022 Breast Cancer Screening 05/22/2023 05/22/20 21, 01/28/2019, 10/23/2017, Additional history exists Zoster Vaccines (1 of 2) 07/07/2025 Pos tponed from 2013 (Supply/Drug Shortage) Depression Screening 09/08/2025 09/08/2024 RSV Immunization Adult Patients (1 - Risk 60-74 years 1-dose series) 09/08/2025 Postponed from 2023 (Patient Refused) Social Influencers of Health Screening 09/08/2025 09/08/2024 Cervical Cancer Screening: HPV 02/27/2029 02/28/2024 Cholesterol Screening (Lipid Panel) 09/10/2029 09/10/2024, 03/08/2020 Colorectal Cancer Screening: Colonoscopy 05/24/2030 05/24/2020 DTaP,Tdap,and Td Vaccines (4 - Td or Tdap) 06/12/2032 06/12/2022, 03/08/2020, 06/30/2009 Hepatitis C Screening Completed 09/03/2019 COVID-19 Vaccine Discontinued 08/04/2021, , 10/12/2020 Pneumococcal Vaccine: 50+ Years Completed 07/05/2023, 10/13/2014, 09/14/2010 Pneumococcal Vaccine: Pediatrics (0 to 5 Years) and At-Risk Patients (6 to 64 Years) Completed 07/05/2023, 10/13/2014, 09/14/2010 Influenza Vaccine Completed 03/12/2024, , 05/24/2021, Additional history exists HIB Vaccines Aged Out [...] Procedure Name Priority Date/Time Associated Diagnosis Comments LIPID PANEL WITH REFLEX TO DIRECT LDL Routine 09/10/2024 1:04 PM EST Routine physical examination HPV Routine 02/28/2024 SCREENING MAMMOGRAPHY BI 2-VIEW BREAST INC CAD Routine 05/22/2021 11:32 AM EST Encounter for screening mammogram for malignant neoplasm of breast COLONOSCOPY Routine 05/24/2020 HEPATITIS C SCREENING Routine 09/03/2019 from Last 3 Months or Most Recently Relevant to Health Maintenance Results * Lipid panel with reflex to direct LDL (09/10/2024 1:04 PM EST) Cholesterol 159 0 - 200 mg/dL LAB CHEMISTRY METHOD 09/10/2024 4:58 PM [facility] Triglycerides 45 0 - 150 mg/dL LAB CHEMISTRY METHOD 09/10/2024 4:58 PM [facility] HDL 63 >=40 mg/dL LAB CHEMISTRY METHOD 09/10/2024 4:58 PM [facility] LDL Calculated 87 0 - 100 mg/dL LAB CHEMISTRY METHOD 09/10/2024 4:58 PM [facility] VLDL Cholesterol Mick 9 mg/dL LAB CHEMISTRY METHOD 09/10/2024 4:58 PM [facility] Non HDL Chol. (LDL+VLDL) 96 <145 mg/dL LAB CHEMISTRY METHOD 09/10/2024 4:58 PM [facility] Chol/HDL Ratio 2.5 0.0 - 4.4 LAB CHEMISTRY METHOD 09/10/2024 4:58 PM [facility] Blood Venous blood specimen / Unknown Venipuncture / Unknown 09/10/2024 1:04 PM EST 09/10/2024 1:04 PM EST Yelena GARCIA LAB BLOOD ORDERABLES Final [facility] [address] [place] [address], [place] [phone] * Cervical Cancer Screening: HPV (02/28/2024) Cervical Cancer Screening: HPV abstracted, negative us Historical Provider HEALTH MAINTENANCE Final Result * [...] Historical Provider HEALTH MAINTENANCE Final Result * Hepatitis C Screening (09/03/2019) Hepatitis C Screening abstracted Historical Provider HEALTH MAINTENANCE Final Result from Last 3 Months or Most Recently Relevant to Health Maintenance Insurance [facility] MEDICARE Member Subscriber Plan / Payer (Ef fective 2022-Present) Name:Sahara Riddle Relation to Subscriber:Self Name:Sahara Riddle Payer ID:[id number] Group ID:[id number] Type:Not on file Address: [place] [address] [address] [id number] Advance Directives Documents on File Type Date Recorded Patient Sales Assistant Institutional Sales Expl anation Health Care Decision (hx) 10/06/2021 HOMERO CARRENO DIRECTIVE Care Teams Paper Folder Relationship Specialty Start Date End Date Cira Lancaster MD [address] [place] [id number] PCP - General Internal Medicine 09/24/22
--- OUTSIDE RECORDS SUMMARY | 2024-10-07 13:25 | XMS_ITS | Clinical Summary ---
Author Organization [facility] Address [address] [place] [address] Care Team Providers Care Big Data Analytics Lead Name Role Phone Cira Lancaster MD Primary Care Provider [phone] Allergies Active Allergy Reactions Criticality Noted Date Comments [place] Anaphylaxis High 12/03/2023 Medications Medication Sig Dispensed [...] age to complete this topic Care Teams Big Data Analytics Lead Relationship Specialty Start Date End Date Cira Lancaster MD [address] [place] [id number] PCP - General Internal Medicine 11/18/23
== END 2024-10-07 11:27 | disposition home or self-care (01) ==
LOC: HO.HPS 11:05
PROVIDERS: PCP Internal Medicine; Visit Provider Hospitalist
DX: J45.50 Severe persistent asthma, uncomplicated (principal); J30.9 Allergic rhinitis, unspecified; J44.9 Chronic obstructive pulmonary disease, unspecified
CPT/HCPCS: 99214

== ENCOUNTER → 2024-10-07 11:04 | Outpatient (BNVA) | payer OTHER, SELFPAY | PROVIDERS: PCP Internal Medicine; Visit Provider Hospitalist | DX: J44.9 Chronic obstructive pulmonary disease, unspecified (principal); J30.9 Allergic rhinitis, unspecified; J45.50 Severe persistent asthma, uncomplicated; Z79.899 Other long term (current) drug therapy | CPT/HCPCS: 99212 ==

== ENCOUNTER 2024-11-24 16:08 | Outpatient (REF) | payer OTHER, SELFPAY ==
[2024-11-24 16:20] LABS: MANUAL DIFF FLAG NO
--- OUTSIDE RECORDS SUMMARY | 2024-11-24 16:44 | XMS_ITS | Clinical Summary ---
Author Organization [facility] Address [address] [place] [address] Care Team Providers Care Rate Inserter Name Role Phone Cira Lancaster MD Primary Care Provider [phone] Allergies Active Allergy Reactions Severity Noted Date Comments [place] (Diagnostic) Anaphylaxis High 12/03/2023 Nuts 06/02/2018 [place] Medications Medication Sig Dispensed Refills Start Date End Date Status Spacer/Aero Chamber Mouthpiece Misc 1 Device by Does not apply route as needed (use with inhaler). 1 Each 0 06/06/2015 Active montelukast (SINGULAIR) 10 MG tabletIndications:M oderate persistent asthma in adult without complication,Seropo sitive rheumatoid arthritis (HCC),Ground glass opacity present on imaging of lung,Allergic rhinitis due to pollen, unspecified seasonality,Allergi c rhinitis due to cat hair,Allergy to dog dander,House dust mite allergy Take 1 Tab by mouth at bedtime. 90 Tab 3 08/04/2019 Active folic acid (FOLVITE) 1 MG tablet Take 1 Tab by mouth daily. 90 Tab 5 09/03/2019 Active Biotin 10 MG Tab Take by mouth daily. 0 Active VITAMIN D OR Take by mouth daily. 0 Active Ascorbic Acid (VITAMIN C) 500 MG tablet Take 500 mg by mouth daily. 0 Active ALBUTEROL SULFATE (PROAIR HFA) 108 (90 Base) MCG/ACT Aero SolnIndications:Mil d persistent asthma without complication,Bronch itis Inhale 2 Puffs into the lungs every 4 hours as needed for Cough, Wheezing or Shortness of Breath. 1 Inhaler 5 08/29/2020 Active albuterol (PROVENTIL) (2.5 MG/3ML) 0.083% nebulizer solutionIndications :Seropositive rheumatoid arthritis (HCC),History of asthma,Wheezing,Vir al upper respiratory tract infection,Moderate persistent asthma without complication Take 1 Vial by nebulization 3 times daily for 180 days. 270 mL 5 08/29/2020 Active diclofenac (CATAFLAM) 50 MG tabletIndications:S eropositive rheumatoid arthritis (HCC) Take 1 Tab by mouth 3 times daily. 270 Tab 1 09/14/2020 Active hydroxychloroquine (PLAQUENIL) 200 MG tabletIndications:S eropositive rheumatoid arthritis (HCC) Take 1.5 Tablets by mouth daily. 135 tablet 2 04/28/2021 Active sulfaSALAzine (AZULFIDINE) 500 MG tabletIndications:S eropositive rheumatoid arthritis (HCC) Take 1 tablet by mouth 4 times daily. 360 tablet 1 05/31/2021 Active budesonide (PULMICORT) 0.5 MG/2ML nebulizer solution USE 1 VIAL IN NEBULIZER TWICE DAILY 0 11/23/2022 Active Ipratropium-Albuter ol 0.5-2.5 (3) MG/3ML Solution 360 mL 0 01/30/2023 Active Incontinence Supply Disposable (Bladder Control Pads Regular) MiscIndications:Str ess incontinence 4 Each by Does not apply route daily. ROSENDO-99 4/day 120/month 11 refills 120 Each 11 01/30/2023 Active Incontinence Supply Disposable (Feminine Wipes) Misc 1 Units by Does not apply route 6 times daily. 180 Each 11 04/29/2023 Active Dupixent 300 MG/2ML Solution Prefilled Syringe 0 04/23/2023 Active Breztri Aerosphere 160-9-4.8 MCG/ACT Aerosol INHALE 2 PUFFS BY MOUTH TWICE DAILY 0 04/06/2023 Active Otrexup 15 MG/0.4ML Solution Auto-injector 0 10/01/2023 Active acetaminophen (TYLENOL) 325 MG tablet TAKE 2 TABLETS BY MOUTH EVERY 6 HOURS NEEDED FOR MILD PAIN (PAIN SCALE 1-3) 0 10/31/2023 Active Rinvoq 15 MG TABLET SR 24 HR 0 10/25/2023 Active Petrolatum Ointment Apply 1 Applicator topically See Admin Instructions. Apply to skin after bathing 300 g 0 11/18/2023 Active EPINEPHrine (Auvi-Q) 0.3 MG/0.3ML Solution Auto-injector Inject 0.3 mg as directed as needed ( needed for anaphylaxis). Use as directed 2 Each 3 12/11/2023 Active Apixaban 5 MG Tab Take 5 mg by mouth 2 times daily. 180 Tablet 1 12/11/2023 Active nystatin-triamcinol one (MYCOLOG) ointment Apply a thin layer to affected area twice daily x 2 weeks, then daily 15 g 1 02/24/2024 Active vitamin D (ERGOCALCIFEROL) 1.25 MG (89409 UT) capsule Take 1 Capsule by mouth once a week. 12 Capsule 0 03/13/2024 Active Active Problems Problem Noted Date DVT (deep venous thrombosis) 02/24/2024 Overview: Left leg following left knee replacement. Chronic allergic rhinitis 01/24/2021 Overview: Dog, cat, pollen, dust mite Asthma, severe persistent 01/24/2021 Varicose veins of both lower extremities with pain 04/13/2020 Lichen sclerosus 02/05/2018 Last Assessment & Plan: Reviewed findings with [...] imaging of lung 11/29/2017 Herpes zoster 04/20/2015 Overview: While under treatment for RA 2014 Seropositive rheumatoid arthritis 2008 Overview: Onset about 2000; RF and CCP positive. [...] medications Lab tests in January and March Resolved Problems Problem Noted Date Resolved Date Asthma in adult 06/05/2018 03/01/2020 Asthma, persistent 04/25/2016 03/01/2020 Immunizations Name Administration Dates Next Due COVID-19 (Pfizer) 08/04/2021,11/03/2020,10/13/19 21 Influenza (> 6 Months) 03/12/2024,2014,04/13/2014,03/12,03/29/2011,05/12/2010,08/05/2009 Influenza Flu (PT Reported) 04/13/2014 Influenza Vaccine-preservati ve Free-quadrivalent 4 Years 05/02/2023,05/24/2021,03/08/2020,05/28 Influenza Vaccine-quadrivale nt 4 Years Plus 04/02/2017 Influenza vaccine high dose age 65 and over 06/27/2016 PPD-RBMG 09/01/2012 Pneumoccoccal(Adult) Polysac charide PPSV23 09/14/2010 Pneumococcal Conjugate PCV-13 10/13/2014 TD (STATE SUPPLIED FOR ADULT S AND CHILDREN) 03/08/2020 Tdap 06/30/2009 Family History Medical History Relation Name Comments Asthma Father Diabetes Maternal Grandmother RA rheumatoid arthritis Mother CA Breast Negative Hx CA Colon Negative Hx CA Ovarian Negative Hx Uterine Cancer Negative Hx Relation Name Status Comments Father Maternal [...] Sign Reading Time Taken Comments Blood Pressure 132/76 03/12/2024 11:37 AM EDT Pulse 76 03/12/2024 11:37 AM EDT Temperature 36.2 ??C (97.2 ??F) 03/12/2024 11:37 AM E DT Respiratory Rate 14 03/12/2024 11:37 AM EDT Oxygen Saturation 95% 04/04/2021 1:42 PM EDT Inhaled Oxygen Concentration - - Weight 80.7 kg (178 lb) 03/12/2024 11:37 AM EDT Height 154.9 cm (5' 1 ) 03/12/2024 11:37 AM EDT Body Mass Index 33.63 03/12/2024 11:37 AM EDT Plan of Treatment Health Maintenance Due Date Last Done Comments SHINGLES VACCINE (1 of 2) 2013 BASELINE HEALTH EXAM 40-64 04/13/202204/13 (Completed), 04/13/2020, 07/16/2017, Additional history exists MAMMOGRAM 02/21/2024 02/20/2023, 02/05 (External Completion), 07/23/2022, Additional history exists Covid-19 Vaccine (2022-2 4 season) 2024 08/04/2021, 11/03/2020, 10/12/2020 BMI CHECK/ADVISE 07/08/2024 02/24/2024, , 01/30/2023, Additional history exists DEPRESSION SCREENING/FOLLOWUP 07/08/2024 SOCIAL NEEDS SCREENING 07/08/2024 CHOLESTEROL SCREENING 03/08/2025 03/08/2020 , 12/30/2014, 08/01/2009 CERVICAL CANCER SCREENING 02/23/20272023, 11/19/2016, 04/02/2013, Additional history exists PNEUMOCOCCAL VACCINE FOR HIG H RISK PATIENTS (#2) 2028 10/13/2014, 09/14/2010 DTAP/TDAP/TD (3 - Td or Tdap) 03/08/2030 03/08/2020, 06/30/2009 COLON CANCER SCREENING 05/24/2030 05/24/2020 HEPATITIS C SCREENING Completed 09/03/2019, 011 INFLUENZA Completed 03/12/2024, 04/08, 05/24/2021, Additional history exists Care Teams Rate Inserter Relationship Specialty Start Date End Date Cira Lancaster MD [address] [place] [id number] PCP - General Internal Medicine 09/24/22
--- OUTSIDE RECORDS SUMMARY | 2024-11-24 16:44 | XMS_ITS | Encounter Summary ---
Author Organization [facility] Address [address] [place] [address] Care Team Providers Care Gameplay Engineer Name Role Phone Dianna Olmos MD Primary Care Provider Sandra Clemons MD Primary Care Provider [phone] Jaylen Newman MD Primary Care Provider Cira Mata MD Primary Care Provider Encounter Details Date Type Department Care Team Description 04/27/2017 Walk In Clinic Visit Medical Records [address] [place] [address] Abstract, Provider Social History Tobacco Use Types [...] on filedocumented in this encounter Care Teams Gameplay Engineer Relationship Specialty Start Date End Date Dianna Olmos MD PCP - General Internal Medicine 02/11/17 05/16/21 Sandra Clemente MD [address] [place] [address] PCP - General Internal Medicine 05/17/21 10/16/21 Jaylen Newman MD [address] [place] [address] PCP - General Internal Medicine 10/17/21 09/23/22 Cira Lancaster MD [address] [place] [id number] PCP - General Internal Medicine 09/24/22 documented as of this encounter
--- OUTSIDE RECORDS SUMMARY | 2024-11-24 16:44 | XMS_ITS | Encounter Summary ---
Author Organization [facility] Address [address] [place] [address] Care Team Providers Care Medical Grade Shoemaker Name Role Phone Sandra Clemente MD Primary Care Provider [phone] Jaylen Newman MD Primary Care Provider Cira Mata MD Primary Care Provider [phone] Encounter Details Date Type Department Care Team Description 06/19/2021 Telephone [facility] [address] [facility] [address] [place] [address] Jason Garcia MD Social History Tobacco Use Types [...] have Coronavirus / COVID-19? No / Unsure 06/08/2021 9:22 AM EST documented as of this encounter Plan of Treatment Not on file documented as of this encounter Visit Diagnoses Not on filedocumented in this encounter Care Teams Medical Grade Shoemaker Relationship Specialty Start Date End Date Sandra Clemente MD [address] [place] [address] PCP - General Internal Medicine 05/17/21 10/16/21 Jaylen Newman MD [address] [place] [address] PCP - General Internal Medicine 10/17/21 09/23/22 Cira Lancaster MD [address] [place] [address] PCP - General Internal Medicine 09/24/22 documented as of this encounter
--- OUTSIDE RECORDS SUMMARY | 2024-11-24 16:44 | XMS_ITS | Clinical Summary ---
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 Apply to skin after bathing 024 Active methotrexate, PF, (Otrexup, PF,) 15 mg/0.4 mL auto-injector 1 (one) time per week. 024 Active dupilumab (Dupixent Syringe) 300 mg/2 mL syringe 023 Active budesonide-glyco pyr-formoterol (Breztri Aerosphere) 160-9-4.8 mcg/actuation HFA aerosol inhaler inhaler Inhale 2 puffs by mouth 2 (two) times a day. 023 Active ipratropium-albu teroL (DUONEB) 0.5-2.5 mg/3 mL nebulizer solution 023 Active medical supply, miscellaneous (MISCELLANEOUS MEDICAL SUPPLY MISC) Incontinence Supply Disposable (Bladder Control Pads Regular) Misc 4 Each by Does not apply route daily. ROSENDO-99 4/day 120/month 11 refills 023 Active sulfaSALAzine (AZULFIDINE) 500 mg tablet Take 1 tablet by mouth 4 times daily. Active hydroxychloroqui ne (PLAQUENIL) 200 mg tablet Take 1.5 tablets (300 mg total) by mouth 1 (one) time each day. Active diclofenac (CATAFLAM) 50 mg tablet Take 1 Tab by mouth 3 times daily. Active albuterol HFA (PROAIR HFA ; PROVENTIL HFA ; VENTOLIN HFA) 90 mcg/actuation inhaler Active albuterol 2.5 mg /3 mL (0.083 %) nebulizer solution Take 1 Vial by nebulization 3 times daily for 180 days. Active biotin 10 mg tablet Take by mouth daily. Active cholecalciferol, vitamin D3, (VITAMIN D3 ORAL) Take by mouth daily. Active ascorbic acid (VITAMIN C) 500 mg CR tablet Take 500 mg by mouth daily. Active folic acid (FOLVITE) 1 mg tablet Take 1 tablet (1,000 mcg total) by mouth 3 (three) times a day. Active montelukast (SINGULAIR) 10 mg tablet Take 1 Tab by mouth at bedtime. Active medical supply, miscellaneous (MISCELLANEOUS MEDICAL SUPPLY [facility]) Spacer/Aero Chamber Mouthpiece [facility] [place] Device by Does not apply route as needed (use with inhaler). Active Actemra ACTPen subcutaneous injection Inject 0.9 mL (162 mg total) under the skin every 14 (fourteen) days. Active EPINEPHrine (Auvi-Q) 0.3 mg/0.3 mL injection Inject 0.3 mL (0.3 mg total) into the thigh if needed for anaphylaxis. 1 each Active solifenacin (VESICARE) 5 mg tabletIndication s:bladder hyperactivity Take 1 tablet (5 mg total) by mouth 1 (one) time each day. Swallow tablet whole; do not crush, chew, or split. 90 each 2024 Active miscellaneous medical supply [facility] Incontinence supply, Wipes, Package of 48 wipes Dispense 8 packages Sig Use 1 wipe every 2 hours as needed for incontinence. 4 each Active nystatin-triamci nolone (MYCOLOG II) creamIndications :Intertrigo APPLY CREAM TOPICALLY TO AFFECTED AREA TWICE DAILY FOR 7 TO 14 DAYS THEN NEEDED FOR RASH 30 g Active nystatin (MYCOSTATIN) 100,000 unit/gram powderIndication s:Intertrigo APPLY THIN LAYER OF POWDER TOPICALLY TO AFFECTED AREA TWICE DAILY FOR 2 WEEKS THEN STOP 30 g Active acetaminophen (Tylenol 8 Hour) 650 mg 8 hr tablet Take 1 tablet (650 mg total) by mouth every 8 (eight) hours if needed for mild pain. Do not crush, chew, or split. Active omeprazole OTC (PriLOSEC OTC) 20 mg EC tablet Take 1 tablet (20 mg total) by mouth 1 (one) time each day. Do not crush, chew, or split. 90 tablet 1 Active furosemide (LASIX) 20 mg tablet Take 1 tablet (20 mg total) by mouth 1 (one) time each day. 30 each 2 2025 Active nystatin-triamci nolone (MYCOLOG II) creamIndications :Intertrigo Apply to affect area twice a day for 7-14 days then as needed for rash. 30 g 1 024 2024 Discontinued nystatin (MYCOSTATIN) 100,000 unit/gram powderIndication s:Intertrigo Apply thin layer to affected area BID for 2 weeks then stop. 30 g 1 024 2024 Discontinued nitrofurantoin, macrocrystal-mon ohydrate, (MACROBID) 100 mg capsule Take 1 capsule (100 mg total) by mouth 2 (two) times a day for 5 days. 10 each 025 2024 Active Problems Problem Noted Date Diagnosed Date DVT (deep venous thrombosis) ([facility] V24, [facility] V28) 02/24/2024 Overview (05/15/2024): Left leg following left knee replacement. Asthma, severe persistent ([facility] V28) 01/25/20 21 Chronic allergic rhinitis 01/24/2021 Overview (05/15/2024): Dog, [...] under treatment for RA 2014 Seropositive rheumatoid arth ritis (CMS/HCC V24, CMS/HCC V28) 06/30/2009 Overview (05/15/2024): Onset about 2000; RF [...] Encounters Date Type Department Care Team Description 11/12/2024 Telephone Adult Medicine [address] [phone] Cira Lancaster MD Fitting for DME 11/06/2024 11:12 PM EDT - 11/07/2024 4:26 AM EDT Emergency [facility] Emergency [address] [place] [address] Pain (Primary Dx); Swelling; Celiac artery stenosis (CMS/HCC V24); Venous stasis Discharge Disposition: Home or Self Care 11/06/2024 2:00 PM EDT Office Visit [address] [phone] Mario Heath MD Bilateral flank pain (Primary Dx); Generalized abdominal pain; Urinary frequency; Localized swelling of both lower legs 11/06/[address] [phone] Cira Lancaster MD Flank Pain; Walk-in 11/05/[address] [phone] Cira Lancaster MD prior auth for medication 09/08/2024 2:30 PM EST Office Visit [address] [phone] Yelena Wilburn PA Routine physical examination (Primary Dx); Seropositive rheumatoid arthritis ([facility] V24, [facility] V28); Severe persistent asthma without complication ([facility] V28) 09/03/2024 11:45 AM EST Office Visit Urogynecology - [address] [phone] Tita Mcgee MD OAB (overactive bladder) (Primary Dx) from Last 3 Months Immunizations Name Administration [...] HISTORICAL APPENDECTOMY OTHER SURGICAL HISTORY 02/23/2019 PROCEDURE: TX LARYNGOSCOPY FLEXIBLE DIAGNOSTIC; COMMENT: Dr Roque TOTAL [...] care for your loved ones. For example, child support investigator or elderly care for an older adult? [...] Sign Reading Time Taken Comments Blood Pressure 115/55 11/07/2024 3:46 AM EDT Pulse 79 11/07/2024 3:46 AM EDT Temperature 36.7 ??C (98.1 ??F) 11/07/2024 1:29 AM ED T Respiratory Rate 15 11/07/2024 3:46 AM EDT Oxygen Saturation 93% 11/07/2024 3:46 AM EDT Inhaled Oxygen Concentration - - Weight 83.9 kg (185 lb) 11/06/2024 8:59 PM EDT Height 154.9 cm (5' 1 ) 11/06/2024 8:59 PM EDT Body Mass Index 34.96 11/06/2024 8:59 PM EDT Plan of Treatment Upcoming Encounters Date Type Department Care Team (Late st Contact Info) Description 03/04/2025 11:45 AM EDT Office Visit Urogynecology [address] [phone] Tita Mcgee MD [address] [place] [address] [address] [place] [address] 03/09/2025 3:30 PM EDT Consult Bariatric Surgery - [place] [address] [phone] Kim Abbott MD [address] [phone] 03/11/2025 1:15 PM EDT Office Visit Adult Medicine [address] [phone] Cira Lancaster MD [address] [place] [address] 09/14/2025 1:30 PM EDT Office Visit Adult [address] [phone] Cira Lancaster MD [address] [place] [address] Health Maintenance Due Date Last Done Comments [...] age to complete this topic Meningococcal B Vaccine Aged Out No l onger eligible based on patient's age to complete this topic RSV Immunization Patients Under 20 months Aged Out No longer eligible based on patient's age to complete this topic Varicella Vaccines Aged Out No longer eligible based on patient's age to complete this topic Procedures Procedure Name Priority Date/Time Associated Diagnosis Comments CT ANGIO CHEST WO AND/OR W CONTRAST STAT 11/07/2024 2:[address] ABDOMEN PELVIS W CONTRAST STAT 11/07/2024 2:05 AM EDT XR CHEST 2 VIEWS STAT 11/06/2024 9:52 PM EDT VAS US DUPLEX LOWER EXT VENOUS BILAT STAT 11/06/2024 9:43 PM EDT Swelling MONTIEL URINE CULTURE TUBE Routine 11/06/2024 3:56 PM EDT Urinary frequency URINALYSIS WITH REFLEX MICROSCOPIC AND CULTURE Routine 11/06/2024 3:52 PM EDT Urinary frequency URINALYSIS WITH REFLEX MICROSCOPIC AND CULTURE Routine 11/06/2024 3:52 PM EDT Urinary frequency CULTURE URINE Routine 11/06/2024 3:52 PM EDT Urinary frequency CBC WITH AUTO DIFFERENTIAL Routine 11/06/2024 2:57 PM EDT Bilateral flank pain Generalized abdominal pain CBC AND DIFFERENTIAL Routine 11/06/2024 2:57 PM EDT Bilateral flank pain Generalized abdominal pain COMPREHENSIVE METABOLIC PANEL Routine 11/06/2024 2:57 PM EDT Bilateral flank pain Generalized abdominal pain D-DIMER Routine 11/06/2024 2:57 PM EDT Localized swelling of both lower legs B-TYPE NATRIURETIC PEPTIDE Routine 11/06/2024 2:57 PM EDT Localized swelling of both lower legs LIPASE Routine 11/06/2024 2:57 PM EDT Generalized abdominal pain LIPID PANEL WITH REFLEX TO DIRECT LDL Routine 09/10/2024 1:04 PM EST Routine physical examination HM HPV Routine 02/28/2024 SCREENING MAMMOGRAPHY BI 2-VIEW BREAST INC CAD Routine 05/22/2021 11:32 AM EST Encounter for screening mammogram for malignant neoplasm of breast COLONOSCOPY Routine 05/24/2020 HEPATITIS C SCREENING Routine 09/03/2019 from Last 3 Months or Most Recently Relevant to Health Maintenance Results * CT Abdomen Pelvis w Contrast (11/07/2024 2:05 AM EDT) Anatomical Region Laterality Modality Body Computed Tomogra phy 11/07/2024 2:58 AM EDT Impressions 11/07/2024 2:58 AM EDT No acute findings. 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 Nonemergent/incidental findings above. This document has been electronically signed by: Blayne Flores MD on 11/07/2024 02:58:48 Narrative 11/07/2024 2:58 AM EDT INDICATION: upper abd pain CT Abdomen and Pelvis W Contrast COMPARISON: None FINDINGS: Detail limited by artifacts. Hepatic cyst. Normal spleen. Normal kidneys. Normal adrenal glands. Normal pancreas. No visible cholelithiasis. No biliary dilation. Colonic diverticulosis without evidence of acute diverticulitis. No mucosal thickening. No evidence of obstruction. The appendix is not identified, however, no secondary signs of acute appendicitis. Unremarkable bladder. Unremarkable uterus. No ascites. No pneumoperitoneum. No lymphadenopathy. No acute fracture. Degenerative changes in the spine. No abdominal aortic aneurysm. 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 Procedure Note Blayne Flores MD - 11/07/2024 INDICATION: upper abd pain CT Abdomen and Pelvis W Contrast COMPARISON: None FINDINGS: Detail limited by artifacts. Hepatic cyst. Normal spleen. Normal kidneys. Normal adrenal glands. Normal pancreas. No visible cholelithiasis. No biliary dilation. Colonic diverticulosis without evidence of acute diverticulitis. No mucosal thickening. No evidence of obstruction. The appendix is not identified, however, no secondary signs of acute appendicitis. Unremarkable bladder. Unremarkable uterus. No ascites. No pneumoperitoneum. No lymphadenopathy. No acute fracture. Degenerative changes in the spine. No abdominal aortic aneurysm. 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 IMPRESSION: No acute findings. 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 Nonemergent/incidental findings above. This document has been electronically signed by: Blayne Flores MD on 11/07/2024 02:58:[address] PROCEDURES Final Result * CT Angio Chest wo and/or w Contrast (11/07/2024 2:05 AM EDT) Anatomical Region Laterality Modality Body Computed Tomogra phy 11/07/2024 2:56 AM EDT Impressions 11/07/2024 2:56 AM EDT No acute findings. No pulmonary embolism. 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 This document has been electronically signed by: Blayne Flores MD on 11/07/2024 02:56:10 Narrative 11/07/2024 2:56 AM EDT INDICATION: elevated ddimer, pleuritic chest/back pain CT Angiography Chest W Contrast 3D Postprocessing COMPARISON: None FINDINGS: No pulmonary embolism. No thoracic aortic aneurysm or dissection. 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 No consolidation. No mass. No pleural effusion. No pneumothorax. No cardiomegaly. No pericardial effusion. No pathologically enlarged lymph nodes. No acute fracture. Small hiatal hernia. Procedure Note Blayne Flores MD - 11/07/2024 INDICATION: elevated ddimer, pleuritic chest/back pain CT Angiography Chest W Contrast 3D Postprocessing COMPARISON: None FINDINGS: No pulmonary embolism. No thoracic aortic aneurysm or dissection. 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 No consolidation. No mass. No pleural effusion. No pneumothorax. No cardiomegaly. No pericardial effusion. No pathologically enlarged lymph nodes. No acute fracture. Small hiatal hernia. IMPRESSION: No acute findings. No pulmonary embolism. 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 This document has been electronically signed by: Blayne Flores MD on 11/07/2024 02:56:[address] PROCEDURES Final Result * XR Chest 2 Views (11/06/2024 9:52 PM EDT) Anatomical Region Laterality Modality Body Radiographic Carole ging 11/07/2024 10:0 3 AM EDT Impressions 11/07/2024 10:04 AM EDT FINDINGS/IMPRESSION: Lungs are clear. ??No pleural effusion or pneumothorax. ??Cardiac silhouette is normal in size. ??S-shaped thoracolumbar scoliosis. ??Degenerative changes seen throughout the bones. -------- FINAL REPORT -------- Dictated By: EDWIN BELLO Dictated Date: 11/07/2024 10:03 ET Assigned Physician: EDWIN BELLO Reviewed and Electronically Signed By: EDWIN BELLO Signed Date: 11/07/2024 10:04 ET Workstation ID: [id number] Transcribed By: Self Edit Transcribed Date: 11/07/2024 10:03 ET Narrative 11/07/2024 10:04 AM EDT XR CHEST 2 VIEWS INDICATION: ??Pain TECHNIQUE: XR CHEST 2 VIEWS COMPARISON: 12/04/2018 Procedure Note Edwin Bello MD - 11/07/2024 XR CHEST 2 VIEWS INDICATION: Pain TECHNIQUE: XR CHEST 2 VIEWS COMPARISON: 12/04/2018 IMPRESSION: FINDINGS/IMPRESSION: Lungs are clear. No pleural effusion orpneumothorax. Cardiac silhouette is normal in size. S-shapedthoracolumbar scoliosis. Degenerative changes seen throughout the bones. -------- FINAL REPORT -------- Dictated By: EDWIN BELLO Dictated Date: 11/07/2024 10:03 ET Assigned Physician: EDWIN BELLO Reviewed and Electronically Signed By: EDWIN BELLO Signed Date: 11/07/2024 10:04 ET Workstation ID: [id number] Transcribed By: Self Edit Transcribed Date: 11/07/2024 10:03 ET Lev Sorto MD IMG XR PROCEDURES Final Res ult * Vascular US Duplex Lower Extremity Venous Bilateral (11/06/2024 9:43 PM EDT) Anatomical Region Laterality Modality Vascular, Abdomen Ultrasound 11/06/2024 10:2 9 PM EDT Impressions 11/06/2024 10:29 PM EDT No DVT seen in the bilateral lower extremities. Right popliteal cyst. This document has been electronically signed by: Blayne Flores MD on 11/06/2024 22:29:11 Narrative 11/06/2024 10:29 PM EDT INDICATION: DVT Hx Bilateral Lower Extremity Venous Duplex Ultrasound COMPARISON: None FINDINGS: The visualized right deep veins are compressible with normal flow. The visualized left deep veins are compressible with normal flow. The visualized bilateral superficial veins are patent. Hypoechoic, avascular right popliteal cyst measuring 6.0 x 0.9 x 2.0 cm. Grayscale, spectral waveform analysis, and color flow imaging was performed. Procedure Note Blayne Flores MD - 11/06/2024 INDICATION: DVT Hx Bilateral Lower Extremity Venous Duplex Ultrasound COMPARISON: None FINDINGS: The visualized right deep veins are compressible with normal flow. The visualized left deep veins are compressible with normal flow. The visualized bilateral superficial veins are patent. Hypoechoic, avascular right popliteal cyst measuring 6.0 x 0.9 x 2.0 cm. Grayscale, spectral waveform analysis, and color flow imaging was performed. IMPRESSION: No DVT seen in the bilateral lower extremities. Right popliteal cyst. This document has been electronically signed by: Blayne Flores MD on 11/06/2024 22:29:11 Lev Sorto MD CV VASCULAR PROCEDURES Evelyn l Result * Montiel urine culture tube (11/06/2024 3:56 PM EDT) Extra Tube Hold for add-ons. 11/06/2024 7:02 PM EDT [facility] Comment:Auto resulted. Urine Urine specimen obtained by clean catch procedure / Unknown Non-blood Collection / Unknown 11/06/2024 3:56 PM EDT 11/06/2024 3:56 PM EDT Mario Heath MD LAB URINE ORDERABLES Final Result [facility] [address] [place] [address], [place] [phone] * (ABNORMAL) Urinalysis with reflex microscopic and culture (11/06/2024 3:52 PM EDT) Specific Branch Urine 1.013 1.003 - 1.030 LAB URINALYSIS - AUTOMATED METHOD 11/06/2024 6:49 PM [facility] pH, Urine 6.5 5.0 - 8.0 pH LAB URINALYSIS - AUTOMATED METHOD 11/06/2024 6:49 PM [facility] Leukocytes, Urine Moderate(A) Negative LAB URINALYSIS - AUTOMATED METHOD 11/06/2024 6:49 PM [facility] Nitrite, Urine Negative Negative LAB URINALYSIS - AUTOMATED METHOD 11/06/2024 6:49 PM [facility] Protein, Urine Negative <=Trace mg/dL LAB URINALYSIS - AUTOMATED METHOD 11/06/2024 6:49 PM [facility] Glucose, Urine Negative Negative mg/dL LAB URINALYSIS - AUTOMATED METHOD 11/06/2024 6:49 PM [facility] Ketones, Urine Negative Negative mg/dL LAB URINALYSIS - AUTOMATED METHOD 11/06/2024 6:49 PM [facility] Urobilinogen , Urine 0.2 0.2 - 1.0 mg/dL LAB URINALYSIS - AUTOMATED METHOD 11/06/2024 6:49 PM [facility] Bilirubin, Urine Negative Negative LAB URINALYSIS - AUTOMATED METHOD 11/06/2024 6:49 PM EDT [facility] Blood, Urine Trace(A) Negative LAB URINALYSIS - AUTOMATED METHOD 11/06/2024 6:49 PM EDT [facility] RBC, Urine 0.6 0 - 4 /HPF LAB URINALYSIS - AUTOMATED METHOD 11/06/2024 6:49 PM EDT [facility] WBC, Urine 6.0(H) 0 - 4 /HPF LAB URINALYSIS - AUTOMATED METHOD 11/06/2024 6:49 PM EDT [facility] Squamous Epithelial, Urine 51 0 - 60 /LPF LAB URINALYSIS - AUTOMATED METHOD 11/06/2024 6:49 PM EDT [facility] Bacteria, Urine Negative Negative /HPF LAB URINALYSIS - AUTOMATED METHOD 11/06/2024 6:49 PM EDT [facility] Hyaline Casts, Urine 0.4 0 - 3 /LPF LAB URINALYSIS - AUTOMATED METHOD 11/06/2024 6:49 PM EDT [facility] Urine Urine specimen obtained by clean catch procedure / Unknown Non-blood Collection / Unknown 11/06/2024 3:52 PM EDT 11/06/2024 3:52 PM EDT us Mario Heath MD LAB URINE ORDERABLES Final Result [facility] [address] [place] [address], * Culture urine (11/06/2024 3:52 PM EDT) Culture, Urine 10,000-49,000 CFU/mL Mixed urogenital chloe, no uropathogens present. Suggest repeat specimen if clinically indicated. 11/07/2024 2:22 PM EDT [facility] Urine Urine specimen obtained by clean catch procedure / Unknown Non-blood Collection / Unknown 11/06/2024 3:52 PM EDT 11/06/2024 6:49 PM EDT us Mario Heath MD LAB MICROBIOLOGY - GENERAL ORDERABLES Final Result [facility] [address] [place] [address], [place] [phone] * (ABNORMAL) CBC auto differential (11/06/2024 2:57 PM EDT) WBC 7.0 4.8 - 10.8 K/mcL LAB HEMETOLOGY METHOD 11/06/2024 6:08 PM EDT [facility] RBC 4.20 3.80 - 4.80 M/mcL LAB HEMETOLOGY METHOD 11/06/2024 6:08 PM EDT [facility] Hemoglobin 12.1 11.5 - 16.0 g/dL LAB HEMETOLOGY METHOD 11/06/2024 6:08 PM EDT [facility] Hematocrit 39.1 35.0 - 47.0 % LAB HEMETOLOGY METHOD 11/06/2024 6:08 PM EDT [facility] MCV 92.2 79.0 - 98.0 FL LAB HEMETOLOGY METHOD 11/06/2024 6:08 PM EDT [facility] MCH 28.5 27.0 - 32.0 pcg LAB HEMETOLOGY METHOD 11/06/2024 6:08 PM EDT [facility] MCHC 30.9(L) 32.0 - 37.0 g/dL LAB HEMETOLOGY METHOD 11/06/2024 6:08 PM EDT [facility] RDW 15.6(H) 11.0 - 15.0 % LAB HEMETOLOGY METHOD 11/06/2024 6:08 PM EDT [facility] Platelets 279 130 - 400 K/mcL LAB HEMETOLOGY METHOD 11/06/2024 6:08 PM EDT [facility] MPV 11.9(H) 7.0 - 11.0 FL LAB HEMETOLOGY METHOD 11/06/2024 6:08 PM [facility] NRBC 0.0 <1.0 % LAB HEMETOLOGY METHOD 11/06/2024 6:08 PM [facility] NRBC Absolute 0.00 <0.10 K/mcL LAB HEMETOLOGY METHOD 11/06/2024 6:08 PM [facility] Neutrophils Relative 68.0 % LAB HEMETOLOGY METHOD 11/06/2024 6:08 PM [facility] Lymphocytes Relative 12.1 % LAB HEMETOLOGY METHOD 11/06/2024 6:08 PM [facility] Monocytes Relative 9.8 % LAB HEMETOLOGY METHOD 11/06/2024 6:08 PM [facility] Eosinophils Relative 9.1 % LAB HEMETOLOGY METHOD 11/06/2024 6:08 PM [facility] Basophils Relative 0.7 % LAB HEMETOLOGY METHOD 11/06/2024 6:08 PM [facility] Immature Granulocytes Relative 0.3 % LAB HEMETOLOGY METHOD 11/06/2024 6:08 PM [facility] Neutrophils Absolute 4.74 1.50 - 7.00 K/mcL LAB HEMETOLOGY METHOD 11/06/2024 6:08 PM [facility] Lymphocytes Absolute 0.84(L) 1.00 - 5.00 K/mcL LAB HEMETOLOGY METHOD 11/06/2024 6:08 PM [facility] Monocytes Absolute 0.68 0.20 - 1.00 K/mcL LAB HEMETOLOGY METHOD 11/06/2024 6:08 PM [facility] Eosinophils Absolute 0.63(H) 0.00 - 0.50 K/mcL LAB HEMETOLOGY METHOD 11/06/2024 6:08 PM EDT [facility] Basophils Absolute 0.05 0.00 - 0.20 K/[facility] LAB HEMETOLOGY METHOD 11/06/2024 6:08 PM EDT [facility] Immature Granulocytes Absolute 0.02 0.00 - 0.03 K/mcL LAB HEMETOLOGY METHOD 11/06/2024 6:08 PM EDT [facility] Blood Venous blood specimen / Unknown Venipuncture / Unknown 11/06/2024 2:57 PM EDT 11/06/2024 2:57 PM EDT Mario Heath MD LAB BLOOD ORDERABLES Final Result Performing Organization Address [facility]/ZIP Co de Phone Number [facility] [address] [place] [address], * (ABNORMAL) D-Dimer (11/06/2024 2:57 PM EDT) D-Dimer, Quant (D-DU) 964(H) <=230 ng/mL DDU LAB COAGULATION METHOD 11/06/2024 6:09 PM EDT [facility] Blood Venous blood specimen / Unknown Venipuncture / Unknown 11/06/2024 2:57 PM EDT 11/06/2024 2:57 PM EDT Narrative [facility] - 11/06/2024 6:09 PM EDT D-Dimer <230 ng/mL (D-Dimer units) is the threshold for exclusion of DVT/PE. D-Dimer may be elevated in: Critically ill, severely infected, trauma patients, DIC, acute CVA, acute NV, unstable angina, AF, old age, , and smoking. D-Dimer may be decreased with: Initiation of heparin therapy and oral anticoagulants. Mario Heath MD LAB BLOOD ORDERABLES Final Result [facility] [address] [place] [address], [place] [phone] * B-type natriuretic peptide (11/06/2024 2:57 PM EDT) [facility] BNP 23 <=100 pcg/mL LAB CHEMISTRY METHOD 11/06/2024 6:37 PM EDT [facility] Blood Venous blood specimen / Unknown Venipuncture / Unknown 11/06/2024 2:57 PM EDT 11/06/2024 2:57 PM EDT Mario Heath MD LAB BLOOD ORDERABLES Final Result Performing Organization Address City/[facility]/ZIP Co de Phone Number [facility] [address] [place] [address], [place] [phone] * Lipase (11/06/2024 2:57 PM EDT) [facility] Lipase 33 13 - 75 unit/L LAB CHEMISTRY METHOD 11/06/2024 7:18 PM EDT [facility] Blood Venous blood specimen / Unknown Venipuncture / Unknown 11/06/2024 2:57 PM EDT 11/06/2024 2:57 PM EDT Mario Heath MD LAB BLOOD ORDERABLES Final Result [facility] [address] [place] [address], [place] [phone] * Comprehensive metabolic panel (11/06/2024 2:57 PM EDT) [facility] Sodium 135 133 - 145 mmol/L LAB CHEMISTRY METHOD 11/06/2024 7:18 PM EDT [facility] Potassium 4.4 3.5 - 5.5 mmol/L LAB CHEMISTRY METHOD 11/06/2024 7:18 PM EDT [facility] Chloride 104 96 - 110 mmol/L LAB CHEMISTRY METHOD 11/06/2024 7:18 PM [facility] CO2 24 21 - 32 mmol/L LAB CHEMISTRY METHOD 11/06/2024 7:18 PM [facility] Anion Gap 7 3 - 11 LAB CHEMISTRY METHOD 11/06/2024 7:18 PM [facility] Glucose 92 70 - 100 mg/dL LAB CHEMISTRY METHOD 11/06/2024 7:18 PM [facility] BUN 17 5 - 25 mg/dL LAB CHEMISTRY METHOD 11/06/2024 7:18 PM [facility] Creatinine 0.66 0.50 - 1.10 mg/dL LAB CHEMISTRY METHOD 11/06/2024 7:18 PM [facility] eGFR 100 >=60 mL/min/1. 73m2 LAB CHEMISTRY METHOD 11/06/2024 7:18 PM [facility] Comment:Calculation based on the??Chronic Kidney Disease Epidemiology Collaboration (CKD-EPI) equation refit??without adjustment for race. BUN/Creatinine Ratio 25.8 LAB CHEMISTRY METHOD 11/06/2024 7:18 PM [facility] Calcium 9.5 8.5 - 10.5 mg/dL LAB CHEMISTRY METHOD 11/06/2024 7:18 PM [facility] AST (SGOT) 20 10 - 42 unit/L LAB CHEMISTRY METHOD 11/06/2024 7:18 PM [facility] ALT (SGPT) 22 10 - 60 unit/L LAB CHEMISTRY METHOD 11/06/2024 7:18 PM [facility] Alkaline Phosphatase 110 42 - 121 unit/L LAB CHEMISTRY METHOD 11/06/2024 7:18 PM [facility] Total Protein 7.9 6.0 - 8.0 g/dL LAB CHEMISTRY METHOD 11/06/2024 7:18 PM [facility] Albumin 3.9 3.2 - 5.0 g/dL LAB CHEMISTRY METHOD 11/06/2024 7:18 PM EDT [facility] Total Bilirubin 0.4 0.0 - 1.4 mg/dL LAB CHEMISTRY METHOD 11/06/2024 7:18 PM EDT [facility] Blood Venous blood specimen / Unknown Venipuncture / Unknown 11/06/2024 2:57 PM EDT 11/06/2024 2:57 PM EDT us Mario Heath MD LAB BLOOD ORDERABLES Final Result [facility] [address] [place] [address], [place] [phone] * Lipid panel with reflex to direct LDL (09/10/2024 1:04 PM EST) Cholesterol 159 0 - 200 mg/dL LAB CHEMISTRY METHOD 09/10/2024 4:58 PM [facility] Triglycerides 45 0 - 150 mg/dL LAB CHEMISTRY METHOD 09/10/2024 4:58 PM [facility] HDL 63 >=40 mg/dL LAB CHEMISTRY METHOD 09/10/2024 4:58 PM [facility] LDL Calculated 87 0 - 100 mg/dL LAB CHEMISTRY METHOD 09/10/2024 4:58 PM [facility] VLDL Cholesterol Mick 9 mg/dL LAB CHEMISTRY METHOD 09/10/2024 4:58 PM [facility] Non HDL Chol. (LDL+VLDL) 96 <145 mg/dL LAB CHEMISTRY METHOD 09/10/2024 4:58 PM [facility] Chol/HDL Ratio 2.5 0.0 - 4.4 LAB CHEMISTRY METHOD 09/10/2024 4:58 PM [facility] Blood Venous blood specimen / Unknown Venipuncture / Unknown 09/10/2024 1:04 PM EST 09/10/2024 1:04 PM EST Yelena GARCIA LAB BLOOD ORDERABLES Final Res ult [facility] R[facility]DLE [facility] ([facility]) [facility] [address] [place] [address], [place] [phone] * Cervical Cancer Screening: HPV (02/28/2024) Cervical [...] Most Recently Relevant to Health Maintenance Insurance [facility] Member Subscriber Plan / Payer (Ef fective 2022-Present) Name:Sahara Riddle Relation to Subscriber:Self Name:Sahara Riddle Payer ID:[id number] Group ID:[id number] Type:Not on file Address: [place] [address] [address] [address] Advance Directives Documents on File Type Date Recorded Patient Disc Pad Plate Filler Expl anation Health Care Decision (hx) 10/06/2021 HOMERO CARRENO DIRECTIVE Care Teams Plant Maintenance Manager Relationship Specialty Start Date End Date Cira Lancaster MD [address] [place] [address] PCP - General Internal Medicine 09/24/22
--- OUTSIDE RECORDS SUMMARY | 2024-11-24 16:44 | XMS_ITS | Encounter Summary ---
Author Organization [facility] Address [address] [place] [address] Care Team Providers Care Dry Paste Supervisor Name Role Phone Dianna Olmos MD Primary Care Provider Sandra Clemons MD Primary Care Provider [phone] Jaylen Newman MD Primary Care Provider Cira Mata MD Primary Care Provider [phone] Encounter Details Date Type Department Care Team Description 05/23/2020 Orders Only Medical Records [address] [place] [address] Josh Trujillo MD Social History Tobacco Use [...] on filedocumented in this encounter Care Teams Dry Paste Supervisor Relationship Specialty Start Date End Date Dianna Olmos MD PCP - General Internal Medicine 02/11/17 05/16/21 Sandra Clemente MD [address] [place] [address] PCP - General Internal Medicine 05/17/21 10/16/21 Jaylen Newman MD [address] [place] [address] PCP - General Internal Medicine 10/17/21 09/23/22 Cira Lancaster MD [address] [place] [address] PCP - General Internal Medicine 09/24/22 documented as of this encounter
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
--- OUTSIDE RECORDS SUMMARY | 2024-11-24 16:44 | XMS_ITS | Encounter Summary ---
Author Organization [facility] Address [address] [place] [address] Care Team Providers Care Forestry Hunter Name Role Phone Dianna Olmos MD Primary Care Provider UnaSandra Brown MD Primary Care Provider [phone] Jaylen Newman MD Primary Care Provider UnaCira Ortiz MD Primary Care Provider [phone] Encounter Details Date Type Department Care Team Description 08/27/2020 Refill Pulmonology - [place] [address] [facility] [address] [place] [phone] Robert Davis MD 175 [facility] 200 [place] [phone] Social History Tobacco Use Types Packs/Day Years [...] chronic documented in this encounter Care Teams Forestry Hunter Relationship Specialty Start Date End Date Dianna Olmos MD PCP - General Internal Medicine 02/11/17 05/16/21 Sandra Clemente MD [address] [place] [address] PCP - General Internal Medicine 05/17/21 10/16/21 Jaylen Newman MD [address] [place] [address] PCP - General Internal Medicine 10/17/21 09/23/22 Cira Lancaster MD [address] [place] [address] PCP - General Internal Medicine 09/24/22 documented as of this encounter
--- OUTSIDE RECORDS SUMMARY | 2024-11-24 16:44 | XMS_ITS | Encounter Summary ---
Author Organization [facility] Address [address] [place] [address] Care Team Providers Care Educational Specialist Name Role Phone Dianna Olmos MD Primary Care Provider Sandra Clemons MD Primary Care Provider Jaylen Newman MD Primary Care Provider Cira Mata MD Primary Care Provider [phone] Encounter Details Date Type Department Care Team Description 08/06/2018 Refill Rheumatology - [place] [address] [place] [address] Jarred Doss MD Social History Tobacco Use [...] 4:49 PM EST Ranjana, please call patient [phone] (home) When did she Have her eye [...] MG tablet [Jarred Doss MD] Preferred pharmacy: [facility] [address] [place] [address] Comment: documented in this encounter Plan of Treatment Not on file documented as of this encounter Visit Diagnoses Diagnosis Seropositive rheumatoid arthritis Rheumatoid arthritis documented in this encounter Care Teams Educational Specialist Relationship Specialty Start Date End Date Dianna Olmos MD PCP - General Internal Medicine 02/11/17 05/16/21 Sandra Clemente MD [address] [place] [address] PCP - General Internal Medicine 05/17/21 10/16/21 Jaylen Newman MD [address] [place] [address] PCP - General Internal Medicine 10/17/21 09/23/22 Cira Lancaster MD [address] [place] [address] PCP - General Internal Medicine 09/24/22 documented as of this encounter
--- OUTSIDE RECORDS SUMMARY | 2024-11-24 16:44 | XMS_ITS | Encounter Summary ---
Author Organization [facility] Address [address] [place] [address] Care Team Providers Care Employment Security Officer Name Role Phone Dianna Olmos MD Primary Care Provider Unava Sandra Burch MD Primary Care Provider [phone] Jaylen Newman MD Primary Care Provider UnaCira Ortiz MD Primary Care Provider [phone] Encounter Details Date Type Department Care Team Description 10/15/2017 Telephone Pulmonology [address] [place] [address] Robert Davis MD 175 [facility] 200 [place] [address] Social History Tobacco Use Types [...] by telephone. I left a message in Bulgarian. I reviewed the CT scan done yesterday. [...] organs documented in this encounter Care Teams Employment Security Officer Relationship Specialty Start Date End Date Dianna Olmos MD PCP - General Internal Medicine 02/11/17 05/16/21 Sandra Clemente MD [address] [place] [address] PCP - General Internal Medicine 05/17/21 10/16/21 Jaylen Newman MD [address] [place] [address] PCP - General Internal Medicine 10/17/21 09/23/22 Cira Lancaster MD [address] [place] [address] PCP - General Internal Medicine 09/24/22 documented as of this encounter
--- OUTSIDE RECORDS SUMMARY | 2024-11-24 16:44 | XMS_ITS | Encounter Summary ---
Author Organization [facility] Address [address] [place] [address] Care Team Providers Care Business Services Associate Name Role Phone Cira Lancaster MD Primary Care Provider [phone] Reason for Visit * Reason Onset Date Comments Fitting for DME 11/12/2024 Encounter Details Date Type Department Care Team ([facility] st Contact Info) Description 11/12/2024 Telephone Adult Medicine [facility] [address] [place] [phone] Cira Lancaster MD [address] [place] [address] Fitting for DME Social History Tobacco Use [...] Progress Notes * Charo Acosta LPN - 11/20/2024 8:00 AM EDT Rx and form signed and faxed to Martha @ [phone] * Charo Acosta LPN - 11/12/2024 1:46 PM EDT Does have dx of incontinence in her visit notes She does see urogynocology for urge incontinence and OAB Rx and form to Dr Lancaster to sign * Meron Lizarraga - 11/12/2024 1:12 PM EDT DME REQUEST Name of Product: wipes Specific information about product # Needed 2 Reason patient is asking for this supply? Have you received this supply before? If yes , when?: Have you discussed the need for this supply with a provider at a recent visit? If yes, with who andwhen? When completed: Fax to other office/MD/pharmacy at fax # Steven [phone] Have you told the patient it will take 7-10 days for completion of this request? No documented in this encounter Plan of Treatment Upcoming Encounters Date Type Department Care Team (Late st Contact Info) Description 03/04/2025 11:45 AM EDT Office Visit Urogynecology [address] [phone] Tita Mcgee MD [address] [place] [address] [address] [place] [address] 03/09/2025 3:30 PM EDT Consult Bariatric Surgery - [place] 175 [facility] [address] [place] [address] Kim Abbott MD 175 [facility] 120 [place] [address] 03/11/2025 1:15 PM EDT Office Visit Adult [address] [phone] Cira Lancaster MD [address] [place], [place] 09/14/2025 1:30 PM EDT Office Visit Adult Medicine [address] [phone] Cira Lancaster MD [address] [place] [address] documented as of this encounter Visit Diagnoses Diagnosis Urge incontinence- Primary Urinary frequency documented in this encounter Orders General Supply Count Last Ordered Date First Or dered Date GENERAL SUPPLY 1 11/12/2024 documented in this encounter Additional Health Concerns Assessment Noted Time PHQ-9 Depression Total Score: 9 09/09/19 25 4:17 PM EST documented as of this encounter Care Teams Business Services Associate Relationship Specialty Start Date End Date Cira Lancaster MD [address] [place] [address] PCP - General Internal Medicine 09/24/22 documented as of this encounter
--- OUTSIDE RECORDS SUMMARY | 2024-11-24 16:44 | XMS_ITS | Encounter Summary ---
Author Organization [facility] Address [address] [place] [address] Care Team Providers Care Dispatcher Refinery Name Role Phone Cira Lancaster MD Primary Care Provider [phone] Encounter Details Date Type Department Care Team Description 03/13/2024 Orders Only Adult Medicine [facility] [address] [place] [address] Cira Lancaster MD [address] [place] [address] Social History Tobacco Use Types Packs/Day Years [...] on filedocumented in this encounter Care Teams Dispatcher Refinery Relationship Specialty Start Date End Date Cira Lancaster MD [address] [place] [address] PCP - General Internal Medicine 09/24/22 documented as of this encounter
--- OUTSIDE RECORDS SUMMARY | 2024-11-24 16:44 | XMS_ITS | Encounter Summary ---
Author Organization [facility] Address [address] [place] [address] Care Team Providers Care Clinical Lab Assistant Name Role Phone Dianna Olmos MD Primary Care Provider Unava Sandra Burch MD Primary Care Provider [phone] Jaylen Newman MD Primary Care Provider Unava Cira Ramos MD Primary Care Provider Encounter Details Date Type Department Care Team Description 08/27/2020 Refill Pulmonology [address] [place] [address] Robert Davis MD 175 [facility] 200 [place] [phone] Social History Tobacco Use Types Packs/Day Years [...] Diagnoses Diagnosis Seropositive rheumatoid arthritis Rheumatoid arthritis History of asthma Personal history of other diseases of respiratory system Wheezing Viral upper respiratory tract infection Acute upper respiratory infections of unspecified site Moderate persistent asthma without complication Unspecified asthma documented in this encounter Care Teams Clinical Lab Assistant Relationship Specialty Start Date End Date Dianna Olmos MD PCP - General Internal Medicine 02/11/17 05/16/21 Sandra Clemente MD [address] [place] [address] PCP - General Internal Medicine 05/17/21 10/16/21 Jaylen Newman MD [address] [place] [address] PCP - General Internal Medicine 10/17/21 09/23/22 Cira Lancaster MD [address] [place] [address] PCP - General Internal Medicine 09/24/22 documented as of this encounter
--- OUTSIDE RECORDS SUMMARY | 2024-11-24 16:44 | XMS_ITS | Encounter Summary ---
Author Organization [facility] Address [address] [place] [address] Care Team Providers Care Welcome Center Attendant Name Role Phone Sandra Clemente MD Primary Care Provider [phone] Jaylen Newman MD Primary Care Provider Cira Mata MD Primary Care Provider [phone] Encounter Details Date Type Department Care Team Description 09/27/2021 Hospital Medical Records [address] [place] [address] Shay Quan MD Social History Tobacco Use [...] on filedocumented in this encounter Care Teams Welcome Center Attendant Relationship Specialty Start Date End Date Sandra Clemente MD [address] [place] [address] PCP - General Internal Medicine 05/17/21 10/16/21 Jaylen Newman MD [address] [place] [address] PCP - General Internal Medicine 10/17/21 09/23/22 Cira Lancaster MD [address] [place] [address] PCP - General Internal Medicine 09/24/22 documented as of this encounter
--- OUTSIDE RECORDS SUMMARY | 2024-11-24 16:44 | XMS_ITS | Encounter Summary ---
Author Organization [facility] Address [address] [place] [address] Care Team Providers Care Shredder Picker Name Role Phone Cira Lancaster MD Primary Care Provider [phone] Reason for Visit * Reason Onset Date Comments prior auth for medication 11/05/2024 Encounter Details Date Type Department Care Team ([facility] st Contact Info) Description 11/05/2024 Telephone Adult Medicine [address] [phone] Cira Lancaster MD [address] [place] [address] prior auth for medication Social History Tobacco Use Types Packs/Day Years [...] for your loved ones. For example, child daycare worker or elderly care for an older adult? [...] as of this encounter Progress Notes * Jennifer Milan MA - 11/24/2024 2:03 PM EDT PA initiated for Nystatin -triamcinolone by RIP today Dx intertrigo * Meron Lizarraga - 11/05/2024 2:38 PM EDT Prior Authorization for Medication-do not complete and send this encounter unless you have the fax from the pharmacy. Is this a Cover My Meds request: Yes -- [place] Code [id number] Name of Medication Nystatin-Triamcinolone Dose of Medication 302676-4.1 unit/gm% Cream What is the RX # from the faxed refill? How does patient take this med? What Pharmacy did the fax come from: [address] Amanda MONTEIRO Pharmacy fax #: [phone] [employer] Information from fax: What Prescription Plan does the patient have? BIN/PCN if applicable: Cardholder ID: Person Code: Relationship Code: Help desk phone: documented in this encounter Plan of Treatment Upcoming Encounters Date Type Department Care Team (Late st Contact Info) Description 03/04/2025 11:45 AM EDT Office Visit Urogynecology [address] [phone] Tita Mcgee MD [address] [place] [address] [address] [place] [address] 03/09/2025 3:30 PM EDT Consult Bariatric Surgery - [place] 175 [facility] 120 [place] [address] Kim Abbott MD 175 [facility] [address] [place] [address] 03/11/2025 1:15 PM EDT Office Visit Adult Medicine [address] [phone] Cira Lancaster MD [address] [place] [address] 09/14/2025 1:30 PM EDT Office Visit [address] [phone] Cira Lancaster MD [address] [place] [address] documented as of this encounter Visit Diagnoses Not on filedocumented in this encounter Additional Health Concerns Assessment Noted Time PHQ-9 Depression Total Score: 9 09/09/19 25 4:17 PM EST documented as of this encounter Care Teams Shredder Picker Relationship Specialty Start Date End Date Cira Lancaster MD [address] [place] [address] PCP - General Internal Medicine 09/24/22 documented as of this encounter
--- OUTSIDE RECORDS SUMMARY | 2024-11-24 16:45 | XMS_ITS | Encounter Summary ---
Author Organization [facility] Address [address] [place] [address] Care Team Providers Care Parole Board Member Name Role Phone Ashvin Santiago MD Primary Care Provider Sandra Clemons MD Primary Care Provider [phone] Jaylen Newman MD Primary Care Provider Cira Mata MD Primary Care Provider [phone] Reason for Visit * Reason Onset Date Comments Orders Call 04/19/2021 Encounter Details Date Type Department Care Team Description 04/19/2021 Telephone Adult Medicine [address] [address] Ashvin Santiago MD Orders Call Social History Tobacco Use Types Packs/Day Years [...] encounter Miscellaneous Notes * Telephone Encounter - Aileen Mott - 04/19/2021 11:14 AM EDT I tired calling pt but line was busy pt needs appt fatigue and needs update pcp * Telephone Encounter - Aileen Mott - 04/19/2021 11:14 AM EDT Patient Name: SAHARA RIDDLE([id number]) Sex: Female : 1965 ?PCP: ASHVIN SANTIAGO ?Center: [facility] ?? Types of orders made on 04/04/2021: Medications, Procedures Order Date:04/04/2021 Ordering User:JESSIE ALFREDO [[id number]] Encounter Provider:Jessie Alfredo MD [[id number]] Authorizing Provider: ??Jessie Alfredo MD [[id number]] Department:ALLERGY/SARANAC[[id number]] Order Specific Information Order: REFER TO PCP [CPT(R): 15735] ??Order #: [id number]: 1 FUTURE ?Priority: Routine ?Future Order Information ?Expires on:04/04/2022 ?Expected by:04/04/2021 ?Comment:I request an evaluation in Adult Medicine ? Reason for evaluation: fatigue ? Priority: the patient should be seen within one week ?Associated Diagnoses ?R53.83 Fatigue, unspecified type ?Priority: Routine ??Class: Normal ?Future Order Information ?Expires on:04/04/2022 ?Expected by:04/04/2021 ?Comment:I request an evaluation in Adult Medicine ? Reason for evaluation: fatigue ? Priority: the patient should be seen withi n one week ?Associated Diagnoses ?R53.83 Fatigue, unspecified type documented in this encounter Plan of Treatment Not on file documented as of this encounter Visit Diagnoses Not on filedocumented in this encounter Care Teams Parole Board Member Relationship Specialty Start Date End Date Ashvin Santiago MD PCP - General Internal Medicine 02/11/17 05/16/21 Sandra Clemente MD [address] [place] [address] PCP - General Internal Medicine 05/17/21 10/16/21 Jaylen Newman MD [address] [place] [address] PCP - General Internal Medicine 10/17/21 09/23/22 Cira Lancaster MD [address] [place] [address] PCP - General Internal Medicine 09/24/22 documented as of this encounter
--- OUTSIDE RECORDS SUMMARY | 2024-11-24 16:45 | XMS_ITS | Encounter Summary ---
Author Organization [facility] Address [address] [place] [address] Care Team Providers Care Senior Systems Administrator Name Role Phone Cira Lancaster MD Primary Care Provider [phone] Encounter Details Date Type Department Care Team Description 12/25/2022 First Line Production Supervisor Report Medical Records [address] [place] [address] Jarred Doss MD Social History Tobacco Use [...] filedocumented in this encounter Care Teams Senior Systems Administrator Relationship Specialty Start Date End Date Cira Lancaster MD [address] [place] [address] PCP - General Internal Medicine 09/24/22 documented as of this encounter
--- OUTSIDE RECORDS SUMMARY | 2024-11-24 16:45 | XMS_ITS | Encounter Summary ---
Author Organization [facility] Address [address] [place] [address] Care Team Providers Care Front Man Name Role Phone Cira Lancaster MD Primary Care Provider [phone] Encounter Details Date Type Department Care Team Description 04/05/2023 Business Insight And Analytics Manager Report Medical Records [address] [place] [address] Bg Garcia MD Social History Tobacco Use [...] on filedocumented in this encounter Care Teams Front Man Relationship Specialty Start Date End Date Cira Lancaster MD [address] [place] [address] PCP - General Internal Medicine 09/24/22 documented as of this encounter
--- OUTSIDE RECORDS SUMMARY | 2024-11-24 16:45 | XMS_ITS | Clinical Summary ---
Author Organization [employer] [facility] Address [address] [place] [address] Care Team Providers Care Primer And Powder Canning Leader Name Role Phone Cira Lancaster MD Primary Care Provider [phone] Allergies Active Allergy Reactions Criticality Noted Date Comments [place] Anaphylaxis High 12/03/2023 Medications Medication Sig Dispensed [...] age to complete this topic Care Teams Primer And Powder Canning Leader Relationship Specialty Start Date End Date Cira Lancaster MD [address] [facility] [place] [address] PCP - General Internal Medicine 11/18/23
--- OUTSIDE RECORDS SUMMARY | 2024-11-24 16:45 | XMS_ITS | Encounter Summary ---
Author Organization [facility] Address [address] [place] [address] Care Team Providers Care Roofer Helper Vinyl Coating Name Role Phone Cira Lancaster MD Primary Care Provider [phone] Encounter Details Date Type Department Care Team Description 07/05/2023 Qa Architect Report Medical Records [address] [place] [address] Bg Garcia MD Social History Tobacco Use [...] on filedocumented in this encounter Care Teams Roofer Helper Vinyl Coating Relationship Specialty Start Date End Date Cira Lancaster MD [address] [place] [address] PCP - General Internal Medicine 09/24/22 documented as of this encounter
--- OUTSIDE RECORDS SUMMARY | 2024-11-24 16:45 | XMS_ITS | Encounter Summary ---
Author Organization [facility] Address [address] [place] [address] Care Team Providers Care Bond Broker Name Role Phone Dianna Olmos MD Primary Care Provider Sandra Clemons MD Primary Care Provider [phone] Jaylen Newman MD Primary Care Provider Cira Mata MD Primary Care Provider [phone] Encounter Details Date Type Department Care Team Description 05/05/2018 Refill Rheumatology - [place] [address] [place] [address] Jarred Doss MD Social History Tobacco Use [...] arthritis documented in this encounter Care Teams Bond Broker Relationship Specialty Start Date End Date Dianna Olmos MD PCP - General Internal Medicine 02/11/17 05/16/21 Sandra Clemente MD [address] [place] [address] PCP - General Internal Medicine 05/17/21 10/16/21 Jaylen Newman MD [address] [place] [address] PCP - General Internal Medicine 10/17/21 09/23/22 Cira Lancaster MD [address] [place] [address] PCP - General Internal Medicine 09/24/22 documented as of this encounter
--- OUTSIDE RECORDS SUMMARY | 2024-11-24 16:45 | XMS_ITS | Encounter Summary ---
Author Organization [facility] Address [address] [place] [address] Care Team Providers Care Client Technologies Analyst Name Role Phone Cira Lancaster MD Primary Care Provider [phone] Encounter Details Date Type Department Care Team Description 10/25/2023 Orders Only Medical Records [address] [place] [address] [facility] Social History Tobacco Use Types Packs/Day Years [...] Name Priority Date/Time Associated Diagnosis Comments OUTSIDE EKG Routine 10/17/2023 documented in this encounter Results * OUTSIDE EKG (10/17/2023) Narrative Authorizing Provider Result [facility] CARDIOLOGY documented in this encounter Visit Diagnoses Not on filedocumented in this encounter Care Teams Client Technologies Analyst Relationship Specialty Start Date End Date Cira Lancaster MD [address] [place] [address] PCP - General Internal Medicine 09/24/22 documented as of this encounter
--- OUTSIDE RECORDS SUMMARY | 2024-11-24 16:45 | XMS_ITS | Encounter Summary ---
Author Organization [facility] Address [address] [place] [address] Care Team Providers Care General Merchandise Salesperson Name Role Phone Dianna Olmos MD Primary Care Provider Sandra Clemons MD Primary Care Provider [phone] Jaylen Newman MD Primary Care Provider Cira Mata MD Primary Care Provider [phone] Encounter Details Date Type Department Care Team Description 04/21/2021 Vp Security Report Medical Records [address] [place] [address] Bg Garcia MD Social History Tobacco Use [...] on filedocumented in this encounter Care Teams General Merchandise Salesperson Relationship Specialty Start Date End Date Dianna Olmos MD PCP - General Internal Medicine 02/11/17 05/16/21 Sandra Clemente MD [address] [place] [address] PCP - General Internal Medicine 05/17/21 10/16/21 Jaylen Newman MD [address] [place] [address] PCP - General Internal Medicine 10/17/21 09/23/22 Cira Lancaster MD [address] [place], [place] [id number] PCP - General Internal Medicine 09/24/22 documented as of this encounter
--- OUTSIDE RECORDS SUMMARY | 2024-11-24 16:45 | XMS_ITS | Encounter Summary ---
Author Organization [facility] Address [address] [place] [address] Care Team Providers Care Motor Rebuilder Name Role Phone Jacoby Martinez MD Primary Care Provider [phone] Dianna Olmos MD Primary Care Provider Unava Sandra Burch MD Primary Care Provider [phone] Jaylen Newman MD Primary Care Provider Unava Cira Ramos MD Primary Care Provider [phone] Encounter Details Date Type Department Care Team Description 03/16/2013 Telephone [facility] - [address] [id number] Jarred Doss MD Social History Tobacco Use [...] on filedocumented in this encounter Care Teams Motor Rebuilder Relationship Specialty Start Date End Date Jacoby Martinez MD [address] [place] [address] PCP - General 04/14/09 02/10/17 Dianna Olmos MD [address] [place], [place] [id number] PCP - General Internal Medicine 02/11/17 05/16/21 Sandra Clemente MD [address] [place] [address] PCP - General Internal Medicine 05/17/21 10/16/21 Jaylen Newman MD [address] [place] [address] PCP - General Internal Medicine 10/17/21 09/23/22 Cira Lancaster MD [address] [place] [address] PCP - General Internal Medicine 09/24/22 documented as of this encounter
--- OUTSIDE RECORDS SUMMARY | 2024-11-24 16:45 | XMS_ITS | Encounter Summary ---
Author Organization [facility] Address [address] [place] [address] Care Team Providers Care Consolidator Name Role Phone Cira Lancaster MD Primary Care Provider [phone] Encounter Details Date Type Department Care Team Description 06/07/2023 Orders Only Medical Records [address] [place] [address] Paresh Li MD Social History Tobacco Use Types Packs/Day [...] Name Priority Date/Time Associated Diagnosis Comments OUTSIDE MAMMO Routine 02/20/2023 OUTSIDE MAMMO Routine 07/23/2022 OUTSIDE MAMMO Routine 07/17/2022 documented in this encounter Results * OUTSIDE MAMMO (02/20/2023) Paresh Li MD RADIOLOGY * OUTSIDE MAMMO (07/23/2022) Paresh Li MD RADIOLOGY * OUTSIDE MAMMO (07/17/2022) Paresh Li MD RADIOLOGY documented in this encounter Visit Diagnoses Not on filedocumented in this encounter Care Teams Consolidator Relationship Specialty Start Date End Date Cira Lancaster MD [address] [place] [address] PCP - General Internal Medicine 09/24/22 documented as of this encounter
--- OUTSIDE RECORDS SUMMARY | 2024-11-24 16:45 | XMS_ITS | Encounter Summary ---
Author Organization [facility] Address [address] [place] [address] Care Team Providers Care Transmission Systems Operator Name Role Phone Cira Lancaster MD Primary Care Provider [phone] Encounter Details Date Type Department Care Team Description 10/01/2023 Dual Hose Cementer Report Medical Records [address] [place] [address] Eliza Felix NP Social History Tobacco Use [...] on filedocumented in this encounter Care Teams Transmission Systems Operator Relationship Specialty Start Date End Date Cira Lancaster MD [address] [place] [address] PCP - General Internal Medicine 09/24/22 documented as of this encounter
--- OUTSIDE RECORDS SUMMARY | 2024-11-24 16:45 | XMS_ITS | Encounter Summary ---
Author Organization [facility] Address [address] [place] [address] Care Team Providers Care Business Account Manager Name Role Phone Dianna Olmos MD Primary Care Provider Sandra Clemons MD Primary Care Provider [phone] Jaylen Newman MD Primary Care Provider Cira Mata MD Primary Care Provider [phone] Encounter Details Date Type Department Care Team Description 02/15/2021 Residential Real Estate Sales Manager Report Medical Records [address] [place] [address] Bg Garcia MD Social History Tobacco Use [...] on filedocumented in this encounter Care Teams Business Account Manager Relationship Specialty Start Date End Date Dianna Olmos MD PCP - General Internal Medicine 02/11/17 05/16/21 Sandra Clemente MD [address] [place] [address] PCP - General Internal Medicine 05/17/21 10/16/21 Jaylen Newman MD [address] [place] [address] PCP - General Internal Medicine 10/17/21 09/23/22 Cira Lancaster MD [address] [place], [place] [phone] PCP - General Internal Medicine 09/24/22 documented as of this encounter
--- OUTSIDE RECORDS SUMMARY | 2024-11-24 16:45 | XMS_ITS | Encounter Summary ---
Author Organization [facility] Address [address] [place] [address] Care Team Providers Care Lubricating Machine Tender Name Role Phone Sandra Clemente MD Primary Care Provider [phone] Jaylen Newman MD Primary Care Provider Cira Mata MD Primary Care Provider [phone] Encounter Details Date Type Department Care Team Description 06/15/2021 Release of Information Medical Records [address] [place] [address] Abstract, Provider Social History Tobacco Use Types [...] on filedocumented in this encounter Care Teams Lubricating Machine Tender Relationship Specialty Start Date End Date Sandra Clemente MD [address] [place] [address] PCP - General Internal Medicine 05/17/21 10/16/21 Jaylen Newman MD [address] [place] [address] PCP - General Internal Medicine 10/17/21 09/23/22 Cira Lancaster MD [address] [place] [address] PCP - General Internal Medicine 09/24/22 documented as of this encounter
--- OUTSIDE RECORDS SUMMARY | 2024-11-24 16:45 | XMS_ITS | Encounter Summary ---
Author Organization [facility] Address [address] [place] [address] Care Team Providers Care Vacuum Forming Machine Operator Name Role Phone Cira Lancaster MD Primary Care Provider [phone] Encounter Details Date Type Department Care Team Description 10/24/2023 Weigh Tank Operator Report Medical Records [address] [place] [address] Sourav Atwood Social History Tobacco Use Types [...] on filedocumented in this encounter Care Teams Vacuum Forming Machine Operator Relationship Specialty Start Date End Date Cira Lancaster MD [address] [place] [address] PCP - General Internal Medicine 09/24/22 documented as of this encounter
--- OUTSIDE RECORDS SUMMARY | 2024-11-24 16:45 | XMS_ITS | Encounter Summary ---
Author Organization [facility] Address [address] [place] [address] Care Team Providers Care Lpn Private Duty Name Role Phone Dianna Olmos MD Primary Care Provider Sandra Clemons MD Primary Care Provider [phone] Jaylen Newman MD Primary Care Provider Cira Mata MD Primary Care Provider [phone] Encounter Details Date Type Department Care Team Description 02/20/2018 Release of Information Medical Records [address] [place] [address] Abstract, Provider Social History Tobacco Use Types [...] on filedocumented in this encounter Care Teams Lpn Private Duty Relationship Specialty Start Date End Date Dianna Olmos MD PCP - General Internal Medicine 02/11/17 05/16/21 Sandra Clemente MD [address] [place] [address] PCP - General Internal Medicine 05/17/21 10/16/21 Jaylen Newman MD [address] [place] [address] PCP - General Internal Medicine 10/17/21 09/23/22 Cira Lancaster MD [address] [place] [address] PCP - General Internal Medicine 09/24/22 documented as of this encounter
--- OUTSIDE RECORDS SUMMARY | 2024-11-24 16:45 | XMS_ITS | Encounter Summary ---
Author Organization [facility] Address [address] [place] [address] Care Team Providers Care Info Print Press Operator Name Role Phone Dianna Olmos MD Primary Care Provider Sandra Clemons MD Primary Care Provider [phone] Jaylen Newman MD Primary Care Provider Cira Mata MD Primary Care Provider [phone] Encounter Details Date Type Department Care Team Description 04/30/2018 Telephone OBGYN - [place] [address] [place] [address] Heavenly Roque MD [address] [place] [address] Social History Tobacco Use Types Packs/Day Years [...] on filedocumented in this encounter Care Teams Info Print Press Operator Relationship Specialty Start Date End Date Dianna Olmos MD PCP - General Internal Medicine 02/11/17 05/16/21 Sandra Clemente MD [address] [place] [address] PCP - General Internal Medicine 05/17/21 10/16/21 Jaylen Newman MD [address] [place] [address] PCP - General Internal Medicine 10/17/21 09/23/22 Cira Lancaster MD [address] [place] [address] PCP - General Internal Medicine 09/24/22 documented as of this encounter
--- OUTSIDE RECORDS SUMMARY | 2024-11-24 16:45 | XMS_ITS | Encounter Summary ---
Author Organization [facility] Address [address] [place] [address] Care Team Providers Care Custodial Worker Name Role Phone Dianna Olmos MD Primary Care Provider Sandra Clemons MD Primary Care Provider [phone] Jaylen Newman MD Primary Care Provider Cira Mata MD Primary Care Provider [phone] Reason for Visit * Reason Onset Date Comments Testing 05/03/2021 Encounter Details Date Type Department Care Team Description 05/03/2021 Telephone Radiology - [address] [phone] Dianna Olmos MD Testing Social History Tobacco Use Types Packs/Day [...] encounter Miscellaneous Notes * Telephone Encounter - Cathy Kilgore M.A. - 05/03/2021 10:31 AM EDT Left detailed message to patient in [place] to let her know that she need to schedule an appointment with one of our pulmo provider due Dr Dr Oliver is no longer with us * Telephone Encounter - Kaycee Parra - 05/03/2021 9:57 AM EDT This patient was ordered a follow-up cat scan from Dr. Jorge. Please note that the prior-authorization department cannot get an authorization for a provider no longer here therefore we will remove this order from our scheduling list. If appointment is still needed please enter a new order. Thank you documented in this encounter Plan of Treatment Not on file documented as of this encounter Visit Diagnoses Not on filedocumented in this encounter Care Teams Custodial Worker Relationship Specialty Start Date End Date Dianna Olmos MD PCP - General Internal Medicine 02/11/17 05/16/21 Sandra Clemente MD [address] [place] [address] PCP - General Internal Medicine 05/17/21 10/16/21 Jaylen Newman MD [address] [place] [address] PCP - General Internal Medicine 10/17/21 09/23/22 Cira Lancaster MD [address] [place] [address] PCP - General Internal Medicine 09/24/22 documented as of this encounter
--- OUTSIDE RECORDS SUMMARY | 2024-11-24 16:45 | XMS_ITS | Encounter Summary ---
Author Organization [facility] Address [address] [place] [address] Care Team Providers Care Sawmill Supervisor Name Role Phone Cira Tucker MD Primary Care Provider [phone] Reason for Visit * Reason Onset Date Comments Call From Office 11/15/2023 Encounter Details Date Type Department Care Team Description 11/15/2023 Telephone Adult Medicine [facility] [address] [place] [address] Cira Tucker MD [address] [place] [address] Call From Md Office Social History Tobacco [...] 8:53 AM EDT spoke with Eusebia at [facility]. They started on Lovenox when DVT was discovered as emergency measure but ask dr tucker to take over management of the DVT and prescribe oral agents as she prefers * Telephone Encounter - Irma Aiken R.N. - 11/18/2023 2:45 PM EDT Call to [facility] [phone]. Message to provider to call me back [...] - 11/15/2023 2:16 PM EDT Anamika from [facility] is calling stating the Patient [...] on filedocumented in this encounter Care Teams Sawmill Supervisor Relationship Specialty Start Date End Date Cira Tucker MD [address] [place] [address] PCP - General Internal Medicine 09/24/22 documented as of this encounter
--- OUTSIDE RECORDS SUMMARY | 2024-11-24 16:45 | XMS_ITS | Encounter Summary ---
Author Organization [facility] Address [address] [place] [address] Care Team Providers Care Assistant County Attorney Name Role Phone Cira Lancaster MD Primary Care Provider [phone] Encounter Details Date Type Department Care Team Description 12/05/2023 Servomechanism Assembler Report Medical Records [address] [place] [address] Orthopedics, [address] [place] [address] Social History Tobacco Use Types Packs/Day Years [...] on filedocumented in this encounter Care Teams Assistant County Attorney Relationship Specialty Start Date End Date Cira Lancaster MD [address] [place] [address] PCP - General Internal Medicine 09/24/22 documented as of this encounter
--- OUTSIDE RECORDS SUMMARY | 2024-11-24 16:45 | XMS_ITS | Encounter Summary ---
Author Organization [facility] Address [address] [place] [address] Care Team Providers Care Bread Wrapper Name Role Phone Cira Lancaster MD Primary Care Provider [phone] Encounter Details Date Type Department Care Team Description 08/19/2023 Still Operator Helper Report Medical Records [address] [place] [address] Orthopedics, [address] [place] [address] Social History Tobacco Use Types Packs/Day Years [...] on filedocumented in this encounter Care Teams Bread Wrapper Relationship Specialty Start Date End Date Cira Lancaster MD [address] [place] [address] PCP - General Internal Medicine 09/24/22 documented as of this encounter
--- OUTSIDE RECORDS SUMMARY | 2024-11-24 16:45 | XMS_ITS | Encounter Summary ---
Author Organization [facility] Address [address] [place] [address] Care Team Providers Care Automobile Parts Assembler Name Role Phone Dianna Olmos MD Primary Care Provider Sandra Clemons MD Primary Care Provider [phone] Jaylen Newman MD Primary Care Provider Cira Mata MD Primary Care Provider [phone] Encounter Details Date Type Department Care Team Description 05/05/2018 Refill Rheumatology - [place] [address] [place] [address] Jarred Doss MD Social History Tobacco Use [...] arthritis documented in this encounter Care Teams Automobile Parts Assembler Relationship Specialty Start Date End Date Dianna Olmos MD PCP - General Internal Medicine 02/11/17 05/16/21 Sandra Clemente MD [address] [place] [address] PCP - General Internal Medicine 05/17/21 10/16/21 Jaylen Newman MD [address] [place] [address] PCP - General Internal Medicine 10/17/21 09/23/22 Cira Lancaster MD [address] [place] [address] PCP - General Internal Medicine 09/24/22 documented as of this encounter
[2024-11-24 17:13] LABS: Basophils Absolute Auto 0.1 X10*3/uL (0.0-0.2); Basophils Percent Auto 1.1 % (0-2); Eosinophils Absolute Auto 1.2 X10*3/uL (0.0-0.4); Eosinophils Percent Auto 16.1 % (0-4); Hemoglobin 12.1 g/dl (12.0-16.0); Imm Gran Abs Auto 0.02 X10*3/uL (0.00-0.03); Imm Gran Pct Auto 0.3 % (0.0-0.4); Lymphocytes Absolute Auto 1.1 X10*3/uL (1.2-4.9); Lymphocytes Percent Auto 15.5 % (20-40); Mean Corpuscular HGB Conc 31.8 g/dl (31.0-35.0); Mean Corpuscular Hemoglobin 28.9 pg (27.0-33.0); Mean Corpuscular Volume 90.9 fL (80.0-98.0); Mean Platelet Volume 10.9 fL (9.4-12.3); Monocytes Absolute Auto 0.5 X10*3/uL (0.1-1.2); Monocytes Percent Auto 7.3 % (2-11); Neutrophils Absolute Auto 4.4 x10*3/uL (2.0-8.3); Neutrophils Percent Auto 59.7 % (45-73); Platelet Count 387 X10*3/uL (160-400); Red Blood Count 4.18 X10*6/uL (4.20-5.50); White Blood Count 7.4 X10*3/uL (4.8-10.8)
[2024-11-24 17:39] LABS: Anion Gap 10 (12-20); Carbon Dioxide 26 mmol/L (22-29); Chloride 107 mmol/L (96-108); Glucose Random 91 mg/dL (60-115); Potassium 4.2 mmol/L (3.3-5.1); Sodium 139 mmol/L (135-145); Total Protein 7.8 g/dL (6.5-8.0); Triglycerides 106 mg/dL (<150)
[2024-11-24 17:55] LABS: Alanine Aminotransferase 26 U/L (0-31); Alkaline Phosphatase 94 U/L (39-117); Aspartate Amino Transferase 31 U/L (5-31); Bilirubin Total 0.2 mg/dL (0.0-1.0); Blood Urea Nitrogen 13 mg/dL (9-16); C Reactive Protein 0.41 mg/dL (< or = 0.50); Cholesterol 159 mg/dL (<200); Erythrocyte Sedimentation Rate 34 MM/HR (0-20); Estimated Glomerular Filt Rate > 60; HDL Cholesterol 45 mg/dL (>40); LDL Cholesterol Calculated 93 mg/dL (<100)
[2024-11-25 03:35] LABS: Hepatitis A Antibody IgM 0.16 Index (0-0.79); ~Hepatitis A Antibody IgM Nonreactive (Nonreactive)
[2024-11-25 04:12] LABS: HBS Num1 0.28 mIU/mL (0-7.99); HBc Num1 0.15 S/CO (0.00-0.79); HBsAGNum1 0.51 S/CO (0.00-0.99); Hepatitis B Core Antibody Nonreactive (Nonreactive); Hepatitis B Surface Antigen Negative (Negative); ~HepC Num1 0.23 S/CO (0.00-0.79); ~Hepatitis B Surface Antibody NONREACTIVE (Nonreactive); ~Hepatitis C Antibody Nonreactive (Nonreactive)
[2024-11-26 21:30] LABS: TS Negative Control Passed; TS Panel A 0; TS Panel B 0; TS Positive Control Passed; TSpotTB Negative (Negative)
== END 2024-11-24 16:09 | disposition home or self-care (01) ==
LOC: HO.LAB 16:08
PROVIDERS: PCP Internal Medicine; Visit Provider Student in an Organized Health Care Education/Training Program
DX: M05.79 Rheumatoid arthritis with rheumatoid factor of multiple sites without organ or systems involvement (principal); Z51.81 Encounter for therapeutic drug level monitoring; Z79.620 Long term (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 of immunosuppressive biologic; Z79.899 Other long term (current) drug therapy; Z79.631 Long term (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 of antimetabolite agent
CPT/HCPCS: 36415; 80053; 80061; 85025; 85652; 86140; 86481; 86704; 86706; 86709; 86803; 87340

== ENCOUNTER 2024-11-27 15:56 | Outpatient (AMB) | payer OTHER, SELFPAY ==
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
[2024-11-27 16:12] VITALS: BP 130/80; PULSE 75; O2SAT 96; BMI 34.4
== END 2024-11-27 16:39 | disposition home or self-care (01) ==
LOC: HO.RHE 15:56
PROVIDERS: PCP Internal Medicine; Visit Provider Student in an Organized Health Care Education/Training Program
DX: M05.79 Rheumatoid arthritis with rheumatoid factor of multiple sites without organ or systems involvement (principal); Z51.81 Encounter for therapeutic drug level monitoring; Z79.620 Long term (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 of immunosuppressive biologic; Z79.899 Other long term (current) drug therapy; Z79.631 Long term (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 of antimetabolite agent
CPT/HCPCS: 99214; G2211

== ENCOUNTER → 2024-11-27 15:56 | Outpatient (BNVA) | payer OTHER, SELFPAY | PROVIDERS: PCP Internal Medicine; Visit Provider Student in an Organized Health Care Education/Training Program | DX: M05.79 Rheumatoid arthritis with rheumatoid factor of multiple sites without organ or systems involvement (principal); Z51.81 Encounter for therapeutic drug level monitoring; Z79.620 Long term (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 of immunosuppressive biologic; Z79.631 Long term (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 of antimetabolite agent; Z79.899 Other long term (current) drug therapy | CPT/HCPCS: 99212 ==

== ENCOUNTER 2025-03-03 13:12 | Outpatient (REF) | payer OTHER, SELFPAY ==
--- OUTSIDE RECORDS SUMMARY | 2025-03-03 13:53 | XMS_ITS | Encounter Summary ---
Author Organization [facility] Address [address] [place] [address] Care Team Providers Care Industrial Engineering Technologist Name Role Phone Dianna Olmos MD Primary Care Provider Unava Sandra Burch MD Primary Care Provider [phone] Jaylen Newman MD Primary Care Provider Unava Cira Ramos MD Primary Care Provider [phone] Reason for Referral * Radiology Services (Routine) - Closed Specialty Diagnoses / Procedures Referred By Contac t Referred To Contact Radiology Diagnoses Moderate persistent asthma in adult without complication Seropositive rheumatoid arthritis (HCC) Ground glass opacity present on imaging of lung Procedures CHG DIAGNOSTIC COMPUTED TOMOGRAPHY THORAX W/O CNTRST Robert Davis MD [address] [phone] [address] [address] [place] [id number] Referral ID Status Reason Start Date Expiration Date Visits Re quested Visits Authorized [id number] Closed 04/12/2021 1 1 Encounter Details Date Type Department Care Team Description 01/10/2021 Telephone Pulmonology [address] [place] [address] [id number] Robert Davis MD [address] [address] Social History Tobacco Use Types Packs/Day [...] have Coronavirus / COVID-19? No / Unsure 01/04/2021 1:02 PM EDT documented as of this encounter Miscellaneous Notes * Telephone Encounter - Adenike Griffin PA-C - 01/10/2021 9:50 AM EDT Noted. Orders were already placed by pultn * Telephone Encounter - Robert Davis MD - 01/10/2021 9:[address] scan showed small area of GGO. CT scan requested for 3 months. Letter + Copy test sent home. documented in this encounter Plan of Treatment Not on file documented as of this encounter Visit Diagnoses Diagnosis Moderate persistent asthma in adult without complication- Primary Seropositive rheumatoid arthritis (HCC) Rheumatoid arthritis Ground glass opacity present on imaging of lung documented in this encounter Care Teams Industrial Engineering Technologist Relationship Specialty Start Date End Date Dianna Olmos MD PCP - General Internal Medicine 02/11/17 05/16/21 Sandra Clemente MD [address] [place] [address] PCP - General Internal Medicine 05/17/21 10/16/21 Jaylen Newman MD [address] [place] [address] PCP - General Internal Medicine 10/17/21 09/23/22 Cira Lancaster MD [address] [place] [address] PCP - General Internal Medicine 09/24/22 documented as of this encounter
--- OUTSIDE RECORDS SUMMARY | 2025-03-03 13:53 | XMS_ITS | Clinical Summary ---
Author Organization [facility] Address [address] [place] [address] Care Team Providers Care Marketing Project Specialist Name Role Phone Cira Lancaster MD Primary Care Provider [phone] Allergies Active Allergy Reactions Severity Noted Date Comments [place] (Diagnostic) Anaphylaxis High 12/03/2023 Nuts 06/02/2018 Almonds [...] 02/24/2024 Active vitamin D (ERGOCALCIFEROL) 1.25 MG (79278 UT) capsule Take 1 Capsule by mouth [...] 76 03/12/2024 11:37 AM EDT Temperature 36.2 C (97.2 F) 03/12/2024 11:37 AM EDT Respiratory Rate 14 03/12/2024 11:37 AM EDT [...] CHOLESTEROL SCREENING 03/08/2025 03/08/2020 , 12/30/2014, 08/01/2009 INFLUENZA (#1) 2025 03/12/2024, 04/08, 05/24/2021, Additional history exists CERVICAL CANCER SCREENING 02/23/20272023, 11/19/2016, 04/02/2013, Additional history exists PNEUMOCOCCAL VACCINE FOR HIG H RISK PATIENTS (#2) 2028 10/13/2014, 09/14/2010 DTAP/TDAP/TD (3 - Td or Tdap) 03/08/2030 03/08/2020, 06/30/2009 COLON CANCER SCREENING 05/24/2030 05/24/2020 HEPATITIS C SCREENING Completed 09/03/2019, 011 Care Teams Marketing Project Specialist Relationship Specialty Start Date End Date Cira Lancaster MD [address] [place] [id number] PCP - General Internal Medicine 09/24/22
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
--- OUTSIDE RECORDS SUMMARY | 2025-03-03 13:54 | XMS_ITS | Encounter Summary ---
Author Organization [facility] Address [address] [place] [address] Care Team Providers Care Building Mover Name Role Phone Cira Lancaster MD Primary Care Provider [phone] Encounter Details Date Type Department Care Team Description 06/07/2023 Orders Only Medical Records [address] [place] [address] Paresh Li MD Social History Tobacco Use [...] on filedocumented in this encounter Care Teams Building Mover Relationship Specialty Start Date End Date Cira Lancaster MD [address] [place] [address] PCP - General Internal Medicine 09/24/22 documented as of this encounter
--- OUTSIDE RECORDS SUMMARY | 2025-03-03 13:54 | XMS_ITS | Encounter Summary ---
Author Organization [facility] Address [address] [place] [address] Care Team Providers Care Accelerator Technician Name Role Phone Cira Lancaster MD Primary Care Provider [phone] Encounter Details Date Type Department Care Team Description 07/31/2023 Mission Support Specialist Report Medical Records [address] [place] [address] Eliza Felix NP Social History Tobacco Use [...] on filedocumented in this encounter Care Teams Accelerator Technician Relationship Specialty Start Date End Date Cira Lancaster MD [address] [place] [address] PCP - General Internal Medicine 09/24/22 documented as of this encounter
--- OUTSIDE RECORDS SUMMARY | 2025-03-03 13:54 | XMS_ITS | Encounter Summary ---
Author Organization [facility] Address [address] [place] [address] Care Team Providers Care Dump Truck Driver Name Role Phone Cira Lancaster MD Primary Care Provider [phone] Encounter Details Date Type Department Care Team Description 08/19/2023 Manager Universal Report Medical Records [address] [place] [address] Orthopedics, [address] [place] [address] Social History Tobacco Use Types Packs/Day Years [...] on filedocumented in this encounter Care Teams Dump Truck Driver Relationship Specialty Start Date End Date Cira Lancaster MD [address] [place] [address] PCP - General Internal Medicine 09/24/22 documented as of this encounter
--- OUTSIDE RECORDS SUMMARY | 2025-03-03 13:54 | XMS_ITS | Encounter Summary ---
Author Organization [facility] Address [address] [place] [address] Care Team Providers Care Radiologic Technologist Chief Name Role Phone Cira Lancaster MD Primary Care Provider [phone] Encounter Details Date Type Department Care Team Description 11/14/2023 Plate Molder Report Medical Records [address] [place] [address] Sourav Atwood Social History Tobacco Use Types [...] on filedocumented in this encounter Care Teams Radiologic Technologist Chief Relationship Specialty Start Date End Date Cira Lancaster MD [address] [place] [address] PCP - General Internal Medicine 09/24/22 documented as of this encounter
--- OUTSIDE RECORDS SUMMARY | 2025-03-03 13:54 | XMS_ITS | Encounter Summary ---
Author Organization [facility] Address [address] [place] [address] Care Team Providers Care Beef Tagger Name Role Phone Dianna Olmos MD Primary Care Provider UnaSandra Brown MD Primary Care Provider [phone] Jaylen Newman MD Primary Care Provider UnaCira Ortiz MD Primary Care Provider [phone] Encounter Details Date Type Department Care Team Description 08/27/2020 Refill Pulmonology - [facility] [address] [facility] [address] [place] [phone] Robert Davis MD [address] [facility] [address] [place] [phone] Social History Tobacco Use Types Packs/Day Years [...] chronic documented in this encounter Care Teams Beef Tagger Relationship Specialty Start Date End Date Dianna Olmos MD PCP - General Internal Medicine 02/11/17 05/16/21 Sandra Clemente MD [address] [place] [address] PCP - General Internal Medicine 05/17/21 10/16/21 Jaylen Newman MD [address] [place] [address] PCP - General Internal Medicine 10/17/21 09/23/22 Cira Lancaster MD [address] [place] [address] PCP - General Internal Medicine 09/24/22 documented as of this encounter
--- OUTSIDE RECORDS SUMMARY | 2025-03-03 13:54 | XMS_ITS | Clinical Summary ---
Author Organization [facility] Address [address] [place] [address] Care Team Providers Care Engineering Director Name Role Phone Cira Lancaster MD Primary Care Provider [phone] Allergies Active Allergy Reactions Criticality Noted Date Comments [place] Anaphylaxis High 12/03/2023 Medications Medication Sig Dispensed [...] 83 12/03/2023 11:15 AM EDT Temperature 36.4 C (97.6 F) 12/03/2023 11:15 AM EDT Respiratory Rate - - Oxygen Saturation 96% [...] 2024 08/04/2021, 11/03/2020, 10/12/2020 Influenza Vaccine (#1) 2025 , 05/24/2021, 03/08/2020, Additional history exists RSV [...] age to complete this topic Care Teams Engineering Director Relationship Specialty Start Date End Date Cira Lancaster MD [address] [place], [place] [address]CAYETANO gordon [address] PCP - General Internal Medicine 11/18/23
--- OUTSIDE RECORDS SUMMARY | 2025-03-03 13:54 | XMS_ITS | Encounter Summary ---
Author Organization [facility] Address [address] [place] [address] Care Team Providers Care Assistant Brand Manager Name Role Phone Dianna Olmos MD Primary Care Provider Sandra Clemons MD Primary Care Provider [phone] Jaylen Newman MD Primary Care Provider Cira Mata MD Primary Care Provider [phone] Encounter Details Date Type Department Care Team Description 04/30/2018 Telephone OBGYN - [place] [address] [place] [address] Heavenly Roque MD [address] [place] [address] Social History Tobacco Use Types Packs/Day Years [...] filedocumented in this encounter Care Teams Assistant Brand Manager Relationship Specialty Start Date End Date Dianna Olmos MD PCP - General Internal Medicine 02/11/17 05/16/21 Sandra Clemente MD [address] [place] [address] PCP - General Internal Medicine 05/17/21 10/16/21 Jaylen Newman MD [address] [place] [address] PCP - General Internal Medicine 10/17/21 09/23/22 Cira Lancaster MD [address] [place] [address] PCP - General Internal Medicine 09/24/22 documented as of this encounter
--- OUTSIDE RECORDS SUMMARY | 2025-03-03 13:54 | XMS_ITS | Encounter Summary ---
Author Organization [facility] Address [address] [place] [address] Care Team Providers Care Liquid Loader Name Role Phone Dianna Olmos MD Primary Care Provider Unava Sandra Burch MD Primary Care Provider [phone] Jaylen Newman MD Primary Care Provider Unava Cira Ramos MD Primary Care Provider Encounter Details Date Type Department Care Team Description 08/27/2020 Refill Pulmonology [address] [place] [address] Robert Davis MD [address] [facility] [address] [place] [phone] Social History Tobacco Use Types Packs/Day Years [...] asthma documented in this encounter Care Teams Liquid Loader Relationship Specialty Start Date End Date Dianna Olmos MD PCP - General Internal Medicine 02/11/17 05/16/21 Sandra Clemente MD [address] [place] [address] PCP - General Internal Medicine 05/17/21 10/16/21 Jaylen Newman MD [address] [place] [address] PCP - General Internal Medicine 10/17/21 09/23/22 Cira Lancaster MD [address] [place] [address] PCP - General Internal Medicine 09/24/22 documented as of this encounter
--- OUTSIDE RECORDS SUMMARY | 2025-03-03 13:54 | XMS_ITS | Encounter Summary ---
Author Organization [facility] Address [address] [place] [address] Care Team Providers Care Manager Simulation Name Role Phone Dianna Olmos MD Primary Care Provider Sandra Clemons MD Primary Care Provider [phone] Jaylen Newman MD Primary Care Provider Cira Mata MD Primary Care Provider [phone] Encounter Details Date Type Department Care Team Description 02/15/2021 Sailor Report Medical Records [address] [place] [address] Bg Garcia MD Social History Tobacco Use [...] on filedocumented in this encounter Care Teams Manager Simulation Relationship Specialty Start Date End Date Dianna Olmos MD PCP - General Internal Medicine 02/11/17 05/16/21 Sandra Clemente MD [address] [place] [address] PCP - General Internal Medicine 05/17/21 10/16/21 Jaylen Newman MD [address] [place] [address] PCP - General Internal Medicine 10/17/21 09/23/22 Cira Lancaster MD [address] [place], [place] [phone] PCP - General Internal Medicine 09/24/22 documented as of this encounter
--- OUTSIDE RECORDS SUMMARY | 2025-03-03 13:54 | XMS_ITS | Encounter Summary ---
Author Organization [facility] Address [address] [place] [address] Care Team Providers Care Collection Systems Modeler Name Role Phone Sandra Clemente MD Primary Care Provider [phone] Jaylen Newman MD Primary Care Provider Cira Mata MD Primary Care Provider [phone] Encounter Details Date Type Department Care Team Description 10/03/2021 Hospital Medical Records [address] [place] [address] Shay Quan MD Social History Tobacco Use [...] on filedocumented in this encounter Care Teams Collection Systems Modeler Relationship Specialty Start Date End Date Sandra Clemente MD [address] [place] [address] PCP - General Internal Medicine 05/17/21 10/16/21 Jaylen Newman MD [address] [place] [address] PCP - General Internal Medicine 10/17/21 09/23/22 Cira Lancaster MD [address] [place] [address] PCP - General Internal Medicine 09/24/22 documented as of this encounter
--- OUTSIDE RECORDS SUMMARY | 2025-03-03 13:54 | XMS_ITS | Clinical Summary ---
Author Organization [facility] [address] [place] [address] [place] [phone] Phone Care Team Providers Care Cashier General Name Role Phone Cira Lancaster MD Primary Care Provider [phone] Allergies Active Allergy Reactions Criticality Noted Date Comments [place] Anaphylaxis High 12/03/2023 Nut - Unspecified 06/02/2018 [...] Active medical supply, miscellaneous (MISCELLANEOUS MEDICAL SUPPLY [place]) Spacer/Aero Chamber Mouthpiece [facility] 1 Device by Does not apply route as needed (use with inhaler). Active Actemra ACTPen subcutaneous injection Inject 0.9 mL (162 mg total) under the skin every 14 (fourteen) days. Active EPINEPHrine (Auvi-Q) 0.3 mg/0.3 mL injection Inject 0.3 mL (0.3 mg total) into the thigh if needed for anaphylaxis. 1 each Active miscellaneous medical supply [facility] Incontinence supply, Wipes, Package of 48 wipes Dispense 8 packages Sig Use 1 wipe every 2 hours as needed for incontinence. 4 each Active nystatin-triamci nolone (MYCOLOG II) creamIndications :Intertrigo APPLY CREAM TOPICALLY TO AFFECTED AREA TWICE DAILY FOR 7 TO 14 DAYS THEN NEEDED FOR RASH 30 g Active acetaminophen (Tylenol 8 Hour) [...] crush, chew, or split. 90 tablet 1 025 Active nystatin (MYCOSTATIN) 100,000 unit/gram powderIndication s:Intertrigo APPLY A THIN LAYER OF POWDER TOPICALLY TO AFFECTED AREA TWICE DAILY FOR 2 WEEKS, THEN STOP 30 g 025 Active furosemide (LASIX) 20 mg tablet Take 1 tablet by mouth once daily 90 tablet 1 025 Active solifenacin (VESICARE) 5 mg tabletIndication s:bladder hyperactivity Take 1 tablet (5 mg total) by mouth 1 (one) time each day. Swallow tablet whole; do not crush, chew, or split. 90 each 1 025 2024 furosemide (LASIX) 20 mg tablet Take 1 tablet (20 mg total) by mouth 1 (one) time each day. 30 each 2 025 2024 Discontinued Active Problems Problem Noted Date Diagnosed Date Celiac artery stenosis ([facility] V24) 01/25/2025 DVT (deep venous thrombosis) ([facility] V24, [facility] V28) 02/24/2024 Overview (05/15/2024): Left leg following left knee replacement. Asthma, severe persistent ([facility] V28) 01/25/20 21 Chronic allergic rhinitis 01/24/2021 [...] for RA 2014 Seropositive rheumatoid arth ritis ([facility] V24, [facility] V28) 06/30/2009 Overview (05/15/2024): Onset about 2000; [...] Encounters Date Type Department Care Team Description 01/29/2025 2:00 PM EDT Consult Vascular Surgery - [place] [address] [facility] [address] [place] [address] Kathy Moreno MD Leg swelling (Primary Dx); Bilateral leg pain 01/25/2025 8:00 AM EDT Office Visit Adult Medicine [address] [phone] Yelena Wilburn PA Localized swelling of both lower legs (Primary Dx); Celiac artery stenosis ([facility] V24) 01/21/2025 Telephone Adult Medicine [address] [phone] Cira Lancaster MD 01/20/2025 Telephone Adult Medicine [address] [phone] Cira Lancaster MD 12/07/2024 Telephone Adult Medicine [address] [phone] Cira Lancaster MD from Last 3 Months Immunizations Name Administration [...] HISTORICAL APPENDECTOMY OTHER SURGICAL HISTORY 02/23/2019 PROCEDURE: [place] LARYNGOSCOPY FLEXIBLE DIAGNOSTIC; COMMENT: Dr Roque TOTAL [...] for your loved ones. For example, child nutrition assistant or elderly care for an older adult? [...] Sign Reading Time Taken Comments Blood Pressure 118/58 01/29/2025 1:36 PM EDT Pulse 76 01/29/2025 1:36 PM EDT Temperature 36.4 C (97.5 F) 01/25/2025 8:12 AM EDT Respiratory Rate 14 01/25/2025 8:12 AM EDT Oxygen Saturation 96% 01/25/2025 8:12 AM EDT Inhaled Oxygen Concentration - - Weight 82.6 kg (182 lb 3.2 oz) 01/29/2025 1:36 P M EDT Height 154.9 cm (5' 1 ) 01/29/2025 1:36 PM EDT Body Mass Index 34.43 01/29/2025 1:36 PM EDT Plan of Treatment Upcoming Encounters Date Type Department Care Team (Late st Contact Info) Description 03/04/2025 11:45 AM EDT Office Visit Urogynecology - [place] [id number] [place] [address] Tita Mcgee MD [address] [facility] [address] [place] [address] 03/09/2025 3:30 PM EDT Consult Bariatric Surgery - [address] [place] [address] Kim Abbott MD [address] [place] [address] 03/11/2025 1:15 PM EDT Office Visit Adult Medicine [address] [address] Cira Lancaster MD [address] [place] [address] 04/15/2025 8:30 AM EDT Ancillary Procedure [facility] [address] [place] [address] [place] [address] 04/26/2025 2:30 PM EDT Office Visit Vascular Surgery - [place] [address] [place] [address] Summer Shepherd PA [address] [place] [address] 09/14/2025 1:30 PM EDT Office Visit [address] [address] Cira Lancaster MD [address] [place] [address] Health Maintenance Due Date Last Done Comments HIV Screening 06/16/2022 Medicare Annual Wellness Visit 06/16/2022 Breast Cancer Screening 05/22/2023 05/22/20, 01/28/2019, 10/23/2017, Additional history exists Influenza Vaccine (#1) 2025 , 05/02/2023, 05/24/2021, Additional history exists Zoster Vaccines (1 of 2) 07/07/2025 Pos tponed from 2013 (Supply/Drug Shortage) RSV Immunization Adult Patients (1 - Risk [...] Vaccine: 50+ Years Completed 07/05/2023, 10/13/2014, 09/14/2010 Depression Screening Completed 09/08/2024 HIB Vaccines Aged Out No longer eligi [...] mg/dL LAB CHEMISTRY METHOD 09/10/2024 4:58 PM EST [facility] Triglycerides 45 0 - 150 mg/dL LAB CHEMISTRY METHOD 09/10/2024 4:58 PM [facility] HDL 63 >=40 mg/dL LAB CHEMISTRY METHOD 09/10/2024 4:58 PM EST [facility] LDL Calculated 87 0 - 100 mg/dL LAB CHEMISTRY METHOD 09/10/2024 4:58 PM EST [facility] VLDL Cholesterol Mick 9 mg/dL LAB CHEMISTRY METHOD 09/10/2024 4:58 PM [facility] Non HDL Chol. (LDL+VLDL) 96 <145 mg/dL LAB CHEMISTRY METHOD 09/10/2024 4:58 PM [facility] Chol/HDL Ratio 2.5 0.0 - 4.4 LAB CHEMISTRY METHOD 09/10/2024 4:58 PM EST [facility] Blood Venous blood specimen / Unknown Venipuncture / Unknown 09/10/2024 1:04 PM EST 09/10/2024 1:04 PM EST Yleena GARCIA LAB BLOOD ORDERABLES Final Res ult [facility] [address] [place] [address], * Cervical Cancer Screening: HPV (02/28/2024) Pathologist [facility] Cervical Cancer Screening: HPV abstracted, negative Historical [...] interpreted with the aid of computer-aided detection. Comparison is made with 01/28/2019 and as far back as 10/17/2016. Breast parenchyma is heterogeneously dense, limiting mammographic sensitivity. No new suspicious mass, architectural distortion, or suspicious [...] C Screening (09/03/2019) Hepatitis C Screening abstracted Result [facility] Historical Provider HEALTH MAINTENANCE Final Result from Last 3 Months or Most Recently Relevant to Health Maintenance Insurance [employer] MEDICARE Member Subscriber Plan / Payer (Ef fective 2022-Present) Name:Sahara Riddle Relation to Subscriber:Self Name:Sahara Riddle Payer ID:[id number] Group ID:[id number] Type:Not on file Address: [facility] [address] [id number] Advance Directives Documents on File Type Date Recorded Patient Rn Cardiac Rehab Expl anation Health Care Decision (hx) 10/06/2021 HOMERO CARRENO DIRECTIVE Care Teams Cashier General Relationship Specialty Start Date End Date Cira Lancaster MD [address] [place] [address] PCP - General Internal Medicine 09/24/22
--- OUTSIDE RECORDS SUMMARY | 2025-03-03 13:54 | XMS_ITS | Encounter Summary ---
Author Organization [facility] Address [address] [place] [address] Care Team Providers Care Patented Hogshead Assembler Name Role Phone Cira Lancaster MD Primary Care Provider [phone] Encounter Details Date Type Department Care Team Description 11/01/2023 Home Health Certification Medical Records [address] [place] [address] [employer] Nurse [facility], [address] [address] Social History Tobacco Use Types Packs/Day Years [...] on filedocumented in this encounter Care Teams Patented Hogshead Assembler Relationship Specialty Start Date End Date Cira Lancaster MD [address] [place] [address] PCP - General Internal Medicine 09/24/22 documented as of this encounter
--- OUTSIDE RECORDS SUMMARY | 2025-03-03 13:54 | XMS_ITS | Encounter Summary ---
Author Organization [facility] Address [address] [place] [address] Care Team Providers Care Engagement Quality Consultant Name Role Phone Sandra Clemente MD Primary Care Provider [phone] Jaylen Newman MD Primary Care Provider Cira Mata MD Primary Care Provider [phone] Encounter Details Date Type Department Care Team Description 06/15/2021 Release of Information Medical Records [address] [place] [address] Abstract, Provider Social History Tobacco Use Types [...] on filedocumented in this encounter Care Teams Engagement Quality Consultant Relationship Specialty Start Date End Date Sandra Clemente MD [address] [place] [address] PCP - General Internal Medicine 05/17/21 10/16/21 Jaylen Newman MD [address] [place] [address] PCP - General Internal Medicine 10/17/21 09/23/22 Cira Lancaster MD [address] [place] [address] PCP - General Internal Medicine 09/24/22 documented as of this encounter
--- OUTSIDE RECORDS SUMMARY | 2025-03-03 13:54 | XMS_ITS | Encounter Summary ---
Author Organization [facility] Address [address] [place] [address] Care Team Providers Care Executive Officer Special Warfare Team Name Role Phone Dianna Olmos MD Primary Care Provider Sandra Clemons MD Primary Care Provider [phone] Jaylen Newman MD Primary Care Provider Cira Mata MD Primary Care Provider [phone] Reason for Visit * Reason Onset Date Comments refill request 04/28/2021 Encounter Details Date Type Department Care Team Description 04/28/2021 Refill Rheumatology - [address] [address] Jarred Doss MD refill request Social History [...] N/A Patients current insurance carrier is: Payor: [employer] [place] / Plan: [employer] $10 [place] 1 / Product Type: HMO [id number] documented in this encounter Plan of Treatment Not on file documented as of this encounter Visit Diagnoses Diagnosis Seropositive rheumatoid arthritis Rheumatoid arthritis documented in this encounter Care Teams Executive Officer Special Warfare Team Relationship Specialty Start Date End Date Dianna Olmos MD PCP - General Internal Medicine 02/11/17 05/16/21 Sandar Clemente MD [address] [place] [address] PCP - General Internal Medicine 05/17/21 10/16/21 Jaylen Newman MD [address] [place] [address] PCP - General Internal Medicine 10/17/21 09/23/22 Cira Lancaster MD [address] [place] [address] PCP - General Internal Medicine 09/24/22 documented as of this encounter
--- OUTSIDE RECORDS SUMMARY | 2025-03-03 13:54 | XMS_ITS | Encounter Summary ---
Author Organization [facility] Address [address] [place] [address] Care Team Providers Care Immigration Manager Name Role Phone Cira Lancaster MD Primary Care Provider [phone] Encounter Details Date Type Department Care Team Description 03/13/2024 Orders Only Adult Medicine [facility] [address] [place] [address] Cira Lancaster MD [address] [place] [address] Social History Tobacco Use Types Packs/Day Years [...] on filedocumented in this encounter Care Teams Immigration Manager Relationship Specialty Start Date End Date Cira Lancaster MD [address] [place] [address] PCP - General Internal Medicine 09/24/22 documented as of this encounter
--- OUTSIDE RECORDS SUMMARY | 2025-03-03 13:54 | XMS_ITS ---
Author Name [facility] Organization Unknown Care Team Organization Name Specialty Phone Email Start Date End Da te [facility] Sandra Clemente Primary Care 05/15/2022 4
--- OUTSIDE RECORDS SUMMARY | 2025-03-03 13:54 | XMS_ITS | Encounter Summary ---
Author Organization [facility] Address [address] [place] [address] Care Team Providers Care Hospital Nurse Name Role Phone Dianna Olmos MD Primary Care Provider Sandra Clemons MD Primary Care Provider [phone] Jaylen Newman MD Primary Care Provider Cira Mata MD Primary Care Provider [phone] Encounter Details Date Type Department Care Team Description 08/06/2018 Refill Rheumatology - [place] [address] [place] [address] Jarred Doss MD Social History Tobacco Use [...] 4:49 PM EST Ranjana, please call patient [phone] (home) When did she Have her eye exam . It looks like it is overdue. She needs it once a year at this point Dr. Doss * Telephone Encounter - Adenkie Santos M.A. - 08/06/2018 4:32 PM ESTFrom: Sahara Riddle To: Jarred Doss MD Sent: 08/06/2018 4:27 PM EST Subject: Medication Renewal Request Original authorizing provider: MD Sahara Barker would like a refill of the following medications: hydroxychloroquine (PLAQUENIL) 200 MG tablet [Jarred Doss MD] Preferred pharmacy: [facility] [address] [place] [address] Comment: documented in this encounter Plan of Treatment Not on file documented as of this encounter Visit Diagnoses Diagnosis Seropositive rheumatoid arthritis Rheumatoid arthritis documented in this encounter Care Teams Hospital Nurse Relationship Specialty Start Date End Date Dianna Olmos MD PCP - General Internal Medicine 02/11/17 05/16/21 Sandra Clemente MD [address] [place] [address] PCP - General Internal Medicine 05/17/21 10/16/21 Jaylen Newman MD [address] [place] [address] PCP - General Internal Medicine 10/17/21 09/23/22 Cira Lancaster MD [address] [place] [address] PCP - General Internal Medicine 09/24/22 documented as of this encounter
--- OUTSIDE RECORDS SUMMARY | 2025-03-03 13:54 | XMS_ITS | Encounter Summary ---
Author Organization [facility] Address [address] [place] [address] Care Team Providers Care Dessert Cup Machine Feeder Name Role Phone Sandra Clemente MD Primary Care Provider [phone] Jaylen Newman MD Primary Care Provider Cira Mata MD Primary Care Provider [phone] Encounter Details Date Type Department Care Team Description 09/27/2021 Hospital Medical Records [address] [place] [address] Shay Quan MD Social History Tobacco Use [...] on filedocumented in this encounter Care Teams Dessert Cup Machine Feeder Relationship Specialty Start Date End Date Sandra Clemente MD [address] [place] [address] PCP - General Internal Medicine 05/17/21 10/16/21 Jaylen Newman MD [address] [place] [address] PCP - General Internal Medicine 10/17/21 09/23/22 Cira Lancaster MD [address] [place] [address] PCP - General Internal Medicine 09/24/22 documented as of this encounter
--- OUTSIDE RECORDS SUMMARY | 2025-03-03 13:54 | XMS_ITS | Encounter Summary ---
Author Organization [facility] Address [address] [place] [address] Care Team Providers Care Hydroelectric Powerplant Supervisor Name Role Phone Dianna Olmos MD Primary Care Provider Sandra Clemons MD Primary Care Provider [phone] Jaylen Newman MD Primary Care Provider Cira Mata MD Primary Care Provider [phone] Encounter Details Date Type Department Care Team Description 04/21/2021 Director Of Ancillary Services Report Medical Records [address] [place] [address] Bg Garcia MD Social History Tobacco Use [...] on filedocumented in this encounter Care Teams Hydroelectric Powerplant Supervisor Relationship Specialty Start Date End Date Dianna Olmos MD PCP - General Internal Medicine 02/11/17 05/16/21 Sandra Clemente MD [address] [place] [address] PCP - General Internal Medicine 05/17/21 10/16/21 Jaylen Newman MD [address] [place] [address] PCP - General Internal Medicine 10/17/21 09/23/22 Cira Lancaster MD [address] [place], [place] [phone] PCP - General Internal Medicine 09/24/22 documented as of this encounter
--- OUTSIDE RECORDS SUMMARY | 2025-03-03 13:54 | XMS_ITS | Encounter Summary ---
Author Organization [facility] Address [address] [place] [address] Care Team Providers Care Enamel Burner Name Role Phone Cira Lancaster MD Primary Care Provider [phone] Encounter Details Date Type Department Care Team Description 10/24/2023 Engineering Librarian Report Medical Records [address] [place] [address] Sourav Atwood Social History Tobacco Use Types [...] on filedocumented in this encounter Care Teams Enamel Burner Relationship Specialty Start Date End Date Cira Lancaster MD [address] [place] [address] PCP - General Internal Medicine 09/24/22 documented as of this encounter
--- OUTSIDE RECORDS SUMMARY | 2025-03-03 13:54 | XMS_ITS | Encounter Summary ---
Author Organization [facility] Address [address] [place] [address] Care Team Providers Care Nuclear Worker Technician Name Role Phone Cira Lancaster MD Primary Care Provider [phone] Encounter Details Date Type Department Care Team Description 07/05/2023 Security Officers And Guards Report Medical Records [address] [place] [address] Bg Garcia MD Social History Tobacco Use [...] on filedocumented in this encounter Care Teams Nuclear Worker Technician Relationship Specialty Start Date End Date Cira Lancaster MD [address] [place] [address] PCP - General Internal Medicine 09/24/22 documented as of this encounter
--- OUTSIDE RECORDS SUMMARY | 2025-03-03 13:54 | XMS_ITS | Encounter Summary ---
Author Organization [facility] Address [address] [place] [address] Care Team Providers Care Behavioral Medical Director Name Role Phone Cira Lancaster MD Primary Care Provider [phone] Encounter Details Date Type Department Care Team Description 03/13/2024 Telephone Adult Medicine [facility] [address] [place] [address] Cira Lancaster MD [address] [place] [address] Social History Tobacco Use Types Packs/Day Years [...] on filedocumented in this encounter Care Teams Behavioral Medical Director Relationship Specialty Start Date End Date Cira Lancaster MD [address] [place] [address] PCP - General Internal Medicine 09/24/22 documented as of this encounter
--- OUTSIDE RECORDS SUMMARY | 2025-03-03 13:54 | XMS_ITS | Encounter Summary ---
Author Organization [facility] Address [address] [place] [address] Care Team Providers Care Community Coordinator Name Role Phone Cira Lancaster MD Primary Care Provider Encounter Details Date Type Department Care Team Description 10/31/2023 Hospital Medical Records [address] [place] [address] John Carter MD Social History Tobacco Use [...] on filedocumented in this encounter Care Teams Community Coordinator Relationship Specialty Start Date End Date Cira Lancaster MD [address] [place] [address] PCP - General Internal Medicine 09/24/22 documented as of this encounter
== END 2025-03-03 13:13 | disposition home or self-care (01) ==
LOC: HO.MAMMO 13:12
PROVIDERS: PCP Internal Medicine; Visit Provider Internal Medicine
DX: Z12.31 Encounter for screening mammogram for malignant neoplasm of breast (principal)
CPT/HCPCS: 77063; 77067

== ENCOUNTER → 2025-03-03 13:15 | Outpatient (BNV) | payer OTHER, SELFPAY | PROVIDERS: PCP Internal Medicine; Visit Provider Radiology Body Imaging | DX: Z12.31 Encounter for screening mammogram for malignant neoplasm of breast (principal) | CPT/HCPCS: 77063; 77067 ==

== ENCOUNTER 2025-03-30 15:10 | Outpatient (REF) | payer OTHER, SELFPAY ==
[2025-03-30 16:39] LABS: MANUAL DIFF FLAG NO
[2025-03-30 16:42] LABS: Hematocrit 36.6 % (37.0-47.0); Hemoglobin 11.4 g/dl (12.0-16.0); Imm Gran Abs Auto 0.02 X10*3/uL (0.00-0.03); Imm Gran Pct Auto 0.3 % (0.0-0.4); Lymphocytes Absolute Auto 1.1 X10*3/uL (1.2-4.9); Mean Corpuscular HGB Conc 31.1 g/dl (31.0-35.0); Mean Corpuscular Hemoglobin 27.9 pg (27.0-33.0); Mean Corpuscular Volume 89.7 fL (80.0-98.0); NRBC Abs Auto 0.000 X10*3/uL (0.0-0.012); NRBC Pct Auto 0.0 /100WBC (0.0-0.2); Platelet Count 422 X10*3/uL (160-400); Red Blood Count 4.08 X10*6/uL (4.20-5.50); White Blood Count 7.7 X10*3/uL (4.8-10.8)
[2025-03-30 16:56] LABS: Alanine Aminotransferase 17 U/L (0-31); Albumin Level 4.1 g/dL (3.5-5.0); Alkaline Phosphatase 86 U/L (39-117); Anion Gap 11 (12-20); Aspartate Amino Transferase 27 U/L (5-31); Blood Urea Nitrogen 16 mg/dL (9-16); Calcium 9.4 mg/dL (8.4-10.2); Carbon Dioxide 29 mmol/L (22-29); Chloride 105 mmol/L (96-108); Cholesterol 139 mg/dL (<200); Estimated Glomerular Filt Rate > 60; HDL Cholesterol 43 mg/dL (>40); Potassium 4.4 mmol/L (3.3-5.1); Sodium 141 mmol/L (135-145); Total Protein 8.4 g/dL (6.5-8.0); Triglycerides 68 mg/dL (<150)
--- OUTSIDE RECORDS SUMMARY | 2025-03-30 18:10 | XMS_ITS | Clinical Summary ---
Author Organization [facility] [address] [place] [address] [place] [phone] Phone Care Team Providers Care Pipe Supervisor Name Role Phone Cira Lancaster MD Primary Care Provider [phone] Allergies Active Allergy Reactions Criticality Noted Date Comments Ivor Anaphylaxis High 12/03/2023 Nut - Unspecified 06/02/2018 [...] mg /3 mL (0.083 %) nebulizer solution Active biotin 10 mg tablet Take by [...] Active medical supply, miscellaneous (MISCELLANEOUS MEDICAL SUPPLY [facility]) Spacer/Aero Chamber Mouthpiece [facility] 1 Device by Does not apply route as needed (use with inhaler). Active Actemra ACTPen subcutaneous injection Inject 0.9 mL (162 mg total) under the skin every 14 (fourteen) days. Active EPINEPHrine (Auvi-Q) 0.3 mg/0.3 mL injection Inject 0.3 mL (0.3 mg total) into the thigh if needed for anaphylaxis. 1 each Active miscellaneous medical supply [facility] Incontinence supply, Wipes, Package of 48 wipes Dispense 8 packages Sig Use 1 wipe every 2 hours as needed for incontinence. 4 each Active acetaminophen (Tylenol 8 Hour) 650 mg 8 hr tablet Take 1 tablet (650 mg total) by mouth every 8 (eight) hours if needed for mild pain. Do not crush, chew, or split. Active nystatin (MYCOSTATIN) 100,000 unit/gram powderIndication s:Intertrigo APPLY A THIN LAYER OF POWDER TOPICALLY TO AFFECTED AREA TWICE DAILY FOR 2 WEEKS, THEN STOP 30 g Active furosemide (LASIX) 20 mg tablet Take 1 tablet by mouth once daily 90 tablet 1 Active solifenacin (VESICARE) 5 mg tabletIndication s:bladder hyperactivity Take 1 tablet (5 mg total) by mouth 1 (one) time each day. Swallow tablet whole; do not crush, chew, or split. 90 each 3 025 2025 Active phentermine 15 mg capsuleIndicatio ns:BMI 33.0-33.9,adult Take 1 capsule (15 mg total) by mouth 1 (one) time each day before breakfast. Max Daily Amount: 15 mg 30 each 2 025 2024 Active omeprazole (PriLOSEC) [address] capsule Take 1 capsule (20 mg total) by mouth 1 (one) time each day. Do not crush or chew. 90 each 1 025 2025 Active solifenacin (VESICARE) 5 mg tabletIndication s:bladder hyperactivity Take 1 tablet (5 mg total) by mouth 1 (one) time each day. Swallow tablet whole; do not crush, chew, or split. 90 each 1 025 2024 Discontinued(R eorder) nystatin-triamci nolone (MYCOLOG II) creamIndications :Intertrigo APPLY CREAM TOPICALLY TO AFFECTED AREA TWICE DAILY FOR 7 TO 14 DAYS THEN NEEDED FOR RASH 30 g 025 2024 Discontinued(F ormulary change) omeprazole OTC (PriLOSEC OTC) 20 mg EC tablet Take 1 tablet (20 mg total) by mouth 1 (one) time each day. Do not crush, chew, or split. 90 tablet 1 025 2024 Discontinued(D uplicate order) solifenacin (VESICARE) 5 mg tabletIndication s:bladder hyperactivity Take 1 tablet (5 mg total) by mouth 1 (one) time each day. Swallow tablet whole; do not crush, chew, or split. 90 each 1 025 2024 Discontinued nystatin (MYCOSTATIN) cream Apply topically 2 (two) times a day for 7 days. 30 g 3 025 2024 Active Problems Problem Noted Date Diagnosed Date Gastroesophageal reflux disease without esophagi tis 03/11/2025 Celiac artery stenosis ([facility] V24) 01/25/2025 DVT (deep venous thrombosis) ([facility] V24, [facility] V28) 02/24/2024 Overview (05/15/2024): Left leg following left knee replacement. Asthma, severe persistent ([facility] V28) 01/25/20 Chronic allergic rhinitis 01/24/2021 Overview (05/15/2024): Dog, [...] opacity present on imaging of lung 11/29/2017 Seropositive rheumatoid arth ritis ([facility] V24, [facility] V28) 06/30/2009 Overview (05/15/2024): Onset about 2000; [...] Encounters Date Type Department Care Team Description 03/11/2025 1:15 PM EDT Office Visit Adult [address] [phone] Cira Lancaster MD Varicose veins of both lower extremities with pain (Primary Dx); Intertrigo; Gastroesophageal reflux disease without esophagitis 03/09/2025 3:30 PM EDT Consult Bariatric Surgery [facility] [address] [place] [address] Kim Abbott MD BMI 33.0-33.9,adult 03/04/2025 11:45 AM EDT Office Visit Urogynecology [address] [phone] Tita Mcgee MD Stress incontinence (Primary Dx); OAB (overactive bladder) 01/29/2025 2:00 PM EDT Consult Vascular Surgery [facility] [address] [place] [address] Kathy Moreno MD Leg swelling (Primary Dx); Bilateral leg pain 01/25/2025 8:00 AM EDT Office Visit [address] [phone] Yelena Wilburn PA Localized swelling of both lower legs (Primary Dx); Celiac artery stenosis ([facility] V24) 01/21/2025 Telephone Adult Medicine [address] [phone] Cira Lancaster MD 01/20/2025 Telephone Adult [address] [phone] Cira Lancaster MD from Last 3 Months [...] HISTORICAL APPENDECTOMY OTHER SURGICAL HISTORY 02/23/2019 PROCEDURE: WI LARYNGOSCOPY FLEXIBLE DIAGNOSTIC; COMMENT: Dr Roque TOTAL KNEE ARTHROPLASTY Bilateral PROCEDURE: HISTORICAL TOTAL KNEE REPLACE Medical History Medical History Date Comments Herpes zoster 04/20/2015 DX:Herpes zoster ; COMMENT: While under treatment for RA 2014 Gastroesophageal reflux dise ase without esophagitis 03/11/2025 Family History Medical History Relation Name Comments [...] for your loved ones. For example, child care assistant or elderly care for an older [...] Sign Reading Time Taken Comments Blood Pressure 124/64 03/11/2025 1:54 PM EDT Pulse 72 03/11/2025 1:54 PM EDT Temperature 36.2 C (97.2 F) 03/11/2025 1:54 PM EDT Respiratory Rate 14 03/11/2025 1:54 PM EDT Oxygen Saturation 98% 03/11/2025 1:54 PM EDT Inhaled Oxygen Concentration - - Weight 79.8 kg (176 lb) 03/11/2025 1:54 PM EDT Height 154.9 cm (5' 1 ) 03/11/2025 1:54 PM EDT Body Mass Index 33.25 03/11/2025 1:54 PM EDT Plan of Treatment Upcoming Encounters Date Type Department Care Team (Late st Contact Info) Description 04/15/2025 8:30 AM EDT Ancillary Procedure [facility] [address] [facility] [address] [place] [address] 04/26/2025 2:30 PM EDT Office Visit Vascular Surgery - [place] [address] [facility] [address] [place] [address] Summer Shepherd PA [address] [facility] [address] [place] [address] 06/08/2025 2:45 PM EST Office Visit Bariatric Surgery - [place] [address] [facility] [address] [place] [phone] Kim Abbott MD [address] [place] [phone] 09/14/2025 1:30 PM EDT Office Visit Adult Medicine [address] [phone] Cira Lancaster MD [address] [place] [phone] 03/03/2026 11:45 AM EDT Office Visit Urogynecology [facility] [address] [place] [address] Tita Mcgee MD [address] [facility] [address] [place] [address] Health Maintenance Due Date Last Done Comments HIV Screening 06/16/2022 Medicare Annual Wellness Visit 06/16/2022 Influenza Vaccine (#1) 2025 , 05/02/2023, 05/24/2021, Additional history exists Zoster Vaccines (1 of 2) 07/07/2025 Pos tponed from 2013 (Supply/Drug Shortage) RSV Immunization Adult Patients (1 - Risk 60-74 years 1-dose series) 09/08/2025 Postponed from 2023 (Patient Refused) Social Influencers of Health Screening 09/08/2025 09/08/2024 Breast Cancer Screening 03/03/2026 03/03/20, 03/03/2025, 05/22/2021, Additional history exists Cervical Cancer Screening: HPV 02/27/2029 02/28/2024 Cholesterol [...] Diagnosis Comments CBC WITH AUTO DIFFERENTIAL Routine 03/11/2025 2:54 PM EDT Varicose veins of both lower extremities with pain BASIC METABOLIC PANEL Routine 03/11/2025 2:54 PM EDT Varicose veins of both lower extremities with pain CBC AND DIFFERENTIAL Routine 03/11/2025 2:54 PM EDT Varicose veins of both lower extremities with pain EXTERNAL MAMMOGRAM REPORT 03/03/2025 EXTERNAL MAMMOGRAM REPORT 03/03/2025 LIPID PANEL WITH REFLEX TO DIRECT LDL Routine 09/10/2024 1:04 PM EST Routine physical examination HM HPV Routine 02/28/2024 COLONOSCOPY Routine 05/24/2020 HEPATITIS C SCREENING Routine 09/03/2019 from Last 3 Months or Most Recently Relevant to Health Maintenance Results * (ABNORMAL) CBC auto differential (03/11/2025 2:54 PM EDT) WBC 7.0 4.8 - 10.8 K/mcL LAB HEMETOLOGY METHOD 03/11/2025 4:47 PM EDT [facility] RBC 4.20 3.80 - 4.80 M/mcL LAB HEMETOLOGY METHOD 03/11/2025 4:47 PM EDT [facility] Hemoglobin 11.9 11.5 - 16.0 g/dL LAB HEMETOLOGY METHOD 03/11/2025 4:47 PM EDT [facility] Hematocrit 37.7 35.0 - 47.0 % LAB [facility]OLOGY [facility] MCV 90.8 79.0 - 98.0 FL LAB HEMETOLOGY METHOD [facility] MCH 28.7 27.0 - 32.0 pcg LAB HEMETOLOGY METHOD 03/11[facility] MCHC 31.6(L) 32.0 - 37.0 g/dL LAB HEMETOLOGY METHOD 03/11/2025 4:47 PM [facility] RDW 15.0 11.0 - 15.0 % LAB HEMETOLOGY METHOD 03/11/2025 4:47 PM [facility] Platelets 348 130 - 400 K/mcL LAB HEMETOLOGY METHOD 03/11/2025 4:47 PM [facility] MPV 11.3(H) 7.0 - 11.0 FL LAB HEMETOLOGY METHOD 03/11/2025 4:47 PM [facility] NRBC 0.0 <1.0 % LAB HEMETOLOGY METHOD 03/11/2025 4:47 PM [facility] NRBC Absolute 0.00 <0.10 K/mcL LAB HEMETOLOGY METHOD [facility] Neutrophils Relative 67.3 % LAB HEMETOLOGY METHOD [facility] Lymphocytes Relative 14.1 % LAB HEMETOLOGY METHOD [facility] Monocytes Relative 7.7 % LAB HEMETOLOGY METHOD 03/11/2025 4:47 PM [facility] Eosinophils Relative 9.9 % LAB HEMETOLOGY METHOD 03/11/2025 4:47 PM EDT [facility] Basophils Relative 0.7 % LAB HEMETOLOGY METHOD 03/11/2025 4:47 PM EDT [facility] Immature Granulocytes Relative 0.3 % LAB HEMETOLOGY METHOD 03/11/2025 4:47 PM EDT [facility] Neutrophils Absolute 4.71 1.50 - 7.00 K/mcL LAB HEMETOLOGY METHOD 03/11/2025 4:47 PM EDT [facility] Lymphocytes Absolute 0.99(L) 1.00 - 5.00 K/mcL LAB HEMETOLOGY METHOD 03/11/2025 4:47 PM EDT [facility] Monocytes Absolute 0.54 0.20 - 1.00 K/mcL LAB HEMETOLOGY METHOD 03/11/2025 4:47 PM EDT [facility] Eosinophils Absolute 0.69(H) 0.00 - 0.50 K/mcL LAB HEMETOLOGY METHOD 03/11/2025 4:47 PM EDT [facility] Basophils Absolute 0.05 0.00 - 0.20 K/mcL LAB HEMETOLOGY METHOD 03/11/2025 4:47 PM EDT [facility] Immature Granulocytes Absolute 0.02 0.00 - 0.03 K/mcL LAB HEMETOLOGY METHOD 03/11/2025 4:47 PM EDT [facility] Blood Venous blood specimen / Unknown Venipuncture / Unknown 03/11/2025 2:54 PM EDT 03/11/2025 2:54 PM EDT us Cira Lancaster MD LAB BLOOD ORDERABLES Final Resul t [facility] [address] [place] [address], * Basic metabolic panel (03/11/2025 2:54 PM EDT) Sodium 136 133 - 145 mmol/L LAB CHEMISTRY METHOD 03/11/2025 6:48 PM [facility] Potassium 4.4 3.5 - 5.5 mmol/L LAB CHEMISTRY METHOD 03/11/2025 6:48 PM [facility] Chloride 105 96 - 110 mmol/L LAB CHEMISTRY METHOD 03/11/2025 6:48 PM [facility] CO2 26 21 - 32 mmol/L LAB CHEMISTRY METHOD 03/11/2025 6:48 PM [facility] Anion Gap 5 3 - 11 LAB CHEMISTRY METHOD 03/11/2025 6:48 PM [facility] Glucose 83 70 - 100 mg/dL LAB CHEMISTRY METHOD 03/11/2025 6:48 PM [facility] BUN 15 5 - 25 mg/dL LAB CHEMISTRY METHOD 03/11/2025 6:48 PM [facility] Creatinine 0.56 0.50 - 1.10 mg/dL LAB CHEMISTRY METHOD 03/11/2025 6:48 PM [facility] eGFR 104 >=60 mL/min/1. 73m2 LAB CHEMISTRY METHOD 03/11/2025 6:48 PM [facility] Comment:Calculation based on the Chronic Kidney Disease Epidemiology Collaboration (CKD-EPI) equation refit without adjustment for race. BUN/Creatinine Ratio 26.8 LAB CHEMISTRY METHOD 03/11/2025 6:48 PM [facility] Calcium 9.5 8.5 - 10.5 mg/dL LAB CHEMISTRY METHOD 03/11/2025 6:48 PM [facility] Blood Venous blood specimen / Unknown Venipuncture / Unknown 03/11/2025 2:54 PM EDT 03/11/2025 2:54 PM EDT us Cira Lancaster MD LAB BLOOD ORDERABLES Final Resul t [facility] [address] [place] [address], [place] [phone] * External Mammogram Report (03/03/2025) Only the most recent of2 resultswithin the time period is included. Anatomical Region Laterality Modality Mammography Provider [facility] IMG BI PROCEDURES Final Result * Lipid panel with reflex to direct LDL (09/10/2024 1:04 PM EST) Cholesterol 159 0 - 200 mg/dL LAB CHEMISTRY METHOD 09/10/2024 4:58 PM EST [facility] Triglycerides 45 0 - 150 mg/dL LAB CHEMISTRY METHOD 09/10/2024 4:58 PM [facility] HDL 63 >=40 mg/dL LAB CHEMISTRY METHOD 09/10/2024 4:58 PM EST [facility] LDL Calculated 87 0 - 100 mg/dL LAB CHEMISTRY METHOD 09/10/2024 4:58 PM EST [facility] VLDL Cholesterol Mick 9 mg/dL LAB CHEMISTRY METHOD 09/10/2024 4:58 PM [facility] Non HDL Chol. (LDL+VLDL) 96 <145 mg/dL LAB CHEMISTRY METHOD 09/10/2024 4:58 PM [facility] Chol/HDL Ratio 2.5 0.0 - 4.4 LAB CHEMISTRY METHOD 09/10/2024 4:58 PM [facility] Blood Venous blood specimen / Unknown Venipuncture / Unknown 09/10/2024 1:04 PM EST 09/10/2024 1:04 PM EST Yelena GARCIA LAB BLOOD ORDERABLES Final Res ult [facility] [address] [place] [address], * Cervical Cancer Screening: HPV (02/28/2024) Pathologist [facility] Cervical Cancer Screening: HPV abstracted, negative Historical Provider HEALTH MAINTENANCE Final Result * Colonoscopy (05/24/2020) Colonoscopy no interpretation , abstracted Anatomical Region Laterality Modality Other Historical Provider HEALTH MAINTENANCE Final Result * Hepatitis C Screening (09/03/2019) Pathologist [facility] Hepatitis C Screening abstracted Historical Provider HEALTH MAINTENANCE Final Result from Last 3 Months or Most Recently Relevant to Health Maintenance Insurance [employer] MEDICARE Member Subscriber Plan / Payer (Ef fective 2022-Present) Name:Sahara Riddle Relation to Subscriber:Self Name:Sahara Riddle Payer ID:[id number] Group ID:[id number] Type:Not on file Address: [place] [address] [address] [id number] Advance Directives Documents on File Type Date Recorded Patient Debubblizer Expl anation Health Care Decision (hx) 10/06/2021 HOMERO CARRENO DIRECTIVE Care Teams Pipe Supervisor Relationship Specialty Start Date End Date Cira Lancaster MD [address] [place] [phone] PCP - General Internal Medicine 09/24/22
--- OUTSIDE RECORDS SUMMARY | 2025-03-30 18:10 | XMS_ITS | Clinical Summary ---
Author Organization [facility] [facility] Address [address] [place] [address] Care Team Providers Care Retail Banking Manager Name Role Phone Cira Lancaster MD Primary Care Provider [phone] Allergies Active Allergy Reactions Criticality Noted Date Comments [place] Anaphylaxis High 12/03/2023 Medications Medication Sig Dispensed [...] Tdap) 06/30/2019 06/30/2009 COVID-19 Vaccine ( season) 2025 08/04/2021, 11/03/2020, 10/12/2020 Influenza Vaccine (#1) 2025 [...] age to complete this topic Care Teams Retail Banking Manager Relationship Specialty Start Date End Date Cira Lancaster MD [address] [place], [place] [address]CAYETANO gordon [id number] PCP - General Internal Medicine 11/18/23
== END 2025-03-30 15:11 | disposition home or self-care (01) ==
LOC: HO.HMGCLDS 15:10
PROVIDERS: PCP Internal Medicine; Visit Provider Student in an Organized Health Care Education/Training Program
DX: M05.79 Rheumatoid arthritis with rheumatoid factor of multiple sites without organ or systems involvement (principal); Z13.6 Encounter for screening for cardiovascular disorders
CPT/HCPCS: 36415; 80053; 80061; 85025; 85652; 86140

== ENCOUNTER 2025-04-01 14:30 | Outpatient (AMB) | payer OTHER, SELFPAY ==
--- NOTE | 2025-04-01 14:42 | A.OFFVIS_ITS ---
Vital Signs 04/01/25 14:48 Height 5 ft 1 in Weight 175 lb 11.335 oz BMI 33.2 BP 132/78 Blood Pressure Location Lt brachial Position Sitting Pulse 86 Pulse Source Pulse Oximeter Pulse Oximetry (%) 98 Oxygen Delivery Method Room Air Intake Visit Reasons: RA Intake Note: Patient presents for RA follow up. Allergies almond Allergy (Severe, Verified 04/01/25 14:48) Hives and Rash Medication List - Last Reconciled 04/01/25 by Courtney Rich MD acetaminophen 650 mg (2 x 325 mg) PO Q6H PRN 30 days albuterol sulfate 2.5 mg (3 mL) inhalation TID PRN 30 days albuterol sulfate 90 mcg/actuation 2 puffs PO Q6H PRN [id number] 160-9-4.8 mcg/actuation (Breztri Aerosphere) 2 inhalations PO BID [Cane As directed] cyclobenzaprine 5 mg PO Q8H PRN diclofenac potassium 25 mg PO BID dupilumab (Dupixent) 300 mg (2 mL) subcut Q2W 28 days folic acid 3 mg (3 x 1 mg) PO DAILY 90 days [food tray As directed] furosemide (Lasix) 20 mg PO DAILY 3 days heating pads As directed hydroxychloroquine 300 mg (1.5 x 200 mg) PO DAILY insulin syringe-needle U-100 (BD Insulin Syringe) Inject 15 mg methotrexate (.6cc) 25 mg/cc once a week ipratropium-albuterol 0.5 mg-3 mg(2.5 mg base)/3 mL 3 mL inhalation QID 90 days leg brace (Knee Support Brace) As directed methotrexate (PF) (Otrexup (PF)) 15 mg (0.4 mL) subcut QWEEK montelukast 10 mg PO BEDTIME nebulizers As directed [Neck Pillow Support As directed] Shower Chair As directed sulfasalazine 1 g (2 x 500 mg) PO BID 90 days tocilizumab (Actemra ACTPen) 162 mg (0.9 mL) subcut Q2W tolterodine ER 2 mg PO QPM walker Folding Front wheeled walker HPI Comments Details: Patient is a 59-year-old female with polyarticular osteoarthritis and seropositive rheumatoid arthritis here today for follow up Interval History: Patient last seen with me - On hydroxychloroquine 300 mg daily, methotrexate 15 mg weekly SC, Sulfasalazine 500 mg 4 times a day, Actemra 162 mg every 2 weeks, folic acid 1 mg a day and diclofenac 25 mg b.i.d. PRN - She states that she feels a bit better on the current regimen - Still has breakthrough joint pains but lasting less time currently - Patient was to stop sulfasalazine after the last visit but she continued it due to fear of a flare - Also started taking diclofenac from an old prescription given to her by Dr. Farfan Today - On hydroxychloroquine 300 mg daily, methotrexate 15 mg weekly SC, Sulfasalazine 500 mg 4 times a day, Actemra 162 mg every 2 weeks, folic acid 1 mg a day and diclofenac 25 mg b.i.d. PRN - Having a flare - Has been missing some her doses because she is afraid of side effects Rheumatologic History: Seropositive rheumatoid arthritis Onset about 2000 +++ RF+++CCP positive. Erosive changes on hand films 07/18. On HCQ & SSZ since ? 2004? MTX added 05/2011. Enbrel added 09/2012. MTX stopped 03/22 due to shingles. HCQ, Enbrel and SSZ continued, MTX added back 06/22. lost coverage for Enbrel 2021.restarted 07/2022May 2023: Methotrexate changed to 15 mg subcu weekly Enbrel DC ineffective Rinvoq 12/2023-05/2024 Actemra 06/2024 Current Rheumatology Medication(s): Hydroxychloroquine 300 mg daily Methotrexate injection 15 mg weekly Sulfasalazine 500 mg 4 times a day Actemra 162 mg SC every 2 weeks Folic acid 1 mg daily Diclofenac 25mg bid prn [facility] Medical History (Updated 08/19/24 @ 08:24 by Courtney Rich MD) Encounter for methotrexate monitoring Encounter for monitoring tocilizumab therapy Osteoarthritis of left knee Osteoarthritis Bilateral hand swelling Left knee pain Cataract Long-term use of immunosuppressant medication Seropositive rheumatoid arthritis Asthma-COPD overlap syndrome Cough Allergies Chronic allergic rhinitis Surgical History Hx of appendectomy History of knee replacement procedure of right knee Family History Father Asthma Maternal Grandmother Asthma Social History Household Members: Spouse Housing: House Are you a primary child caregiver private home to a significant other at home: No Do you presently have visiting nurse or other home services: No Alcohol intake: never Patient Tobacco Use Status: Never used Tobacco e-Cigarette/Vaping Use: Never Used service: No Current occupational status: unemployed Sexual orientation: Straight/Heterosexual Gender identity: Female Cognitive needs: No Hearing needs: No Vision needs: Yes Review of Systems Const Details: Review of Systems Constitutional: Denies fever, chills, weight loss ENT: Denies vision changes, eye pain or eye redness, dental caries, dry mouth GI: Denies nausea, vomiting, diarrhea, abdominal pain, change in BM Pulm: Denies SOB, [place], hemoptysis, wheezing Cards: Denies chest pain, palpitations Skin: Denies Raynaud's, rash, nail changes, photosensitivity, REGISTERED DIETICIAN: Denies headaches, weakness, paresthesias, recurrent falls MSK: as per HPI All other systems reviewed and are unremarkable except noted above Physical Exam Exam Exam: Vital signs reviewed Physical Examination CONSTITUITIONAL Patient alert and cooperative. Well appearing and tearful MSK Hands * Right Hand: Not able to make a fist. Prominent swelling and warmth to MCPs and PIPs, TTP. * Left Hand: Not able to make a fist. Prominent swelling and warmth to MCPs and PIPs, TTP. * Herbedens nodes noted bilaterally * Ulnar deviation bilaterally Wrists * Right Wrist: Decreased ROM. No swelling but TTP * Left Wrist: Decreased ROM. No swelling but TTP Elbows * Right Elbow: Decreased ROM. No swelling or TTP. No TTP of the medial epicondyle. No TTP of the lateral epicondyle * Left Elbow: Decreased ROM. No swelling or TTP. No TTP of the medial epicondyle. No TTP of the lateral epicondyle Shoulders * Right shoulder: Decreased ROM. No swelling noted. No TTP of the AC joint. TTP of the subacromial bursa. No TTP of the posterior shoulder * Left shoulder: Decreased ROM. No swelling noted. No TTP of the AC joint. TTP of the subacromial bursa. No TTP of the posterior shoulder Knees * Right knee: Full ROM. No swelling noted. TTP of the knee joint line. No TTP of pes anserine bursa * Left knee: Full ROM. No swelling noted. TTP of the knee joint line. No TTP of pes anserine bursa. * Surgical incision noted bilaterally Ankles * Right ankle: Decreased ROM. No swelling. No TTP of the ankle joint * Left ankle: Decreased ROM. No swelling. No TTP of the ankle joint Feet * Right foot: Positive squeeze test * Left foot: Positive squeeze test Tender points? * No tenderness to palpation of the bilateral trapezius, supraspinatus, anterior costochondral junctions, bilateral suboccipital muscle insertions SKIN No rashes Vital Signs: Last Vital Signs Pulse 86 04/01/25 14:48 BP 132/78 04/01/25 14:48 Pulse Ox 98 04/01/25 14:48 Oxygen Delivery Method Room Air 04/01/25 14:48 BMI result Body Mass Index 33.2 Results Reviewed Results Reviewed: Laboratory Tests 11/24/24 03/30/25 03/30/25 16:17 15:15 15:18 WBC 7.7 RBC 4.08 L Hgb 11.4 L Hct 36.6 L Plt Count 422 H ESR 83 H Sodium 141 Potassium 4.4 Chloride 105 Carbon Dioxide 29 BUN 16 Creatinine 0.65 AST 27 ALT 17 C-Reactive Protein 0.41 6.65 H 11/24/24 16:17 Hepatitis A IgM Ab Nonreactive Hep Bs Antigen Negative Hep Bs Antibody NONREACTIVE Hep B Core Total Ab Nonreactive Hepatitis C Ab (EIA) Nonreactive TB Test (T-Spot) Com Negative Assessment & Plan Assessment & Plan (1) Seropositive rheumatoid arthritis of multiple joints: Comment: Onset about 2000 +++ RF+++CCP positive. Erosive changes on hand films 07/18. On HCQ & SSZ since ? 2004? MTX added 05/2011. Enbrel added 09/2012. MTX stopped 03/22 due to shingles. HCQ, Enbrel and SSZ continued, MTX added back 06/22. lost coverage for Enbrel 2021.restarted 07/2022May 2023: Methotrexate changed to 15 mg subcu weekly Enbrel DC ineffective Rinvoq 12/2023 - 05/2024 Actemra 07/2024 Code(s): M05.79 - Rheumatoid arthritis with rheumatoid factor of multiple sites without organ or systems involvement Category: Medical Plan: #Seropositive nodular Erosive RA Patient is a 59-year-old female with seropositive nodular erosive rheumatoid art hritis. Currently in a flare of her disease with multiple swollen and tender joints Patient admits to not taking her Actemra or methotrexate. Discussed switching medication to Rituximab but patient wants to try being consistent with her current regimen first Plan - Sulfasalazine 1000mg bid - Actemra 162mg every 2 weeks - Mtx SC 15mg every week - Folic acid to 3mg per day - Hydroxychloroquine 300mg daily - Prednisone: Take 15mg for 7 days then 10mg for 7 days then 5mg for 7 days then stop - RTC 4 months - Labs before visit: CBC, CMP, ESR, CRP, lipid panel (2) Encounter for monitoring tocilizumab therapy: Code(s): Z51.81 - Encounter for therapeutic drug level monitoring; Z79.620 - senior care (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 of immunosuppressive biologic Category: Medical Plan: #Long-term Use of Tocilizumab Discussed the risks and benefits of tocilizumab with the management of this patient's rheumatic condition. ? Benefits include decreased pain, improved mortality, improved quality of life Risks include LFT abnormalities, elevated triglycerides, GI perforations Contraindicated in a patient with history of diverticulitis Monitoring: ?CBC, CMP, triglycerides (3) Long-term use of hydroxychloroquine: Comment: Eye exam normal January 2014, 2014, November 2015, 05/25; 09/23; 03/27, 09/2020, 03/2021,10/2021, 04/2022, 02/2024 Code(s): Z79.899 - Other vermin exterminator (current) drug therapy Category: Medical Plan: #Long-term Use of Hydroxychloroquine Discussed with patient the risks and benefits of hydroxychloroquine in managing the rheumatic condition Benefits include: - Reduced pain, reduce mortality, maintenance of remission and reduction of flares Risks include: - GI upset, skin hyperpigmentation, retinal toxicity (especially after more than 5 years of use), myopathy Advised yearly ophthalmology visits (4) Encounter for methotrexate monitoring: Code(s): Z51.81 - Encounter for therapeutic drug level monitoring; Z79.631 - senior care ( 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 of antimetabolite agent Category: Medical Plan: #Long-term Current Use of Methotrexate Discussed with patient the benefits and risks of methotrexate for managing their rheumatic condition Benefits include reduced pain, reduced mortality, maintenance of remission and reduction of flares Risks include oral ulcers, photosensitivity, hepatotoxicity, hematologic toxicity, pneumonitis, flu-like symptoms (especially day after administration), nodulosis, lymphomas ? Limit alcohol and avoid Bactrim ? Monitoring: ?CBC, BMP, LFTs every 3-4 months and hepatitis serologies as needed Plan I spent 35 minutes reviewing the record and labs, taking a history, examining the patient, discussing the treatment plan and documenting in the medical record Orders: Orders Comprehensive Met. Panel 4 Months Z79.899 - Other vermin exterminator (current) drug therapy Erythrocyte Sedimentation Rate 4 Months Z79.899 - Other vermin exterminator (current) drug therapy Complete Blood Count Auto Diff 4 Months Z79.899 - Other vermin exterminator (current) drug therapy C Reactive Protein 4 Months Z79.899 - Other vermin exterminator (current) drug therapy Referrals Podiatry Referral M05.79 - Rheumatoid arthritis with rheumatoid factor of multiple sites without organ or systems involvement Medications: New prednisone Take 3 tablets for 7 days then 2 tablets for 7 days then 1 tablet for 7 days then stop 5 mg PO DIRECTED 42 tabs 0RF M05.79 - Rheumatoid arthritis with rheumatoid factor of multiple sites without organ or systems involvement Refilled hydroxychloroquine 300 mg (1.5 x 200 mg) PO DAILY 135 tabs 2RF M05.9 - Rheumatoid arthritis with rheumatoid factor, unspecified tocilizumab (Actemra ACTPen) 162 mg (0.9 mL) subcut Q2W 1.8 mL 4RF M05.79 - Rheumatoid arthritis with rheumatoid factor of multiple sites without organ or systems involvement folic acid 3 mg (3 x 1 mg) PO DAILY 270 tabs 1RF 90 days M05.79 - Rheumatoid arthritis with rheumatoid factor of multiple sites without organ or systems involvement methotrexate (PF) (Otrexup (PF)) 15 mg (0.4 mL) subcut QWEEK 1.6 mL 5RF M05.79 - Rheumatoid arthritis with rheumatoid factor of multiple sites without organ or systems involvement sulfasalazine give with food (meal/snack) 1 g (2 x 500 mg) PO BID 360 tabs 1RF 90 days M05.79 - Rheumatoid arthritis with rheumatoid factor of multiple sites without organ or systems involvement Coding Level of Care Code Est Pt Level 4 (22093) Complex EM visit Add On G2211 Diagnoses Seropositive rheumatoid arthritis of multiple joints M05.79 Encounter for monitoring tocilizumab therapy Z51.81; Z79.620 Long-term use of hydroxychloroquine Z79.899 Encounter for methotrexate monitoring Z51.81; Z79.631
[2025-04-01 14:48] VITALS: BP 132/78; PULSE 86; O2SAT 98; BMI 33.2
--- OUTSIDE RECORDS SUMMARY | 2025-04-01 18:51 | XMS_ITS | Clinical Summary ---
Author Organization [facility] [address] [place] [address] [place] [phone] Phone Care Team Providers Care Molecular Modeler Name Role Phone Cira Lancaster MD Primary Care Provider [phone] Allergies Active Allergy Reactions Criticality Noted Date Comments [place] Anaphylaxis High 12/03/2023 Nut - Unspecified 06/02/2018 [...] Active medical supply, miscellaneous (MISCELLANEOUS MEDICAL SUPPLY [facility]) Spacer/Aero Chamber Mouthpiece [facility] 1 Device by Does not apply route as needed (use with inhaler). Active Actemra ACTPen subcutaneous injection Inject 0.9 mL (162 mg total) under the skin every 14 (fourteen) days. Active EPINEPHrine (Auvi-Q) 0.3 mg/0.3 mL injection Inject 0.3 mL (0.3 mg total) into the thigh if needed for anaphylaxis. 1 each Active miscellaneous medical supply [facility] Incontinence supply, Wipes, Package of 48 [...] without esophagi tis 03/11/2025 Celiac artery stenosis ([facility] V24) 01/25/2025 DVT (deep venous thrombosis) ([facility] V24, [facility] V28) 02/24/2024 Overview (05/15/2024): Left leg following left knee replacement. Asthma, severe persistent ([facility] V28) 01/25/20 Chronic allergic rhinitis 01/24/2021 Overview [...] of lung 11/29/2017 Seropositive rheumatoid arth ritis ([facility] V24, [facility] V28) 06/30/2009 Overview (05/15/2024): Onset [...] 03/11/2025 1:15 PM EDT Office Visit Adult [address] [phone] Cira Lancaster MD Varicose veins of both lower extremities with pain (Primary Dx); Intertrigo; Gastroesophageal reflux disease without esophagitis 03/09/2025 3:30 PM EDT Consult Bariatric Surgery [facility] [address] [place] [address] Kim Abbott MD BMI 33.0-33.9,adult 03/04/2025 11:45 AM EDT Office Visit Urogynecology [address] [phone] Tita Mcgee MD Stress incontinence (Primary Dx); OAB (overactive bladder) 01/29/2025 2:00 PM EDT Consult Vascular Surgery [facility] [address] [place] [address] Kathy Moreno MD Leg swelling (Primary Dx); Bilateral leg pain 01/25/2025 8:00 AM EDT Office Visit [address] [phone] Yelena Wilburn PA Localized swelling of both lower legs (Primary Dx); Celiac artery stenosis ([facility] V24) 01/21/2025 Telephone Adult Medicine [address] [phone] Cira Lancaster MD 01/20/2025 Telephone Adult [address] [phone] Cira Lancaster MD from Last 3 Months [...] HISTORICAL APPENDECTOMY OTHER SURGICAL HISTORY 02/23/2019 PROCEDURE: AL LARYNGOSCOPY FLEXIBLE DIAGNOSTIC; COMMENT: Dr Roque TOTAL [...] care for your loved ones. For example, director of early childhood or elderly care for an older adult? [...] Description 04/15/2025 8:30 AM EDT Ancillary Procedure [facility] [address] [facility] [address] [place] [address] 04/26/2025 2:30 PM EDT Office Visit Vascular Surgery - [place] [address] [facility] [address] [place] [address] Summer Shepherd PA [address] [facility] [address] [place] [address] 06/08/2025 2:45 PM EST Office Visit Bariatric Surgery - [place] [address] [facility] [address] [place] [phone] Kim Abbott MD [address] [place] [phone] 09/14/2025 1:30 PM EDT Office Visit Adult Medicine [address] [phone] Cira Lancaster MD [address] [place] [phone] 03/03/2026 11:45 AM EDT Office Visit Urogynecology [facility] [address] [place] [address] Tita Mcgee MD [address] [facility] [address] [place] [address] Health Maintenance Due Date Last Done Comments [...] LAB HEMETOLOGY METHOD 03/11/2025 4:47 PM EDT [facility] RBC 4.20 3.80 - 4.80 M/mcL LAB HEMETOLOGY METHOD 03/11/2025 4:47 PM EDT [facility] Hemoglobin 11.9 11.5 - 16.0 g/dL LAB HEMETOLOGY METHOD 03/11/2025 4:47 PM EDT [facility] Hematocrit 37.7 35.0 - 47.0 % LAB HEMETOLOGY METHOD [facility] MCV 90.8 79.0 - 98.0 FL LAB HEMETOLOGY METHOD 03/11[facility]2025 4[facility] MCH 28.7 27.0 - 32.0 pcg LAB HEMETOLOGY METHOD 03/11/2025 4[facility] MCHC 31.6(L) 32.0 - 37.0 g/dL LAB HEMETOLOGY METHOD 03/11/2025 4:47 PM [facility] RDW 15.0 11.0 - 15.0 % LAB HEMETOLOGY METHOD 03/11/2025 4:47 PM [facility] Platelets 348 130 - 400 K/mcL LAB HEMETOLOGY METHOD 03/11/2025 4:47 PM [facility] MPV 11.3(H) 7.0 - 11.0 FL LAB HEMETOLOGY METHOD 03/11/2025 4:47 PM [facility] NRBC 0.0 <1.0 % LAB HEMETOLOGY METHOD 03/11/2025 4:47 PM [facility] NRBC Absolute 0.00 <0.10 K/mcL LAB HEMETOLOGY METHOD 03/11[facility]2025 4[facility] Neutrophils Relative 67.3 % LAB HEMETOLOGY METHOD 03/11/2025 4:[facility] Lymphocytes Relative 14.1 % LAB HEMETOLOGY METHOD 03/11/2025 4:[facility] Monocytes Relative 7.7 % LAB HEMETOLOGY METHOD 03/11/2025 4:47 PM [facility] Eosinophils Relative 9.9 % LAB HEMETOLOGY METHOD 03/11/2025 4:47 PM EDT [facility] Basophils Relative 0.7 % LAB HEMETOLOGY METHOD 03/11/2025 4:47 PM EDT [facility] Immature Granulocytes Relative 0.3 % LAB HEMETOLOGY METHOD 03/11/2025 4:47 PM EDT [facility] Neutrophils Absolute 4.71 1.50 - 7.00 K/mcL LAB HEMETOLOGY METHOD 03/11/2025 4:47 PM EDT [facility] Lymphocytes Absolute 0.99(L) 1.00 - 5.00 K/mcL LAB HEMETOLOGY METHOD 03/11/2025 4:47 PM EDT [facility] Monocytes Absolute 0.54 0.20 - 1.00 K/mcL LAB HEMETOLOGY METHOD 03/11/2025 4:47 PM EDT [facility] Eosinophils Absolute 0.69(H) 0.00 - 0.50 K/mcL LAB HEMETOLOGY METHOD 03/11/2025 4:47 PM EDT [facility] Basophils Absolute 0.05 0.00 - 0.20 K/mcL LAB HEMETOLOGY METHOD 03/11/2025 4:47 PM EDT [facility] Immature Granulocytes Absolute 0.02 0.00 - 0.03 K/mcL LAB HEMETOLOGY METHOD 03/11/2025 4:47 PM EDT [facility] Blood Venous blood specimen / Unknown Venipuncture / Unknown 03/11/2025 2:54 PM EDT 03/11/2025 2:54 PM EDT us Cira Lancaster MD LAB BLOOD ORDERABLES Final Resul t [facility] [address] [place] [address], * Basic metabolic panel (03/11/2025 2:54 PM EDT) Sodium 136 133 - 145 mmol/L LAB CHEMISTRY METHOD 03/11/2025 6:48 PM [facility] Potassium 4.4 3.5 - 5.5 mmol/L LAB CHEMISTRY METHOD 03/11/2025 6:48 PM [facility] Chloride 105 96 - 110 mmol/L LAB CHEMISTRY METHOD 03/11/2025 6:48 PM [facility] CO2 26 21 - 32 mmol/L LAB CHEMISTRY METHOD 03/11/2025 6:48 PM [facility] Anion Gap 5 3 - 11 LAB CHEMISTRY METHOD 03/11/2025 6:48 PM [facility] Glucose 83 70 - 100 mg/dL LAB CHEMISTRY METHOD 03/11/2025 6:48 PM [facility] BUN 15 5 - 25 mg/dL LAB CHEMISTRY METHOD 03/11/2025 6:48 PM [facility] Creatinine 0.56 0.50 - 1.10 mg/dL LAB CHEMISTRY METHOD 03/11/2025 6:48 PM [facility] eGFR 104 >=60 mL/min/1. 73m2 LAB CHEMISTRY METHOD 03/11/2025 6:48 PM [facility] Comment:Calculation based on the Chronic Kidney Disease Epidemiology Collaboration (CKD-EPI) equation refit without adjustment for race. BUN/Creatinine Ratio 26.8 LAB CHEMISTRY METHOD 03/11/2025 6:48 PM [facility] Calcium 9.5 8.5 - 10.5 mg/dL LAB CHEMISTRY METHOD 03/11/2025 6:48 PM [facility] Blood Venous blood specimen / Unknown Venipuncture / Unknown 03/11/2025 2:54 PM EDT 03/11/2025 2:54 PM EDT us Cira Lancaster MD LAB BLOOD ORDERABLES Final Resul t [facility] [address] [place] [address], [place] [phone] * External Mammogram Report (03/03/2025) Only the most recent of2 resultswithin the time period is included. Anatomical Region Laterality Modality Mammography Provider [facility] IMG BI PROCEDURES Final Result * Lipid panel with reflex to direct LDL (09/10/2024 1:04 PM EST) Cholesterol 159 0 - 200 mg/dL LAB CHEMISTRY METHOD 09/10/2024 4:58 PM EST [facility] Triglycerides 45 0 - 150 mg/dL LAB CHEMISTRY METHOD 09/10/2024 4:58 PM [facility] HDL 63 >=40 mg/dL LAB CHEMISTRY METHOD 09/10/2024 4:58 PM EST [facility] LDL Calculated 87 0 - 100 mg/dL LAB CHEMISTRY METHOD 09/10/2024 4:58 PM EST [facility] VLDL Cholesterol Mick 9 mg/dL LAB CHEMISTRY METHOD 09/10/2024 4:58 PM [facility] Non HDL Chol. (LDL+VLDL) 96 <145 mg/dL LAB CHEMISTRY METHOD 09/10/2024 4:58 PM [facility] Chol/HDL Ratio 2.5 0.0 - 4.4 LAB CHEMISTRY METHOD 09/10/2024 4:58 PM [facility] Blood Venous blood specimen / Unknown Venipuncture / Unknown 09/10/2024 1:04 PM EST 09/10/2024 1:04 PM EST Yelena GARCIA LAB BLOOD ORDERABLES Final Res ult [facility] [address] [place] [address], * Cervical Cancer Screening: HPV (02/28/2024) Pathologist [facility] Cervical Cancer Screening: HPV abstracted, negative Historical Provider HEALTH MAINTENANCE Final Result * Colonoscopy (05/24/2020) Colonoscopy no interpretation , abstracted Anatomical Region Laterality Modality Other Historical Provider HEALTH MAINTENANCE Final Result * Hepatitis C Screening (09/03/2019) Pathologist [facility] Hepatitis C Screening abstracted Historical Provider HEALTH MAINTENANCE Final Result from Last 3 Months or Most Recently Relevant to Health Maintenance Insurance [employer] MED[employer] Member Subscriber Plan / Payer (Ef fective 2022-Present) Name:Sahara Riddle Relation to Subscriber:Self Name:Sahara Riddle Payer ID:[id number] Group ID:[id number] Type:Not on file Address: [place] [address] [address] [place] [id number] Advance Directives Documents on File Type Date Recorded Patient Plant Assigner Expl anation Health Care Decision (hx) 10/06/2021 HOMERO CARRENO DIRECTIVE Care Teams Molecular Modeler Relationship Specialty Start Date End Date Cira Lancaster MD [address] [place] [phone] PCP - General Internal Medicine 09/24/22
--- OUTSIDE RECORDS SUMMARY | 2025-04-01 18:51 | XMS_ITS | Clinical Summary ---
Author Organization [facility] Address [address] [place] [address] Care Team Providers Care Hairpiece Stylist Name Role Phone Cira Lancaster MD Primary Care Provider [phone] Allergies Active Allergy Reactions Criticality Noted Date Comments [place] Anaphylaxis High 12/03/2023 Medications Medication Sig Dispensed [...] age to complete this topic Care Teams Hairpiece Stylist Relationship Specialty Start Date End Date Cira Lancaster MD [address] [place], [place] [address]CAYETANO gordon [id number] PCP - General Internal Medicine 11/18/23
== END 2025-04-01 15:41 | disposition home or self-care (01) ==
LOC: HO.RHES 14:30
PROVIDERS: PCP Internal Medicine; Visit Provider Student in an Organized Health Care Education/Training Program
DX: M05.79 Rheumatoid arthritis with rheumatoid factor of multiple sites without organ or systems involvement (principal); Z51.81 Encounter for therapeutic drug level monitoring; Z79.620 Long term (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 of immunosuppressive biologic; Z79.899 Other long term (current) drug therapy; Z79.631 Long term (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 of antimetabolite agent
CPT/HCPCS: 99214; G2211

== ENCOUNTER → 2025-04-01 14:30 | Outpatient (BNVA) | payer OTHER, SELFPAY | PROVIDERS: PCP Internal Medicine; Visit Provider Student in an Organized Health Care Education/Training Program | DX: M05.79 Rheumatoid arthritis with rheumatoid factor of multiple sites without organ or systems involvement (principal); M47.817 Spondylosis without myelopathy or radiculopathy, lumbosacral region | CPT/HCPCS: 99212 ==

== ENCOUNTER 2025-04-13 13:17 | Outpatient (AMB) | payer OTHER, SELFPAY ==
[2025-04-13 13:22] VITALS: BP 116/74; PULSE 73; O2SAT 94; BMI 33.3
--- NOTE | 2025-04-13 13:22 | MHC.OFFVIS ---
Vital Signs 04/13/25 13:22 Height 5 ft 1 in Weight 176 lb 5.917 oz BMI 33.3 BP 116/74 Blood Pressure Location Lt brachial Position Sitting Pulse 73 Pulse Source Pulse Oximeter Pulse Oximetry (%) 94 Oxygen Delivery Method Room Air Intake Visit Reasons: Asthma Project Assistant Required: No Accompanied by: Self / Same As Patient Allergies almond Allergy (Severe, Verified 04/13/25 13:25) Hives and Rash HPI Comments Details: Patient is a 59-year-old woman with known history of rheumatoid arthritis in addition to severe persistent. She has been struggling with her asthma now for many years. But has been getting worse in few months. She has tried many inhalers previously Symbicort and now recently switched to Trelegy inhaler by her doctors. She did not see any significant improvement. She typically responds better to the nebulized therapy. She does use the nebulizer 3 to 4 times a day. The patient is also required prednisone for her exacerbation on a frequent basis. In regards of her rheumatoid arthritis she has having discomfort but has been TNF inhibitors and also methotrexate for many years. She is not aware of any pulmonary adverse effects these medications. In the office she has significant wheezing. Patient did have evidence significant bronchospasms and she did received 2 DuoNeb treatments with significant improvement although she was to wheezing. Patient did receive Solu-Medrol 125 mg IM x1 to further alleviate her. The patient likely needs more aggressive asthma therapy in the form biologic therapy or in the form nebulize therapies. Therefore, will keep her on the trilogy and DuoNeb and also add budesonide nebulized therapy that she would use conjunction with the patient will undergo work in addition to to see if she biologic therapies at this time in the meantime were assess her hypersensitivity pneumonitis since she does have birds in her home. 07/05/2023 The patient is here for a pulmonary follow up visit. She has been doing very well on the dupixent. Does have intermittent cough, moderate in severity. Associated with wheezing. She has been using her respiratory therapy as well. She has been off the prednisone . She has been having significant knee pain. She has significant OA and will need a TKR. She also has significant RA and currently on biologic therapy. 03/06/2024 the patient is here for pulmonary follow-up visit. She continues to do well from a respiratory status. The Dupixent injections have been affecting beneficial. She also continues on respiratory therapy. She has not required any prednisone. She typically does not use her rescue inhaler often typically less than 2 times a week. She did undergo her total knee replacement. Afterwards she did have an issue with a blood clot. She was diagnosed with a DVT. No evidence of any thromboembolic disease. She has been on Eliquis and she has been tolerating it well. Otherwise The patient does not have any other respiratory complaints. She does complaint about her alopecia. She has not methotrexate. She will have to talk to her box sealing machine operator regarding any other alternatives. 10/07/2024 the patient is here for pulmonary follow-up visit. Overall she is doing well from the asthma standpoint. She continues Dupixent he continues with respiratory therapy with good effect. She did see the new box sealing machine operator and she was started on new medications for rheumatoid arthritis and she does feel better. She did have an issue with a neck ache. She was evaluated and placed on prednisone. She was given a little more prednisone that she usually takes. And she feels she got significantly swollen she gained significant weight from it. She does have significant lower extremity edema. She does not use any diuretics. I did caution her to avoid sodium in her diet. The meantime will give her some diuretics for 3 days to help her with her volume status. But hopefully after that she does not need any additional diuretics. If she continues to have significant swelling then which will request an echocardiogram to rule out any possibility of pulmonary hypertension or any other cardiac disease. 04/13/2025 the patient is here for pulmonary follow-up visit. Overall the patient is doing well. She is tolerating the Dupixent well. She is also using the Breztri inhaler as prescribed. She has not had to use any rescue therapy at least less than 2 times a week. She continues to follow closely with Rheumatology. Continues have significant arthritis and swelling of her joints because of her rheumatoid arthritis. She continues on the aggressive rheumatological treatment plan. She needs to be more adherent to her injections though. Otherwise the patient is without any other complaints. Will follow-up in 6 months. If any issues arise she can always call further recommendations. [facility] Medical History (Updated 08/19/24 @ 08:24 by Courtney Rich MD) Encounter for methotrexate monitoring Encounter for monitoring tocilizumab therapy Osteoarthritis of left knee Osteoarthritis Bilateral hand swelling Left knee pain Cataract Long-term use of immunosuppressant medication Seropositive rheumatoid arthritis Asthma-COPD overlap syndrome Cough Allergies Chronic allergic rhinitis Surgical History Hx of appendectomy History of knee replacement procedure of right knee Family History Father Asthma Maternal Grandmother Asthma Social History Household Members: Spouse Housing: House Are you a primary child daycare worker to a significant other at home: No Do you presently have visiting nurse or other home services: No Alcohol intake: never Patient Tobacco Use Status: Never used Tobacco e-Cigarette/Vaping Use: Never Used service: No Current occupational status: unemployed Sexual orientation: Straight/Heterosexual Gender identity: Female Cognitive needs: No Hearing needs: No Vision needs: Yes Review of Systems Const Denies night sweats and Reports weight gain ENT Denies change in voice, Denies lip swelling, Denies mouth pain, Reports nasal congestion, Reports nasal discharge and Denies tongue swelling Card Denies chest pain and Reports leg edema Resp Reports cough and Denies wheezing GI Denies abdominal pain Musc Reports as per HPI Neuro Denies Neuro-related abnormal movements Psych Denies no additional complaints Wiley/Lymph Reports as per HPI, Denies easy bleeding and Denies lymphadenopathy Aller/Immun Denies lip swelling, Denies tongue swelling and Denies wheezing Physical Exam Vital Signs: Last Vital Signs Pulse 73 04/13/25 13:22 BP 116/74 04/13/25 13:22 Pulse Ox 94 04/13/25 13:22 Oxygen Delivery Method Room Air 04/13/25 13:22 BMI result Body Mass Index 33.3 Const General: alert Neck Neck: Yes normal visual inspection, Yes full ROM and Yes no lymphadenopathy Chest Chest palpation & inspection: normal inspection of the chest Resp Auscultation: no wheezes and diminished lung sounds Cardio Rate: regular rate Rhythm: regular rhythm Heart sounds: S1 normal heart sound present and S2 normal heart sound present GI Palpation (GI): Soft to palpation and nontender Auscultation: normal bowel sounds Skin General skin exam: rashes and/or lesions noted Extrem General: Yes edema Office Procedures Flu Questionnaire Does the patient have a severe egg allergy?: No Does the patient have severe life threatening allergies?: No Does the patient have a fever or illness today?: No Has the patient ever had Guillain-Eugene Syndrome?: No Has the patient ever had any past reaction to a flu shot?: No Immunizations Fluarix [id number] (PF) 45 mcg (15 mcg x 3)/0.5 mL IM syringe Performing Provider: Bg Garcia MD Performing Location: [facility] Administered by: Valencia Floyd LPN on 04/13/25 14:03 Dose Route Admin Location Dispensed Lot Number Expiration Date NDC [employer] Operator 0.5 mL IM Right Deltoid 0.5 mL [id number] 01/04/26 51696-636-73 [employer] VIS Given Date VIS Provided VIS Publication Date 04/13/25 Single Vaccine 24 Eligibility Eligibility Date Funding Source Not [facility] Eligible 04/13/25 Private Assessment & Plan Assessment & Plan (1) Asthma: Code(s): J45.909 - Unspecified asthma, uncomplicated Category: Medical Qualifiers: Asthma complication type: uncomplicated Asthma persistence: persistent Asthma severity: severe Qualified Code(s): J45.50 - Severe persistent asthma, uncomplicated (2) Chronic allergic rhinitis: Code(s): J30.9 - Allergic rhinitis, unspecified Category: Medical (3) Asthma-COPD overlap syndrome: Code(s): J44.9 - Chronic obstructive pulmonary disease, unspecified Category: Medical Plan continue Breztri Duoneb as needed continue Dupixent Continue Singulair Stopped Eliquis for a provoked DVT. Low Na diet F/U 6-8 months Orders: Orders Influenza [id number] Immunization Today J44.9 - Chronic obstructive pulmonary disease, unspecified Medications: Refilled dupilumab (Dupixent) 300 mg (2 mL) subcut Q2W 4 mL 11RF 28 days J44.9 - Chronic obstructive pulmonary disease, unspecified Coding Level of Care Code Est Pt Level 4 (10451) Complex EM visit Add On G2211 Diagnoses Severe persistent asthma without complication J45.50 Asthma complication type: uncomplicated Asthma persistence: persistent Asthma severity: severe Chronic allergic rhinitis J30.9 Asthma-COPD overlap syndrome J44.9 Time Spent (min) 16
--- OUTSIDE RECORDS SUMMARY | 2025-04-13 16:16 | XMS_ITS | Clinical Summary ---
Author Organization [facility] [address] [place] [address] [place] [phone] Phone Care Team Providers Care Signal Circuit Designer Name Role Phone Cira Lancaster MD Primary Care Provider [phone] Allergies Active Allergy Reactions Criticality Noted Date Comments [place] Anaphylaxis High 12/03/2023 Nut - Unspecified 06/02/2018 Almonds Medications white petrolatum (Petroleum Jelly) ointment Apply 1 Applicator topically See Admin Instructions. Apply to skin after bathing 11/18/19 24 Active methotrexate, PF, (Otrexup, PF,) 15 mg/0.4 mL auto-injector 1 (one) time per week. 10/01/19 24 Active dupilumab (Dupixent Syringe) 300 [...] mg /3 mL (0.083 %) nebulizer solution 08/29/19 Active biotin 10 mg tablet Take [...] Active medical supply, miscellaneous (MISCELLANEOUS MEDICAL SUPPLY [facility]) Spacer/Aero Chamber Mouthpiece [facility] 1 Device by Does not apply route as needed (use with inhaler). 06/06/20 Active Actemra ACTPen subcutaneous injection Inject 0.9 mL (162 mg total) under the skin every 14 (fourteen) days. 05/22/20 Active EPINEPHrine (Auvi-Q) 0.3 mg/0.3 mL injection Inject 0.3 mL (0.3 mg total) into the thigh if needed for anaphylaxis. 1 each 06/18/20 Active miscellaneous medical supply [facility] Incontinence supply, Wipes, Package of 48 wipes Dispense 8 packages Sig Use 1 wipe every 2 hours as needed for incontinence. 4 each 09/03/19 Active acetaminophen (Tylenol 8 Hour) 650 mg 8 hr tablet Take 1 tablet (650 mg total) by mouth every 8 (eight) hours if needed for mild pain. Do not crush, chew, or split. Active nystatin (MYCOSTATIN) 100,000 unit/gram powderIndications :Intertrigo APPLY A THIN LAYER OF POWDER TOPICALLY TO AFFECTED AREA TWICE DAILY FOR 2 WEEKS, THEN STOP 30 g 01/19/20 25 Active furosemide (LASIX) 20 mg tablet Take 1 tablet by mouth once daily 90 tablet 1 02/13/20 25 Active solifenacin (VESICARE) 5 mg tabletIndications :bladder hyperactivity Take 1 tablet (5 mg total) by mouth 1 (one) time each day. Swallow tablet whole; do not crush, chew, or split. 90 each 3 03/04/20 25 026 Active phentermine 15 mg capsuleIndication s:BMI 33.0-33.9,adult Take 1 capsule (15 mg total) by mouth 1 (one) time each day before breakfast. Max Daily Amount: 15 mg 30 each 2 03/09/20 25 025 Active omeprazole (PriLOSEC) [address] capsule Take 1 capsule (20 mg total) by mouth 1 (one) time each day. Do not crush or chew. 90 each 1 03/11/20 25 026 Active nystatin (MYCOSTATIN) cream Apply topically 2 (two) times a day for 7 days. 30 g 3 03/11/20 25 025 Active Problems Problem Noted Date Diagnosed Date Gastroesophageal reflux disease without esophagi tis 03/11/2025 Celiac artery stenosis ([facility] V24) 01/25/2025 DVT (deep venous thrombosis) ([facility] V24, [facility] V28) 02/24/2024 Overview (05/15/2024): Left leg following left knee replacement. Asthma, severe persistent ([facility] V28) 01/25/20 21 Chronic allergic [...] of lung 11/29/2017 Seropositive rheumatoid arth ritis ([facility] V24, [facility] V28) 06/30/2009 Overview (05/15/2024): Onset [...] 1:15 PM EDT Office Visit Adult Medicine [address] [phone] Cira Lancaster MD Varicose veins of both lower extremities with pain (Primary Dx); Intertrigo; Gastroesophageal reflux disease without esophagitis 03/09/2025 3:30 PM EDT Consult Bariatric Surgery - [place] [address] [facility] [address] [place] [phone] Kim Abbott MD BMI 33.0-33.9,adult 03/04/2025 11:45 AM EDT Office Visit Urogynecology [address] [phone] Tita Mcgee MD Stress incontinence (Primary Dx); OAB (overactive bladder) 01/29/2025 2:00 PM EDT Consult Vascular Surgery - [place] [address] [place] [phone] Kathy Moreno MD Leg swelling (Primary Dx); Bilateral leg pain 01/25/2025 8:00 AM EDT Office Visit Adult Medicine [address] [phone] Yelena Wilburn PA Localized swelling of both lower legs (Primary Dx); Celiac artery stenosis ([facility] V24) 01/21/2025 Telephone Adult Medicine [address] [phone] Cira Lancaster MD 01/20/2025 Telephone Adult Medicine [address] [phone] Cira Lancaster MD from Last 3 Months Immunizations Immunization Administration Dates Next Due Influenza Quadravalent, MDCK [...] HISTORICAL APPENDECTOMY OTHER SURGICAL HISTORY 02/23/2019 PROCEDURE: [place] LARYNGOSCOPY FLEXIBLE DIAGNOSTIC; COMMENT: Dr Roque TOTAL [...] for your loved ones. For example, child and family counselor or elderly care for an older adult? [...] Date Recorded What is your living situation? Unrecognized valu e 09/08/2024 Comments No Sex and Gender Information [...] Description 04/15/2025 8:30 AM EDT Ancillary Procedure [facility] [address] [place] [address] 04/26/2025 2:30 PM EDT Office Visit Vascular Surgery - [place] [address] [place] [phone] Summer Shepherd PA [address] [place] [address] 06/08/2025 2:45 PM EST Office Visit Bariatric Surgery - [place] [address] [place] [phone] Kim Abbott MD [address] [place] [phone] 09/14/2025 1:30 PM EDT Office Visit [facility] [place] [facility] [place] [address] [place] [address] Cira Lancaster MD [address] [place], [place] 03/03/2026 11:45 AM EDT Office Visit Urogynecology - [address] [phone] Tita Mcgee MD [address] [facility] [address] [place] [address] Health Maintenance Due Date Last Done Comments [...] Screening 09/08/2025 09/08/2024 Breast Cancer Screening 03/03/2026 03/03/20 25, 03/03/2025, 05/22/2021, Additional history exists Cervical Cancer [...] Procedure Name Priority Date/Time Associated Diagnosis Comments EXTERNAL CLINICAL LAB 03/30/2025 CBC WITH AUTO DIFFERENTIAL Routine 03/11/2025 2:54 [...] EST Routine physical examination HPV Routine 02/28/2024 COLONOSCOPY Routine 05/24/2020 HEPATITIS C SCREENING Routine 09/03/2019 from Last 3 Months or Most Recently Relevant to Health Maintenance Results * External clinical lab (03/30/2025) us Provider [facility] LAB BLOOD ORDERABLES Fin al Result * (ABNORMAL) CBC auto differential (03/11/2025 2:54 PM EDT) WBC 7.0 4.8 - 10.8 K/mcL LAB HEMETOLOGY METHOD 03/11/2025 4:47 PM EDT [facility] RBC 4.20 3.80 - 4.80 M/mcL LAB HEMETOLOGY METHOD 03/11/2025 4:47 PM EDT [facility] Hemoglobin 11.9 11.5 - 16.0 g/dL LAB HEMETOLOGY METHOD 03/11/2025 4:47 PM EDT [facility] Hematocrit 37.7 35.0 - 47.0 % LAB HEMETOLOGY METHOD 03/11/2025 4:47 PM EDT [facility] MCV 90.8 79.0 - 98.0 FL LAB HEMETOLOGY METHOD 03/11/2025 4:47 PM EDT [facility] MCH 28.7 27.0 - 32.0 pcg LAB HEMETOLOGY METHOD 03/11[facility]25 [facility] MCHC 31.6(L) 32.0 - 37.0 g/dL LAB HEMETOLOGY METHOD 03/11/2025 4:47 PM EDT [facility] RDW 15.0 11.0 - 15.0 % LAB HEMETOLOGY METHOD 03/11/2025 4:47 PM [facility] Platelets 348 130 - 400 K/mcL LAB HEMETOLOGY METHOD 03/11/2025 4:47 PM [facility] MPV 11.3(H) 7.0 - 11.0 FL LAB HEMETOLOGY METHOD 03/11/2025 4:47 PM [facility] NRBC 0.0 <1.0 % LAB HEMETOLOGY METHOD 03/11/2025 4:47 PM [facility] NRBC Absolute 0.00 <0.10 K/mcL LAB HEMETOLOGY METHOD 03/11/2025 4:47 PM [facility] Neutrophils Relative 67.3 % LAB HEMETOLOGY METHOD 03/11/2025 4:47 PM [facility] Lymphocytes Relative 14.1 % LAB HEMETOLOGY METHOD 03/11/2025 4:47 PM [facility] Monocytes Relative 7.7 % LAB HEMETOLOGY METHOD 03/11/2025 4:47 PM [facility] Eosinophils Relative 9.9 % LAB HEMETOLOGY METHOD 03/11/2025 4:47 PM [facility] Basophils Relative 0.7 % LAB HEMETOLOGY METHOD 03/11/2025 4:47 PM [facility] Immature Granulocytes Relative 0.3 % LAB HEMETOLOGY METHOD 03/11/2025 4:47 PM [facility] Neutrophils Absolute 4.71 1.50 - 7.00 K/mcL LAB HEMETOLOGY METHOD 03/11/2025 4:47 PM [facility] Lymphocytes Absolute 0.99(L) 1.00 - 5.00 K/mcL LAB HEMETOLOGY METHOD 03/11/2025 4:47 PM [facility] Monocytes Absolute 0.54 0.20 - 1.00 K/mcL LAB HEMETOLOGY METHOD 03/11/2025 4:47 PM EDT [facility] Eosinophils Absolute 0.69(H) 0.00 - 0.50 K/[facility] LAB HEMETOLOGY METHOD 03/11/2025 4:47 PM EDT [facility] Basophils Absolute 0.05 0.00 - 0.20 K/mcL LAB HEMETOLOGY METHOD 03/11/2025 4:47 PM EDT [facility] Immature Granulocytes Absolute 0.02 0.00 - 0.03 K/[facility] LAB HEMETOLOGY METHOD 03/11/2025 4:47 PM EDT [facility] Blood Venous blood specimen / Unknown Venipuncture / Unknown 03/11/2025 2:54 PM EDT 03/11/2025 2:54 PM EDT us Cira Lancaster MD LAB BLOOD ORDERABLES Final Resul t [facility] [address] [place] [address], * Basic metabolic panel (03/11/2025 2:54 PM EDT) Sodium 136 133 - 145 mmol/L LAB CHEMISTRY METHOD 03/11/2025 6:48 PM [facility] Potassium 4.4 3.5 - 5.5 mmol/L LAB CHEMISTRY METHOD 03/11/2025 6:48 PM [facility] Chloride 105 96 - 110 mmol/L LAB CHEMISTRY METHOD 03/11/2025 6:48 PM [facility] CO2 26 21 - 32 mmol/L LAB CHEMISTRY METHOD 03/11/2025 6:48 PM [facility] Anion Gap 5 3 - 11 LAB CHEMISTRY METHOD 03/11/2025 6:48 PM [facility] Glucose 83 70 - 100 mg/dL LAB CHEMISTRY METHOD 03/11/2025 6:48 PM EDT [facility] BUN 15 5 - 25 mg/dL LAB CHEMISTRY METHOD 03/11/2025 6:48 PM EDT [facility] Creatinine 0.56 0.50 - 1.10 mg/dL LAB CHEMISTRY METHOD 03/11/2025 6:48 PM EDT [facility] eGFR 104 >=60 mL/min/1. 73m2 LAB CHEMISTRY METHOD 03/11/2025 6:48 PM EDT [facility] Comment:Calculation based on the Chronic Kidney Disease Epidemiology Collaboration (CKD-EPI) equation refit without adjustment for race. BUN/Creatinine Ratio 26.8 LAB CHEMISTRY METHOD 03/11/2025 6:48 PM EDT [facility] Calcium 9.5 8.5 - 10.5 mg/dL LAB CHEMISTRY METHOD 03/11/2025 6:48 PM EDT [facility] Blood Venous blood specimen / Unknown Venipuncture / Unknown 03/11/2025 2:54 PM EDT 03/11/2025 2:54 PM EDT Cira Lancaster MD LAB BLOOD ORDERABLES Final Resul t [facility] [address] [place] [address], [place] [phone] * External Mammogram Report (03/03/2025) Only the most recent of2 resultswithin the time period is included. Anatomical Region Laterality Modality Mammography us Provider [facility] IMG BI PROCEDURES Final Result * Lipid panel with reflex to direct LDL (09/10/2024 1:04 PM EST) Cholesterol 159 0 - 200 mg/dL LAB CHEMISTRY METHOD 09/10/2024 4:58 PM EST [facility] Triglycerides 45 0 - 150 mg/dL LAB CHEMISTRY METHOD 09/10/2024 4:58 PM EST [facility] HDL 63 >=40 mg/dL LAB CHEMISTRY METHOD 09/10/2024 4:58 PM EST [facility] LDL Calculated 87 0 - 100 mg/dL LAB CHEMISTRY METHOD 09/10/2024 4:58 PM EST [facility] VLDL Cholesterol Mick 9 mg/dL LAB CHEMISTRY METHOD 09/10/2024 4:58 PM EST [facility] Non HDL Chol. (LDL+VLDL) 96 <145 mg/dL LAB CHEMISTRY METHOD 09/10/2024 4:58 PM EST [facility] Chol/HDL Ratio 2.5 0.0 - 4.4 LAB CHEMISTRY METHOD 09/10/2024 4:58 PM [facility] Blood Venous blood specimen / Unknown Venipuncture / Unknown 09/10/2024 1:04 PM EST 09/10/2024 1:04 PM EST Yelena GARCIA LAB BLOOD ORDERABLES Final Res ult [facility] [address] [place] [address], [place] [phone] * Cervical Cancer Screening: HPV (02/28/2024) [facility] Cervical Cancer Screening: HPV abstracted, negative Historical Provider HEALTH MAINTENANCE Final Result * Colonoscopy (05/24/2020) [facility] Colonoscopy no interpretation , abstracted Anatomical Region Laterality Modality Other Historical Provider HEALTH MAINTENANCE Final Result * Hepatitis C Screening (09/03/2019) [facility] Hepatitis C Screening abstracted Historical Provider HEALTH MAINTENANCE Final Result from Last 3 Months or Most Recently Relevant to Health Maintenance Insurance [employer] MEDICARE Member Subscriber Plan / Payer (Ef fective 2022-Present) Name:Sahara Riddle Relation to Subscriber:Self Name:Sahara Riddle Payer ID:[id number] Group ID:[id number] Type:Not on file Address: [place] [address] [address] [id number] Advance Directives Documents on File Type Date Recorded Patient Inspector [employer] [facility] Care Decision (hx) 10/06/2021 HOMERO CARRENO DIRECTIVE Care Teams Signal Circuit Designer Relationship Specialty Start Date End Date Cira Lancaster MD [address] [place] [phone] PCP - General Internal Medicine 09/24/22
--- OUTSIDE RECORDS SUMMARY | 2025-04-13 16:17 | XMS_ITS | Clinical Summary ---
Author Organization [email or web address] Address [address] [place] [address] Care Team Providers Care Special Client Bus Driver Name Role Phone Cira Lancaster MD Primary Care Provider [phone] Allergies Active Allergy Reactions Criticality Noted Date Comments [place] Anaphylaxis High 12/03/2023 Medications Medication Sig Dispensed [...] age to complete this topic Care Teams Special Client Bus Driver Relationship Specialty Start Date End Date Cira Lancaster MD [address] [place], [place] [address]CAYETANO gordon [id number] PCP - General Internal Medicine 11/18/23
== END 2025-04-13 13:57 | disposition home or self-care (01) ==
LOC: HO.HPS 13:18
PROVIDERS: PCP Internal Medicine; Visit Provider Hospitalist
DX: J45.50 Severe persistent asthma, uncomplicated (principal); J30.9 Allergic rhinitis, unspecified; J44.9 Chronic obstructive pulmonary disease, unspecified
CPT/HCPCS: 99214; G2211

== ENCOUNTER → 2025-04-13 13:17 | Outpatient (BNVA) | payer OTHER, SELFPAY | PROVIDERS: PCP Internal Medicine; Visit Provider Hospitalist | DX: J45.40 Moderate persistent asthma, uncomplicated (principal); Z23 Encounter for immunization; J30.9 Allergic rhinitis, unspecified; J44.9 Chronic obstructive pulmonary disease, unspecified | CPT/HCPCS: 90471; 90656; 99212 ==

== ENCOUNTER 2025-04-27 13:11 | Outpatient (AMB) | payer OTHER, SELFPAY ==
--- OUTSIDE RECORDS SUMMARY | 2025-04-26 14:30 | XMS_ITS | Encounter Summary ---
Author Organization [facility] Address [address] [place] [address] Care Team Providers Care Casket Inspector Name Role Phone Cira Lancaster MD Primary Care Provider [phone] Reason for Visit * Reason Comments Follow-up 3 month follow up , venous ultrasound. LLE worst than RLE, swelling and painful. Encounter Details Date Type Department Care Team (Late st Contact Info) Description 04/26/2025 2:30 PM EDT Office Visit Vascular Surgery - [place] [address] [place] [address] Summer Shepherd PA [address] [place] [address] Bilateral lower extremity edema (Primary Dx); Celiac artery stenosis (CMS/HCC V24) Social History Tobacco Use Types Packs/Day Years [...] Record ed Within the last 3 months, ty barrera many times did you visit the emergency [...] do you feel lonely or isolated from ose around you? Never 09/08/2024 Food Risk [...] care for your loved ones. For example, professor of early childhood education or elderly care for an older adult? [...] on file documented as of this encounter Last Filed Vital Signs Vital Sign Reading Time Taken Comments Blood Pressure 136/80 04/26/2025 2:38 PM EDT Pulse 76 04/26/2025 2:38 PM EDT Temperature - - Respiratory Rate - - Oxygen Saturation - - Inhaled Oxygen Concentration - - Weight 80.4 kg (177 lb 3.2 oz) 04/26/2025 2:38 P M EDT Height - - Body Mass Index 33.48 03/11/2025 1:54 PM EDT documented in this encounter Progress Notes * RADHA Pompa - 04/26/2025 2:30 PM EDT PATIENT: Sahara Riddle ENCOUNTER: 04/26/2025 EMRN: [id number] : 1965 PCP: Cira Lancaster MD CHIEF COMPLAINT: Follow-up (3 month follow up , venous ultrasound. LLE worst than RLE, swelling andpainful. ) HPI: This 60 y.o. female presents for follow up of bilateral lower extremity edema. shoe stock associate ID # [id number] utilized during patient encounter. Patient was initially seen in consult by Dr. Moreno in January [address] findings and swelling in lower extremities. In November 2024, patient went to the emergency room for bilateral flank pain. She underwent a CT scan of the abdomen pelvis toevaluate. No abnormalities were found except for an incidental high- grade stenosis of the celiac artery. The SMA and ZACHARY were widely patent. Patient denies postprandial abdominal pain, food fear or weight loss and in fact she has reported weight gain. During the same ER visit, she was noted to have's new onset swelling in her lower extremities of unknown etiology. She has not been evaluated or known to have cardiac, renal or hepatic issues. She underwent a duplex of bilateral lower extremities which was unremarkable. She had not had a reflux study performed. She had not been prescribed compression stockings. The swelling had improved somewhat, however is still persistent and causes some pain . Since patient's last visit, she underwent venous reflux studies, see findings below. She does report improvement in her lower extremity swelling. She has been taking furosemide daily. She does continue to have some heaviness in her legs at the end of the day. She has not been wearing compression stockings. Despite being prescribed compression stockings at the last visit, she reports that the prescription was declined when she went to [facility] due to incorrect diagnosis. She denies any post prandial abdominal pain, fear of food, unintentional weight loss. PAST MEDICAL HISTORY: Problem List[1] PAST SURGICAL HISTORY: Surgical History[2] MEDICATIONS: Medications Taking[3] ALLERGIES: Current Allergies[4] SOCIAL HISTORY: Social History[5] FAMILY HISTORY: Family History[6] ROS: GENERAL: No malaise, significant weight loss or fever NECK: No lumps, goiter, pain or significant neck swelling RESPIRATORY: No cough, wheezing or shortness of breath CARDIAC: No chest pain or palpitations GI: No abdominal discomfort MUSCULOSKELETAL: SEE HPI SKIN: No lesions, rash or itching NEURO: No persistent headache, syncope, seizures, weakness or numbness VASCULAR: SEE HPI PHYSICAL EXAM: Vitals: 04/26/25 1438 BP: 136/80 Pulse: 76 Weight: 80.4 kg (177 lb 3.2 oz) General: Alert and oriented x 3, no acute distress, well-nourished HEENT: Normocephalic atraumatic Neck: No JVD Chest: Respiratory effort normal Cardiac: Regular rate rhythm Abdomen: Soft, nontender, nondistended, no widened aortic pulse Extremities: -Right upper extremity: 2+ radial artery pulses palpable. -Left upper extremity: 2+ radial artery pulses palpable. -Right lower extremity: 2+ femoral artery and DP pulses palpable. Edema improved since previous visit. Mild ankle edema present. No ulcers or gangrene. -Left lower extremity: 2+ femoral artery and DP pulses palpable. Edema improved since previous visit. Mild ankle edema present. No ulcers or gangrene. Integumentary: No wounds Neuro: Grossly intact DIAGNOSTIC TESTING: Bilateral lower extremity venous reflux, PVC, 04/15/25: Right: 1. The right lower extremity veins are compressible and there is no evidence of DVT in the right lower extremity venous system. 2. The GSV has clinically significant reflux of 4.3 seconds at the level of right knee and 4.3 seconds at the right upper calf. 3. The SSV has no reflux. The right saphenopopliteal junction could not be visualized well. Left: 1. The left lower extremity veins are compressible and there is no evidence of DVT in the left lower extremity venous system. 2. The GSV has clinically significant reflux of 1.4 seconds at the left lower calf. 3. The SSV has no significant reflux 4. Prominent lymph node noted in the left groin. INDICATION: upper abd pain CT Abdomen and [...] by: Blayne Flores MD on 11/07/2024 02:58:48 I independently reviewed the studies along with the images. ASSESSMENT: 1. Bilateral lower extremity edema 2. Celiac artery stenosis (CMS/HCC V24) PLAN: 60 y.o. female with celiac artery stenosis and bilateral lower extremity edema. CT abdomen/pelvis reviewed at previous visit. SMA and ZACHARY are widely patent. Patient denies any post prandial abdominalpain, fear of food, unintentional weight loss. No intervention warranted. In regards to lower extremity edema, we reviewed venous reflux studies from 04/15/25. There is clinically significant reflux of right GSV at level of knee and upper calf. There is also clinically significant reflux of left GSVat lower calf. Patient unfortunately was unable to obtain compression stockings since her last visit. Recommend further conservative management at this time. New prescription for compression stockings provided. Also discussed how to obtain over the counter. Recommend leg elevation, daily exercise, etc. We will have the patient follow up in 6 months to re-evaluate her symptoms. She will contact the office with any questions or concerns. We discussed the natural pathophysiology of venous disease. I spent 31 minutes in an encounter withthis patient, including time spent with patient, chart review, reviewing diagnostic studies, and documentation. 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 (CMS/HCC V24) Gastroesophageal reflux disease without esophagitis [2] Past Surgical History: Procedure Laterality Date APPENDECTOMY PROCEDURE: HISTORICAL APPENDECTOMY OTHER SURGICAL HISTORY 02/23/2019 PROCEDURE: KS LARYNGOSCOPY FLEXIBLE DIAGNOSTIC; COMMENT: Dr Roque TOTAL KNEE ARTHROPLASTY Bilateral PROCEDURE: HISTORICAL TOTAL KNEE REPLACE [3] Outpatient Medications Marked as Taking for the 04/26/25 encounter (Office Visit) with RADHA Pompa Medication Sig Dispense Refill acetaminophen (Tylenol 8 Hour) 650 mg 8 hr tablet Take 1 tablet (650 mg total) by mouth every 8 (eight) hours if needed for mild pain. Do not crush, chew, or split. Actemra ACTPen subcutaneous injection Inject 0.9 mL (162 mg total) under the skin every 14 (fourteen) days. albuterol 2.5 mg /3 mL (0.083 %) nebulizer solution albuterol HFA (PROAIR HFA ; PROVENTIL HFA ; VENTOLIN HFA) 90 mcg/actuation inhaler ascorbic acid (VITAMIN C) 500 mg CR tablet Take 500 mg by mouth daily. biotin 10 mg tablet Take by mouth daily. (Patient taking differently: 10,000) chqcqtwgix-kphzazcj-ubxrcrodvn (Breztri Aerosphere) 160-9-4.8 mcg/actuation HFA aerosol inhaler inhaler Inhale 2 puffs by mouth 2 (two) times a day. cholecalciferol, vitamin D3, (VITAMIN D3 ORAL) Take by mouth daily. diclofenac (CATAFLAM) 50 mg tablet Take 1 Tab by mouth 3 times daily. dupilumab (Dupixent Syringe) 300 mg/2 mL syringe EPINEPHrine (Auvi-Q) 0.3 mg/0.3 mL injection Inject 0.3 mL (0.3 mg total) into the thigh if needed for anaphylaxis. 1 each 0 folic acid (FOLVITE) 1 mg tablet Take 1 tablet (1,000 mcg total) by mouth 3 (three) times a day. furosemide (LASIX) 20 mg tablet Take 1 tablet by mouth once daily 90 tablet 1 hydroxychloroquine (PLAQUENIL) 200 mg tablet Take 1.5 tablets (300 mg total) by mouth 1 (one) time each day. ipratropium-albuteroL (DUONEB) 0.5-2.5 mg/3 mL nebulizer solution medical supply, miscellaneous (MISCELLANEOUS MEDICAL SUPPLY MIS) Incontinence Supply Disposable (Bladder Control Pads Regular) Misc 4 Each by Does not apply route daily. ROSENDO-99 4/day 120/month 11 refills medical supply, miscellaneous (MISCELLANEOUS MEDICAL SUPPLY [facility] Spacer/Aero Chamber Mouthpiece Misc 1 Device by Does not apply route as needed (use with inhaler). methotrexate, PF, (Otrexup, PF,) 15 mg/0.4 mL auto-injector 1 (one) time per week. miscellaneous medical supply misc Incontinence supply, Wipes, Package of 48 wipes Dispense 8 packages Sig Use 1 wipe every 2 hours as needed for incontinence. 4 each 11 montelukast (SINGULAIR) 10 mg tablet Take 1 Tab by mouth at bedtime. nystatin (MYCOSTATIN) 100,000 unit/gram powder APPLY A THIN LAYER OF POWDER TOPICALLY TO AFFECTED AREA TWICE DAILY FOR 2 WEEKS, THEN STOP 30 g 0 omeprazole (PriLOSEC) [address] capsule Take 1 capsule (20 mg total) by mouth 1 (one) time each day.Do not crush or chew. 90 each 1 phentermine 15 mg capsule Take 1 capsule (15 mg total) by mouth 1 (one) time each day before breakfast. Max Daily Amount: 15 mg 30 each 2 solifenacin (VESICARE) 5 mg tablet Take 1 tablet (5 mg total) by mouth 1 (one) time each day. Swallow tablet whole; do not crush, chew, or split. 90 each 3 sulfaSALAzine (AZULFIDINE) 500 mg tablet Take 1 tablet by mouth 4 times daily. white petrolatum (Petroleum Jelly) ointment Apply 1 Applicator topically See Admin Instructions. Apply to skin after bathing [4] Allergies Allergen Reactions Grady Anaphylaxis Nut - Unspecified Almonds [5] Social History Tobacco Use Smoking status: Never Smokeless tobacco: Never Substance Use Topics Alcohol use: No Drug use: No [6] Family History Problem Relation Name Age of Onset Other (Other: rheumatoid arthritis) Mother Asthma Father Diabetes Maternal Grandmother RA Breast cancer Neg Hx Ovarian cancer Neg Hx Colon cancer Neg Hx Uterine cancer Neg Hx documented in this encounter Plan of Treatment Upcoming Encounters Date Type Department Care Team (Isaias wilson Contact Info) Description 06/08/2025 2:45 PM EST Office Visit Bariatric Surgery - [place] [address] [place] [phone] Kim Abbott MD [address] [place] [phone] 09/14/2025 1:30 PM EDT Office Visit [facility] [place] [address] [place], [place] [phone] Cira Lancaster MD [address] [place] [address] 11/04/2025 2:00 PM EDT Office Visit Vascular Surgery - [place] [address] [place] [address] Summer Shepherd PA [address] [place] [address] 03/03/2026 11:45 AM EDT Office Visit Urogynecology [address] [phone] Tita Mcgee MD [address] [facility] [address] [place] [address] documented as of this encounter Visit Diagnoses Diagnosis Bilateral lower extremity edema- Primary Celiac artery stenosis (CMS/HCC V24) Stricture of artery documented in this encounter Orders General Supply Count Last Ordered Date First Or dered Date COMPRESSION STOCKINGS 1 04/26/2025 documented in this encounter Additional Health Concerns Assessment Noted Time PHQ-9 Depression Total Score: 9 09/09/19 25 4:17 PM EST documented as of this encounter Care Teams Casket Inspector Relationship Specialty Start Date End Date Cira Lancaster MD [address] [place] [address] PCP - General Internal Medicine 09/24/22 documented as of this encounter
[2025-04-27 13:23] VITALS: BMI 33.3
--- NOTE | 2025-04-27 13:23 | A.OFFVIS_ITS ---
Vital Signs 04/27/25 13:23 Height 5 ft 1 in Weight 176 lb BMI 33.3 Intake Visit Reasons: Rheumatoid arthritis with rheumatoid factor Intake Note: Sahara is a 59 year old female who presents to the office today as a new patient referred by her [facility] Business Operations Analyst for foot deformities 2/2 RA causing difficulty with wearing shoes. Pt reports she has bilateral foot pain and has been going on for a long time she also has bilateral ankle swelling. She notes her second toe of her right foot is bending and when she wears shoes it becomes very uncomfortable. The treatment she has tried was Furosemide, creams, foot scrub, and OTC pain medication Allergies almond Allergy (Severe, Verified 04/27/25 13:44) Hives and Rash HPI HPI Rheumatoid arthritis with rheumatoid factor: Details: 60-year-old female with past medical history of seropositive rheumatoid arthritis on methotrexate, status post bilateral knee replacement history of left DVT, asthma COPD, who presents for bilateral foot pain. Patient states that she has had pain for several years and has not had treatment so far. More recently, she has noticed her right 2nd toe drift up with a painful lesion that develops on top of her toe. She is unable to wear shoe-wear without pain. She also notes a lump on the bottom of her left foot that has worsened over the past few months. She has over 8 pairs of shoes and has pain when ambulating in all of them. [facility] Medical History (Updated 04/27/25 @ 14:09 by Yehuda Warren DPM) Encounter for methotrexate monitoring Encounter for monitoring tocilizumab therapy Osteoarthritis of left knee Osteoarthritis Bilateral hand swelling Left knee pain Cataract Long-term use of immunosuppressant medication Seropositive rheumatoid arthritis Asthma-COPD overlap syndrome Cough Allergies Chronic allergic rhinitis Surgical History Hx of appendectomy History of knee replacement procedure of right knee Family History Father Asthma Maternal Grandmother Asthma Social History Household Members: Spouse Housing: House Are you a primary director critical care to a significant other at home: No Do you presently have visiting nurse or other home services: No Alcohol intake: never Patient Tobacco Use Status: Never used Tobacco e-Cigarette/Vaping Use: Never Used service: No Current occupational status: unemployed Sexual orientation: Straight/Heterosexual Gender identity: Female Cognitive needs: No Hearing needs: No Vision needs: Yes Review of Systems Const All systems reviewed & are unremarkable except as noted in HPI and below Physical Exam Vital Signs: BMI result Body Mass Index 33.3 Extrem Other: *Bilateral Lower Extremity Focused Exam Vascular: DP/PT 2/4, CFT<3s to all digits, TG warm to cool, mild plantar forefoot edema bilaterally and right 2nd toe edema Derm: Hyper-keratotic corn over the right 2nd dorsal PIPJ. Hyperkeratotic lesion plantar medial hallux the level of the IPJ. Neuro: Protective sensation grossly intact to bilateral extremities MSK: right 2nd PIPJ extension at the Metatarsal-phalangeal joint and rigid PIP and DIPJ flexion deformity. Semi rigid right 3rd digit and left 2nd through 4th digits. Palpable sub 3rd and 4th metatarsal has left foot with minimal fat padding. No hyperkeratotic lesions. Office Procedures AMB Debridement/Avulsion Podia Details: Procedure: Callus debridement Location: Right 2nd digit Anesthesia: N/A Description: The affected area was cleansed with an antiseptic solution. Using a sterile #15 blade, the hyperkeratotic tissue was radially debrided from the foot. All callused tissue was removed down to normal skin without causing bleeding or discomfort. The area was inspected for underlying ulceration or infection. Patient tolerated the procedure well. No complications noted. Tolerance: Patient tolerated procedure well, no immediate complications. 54941-Fvouuoeuuxb of Callus (1) Procedure code (CPT) selection complete Office Meds lidocaine HCl 10 mg/mL (1 %) injection solution Performing Provider: Yehuda Warren DPM Performing Location: [facility] Documented (not given) by: Yehuda Warren DPM on 04/27/25 14:07 Reason Not Given: No Longer Necessary Assessment & Plan Assessment & Plan (1) Acquired hammertoes of both feet: Code(s): M20.41 - Other hammer toe(s) (acquired), right foot; M20.42 - Other hammer toe(s) (acquired), left foot Category: Medical Plan: * Discussed conservative treatment options which include hammertoe pad for the right 2nd digit and a hammertoe crest pad for the left foot. * Referred for bilateral foot x-rays * Discussed that due to her rigid 2nd toe deformity in the right foot, she may not see significant improvement with conservative treatment and may require surgical treatment. Discussed surgical treatment in the form of hammertoe arthrodesis with implant right 2nd and 3rd digits. Likely would require capsular tendon balancing of the metatarsophalangeal joints as well. * Explained that if she does require surgical treatment and fails conservative treatment, we will have to coordinate with her yarn dyer regarding her methotrexate/rheumatoid medications. (2) Roslyn of toe: Code(s): L84 - Corns and callosities Category: Medical Plan: * Debrided right 2nd toe lesion with a #15 Blade. (3) Metatarsalgia of both feet: Code(s): M77.41 - Metatarsalgia, right foot; M77.42 - Metatarsalgia, left foot Category: Medical Plan: * Recommended metatarsal pads * Dispensed fabricated metatarsal pad for left foot Orders: Orders XR Foot Wade 3V Today M20.41 - Other hammer toe(s) (acquired), right foot, M20.42 - Other hammer toe(s) (acquired), left foot AMB Debridement/Avulsion Podiatry Today L84 - Corns and callosities Coding Level of Care Code New Pt Level 4 (63721) Diagnoses Acquired hammertoes of both feet M20.41; M20.42 Roslyn of toe L84 Metatarsalgia of both feet M77.41; M77.42 CPT Codes Skin Debridement - CPT: 55517-Rovricxriue of Callus (1) ([id number]) Time Spent (min) 50
--- OUTSIDE RECORDS SUMMARY | 2025-04-27 17:09 | XMS_ITS | Clinical Summary ---
Author Organization [facility] [address] [place] [address] [place] [phone] Phone Care Team Providers Care Tieing Machine Operator Name Role Phone Cira Lancaster MD Primary Care Provider [phone] Allergies Active Allergy Reactions Criticality Noted Date Comments [place] Anaphylaxis High 12/03/2023 Nut - Unspecified 06/02/2018 [...] Active medical supply, miscellaneous (MISCELLANEOUS MEDICAL SUPPLY [facility]) Spacer/Aero Chamber Mouthpiece [facility] 1 Device by Does not apply route as needed (use with inhaler). Active Actemra ACTPen subcutaneous injection Inject 0.9 mL (162 mg total) under the skin every 14 (fourteen) days. Active EPINEPHrine (Auvi-Q) 0.3 mg/0.3 mL injection Inject 0.3 mL (0.3 mg total) into the thigh if needed for anaphylaxis. 1 each Active miscellaneous medical supply [facility] Incontinence supply, Wipes, Package of 48 wipes Dispense 8 packages Sig Use 1 wipe every 2 hours as needed for incontinence. 4 each Active acetaminophen (Tylenol 8 Hour) 650 mg 8 hr tablet Take 1 tablet (650 mg total) by mouth every 8 (eight) hours if needed for mild pain. Do not crush, chew, or split. Active furosemide (LASIX) 20 mg tablet Take [...] chew. 90 each 1 025 2025 Active nystatin (MYCOSTATIN) 100,000 unit/gram powderIndication s:Intertrigo APPLY A THIN LAYER OF POWDER TOPICALLY TO AFFECTED AREA TWICE DAILY FOR 2 WEEKS, THEN STOP 30 g Active nystatin (MYCOSTATIN) 100,000 unit/gram powderIndication s:Intertrigo APPLY A THIN LAYER OF POWDER TOPICALLY TO AFFECTED AREA TWICE DAILY FOR 2 WEEKS, THEN STOP 30 g 025 2024 Discontinued Active Problems Problem Noted Date Diagnosed Date Gastroesophageal reflux disease without esophagi tis 03/11/2025 Celiac artery stenosis (CMS/HCC V24) 01/25/2025 DVT (deep venous thrombosis) (CMS/HCC V24, CMS/H CC V28) 02/24/2024 Overview (05/15/2024): Left leg following left knee replacement. Asthma, severe persistent (CMS/HCC V28) 01/25/20 Chronic allergic rhinitis 01/24/2021 Overview [...] of lung 11/29/2017 Seropositive rheumatoid arth ritis ([facility] V24, [facility] V28) 06/30/2009 Overview (05/15/2024): Onset [...] Encounters Date Type Department Care Team Description 04/26/2025 2:30 PM EDT Office Visit Vascular Surgery - [place] [address] [facility] [address] [place] [phone] Summer Shepherd PA Bilateral lower extremity edema (Primary Dx); Celiac artery stenosis ([facility] V24) 04/15/2025 8:30 AM EDT Ancillary Procedure [facility] [address] [facility] [address] [place] [phone] Leg swelling; Bilateral leg pain 03/11/2025 1:15 PM EDT Office Visit Adult Medicine [address] [phone] Cira Lancaster MD Varicose veins of both lower extremities with pain (Primary Dx); Intertrigo; Gastroesophageal reflux disease without esophagitis 03/09/2025 3:30 PM EDT Consult Bariatric Surgery - [place] [address] [facility] [address] [place] [phone] Kim Abbott MD BMI 33.0-33.9,adult 03/04/2025 11:45 AM EDT Office Visit Urogynecology [facility] [address] [place] [address] Tita Mcgee MD Stress incontinence (Primary Dx); OAB (overactive bladder) 01/29/2025 2:00 PM EDT Consult Vascular Surgery - [place] [address] [place] [address] Kathy Moreno MD Leg swelling (Primary Dx); Bilateral leg pain 01/25/2025 8:00 AM EDT Office Visit Adult Medicine [facility] [address] [place] [address] Yelena Wilburn PA Localized swelling of both lower legs (Primary Dx); Celiac artery stenosis ([facility] V24) from Last 3 Months Immunizations Immunization Administration [...] HISTORICAL APPENDECTOMY OTHER SURGICAL HISTORY 02/23/2019 PROCEDURE: NM LARYNGOSCOPY FLEXIBLE DIAGNOSTIC; COMMENT: Dr Roque TOTAL [...] for your loved ones. For example, children's service supervisor or elderly care for an older adult? [...] Pulse 76 04/26/2025 2:38 PM EDT Temperature 36.2 C (97.2 F) 03/11/2025 1:54 PM EDT Respiratory Rate 14 03/11/2025 1:54 PM EDT Oxygen Saturation 98% 03/11/2025 1:54 PM EDT Inhaled Oxygen Concentration - - Weight 80.4 kg (177 lb 3.2 oz) 04/26/2025 2:38 P M EDT Height 154.9 cm (5' 1 ) 03/11/2025 1:54 PM EDT Body Mass Index 33.48 03/11/2025 1:54 PM EDT Plan of Treatment Upcoming Encounters Date Type Department Care Team (Late st Contact Info) Description 06/08/2025 2:45 PM EST Office Visit Bariatric Surgery - [address] [place] [phone] Kim Abbott MD [address] [place] [phone] 09/14/2025 1:30 PM EDT Office Visit Adult Medicine [place] [address] [place] [phone] Cira Lancaster MD [address] [place], [place] 11/04/2025 2:00 PM EDT Office Visit Vascular Surgery - [place] [address] [facility] [address] [place] [phone] Summer Shepherd PA [address] [facility] [address] [place] [address] 03/03/2026 11:45 AM EDT Office Visit Urogynecology [facility] [address] [place] [address] Tita Mcgee MD [address] [place] [address] [address] [place] [address] Health Maintenance Due Date Last Done Comments HIV Screening 06/16/2022 Medicare Annual Wellness Visit 06/16/2022 Influenza Vaccine (#1) 2025 , 05/02/2023, 05/24/2021, Additional history exists Zoster Vaccines (1 of 2) 07/07/2025 Pos tponed from 2013 (Supply/Drug Shortage) RSV Immunization Adult Patients (1 - Risk 50-74 years 1-dose series) 09/08/2025 Postponed from 2013 (Patient Refused) Social Influencers of Health Screening [...] Procedure Name Priority Date/Time Associated Diagnosis Comments VAS US DUPLEX LOWER EXT VENOUS INSUFFICIENCY BILATERAL Routine 04/15/2025 9:23 AM EDT Leg swelling Bilateral leg pain EXTERNAL CLINICAL LAB 03/30/2025 CBC WITH AUTO [...] Recently Relevant to Health Maintenance Results * Vascular US duplex lower extremity venous insufficiency bilateral (04/15/2025 9:23 AM EDT) Left GSK susie 0.19 cm CV VAS LAB Left GSDC susie 0.14 cm CV VAS LAB Left GSMT susie 0.26 cm CV VAS LAB Left GSPC susie 0.15 cm CV VAS LAB Left GSPT susie 0.32 cm CV VAS LAB Left SFJ Diameter 0.64 cm CV VAS LAB Left SSMC susie 0.21 cm CV VAS LAB Left SSPC susie 0.26 cm CV VAS LAB Right GSK susie 0.26 cm CV VAS LAB Right GSDC susie 0.27 cm CV VAS LAB Right GSMT susie 0.40 cm CV VAS LAB Right GSPC susie 0.31 cm CV VAS LAB Right GSPT susie 0.50 cm CV VAS LAB Right SFJ Diameter 0.68 cm CV VAS LAB Right SSMC susie 0.16 cm CV VAS LAB Right SSPC susie 0.29 cm CV VAS LAB Right GSK reflux 4,390 ms CV VAS LAB Right GSPC reflux 4,389 ms CV VAS LAB Right AAS susie 0.27 cm CV VAS LAB Left GSDC reflux 1,422 ms CV VAS LAB Left SSDC susie 0.34 cm CV VAS LAB Anatomical Region Laterality Modality Vascular, Abdomen Ultrasound Narrative 04/15/2025 4:57 PM EDT Right: 1. The right lower extremity veins [...] lymph node noted in the left groin. Right Lower Venous No evidence of deep vein thrombosis in the common femoral, deep femoral, proximal femoral, mid femoral, distal femoral, popliteal, greater saphenous, small saphenous, posterior tibial and peroneal veins of the right leg. The vessels showed compressibility. Interrogation showed phasic and spontaneous Doppler signals. Right Venous Insufficiency Duplex The exam was performed with the patient in reverse Trendelenburg. Right saphenopoliteal junction was not identified. Left Lower Venous No evidence of deep vein thrombosis in the common femoral, deep femoral, proximal femoral, mid femoral, distal femoral, popliteal, greater saphenous, small saphenous, posterior tibial and peroneal veins of the left leg. The vessels showed compressibility. Interrogation showed phasic and spontaneous Doppler signals. Left Venous Insufficiency Duplex The exam was performed with the patient in reverse trendelenburg. Left saphenopoliteal junction was not identified. Left groin lymph node: 3.4 x 1.1 x 0.8 cm Surface Grinding Machine Hand Details A villanueva scale, color and doppler analysis ultrasound was performed. During the study longitudinal and transverse views were obtained. Continuous wave doppler and pulsed wave doppler was performed. Overall the study quality was good. Kathy Moreno MD CV VASCULAR PROCEDURES Final Result * External clinical lab (03/30/2025) us Provider [facility] LAB BLOOD ORDERABLES Fin al Result * (ABNORMAL) CBC auto differential (03/11/2025 2:54 PM EDT) [facility] WBC 7.0 4.8 - 10.8 K/[facility] LAB HEMETOLOGY METHOD 03/11/2025 4:[address] [facility] RBC 4.20 3.80 - 4.80 M/mcL LAB HEMETOLOGY METHOD 03/11/2025 4:[address] [facility] Hemoglobin 11.9 11.5 - 16.0 g/dL LAB HEMETOLOGY METHOD [facility] Hematocrit 37.7 35.0 - 47.0 % LAB HEMETOLOGY METHOD 03/11[facility]2025 4[facility] MCV 90.8 79.0 - 98.0 FL LAB HEMETOLOGY METHOD 03/11/2025 4:[facility] MCH 28.7 27.0 - 32.0 pcg LAB HEMETOLOGY METHOD 03/11/2025 4:47 PM [facility] MCHC 31.6(L) 32.0 - 37.0 g/dL LAB HEMETOLOGY METHOD 03/11/2025 4:47 PM [facility] RDW 15.0 11.0 - 15.0 % LAB HEMETOLOGY METHOD 03/11/2025 4:47 [facility] Platelets 348 130 - 400 K/mcL LAB HEMETOLOGY METHOD 03/11/2025 4:47 PM [facility] MPV 11.3(H) 7.0 - 11.0 FL LAB HEMETOLOGY METHOD 03/11/2025 4:47 [facility] NRBC 0.0 <1.0 % LAB HEMETOLOGY METHOD 03/11/2025 4:47 PM [facility] NRBC Absolute 0.00 <0.10 K/mcL LAB HEMETOLOGY METHOD 03/11/2025 4:47 [facility] Neutrophils Relative 67.3 % LAB HEMETOLOGY METHOD 03/11/2025 4:47 [facility] Lymphocytes Relative 14.1 % LAB HEMETOLOGY METHOD 03/11/2025 4:[address] [facility] Monocytes Relative 7.7 % LAB HEMETOLOGY METHOD 03/11/2025 4:47 PM [facility] Eosinophils Relative 9.9 % LAB HEMETOLOGY METHOD 03/11/2025 4:47 PM [facility] Basophils Relative 0.7 % LAB HEMETOLOGY METHOD 03/11/2025 4:47 PM [facility] Immature Granulocytes Relative 0.3 % LAB HEMETOLOGY METHOD 03/11/2025 4:47 PM [facility] Neutrophils Absolute 4.71 1.50 - 7.00 K/mcL LAB HEMETOLOGY METHOD 03/11/2025 4:47 PM [facility] Lymphocytes Absolute 0.99(L) 1.00 - 5.00 K/mcL LAB HEMETOLOGY METHOD 03/11/2025 4:47 PM [facility] Monocytes Absolute 0.54 0.20 - 1.00 K/mcL LAB HEMETOLOGY METHOD 03/11/2025 4:47 PM [facility] Eosinophils Absolute 0.69(H) 0.00 - 0.50 K/mcL LAB HEMETOLOGY METHOD 03/11/2025 4:47 PM [facility] Basophils Absolute 0.05 0.00 - 0.20 K/mcL LAB HEMETOLOGY METHOD 03/11/2025 4:47 PM [facility] Immature Granulocytes Absolute 0.02 0.00 - 0.03 K/mcL LAB HEMETOLOGY METHOD 03/11/2025 4:47 PM [facility] Blood Venous blood specimen / Unknown Venipuncture / Unknown 03/11/2025 2:54 PM EDT 03/11/2025 2:54 PM EDT us Cira Lancaster MD LAB BLOOD ORDERABLES Final Resul t [facility] [address] [place] [address], * Basic metabolic panel (03/11/2025 2:54 PM EDT) Sodium 136 133 - 145 mmol/L LAB CHEMISTRY METHOD 03/11/2025 6:[address] [facility] Potassium 4.4 3.5 - 5.5 mmol/L LAB CHEMISTRY METHOD 03/11/2025 6:[address] [facility] Chloride 105 96 - 110 mmol/L LAB CHEMISTRY METHOD 03/11/2025 6:48 [facility] CO2 26 21 - 32 mmol/L LAB CHEMISTRY METHOD 03/11/2025 6:48 PM [facility] Anion Gap 5 3 - 11 LAB CHEMISTRY METHOD 03/11/2025 6:48 PM [facility] Glucose 83 70 - 100 mg/dL LAB CHEMISTRY METHOD 03/11/2025 6:48 PM [facility] BUN 15 5 - 25 mg/dL LAB CHEMISTRY METHOD 03/11/2025 6:48 PM [facility] Creatinine 0.56 0.50 - 1.10 mg/dL LAB CHEMISTRY METHOD 03/11/2025 6:[facility] eGFR 104 >=60 mL/min/1. 73m2 LAB CHEMISTRY METHOD 03/11/2025 6:48 PM [facility] Comment:Calculation based on the Chronic Kidney Disease Epidemiology Collaboration (CKD-EPI) equation refit without adjustment for race. BUN/Creatinine Ratio 26.8 LAB CHEMISTRY METHOD 03/11/2025 6:48 PM [facility] Calcium 9.5 8.5 - 10.5 mg/dL LAB CHEMISTRY METHOD 03/11/2025 6:48 PM [facility] Blood Venous blood specimen / Unknown Venipuncture / Unknown 03/11/2025 2:54 PM EDT 03/11/2025 2:54 PM EDT Cira Lancaster MD LAB BLOOD ORDERABLES Final Resul t [facility] [address] [place] [address], [place] [phone] * External Mammogram Report (03/03/2025) Only the most recent of2 resultswithin the time period is included. Anatomical Region Laterality Modality Mammography Provider [facility] IMG BI PROCEDURES Final Result * Lipid panel with reflex to direct LDL (09/10/2024 1:04 PM EST) Cholesterol 159 0 - 200 mg/dL LAB CHEMISTRY METHOD 09/10/2024 4:58 PM [facility] Triglycerides 45 0 - 150 mg/dL LAB CHEMISTRY METHOD 09/10/2024 4:58 PM [facility] HDL 63 >=40 mg/dL LAB CHEMISTRY METHOD 09/10/2024 4:58 PM [facility] LDL Calculated 87 0 - 100 mg/dL LAB CHEMISTRY METHOD 09/10/2024 4:58 PM [facility] VLDL Cholesterol Mick 9 mg/dL LAB CHEMISTRY METHOD 09/10/2024 4:58 PM [facility] Non HDL Chol. (LDL+VLDL) 96 <145 mg/dL LAB CHEMISTRY METHOD 09/10/2024 4:58 PM [facility] Chol/HDL Ratio 2.5 0.0 - 4.4 LAB CHEMISTRY METHOD 09/10/2024 4:58 PM [facility] Blood Venous blood specimen / Unknown Venipuncture / Unknown 09/10/2024 1:04 PM EST 09/10/2024 1:04 PM EST Yelena GARCIA LAB BLOOD ORDERABLES Final Res ult [facility] [address] [place] [address], * Cervical Cancer Screening: HPV (02/28/2024) [facility] Cervical Cancer Screening: HPV abstracted, negative Historical Provider HEALTH MAINTENANCE Final Result * Colonoscopy (05/24/2020) [facility] Colonoscopy no interpretation , abstracted Anatomical Region Laterality Modality Other Historical Provider HEALTH MAINTENANCE Final Result * Hepatitis C Screening (09/03/2019) [facility] Hepatitis C Screening abstracted Historical Provider HEALTH MAINTENANCE Final Result from Last 3 Months or Most Recently Relevant to Health Maintenance Insurance [facility] MEDICARE Member Subscriber Plan / Payer (Ef fective 2022-Present) Name:Sahara Riddle Relation to Subscriber:Self Name:Sahara Riddle Payer ID:[id number] Group ID:[id number] Type:Not on file Address: [place] [address] [address] [id number] Advance Directives Documents on File Type Date Recorded Patient County Adviser Expl anation Health Care Decision (hx) 10/06/2021 HOMERO CARRENO DIRECTIVE Care Teams Tieing Machine Operator Relationship Specialty Start Date End Date Cira Lancaster MD [address] [place] [phone] PCP - General Internal Medicine 09/24/22
--- OUTSIDE RECORDS SUMMARY | 2025-04-27 17:09 | XMS_ITS | Clinical Summary ---
Author Organization [facility] Address [address] [place] [address] Care Team Providers Care Forest Fire Fighters Dispatcher Name Role Phone Cira Lancaster MD Primary Care Provider Allergies Active Allergy Reactions Criticality Noted Date Comments [place] Anaphylaxis High 12/03/2023 Medications Medication Sig Dispensed [...] age to complete this topic Care Teams Forest Fire Fighters Dispatcher Relationship Specialty Start Date End Date Cira Lancaster MD [address] [place], [place] [address]CAYETANO gordon [id number] PCP - General Internal Medicine 11/18/23
== END 2025-04-27 14:01 | disposition home or self-care (01) ==
LOC: HO.HPODS 13:12
PROVIDERS: PCP Internal Medicine; Visit Provider Student in an Organized Health Care Education/Training Program
DX: M20.41 Other hammer toe(s) (acquired), right foot (principal); M20.42 Other hammer toe(s) (acquired), left foot; L84 Corns and callosities; M77.41 Metatarsalgia, right foot; M77.42 Metatarsalgia, left foot
CPT/HCPCS: 11055; 99204

== ENCOUNTER → 2025-04-27 13:11 | Outpatient (BNVA) | payer OTHER, SELFPAY | PROVIDERS: PCP Internal Medicine; Visit Provider Student in an Organized Health Care Education/Training Program | DX: L84 Corns and callosities (principal); M20.41 Other hammer toe(s) (acquired), right foot; M20.42 Other hammer toe(s) (acquired), left foot; M77.41 Metatarsalgia, right foot; M77.42 Metatarsalgia, left foot; M79.671 Pain in right foot; M79.672 Pain in left foot; M05.79 Rheumatoid arthritis with rheumatoid factor of multiple sites without organ or systems involvement | CPT/HCPCS: 11055; 99202 ==

== ENCOUNTER 2025-05-21 16:13 | Outpatient (REF) | payer OTHER, SELFPAY ==
--- NOTE | ~2025-05-21 | XR_ITS ---
Exam: X-ray, bilateral knees.XR KNEE 3 VIEWS BILATERAL TECHNIQUE: Three views lower extremity joint, bilateral knees INDICATION: Knee pain COMPARISON: October 29, 2023 left knee FINDINGS: RIGHT KNEE: Total knee arthroplasty has been performed. There is no abnormal lucency at bone interfaces. There is a joint effusion. LEFT KNEE: Again seen are changes related to total knee arthroplasty. Skin ronal have been removed. There is anatomic positioning and no abnormal lucency at bone metal interfaces. There is likely a small joint effusion. XR/XR Knee Wade 3V IMPRESSION: Right knee: Total knee arthroplasty. Joint effusion. Left knee: Total knee arthroplasty. Minimal joint effusion. Interval removal of anterior ronal. Electronically signed by: Salinas Hercules MD 05/21/2025 05:32 PM [facility]
--- NOTE | ~2025-05-21 | XR_ITS ---
EXAMINATION: X-ray bilateral feet CLINICAL INFORMATION: Hammertoes COMPARISON: None TECHNIQUE: Left foot views. Right foot 3 views. FINDINGS: Left foot: Bone demineralization is decreased. No visible acute fracture or dislocation. Hammertoe deformities of the third and fourth toes. Mild hallux valgus. Prominent third and fourth MTP joint space narrowing, suspected in part due to the hammertoe deformities. Multifocal arthritis in the interphalangeal joints, more prominent findings of severe first IP joint, second and third PIP joints. Tarsometatarsal alignment is maintained. No visible acute fracture or dislocation. No abnormal soft tissue calcification. Right foot: Bone mineralization is decreased. No visible acute fracture or dislocation. Hammertoe deformities of the second and third toes. Multifocal interphalangeal joint arthritis, more prominent findings of severe first IP, the second and third IP joints. Second and third MTP joint space narrowing, accentuated by the hammertoe deformities. Mild hallux valgus. Tarsometatarsal alignment is maintained. No visible acute fracture or dislocation. No abnormal soft tissue calcification. XR/XR Foot Wade 3V IMPRESSION: Left foot: No acute osseous findings. Second and third hammertoe deformities. Multifocal osteoarthritis. Question Right foot: No acute osseous findings. Second and third hammertoe deformities. Multifocal osteoarthritis Electronically signed by: Jaime Calles MD 05/24/2025 07:30 AM EST
== END 2025-05-21 16:14 | disposition home or self-care (01) ==
LOC: HO.XRAY 16:13
PROVIDERS: PCP Internal Medicine; Visit Provider Student in an Organized Health Care Education/Training Program
DX: M20.41 Other hammer toe(s) (acquired), right foot (principal); M20.42 Other hammer toe(s) (acquired), left foot; M25.562 Pain in left knee; M25.561 Pain in right knee
CPT/HCPCS: 73562; 73630

== ENCOUNTER → 2025-05-21 16:18 | Outpatient (BNV) | payer OTHER, SELFPAY | PROVIDERS: PCP Internal Medicine; Visit Provider Radiology Diagnostic Radiology | DX: M25.461 Effusion, right knee (principal); Z96.653 Presence of artificial knee joint, bilateral | CPT/HCPCS: 73562; 73630 ==

== ENCOUNTER 2025-05-27 13:14 | Outpatient (AMB) | payer OTHER, SELFPAY ==
--- NOTE | 2025-05-27 13:22 | A.OFFVIS_ITS ---
Vital Signs 05/27/25 13:24 Height 5 ft 1 in Weight 176 lb BMI 33.3 Intake Visit Reasons: F/U after Xray Intake Note: Sahara is a 59 year old female who presents to the office today for a follow up for her hammertoes causing bilateral foot pain. At last appointment patient had a callus debrided. Orders were placed for bilateral foot x-rays which are in the patient?s chart. Dispensed metatarsal pads. Patient reports she always have pain 7/10. callus debridement healed fine. Metatarsal pads helped. Buy compression socks and she said it caused a peeling dry spot w/ flaking. Allergies almond Allergy (Severe, Verified 05/27/25 13:24) Hives and Rash HPI HPI F/U after Xray: Details: 60-year-old female with past medical history of seropositive rheumatoid arthritis on methotrexate, status post bilateral knee replacement history of left DVT, asthma COPD, who returns for bilateral foot pain. She states she has been using the metatarsal pads in her other shoe which helps a lot. She just recently purchase the toe sleeves and the hammertoe crest pads, so she has not had tried them to see if they help. History: Patient states that she has had pain for several years and has not had treatment so far. More recently, she has noticed her right 2nd toe drift up with a painful lesion that develops on top of her toe. She is unable to wear shoe-wear without pain. She also notes a lump on the bottom of her left foot that has worsened over the past few months. She has over 8 pairs of shoes and has pain when ambulating in all of them. [facility] Medical History (Updated 04/27/25 @ 14:09 by Yehuda Warren DPM) Encounter for methotrexate monitoring Encounter for monitoring tocilizumab therapy Osteoarthritis of left knee Osteoarthritis Bilateral hand swelling Left knee pain Cataract Long-term use of immunosuppressant medication Seropositive rheumatoid arthritis Asthma-COPD overlap syndrome Cough Allergies Chronic allergic rhinitis Surgical History Hx of appendectomy History of knee replacement procedure of right knee Family History Father Asthma Maternal Grandmother Asthma Social History Household Members: Spouse Housing: House Are you a primary child care center assistant director to a significant other at home: No Do you presently have visiting nurse or other home services: No Alcohol intake: never Patient Tobacco Use Status: Never used Tobacco e-Cigarette/Vaping Use: Never Used service: No Current occupational status: unemployed Sexual orientation: Straight/Heterosexual Gender identity: Female Cognitive needs: No Hearing needs: No Vision needs: Yes Review of Systems Const All systems reviewed & are unremarkable except as noted in HPI and below Physical Exam Vital Signs: BMI result Body Mass Index 33.3 Extrem Other: *Bilateral Lower Extremity Focused Exam Vascular: DP/PT 2/4, CFT<3s to all digits, TG warm to cool, mild plantar forefoot edema bilaterally and right 2nd toe edema Derm: Early hyperkeratotic corn over the right 2nd dorsal PIPJ. No hyperkera totic lesion plantar medial hallux the level of the IPJ today. Neuro: Protective sensation grossly intact to bilateral extremities MSK: right 2nd PIPJ extension at the Metatarsal-phalangeal joint and rigid PIP and DIPJ flexion deformity. Semi rigid right 3rd digit and left 2nd through 4th digits. Palpable sub 3rd and 4th metatarsal has left foot with minimal fat padding. No hyperkeratotic lesions. Results Reviewed Results Reviewed: X-ray Read: 05/21/2025 X-ray left foot 3 views (AP, MO, Lateral) reviewed which shows severe PIPJ narrowing, HVI IPJ 15 degrees, mild adductus deform the 2nd through 4th digits with joint space narrowing of PIPJ. I personally reviewed the imaging and my findings are listed above. X-ray Read: 05/21/2025 X-ray right foot 3 views (AP, MO, Lateral) reviewed which shows severe extension deformity in the 2nd MTPJ with mild extension of the 3rd Metatarsal-phalangeal joint. Severe joint space narrowing of the PIPJ 2nd 3rd and 4th. I personally reviewed the imaging and my findings are listed above. Assessment & Plan Assessment & Plan (1) Acquired hammertoes of both feet: Code(s): M20.41 - Other hammer toe(s) (acquired), right foot; M20.42 - Other hammer toe(s) (acquired), left foot Category: Medical Plan: * Discussed conservative treatment options which include hammertoe pad for the right 2nd digit and a hammertoe crest pad for the left foot. * Reviewed bilateral foot x-rays * Discussed that due to her rigid 2nd toe deformity in the right foot, she may not see significant improvement with conservative treatment and may require surgical treatment. Discussed surgical treatment in the form of hammertoe arthrodesis with implant right 2nd and 3rd digits. Likely would require capsular tendon balancing of the metatarsophalangeal joints as well. * Explained that if she does require surgical treatment and fails conservative treatment, we will have to coordinate with her frog farmer regarding her methotrexate/rheumatoid medications. * Continue crest pads (2) [place] of toe: Code(s): L84 - Corns and callosities Category: Medical Plan: * Lesion mild today, did not require debridement (3) Metatarsalgia of both feet: Code(s): M77.41 - Metatarsalgia, right foot; M77.42 - Metatarsalgia, left foot Category: Medical Plan: * Applied 2 metatarsal pads * May require metatarsal shortening osteotomies bilaterally if she elects surgery Coding Level of Care Code Est Pt Level 3 (32754) Diagnoses Acquired hammertoes of both feet M20.41; M20.42 [place] of toe L84 Metatarsalgia of both feet M77.41; M77.42 Time Spent (min) 20
[2025-05-27 13:24] VITALS: BMI 33.3
--- OUTSIDE RECORDS SUMMARY | 2025-05-27 18:46 | XMS_ITS | Clinical Summary ---
Author Organization [facility] [facility] Address [address] [place] [address] Care Team Providers Care Striker Out Name Role Phone Cira Lancaster MD Primary Care Provider [phone] Allergies Active Allergy Reactions Criticality Noted Date Comments Dragoon Anaphylaxis High 12/03/2023 Medications Medication Sig Dispensed [...] age to complete this topic Care Teams Striker Out Relationship Specialty Start Date End Date Cira Lancaster MD [address] [place], [place] [address]CAYETANO gordon [address] PCP - General Internal Medicine 11/18/23
== END 2025-05-27 13:46 | disposition home or self-care (01) ==
LOC: HO.HPODS 13:14
PROVIDERS: PCP Internal Medicine; Visit Provider Student in an Organized Health Care Education/Training Program
DX: M20.41 Other hammer toe(s) (acquired), right foot (principal); M20.42 Other hammer toe(s) (acquired), left foot; L84 Corns and callosities; M77.41 Metatarsalgia, right foot; M77.42 Metatarsalgia, left foot
CPT/HCPCS: 99213

== ENCOUNTER → 2025-05-27 13:14 | Outpatient (BNVA) | payer OTHER, SELFPAY | PROVIDERS: PCP Internal Medicine; Visit Provider Student in an Organized Health Care Education/Training Program | DX: M20.41 Other hammer toe(s) (acquired), right foot (principal); M20.42 Other hammer toe(s) (acquired), left foot; M77.41 Metatarsalgia, right foot; M77.42 Metatarsalgia, left foot | CPT/HCPCS: 99212 ==

== ENCOUNTER 2025-06-28 14:30 | Outpatient (AMB) | payer OTHER, SELFPAY ==
--- NOTE | 2025-06-28 14:47 | A.OFFVIS_ITS ---
Vital Signs 06/28/25 14:48 Height 5 ft 1 in Weight 176 lb BMI 33.3 Intake Visit Reasons: fu Intake Note: Sahara is a 60 year old female who presents today for a follow up on her bilateral hammertoes. At her last visit she was dispensed metatarsal pads and surgery options was discussed. Patient reports she still experiences slight pain when she walks throughout her foot. She has found slight relief with the metatarsal pads. Allergies almond Allergy (Severe, Verified 06/28/25 14:48) Hives and Rash HPI HPI fu: Details: 60-year-old female with past medical history of seropositive rheumatoid arthritis on methotrexate, status post bilateral knee replacement history of left DVT, asthma COPD, who returns for bilateral foot pain. She states she has been using the metatarsal pads. She is still having increasing and worsening pain to both feet. History: Patient states that she has had pain for several years and has not had treatment so far. More recently, she has noticed her right 2nd toe drift up with a painful lesion that develops on top of her toe. She is unable to wear shoe-wear without pain. She also notes a lump on the bottom of her left foot that has worsened over the past few months. She has over 8 pairs of shoes and h as pain when ambulating in all of them. [facility] Medical History (Updated 06/28/25 @ 20:33 by Yehuda Warren DPM) Encounter for methotrexate monitoring Encounter for monitoring tocilizumab therapy Osteoarthritis of left knee Osteoarthritis Bilateral hand swelling Left knee pain Cataract Long-term use of immunosuppressant medication Seropositive rheumatoid arthritis Asthma-COPD overlap syndrome Cough Allergies Chronic allergic rhinitis Surgical History Hx of appendectomy History of knee replacement procedure of right knee Family History Father Asthma Maternal Grandmother Asthma Social History Household Members: Spouse Housing: House Are you a primary respiratory care assistant to a significant other at home: No Do you presently have visiting nurse or other home services: No Alcohol intake: never Patient Tobacco Use Status: Never used Tobacco e-Cigarette/Vaping Use: Never Used service: No Current occupational status: unemployed Sexual orientation: Straight/Heterosexual Gender identity: Female Cognitive needs: No Hearing needs: No Vision needs: Yes Review of Systems Const All systems reviewed & are unremarkable except as noted in HPI and below Physical Exam Vital Signs: BMI result Body Mass Index 33.3 Office Procedures AMB Joint Injection/Aspir Pod Joint Injection/Aspiration Podiatry: Procedure: Steroid injection Location: Right 4th Metatarsal-phalangeal joint Medication: 1.5cc 0.5% bupivicaine, 1cc dexamethasone, 0.5cc kenalog? Description: The right 4th Metatarsal-phalangeal joint was prepped using alcohol. A steroid injection was administered using sterile technique. The site was dressed using a band-aid. Post-procedure Instructions: The patient was instructed to apply ice to the injection site. The patient was advised to call the office if there are signs or symptoms of worsening pain, infection, or steroid flare. RT - Injection of small joint RT Procedure code (CPT) selection complete Office Meds triamcinolone acetonide 40 mg/mL suspension for injection Performing Provider: Yehuda Warren DPM Performing Location: [facility] Administered by: Yehuda Warren DPM on 06/28/25 20:29 Dose Route Admin Location Dispensed Lot Number Expiration Date [facility] Drip Pumper 20 mg intra-articular 1 mL [id number] AMN [employer] Total Dispensed Waste 1 mL 50 % dexamethasone sodium phosphate 4 mg/mL injection solution Performing Provider: Yehuda Warren DPM Performing Location: [facility] Administered by: Yehuda Warren DPM on 06/28/25 20:29 Dose Route Admin Location Dispensed Lot Number Expiration Date [facility] Drip Pumper 4 mg intra-articular 1 mL [id number] MYL AN INSTITUTI Total Dispensed Waste 1 mL 0 % bupivacaine (PF) 0.5 % (5 mg/mL) injection solution Performing Provider: Yehuda Warren DPM Performing Location: [facility] Administered by: Yehuda Warren DPM on 06/28/25 20:29 Dose Route Admin Location Dispensed Lot Number Expiration Date [facility] Drip Pumper 2 mL intra-articular 10 mL [id number] HIK [employer] Total Dispensed Waste 10 mL 80 % Results Reviewed Results Reviewed: X-ray Read: 05/21/2025 X-ray left foot 3 views (AP, MO, Lateral) reviewed which shows severe PIPJ narrowing, HVI IPJ 15 degrees, mild adductus deform the 2nd through 4th digits with joint space narrowing of PIPJ. Significant cystic changes of the 3rd and 4th metatarsal heads and proximal phalanx bases. I personally reviewed the imaging and my findings are listed above. X-ray Read: 05/21/2025 X-ray right foot 3 views (AP, MO, Lateral) reviewed which shows severe extension deformity in the 2nd MTPJ with mild extension of the 3rd Metatarsal-phalangeal joint. Severe joint space narrowing of the PIPJ 2nd 3rd and 4th. Significant cystic changes of the 2nd, 3rd and 4th metatarsal heads. I personally reviewed the imaging and my findings are listed above. Assessment & Plan Assessment & Plan (1) Acquired hammertoes of both feet: Code(s): M20.41 - Other hammer toe(s) (acquired), right foot; M20.42 - Other hammer toe(s ) (acquired), left foot Category: Medical Plan: * Discussed conservative treatment options which include hammertoe pad for the right 2nd digit and a hammertoe crest pad for the left foot. * Reviewed bilateral foot x-rays once again with the patient to discuss surgical treatment options. * Discussed that due to her rigid 2nd toe deformity in the right foot, she may not see significant improvement with conservative treatment and may require surgical treatment. * Continue crest pads (2) Metatarsalgia of both feet: Code(s): M77.41 - Metatarsalgia, right foot; M77.42 - Metatarsalgia, left foot Category: Medical Plan: * Discussed surgical treatment in the form of metatarsal heads resections, hammertoe arthrodesis of digits 2 through 4, possible 1st Metatarsal- phalangeal joint arthrodesis ((Hernandez procedure)). (3) Seropositive rheumatoid arthritis of multiple joints: Comment: Onset about 2000 +++ RF+++CCP positive. Erosive changes on hand films 07/18. On HCQ & SSZ since ? 2004? MTX added 05/2011. Enbrel added 09/2012. MTX stopped 03/22 due to shingles. HCQ, Enbrel and SSZ continued, MTX added back 06/22. lost coverage for Enbrel 2021.restarted 07/2022May 2023: Methotrexate changed to 15 mg subcu weekly Enbrel DC ineffective Rinvoq 12/2023 - 05/2024 Actemra 07/2024 Code(s): M05.79 - Rheumatoid arthritis with rheumatoid factor of multiple sites without organ or systems involvement Category: Medical Plan: * Explained that if she does require surgical treatment and fails conservative treatment, we will have to coordinate with her mds nurse regarding her methotrexate/rheumatoid medications. (4) Capsulitis of right foot: Code(s): M77.8 - Other enthesopathies, not elsewhere classified Category: Medical Plan: * Administered right 4th Metatarsal-phalangeal joint steroid injection. * Discussed possible 2nd Metatarsal-phalangeal joint cortisone injection in the future. Orders: Orders 2 AMB Joint Injection/Aspiration Podiatry Today M05.79 - Rheumatoid arthritis with rheumatoid factor of multiple sites without organ or systems involvement, M77.41 - Metatarsalgia, right foot, M77.42 - Metatarsalgia, left foot, M77.8 - Other enthesopathies, not elsewhere classified Coding Level of Care Code Est Pt Level 3 (00295) Diagnoses Acquired hammertoes of both feet M20.41; M20.42 Metatarsalgia of both feet M77.41; M77.42 Seropositive rheumatoid arthritis of multiple joints M05.79 Capsulitis of right foot M77.8 CPT Codes Joint injectio/aspiration Podiatry - Joint Injection POD2: RT - Injection of small joint RT ([id number]) Time Spent (min) 20
[2025-06-28 14:48] VITALS: BMI 33.3
--- OUTSIDE RECORDS SUMMARY | 2025-06-28 17:54 | XMS_ITS | Encounter Summary ---
Author Organization [facility] Prior to 05/08/2024 Address [address] [place] [address] Care Team Providers Care Supervisor Home Restoration Service Name Role Phone Dianna Olmos MD Primary Care Provider Sandra Clemons MD Primary Care Provider [phone] Jaylen Newman MD Primary Care Provider Cira Mata MD Primary Care Provider [phone] Encounter Details Date Type Department Care Team Description 08/06/2018 Refill Rheumatology - [address] [address] Jarred Doss MD Social History Tobacco Use [...] 4:49 PM EST Ranjana, please call patient [phone] (home) When did she Have her eye [...] MG tablet [Jarred Doss MD] Preferred pharmacy: [facility] [address] [place] [address] Comment: documented in this encounter Plan of Treatment Not on file documented as of this encounter Visit Diagnoses Diagnosis Seropositive rheumatoid arthritis Rheumatoid arthritis documented in this encounter Care Teams Supervisor Home Restoration Service Relationship Specialty Start Date End Date Dianna Olmos MD PCP - General Internal Medicine 02/11/17 05/16/21 Sandra Clemente MD [address] [place] [address] PCP - General Internal Medicine 05/17/21 10/16/21 Jaylen Newman MD [address] [place] [address] PCP - General Internal Medicine 10/17/21 09/23/22 Cira Lancaster MD [address] [place] [address] PCP - General Internal Medicine 09/24/22 documented as of this encounter
--- OUTSIDE RECORDS SUMMARY | 2025-06-28 17:54 | XMS_ITS | Encounter Summary ---
Author Organization [facility] Prior to 05/08/2024 Address [address] [place] [address] Care Team Providers Care Eyelet Punch Operator Name Role Phone Dianna Olmos MD Primary Care Provider Sandra Clemons MD Primary Care Provider [phone] Jaylen Newman MD Primary Care Provider Cira Mata MD Primary Care Provider [phone] Encounter Details Date Type Department Care Team Description 12/05/2018 Orders Only Medical Records [address] [place] [address] Abstract, Provider Moderate persistent asthma in adult without complication; Allergic rhinitis due to pollen, unspecified seasonality; Allergic rhinitis due to cat hair; Allergy to dog dander; House dust mite allergy; Chronic rhinitis Social History Tobacco Use Types Packs/Day Years [...] Procedure Name Priority Date/Time Associated Diagnosis Comments CHG RADIOLOGIC EXAM CHEST 2 VIEWS Routine 12/04/2018 Moderate persistent asthma in adult without complication Allergic rhinitis due to pollen, unspecified seasonality Allergic rhinitis due to cat hair Allergy to dog dander House dust mite allergy Chronic rhinitis documented in this encounter Results * RADIOLOGIC EXAM CHEST 2 VIEWS (12/04/2018) Narrative Authorizing Provider Result Raul Davis MD RADIOLOGY documented in this encounter Visit Diagnoses Diagnosis Moderate persistent asthma in adult without complication Allergic rhinitis due to pollen, unspecified seasonality Allergic rhinitis due to cat hair Allergic rhinitis due to animal (cat) (dog) hair and dander Allergy to dog dander Allergic rhinitis due to animal (cat) (dog) hair and dander House dust mite allergy Allergy, unspecified not elsewhere classified Chronic rhinitis documented in this encounter Care Teams Eyelet Punch Operator Relationship Specialty Start Date End Date Dianna Olmos MD PCP - General Internal Medicine 02/11/17 05/16/21 Sandra Clemente MD [address] [place] [address] PCP - General Internal Medicine 05/17/21 10/16/21 Jaylen Newman MD [address] [place] [address] PCP - General Internal Medicine 10/17/21 09/23/22 Cira Lancaster MD [address] [place] [address] PCP - General Internal Medicine 09/24/22 documented as of this encounter
--- OUTSIDE RECORDS SUMMARY | 2025-06-28 17:54 | XMS_ITS | Encounter Summary ---
Author Organization [facility] Prior to 05/08/2024 Address [address] [place] [address] Care Team Providers Care Jewelry Making Instructor Name Role Phone Dianna Olmos MD Primary Care Provider Sandra Clemons MD Primary Care Provider [phone] Jaylen Newman MD Primary Care Provider Cira Mata MD Primary Care Provider [phone] Encounter Details Date Type Department Care Team Description 05/05/2018 Refill Rheumatology - [address] [address] Jarred Doss MD Social History Tobacco Use [...] arthritis documented in this encounter Care Teams Jewelry Making Instructor Relationship Specialty Start Date End Date Dianna Olmos MD PCP - General Internal Medicine 02/11/17 05/16/21 Sandra Clemente MD [address] [place] [address] PCP - General Internal Medicine 05/17/21 10/16/21 Jaylen Newman MD [address] [place] [address] PCP - General Internal Medicine 10/17/21 09/23/22 Cira Lancaster MD [address] [place] [address] PCP - General Internal Medicine 09/24/22 documented as of this encounter
--- OUTSIDE RECORDS SUMMARY | 2025-06-28 17:54 | XMS_ITS | Encounter Summary ---
Author Organization [facility] Prior to 05/08/2024 Address [address] [place] [address] Care Team Providers Care Anesthesiology Physician Name Role Phone Dianna Olmos MD Primary Care Provider Sandra Clemons MD Primary Care Provider [phone] Jaylen Newman MD Primary Care Provider Cira Mata MD Primary Care Provider [phone] Reason for Visit * Reason Onset Date Comments Testing 05/03/2021 Encounter Details Date Type Department Care Team Description 05/03/2021 Telephone Radiology - [address] [address] Dianna Olmos MD Testing Social History Tobacco [...] EDT Left detailed message to patient in tajik to let her know that she need [...] on filedocumented in this encounter Care Teams Anesthesiology Physician Relationship Specialty Start Date End Date Dianna Olmos MD PCP - General Internal Medicine 02/11/17 05/16/21 Sandra Clemente MD [address] [place] [address] PCP - General Internal Medicine 05/17/21 10/16/21 Jaylen Newman MD [address] [place] [address] PCP - General Internal Medicine 10/17/21 09/23/22 Cira Lancaster MD [address] [place] [address] PCP - General Internal Medicine 09/24/22 documented as of this encounter
--- OUTSIDE RECORDS SUMMARY | 2025-06-28 17:54 | XMS_ITS | Encounter Summary ---
Author Organization [facility] Prior to 05/08/2024 Address [address] [place] [address] Care Team Providers Care Hospital Mortician Name Role Phone Dianna Olmos MD Primary Care Provider Sandra Clemons MD Primary Care Provider [phone] Jaylen Newman MD Primary Care Provider Cira Mata MD Primary Care Provider [phone] Encounter Details Date Type Department Care Team Description 08/27/2020 Refill Pulmonology - [place] [address] [facility] [address] [place] [phone] Robert Davis MD [address] [facility] [address] [place] [phone] Social History Tobacco Use Types Packs/Day Years [...] chronic documented in this encounter Care Teams Hospital Mortician Relationship Specialty Start Date End Date Dianna Olmos MD PCP - General Internal Medicine 02/11/17 05/16/21 Sandra Clemente MD [address] [place] [address] PCP - General Internal Medicine 05/17/21 10/16/21 Jaylen Newman MD [address] [place] [address] PCP - General Internal Medicine 10/17/21 09/23/22 Cira Lancaster MD [address] [place] [address] PCP - General Internal Medicine 09/24/22 documented as of this encounter
--- OUTSIDE RECORDS SUMMARY | 2025-06-28 17:54 | XMS_ITS | Encounter Summary ---
Author Organization [facility] Prior to 05/08/2024 Address [address] [place] [address] Care Team Providers Care Lens Matcher Name Role Phone Dianna Olmos MD Primary Care Provider Sandra Clemons MD Primary Care Provider [phone] Jaylen Newman MD Primary Care Provider Cira Mata MD Primary Care Provider [phone] Encounter Details Date Type Department Care Team Description 08/27/2020 Refill Pulmonology - [place] [address] [facility] [address] [place] [phone] Robert Davis MD [address] [facility] [address] [place] [phone] Social History Tobacco Use Types Packs/Day Years [...] chronic documented in this encounter Care Teams Lens Matcher Relationship Specialty Start Date End Date Dianna Olmos MD PCP - General Internal Medicine 02/11/17 05/16/21 Sandra Clemente MD [address] [place] [address] PCP - General Internal Medicine 05/17/21 10/16/21 Jaylen Newman MD [address] [place] [address] PCP - General Internal Medicine 10/17/21 09/23/22 Cira Lancaster MD [address] [place] [address] PCP - General Internal Medicine 09/24/22 documented as of this encounter
--- OUTSIDE RECORDS SUMMARY | 2025-06-28 17:54 | XMS_ITS | Encounter Summary ---
Author Organization [facility] Prior to 05/08/2024 Address [address] [place] [address] Care Team Providers Care Light Rail Signal Technician Name Role Phone Sandra Clemente MD Primary Care Provider [phone] Jaylen Newman MD Primary Care Provider Cira Mata MD Primary Care Provider [phone] Encounter Details Date Type Department Care Team Description 06/15/2021 Release of Information Medical Records [address] [place] [address] Abstract, Provider Social History Tobacco Use Types [...] on filedocumented in this encounter Care Teams Light Rail Signal Technician Relationship Specialty Start Date End Date Sandra Clemente MD [address] [place] [address] PCP - General Internal Medicine 05/17/21 10/16/21 Jaylen Newman MD [address] [place] [address] PCP - General Internal Medicine 10/17/21 09/23/22 Cira Lancaster MD [address] [place] [address] PCP - General Internal Medicine 09/24/22 documented as of this encounter
--- OUTSIDE RECORDS SUMMARY | 2025-06-28 17:54 | XMS_ITS | Encounter Summary ---
Author Organization [facility] Prior to 05/08/2024 Address [address] [place] [address] Care Team Providers Care Seedling Puller Name Role Phone Cira Lancaster MD Primary Care Provider [phone] Encounter Details Date Type Department Care Team Description 03/13/2024 Telephone Adult Medicine [facility] [address] [place] [address] Cira Lancaster MD [address] [place] [address] Social History Tobacco Use Types Packs/Day Years [...] on filedocumented in this encounter Care Teams Seedling Puller Relationship Specialty Start Date End Date Cira Lancaster MD [address] [place] [address] PCP - General Internal Medicine 09/24/22 documented as of this encounter
--- OUTSIDE RECORDS SUMMARY | 2025-06-28 17:54 | XMS_ITS | Encounter Summary ---
Author Organization [facility] Prior to 05/08/2024 Address [address] [place] [address] Care Team Providers Care Position Classifier Name Role Phone Sandra Clemente MD Primary Care Provider [phone] Jaylen Newman MD Primary Care Provider Cira Mata MD Primary Care Provider [phone] Encounter Details Date Type Department Care Team Description 10/03/2021 Hospital Medical Records [address] [place] [address] Shay Quan MD Social History Tobacco Use [...] on filedocumented in this encounter Care Teams Position Classifier Relationship Specialty Start Date End Date Sandra Clemente MD [address] [place] [address] PCP - General Internal Medicine 05/17/21 10/16/21 Jaylen Newman MD [address] [place] [address] PCP - General Internal Medicine 10/17/21 09/23/22 Cira Lancaster MD [address] [place] [address] PCP - General Internal Medicine 09/24/22 documented as of this encounter
--- OUTSIDE RECORDS SUMMARY | 2025-06-28 17:54 | XMS_ITS | Encounter Summary ---
Author Organization [facility] Prior to 05/08/2024 Address [address] [place] [address] Care Team Providers Care Pearl Digger Name Role Phone Sandra Clemente MD Primary Care Provider [phone] Jaylen Newman MD Primary Care Provider Cira Mata MD Primary Care Provider [phone] Encounter Details Date Type Department Care Team Description 09/27/2021 Hospital Medical Records [address] [place] [address] Shay Quan MD Social History Tobacco Use [...] on filedocumented in this encounter Care Teams Pearl Digger Relationship Specialty Start Date End Date Sandra Clemente MD [address] [place] [address] PCP - General Internal Medicine 05/17/21 10/16/21 Jaylen Newman MD [address] [place] [address] PCP - General Internal Medicine 10/17/21 09/23/22 Cira Lancaster MD [address] [place] [address] PCP - General Internal Medicine 09/24/22 documented as of this encounter
--- OUTSIDE RECORDS SUMMARY | 2025-06-28 17:54 | XMS_ITS | Encounter Summary ---
Author Organization [facility] Prior to 05/08/2024 Address [address] [place] [address] Care Team Providers Care Microwave Engineer Name Role Phone Dianna Olmos MD Primary Care Provider Sandra Clemons MD Primary Care Provider [phone] Jaylen Newman MD Primary Care Provider Cira Mata MD Primary Care Provider Encounter Details Date Type Department Care Team Description 04/27/2017 Walk In Clinic Visit Medical Records [address] [place] [address] Abstract, Provider Social History Tobacco Use Types [...] on filedocumented in this encounter Care Teams Microwave Engineer Relationship Specialty Start Date End Date Dianna Olmos MD PCP - General Internal Medicine 02/11/17 05/16/21 Sandra Clemente MD [address] [place] [address] PCP - General Internal Medicine 05/17/21 10/16/21 Jaylen Newman MD [address] [place] [address] PCP - General Internal Medicine 10/17/21 09/23/22 Cira Lancaster MD [address] [place] [address] PCP - General Internal Medicine 09/24/22 documented as of this encounter
--- OUTSIDE RECORDS SUMMARY | 2025-06-28 17:54 | XMS_ITS | Encounter Summary ---
Author Organization [facility] Prior to 05/08/2024 Address [address] [place] [address] Care Team Providers Care Manager Nuclear Name Role Phone Cira Lancaster MD Primary Care Provider [phone] Encounter Details Date Type Department Care Team Description 06/07/2023 Orders Only Medical Records [address] [place] [address] Paresh Li MD Social History Tobacco Use [...] filedocumented in this encounter Care Teams Manager Nuclear Relationship Specialty Start Date End Date Cira Lancaster MD [address] [place] [address] PCP - General Internal Medicine 09/24/22 documented as of this encounter
--- OUTSIDE RECORDS SUMMARY | 2025-06-28 17:54 | XMS_ITS | Clinical Summary ---
Author Organization [employer] [facility] Prior to 12/05/24 Address [address] [place] [address] Care Team Providers Care Marketing Secretary Name Role Phone Cira Lancaster MD Primary Care Provider [phone] Allergies Active Allergy Reactions Criticality Noted Date Comments [place] Anaphylaxis High 12/03/2023 Medications Medication Sig Dispensed [...] age to complete this topic Care Teams Marketing Secretary Relationship Specialty Start Date End Date Cira Lancaster MD [address] [place] [address] PCP - General Internal Medicine 11/18/23
--- OUTSIDE RECORDS SUMMARY | 2025-06-28 17:54 | XMS_ITS | Encounter Summary ---
Author Organization [facility] Prior to 05/08/2024 Address [address] [place] [address] Care Team Providers Care Environmental Compliance Engineer Name Role Phone Dianna Olmos MD Primary Care Provider Sandra Clemons MD Primary Care Provider [phone] Jaylen Newman MD Primary Care Provider Cira Mata MD Primary Care Provider [phone] Encounter Details Date Type Department Care Team Description 02/20/2018 Release of Information Medical Records [address] [place] [address] Abstract, Provider Social History Tobacco Use Types [...] on filedocumented in this encounter Care Teams Environmental Compliance Engineer Relationship Specialty Start Date End Date Dianna Olmos MD PCP - General Internal Medicine 02/11/17 05/16/21 Sandra Clemente MD [address] [place] [address] PCP - General Internal Medicine 05/17/21 10/16/21 Jaylen Newman MD [address] [place] [address] PCP - General Internal Medicine 10/17/21 09/23/22 Cira Lancaster MD [address] [place] [address] PCP - General Internal Medicine 09/24/22 documented as of this encounter
--- OUTSIDE RECORDS SUMMARY | 2025-06-28 17:54 | XMS_ITS | Encounter Summary ---
Author Organization [facility] Prior to 05/08/2024 Address [address] [place] [address] Care Team Providers Care Top Flavor Attendant Name Role Phone Dianna Olmos MD Primary Care Provider Unava Sandra Burch MD Primary Care Provider [phone] Jaylen Newman MD Primary Care Provider Unava Cira Ramos MD Primary Care Provider [phone] Reason for Referral * Radiology Services (Routine) - Closed Specialty Diagnoses / Procedures Referred By Contac t Referred To Contact Radiology Diagnoses Moderate persistent asthma in adult without complication Seropositive rheumatoid arthritis (HCC) Ground glass opacity present on imaging of lung Procedures CHG DIAGNOSTIC COMPUTED TOMOGRAPHY THORAX W/O CNTRST Robert Davis MD [address] [address] [address] [address] Referral ID Status Reason Start Date Expiration Date Visits Re quested Visits Authorized [id number] Closed 04/12/2021 1 1 Encounter Details Date Type Department Care Team Description 01/10/2021 Telephone Pulmonology [address] [place] [address] [phone] Robert Davis MD [address] [address] Social History Tobacco Use Types [...] EDT Noted. Orders were already placed by pulca * Telephone Encounter - Robert Davis MD [...] lung documented in this encounter Care Teams Top Flavor Attendant Relationship Specialty Start Date End Date Dianna Olmos MD PCP - General Internal Medicine 02/11/17 05/16/21 Sandra Clemente MD [address] [place] [address] PCP - General Internal Medicine 05/17/21 10/16/21 Jaylen Newman MD [address] [place] [address] PCP - General Internal Medicine 10/17/21 09/23/22 Cira Lancaster MD [address] [place] [address] PCP - General Internal Medicine 09/24/22 documented as of this encounter
--- OUTSIDE RECORDS SUMMARY | 2025-06-28 17:54 | XMS_ITS | Encounter Summary ---
Author Organization [facility] Prior to 05/08/2024 Address [address] [place] [address] Care Team Providers Care Health Promotion Coordinator Name Role Phone Dianna Olmos MD Primary Care Provider Sandra Clemons MD Primary Care Provider [phone] Jaylen Newman MD Primary Care Provider Cira Mata MD Primary Care Provider [phone] Reason for Visit * Reason Onset Date Comments medication problems 11/23/2020 Encounter Details Date Type Department Care Team Description 11/23/2020 Telephone Pulmonology - [place] [address] [facility] [address] [place] [id number] Robert Davis MD 175 [facility] [address] [place] [address] medication problems Social History Tobacco Use Types [...] Pharmacy Pharmacist Name: N/A Pharmacy Phone # [phone] Name of the medication Prednisone 5 mg [...] on filedocumented in this encounter Care Teams Health Promotion Coordinator Relationship Specialty Start Date End Date Dianna Olmos MD PCP - General Internal Medicine 02/11/17 05/16/21 Sandra Clemente MD [address] [place] [address] PCP - General Internal Medicine 05/17/21 10/16/21 Jaylen Newman MD [address] [place] [address] PCP - General Internal Medicine 10/17/21 09/23/22 Cira Lancaster MD [address] [place] [address] PCP - General Internal Medicine 09/24/22 documented as of this encounter
--- OUTSIDE RECORDS SUMMARY | 2025-06-28 17:54 | XMS_ITS | Encounter Summary ---
Author Organization [facility] Prior to 05/08/2024 Address [address] [place] [address] Care Team Providers Care Security Installer Name Role Phone Dianna Olmos MD Primary Care Provider Sandra Clemons MD Primary Care Provider [phone] Jaylen Newman MD Primary Care Provider Cira Mata MD Primary Care Provider [phone] Encounter Details Date Type Department Care Team Description 10/15/2017 Telephone Pulmonology [address] [place] [address] Robert Davis MD 175 [facility] [address] [place] [address] Social History Tobacco Use Types [...] by telephone. I left a message in English. I reviewed the CT scan done yesterday. [...] organs documented in this encounter Care Teams Security Installer Relationship Specialty Start Date End Date Dianna Olmos MD PCP - General Internal Medicine 02/11/17 05/16/21 Sandra Clemente MD [address] [place] [address] PCP - General Internal Medicine 05/17/21 10/16/21 Jaylen Newman MD [address] [place] [address] PCP - General Internal Medicine 10/17/21 09/23/22 Cira Lancaster MD [address] [place] [address] PCP - General Internal Medicine 09/24/22 documented as of this encounter
--- OUTSIDE RECORDS SUMMARY | 2025-06-28 17:54 | XMS_ITS | Encounter Summary ---
Author Organization [facility] Prior to 05/08/2024 Address [address] [place] [address] Care Team Providers Care Airfield Engineer Officer Name Role Phone Cira Lancaster MD Primary Care Provider [phone] Reason for Visit * Reason Onset Date Comments Portacath Flush With Labs 09/20/2023 Encounter Details Date Type Department Care Team Description 09/20/2023 Telephone Adult Medicine [facility] [address] [place] [address] Cira Lancaster MD [address] [place] [address] Portacath Flush With Labs Social History Tobacco [...] on filedocumented in this encounter Care Teams Airfield Engineer Officer Relationship Specialty Start Date End Date Cira Lancaster MD [address] [place] [address] PCP - General Internal Medicine 09/24/22 documented as of this encounter
--- OUTSIDE RECORDS SUMMARY | 2025-06-28 17:54 | XMS_ITS | Encounter Summary ---
Author Organization [facility] Prior to 05/08/2024 Address [address] [place] [address] Care Team Providers Care Leisure Travel Agent Name Role Phone Cira Lancaster MD Primary Care Provider [phone] Encounter Details Date Type Department Care Team Description 10/31/2023 Hospital Medical Records [address] [place] [address] John Carter MD Social History Tobacco Use [...] on filedocumented in this encounter Care Teams Leisure Travel Agent Relationship Specialty Start Date End Date Cira Lancaster MD [address] [place] [address] PCP - General Internal Medicine 09/24/22 documented as of this encounter
--- OUTSIDE RECORDS SUMMARY | 2025-06-28 17:54 | XMS_ITS | Encounter Summary ---
Author Organization [facility] Prior to 05/08/2024 Address [address] [place] [address] Care Team Providers Care Car Dropper Name Role Phone Jacoby Martinez MD Primary Care Provider [phone] Dianna Olmos MD Primary Care Provider Unava Sandra Burch MD Primary Care Provider [phone] Jaylen Newman MD Primary Care Provider Unava Cira Ramos MD Primary Care Provider [phone] Encounter Details Date Type Department Care Team Description 03/16/2013 Telephone [facility] - [address] [address] Jarred Doss MD Social History Tobacco Use [...] encounter Miscellaneous Notes * Telephone Encounter - Saadf Johnson L.P.N. - 03/16/2013 10:06 AM EDT She called back to say she is feeling much better and has very little pain. documented in this encounter Plan of Treatment Not on file documented as of this encounter Visit Diagnoses Not on filedocumented in this encounter Care Teams Car Dropper Relationship Specialty Start Date End Date Jacoby Martinez MD [address] [place] [address] PCP - General 04/14/09 02/10/17 Dianna Olmos MD [address] [place] [address] PCP - General Internal Medicine 02/11/17 05/16/21 Sandra Clemente MD [address] [place] [address] PCP - General Internal Medicine 05/17/21 10/16/21 Jalyen Newman MD [address] [place] [address] PCP - General Internal Medicine 10/17/21 09/23/22 Cira Lancaster MD [address] [place] [address] PCP - General Internal Medicine 09/24/22 documented as of this encounter
--- OUTSIDE RECORDS SUMMARY | 2025-06-28 17:54 | XMS_ITS | Encounter Summary ---
Author Organization [facility] Prior to 05/08/2024 Address [address] [place] [address] Care Team Providers Care Shoulder Pad Molder Name Role Phone Cira Lancaster MD Primary Care Provider [phone] Encounter Details Date Type Department Care Team Description 10/01/2023 Tire Buffer Report Medical Records [address] [place] [address] Eliza Felix NP Social History Tobacco Use [...] on filedocumented in this encounter Care Teams Shoulder Pad Molder Relationship Specialty Start Date End Date Cira Lancaster MD [address] [place] [address] PCP - General Internal Medicine 09/24/22 documented as of this encounter
--- OUTSIDE RECORDS SUMMARY | 2025-06-28 17:54 | XMS_ITS | Encounter Summary ---
Author Organization [facility] Prior to 05/08/2024 Address [address] [place] [address] Care Team Providers Care Smoking Pipe Driller And Threader Name Role Phone Cira Lancaster MD Primary Care Provider [phone] Encounter Details Date Type Department Care Team Description 11/14/2023 Form Press Operator Report Medical Records [address] [place] [address] Sourav Atwood Social History Tobacco Use Types [...] on filedocumented in this encounter Care Teams Smoking Pipe Driller And Threader Relationship Specialty Start Date End Date Cira Lancaster MD [address] [place] [address] PCP - General Internal Medicine 09/24/22 documented as of this encounter
--- OUTSIDE RECORDS SUMMARY | 2025-06-28 17:54 | XMS_ITS | Encounter Summary ---
Author Organization [facility] Prior to 05/08/2024 Address [address] [place] [address] Care Team Providers Care Automotive Welder Name Role Phone Dianna Olmos MD Primary Care Provider Sandra Clemons MD Primary Care Provider [phone] Jaylen Newman MD Primary Care Provider Cira Mata MD Primary Care Provider [phone] Encounter Details Date Type Department Care Team Description 02/15/2021 Tutor Coordinator Report Medical Records [address] [place] [address] Bg Garcia MD Social History Tobacco Use [...] on filedocumented in this encounter Care Teams Automotive Welder Relationship Specialty Start Date End Date Dianna Olmos MD PCP - General Internal Medicine 02/11/17 05/16/21 Sandra Clemente MD [address] [place] [address] PCP - General Internal Medicine 05/17/21 10/16/21 Jaylen Newman MD [address] [place] [address] PCP - General Internal Medicine 10/17/21 09/23/22 Cira Lancaster MD [address] [place] [address] PCP - General Internal Medicine 09/24/22 documented as of this encounter
--- OUTSIDE RECORDS SUMMARY | 2025-06-28 17:54 | XMS_ITS | Encounter Summary ---
Author Organization [facility] Prior to 05/08/2024 Address [address] [place] [address] Care Team Providers Care Quality Technician Fiberglass Name Role Phone Dianna Olmos MD Primary Care Provider Sandra Clemons MD Primary Care Provider [phone] Jaylen Newman MD Primary Care Provider Cira Mata MD Primary Care Provider [phone] Reason for Visit * Reason Onset Date Comments Testing 07/17/2018 Encounter Details Date Type Department Care Team Description 07/17/2018 Telephone Pulmonology - [place] [address] [facility] [address] [place] [address] Robert Davis MD [address] [facility] [address] [place] [address] Testing Social History Tobacco Use [...] on filedocumented in this encounter Care Teams Quality Technician Fiberglass Relationship Specialty Start Date End Date Dianna Olmos MD PCP - General Internal Medicine 02/11/17 05/16/21 Sandra Clemente MD [address] [place] [address] PCP - General Internal Medicine 05/17/21 10/16/21 Jaylen Newman MD [address] [place] [address] PCP - General Internal Medicine 10/17/21 09/23/22 Cira Lancaster MD [address] [place] [address] PCP - General Internal Medicine 09/24/22 documented as of this encounter
--- OUTSIDE RECORDS SUMMARY | 2025-06-28 17:54 | XMS_ITS | Encounter Summary ---
Author Organization [facility] Prior to 05/08/2024 Address [address] [place] [address] Care Team Providers Care Oracle Database Developer Name Role Phone Ashvin Santiago MD Primary Care Provider Sandra Clemons MD Primary Care Provider [phone] Jaylen Newman MD Primary Care Provider Cira Mata MD Primary Care Provider [phone] Reason for Visit * Reason Onset Date Comments Orders Call 04/19/2021 Encounter Details Date Type Department Care Team Description 04/19/2021 Telephone Adult Medicine [address] [address] Ashvin Santiago MD Orders Call Social History [...] - 04/19/2021 11:14 AM EDT Patient Name: ASHARA RIDDLE([id number]) Sex: Female : 1965 ?PCP: ASHVIN SANTIAGO ?Center: [facility] ?? Types of orders made on 04/04/2021: Medications, Procedures Order Date:04/04/2021 Ordering User:JESSIE ALFREDO [[id number]] Encounter Provider:Jessie Alfredo MD [[id number]] Authorizing Provider: ??Jessie Alfredo MD [[id number]] Department:[facility] [place][[id number]] Order Specific Information Order: REFER TO PCP [CPT(R): 48889] ??Order #: [id number]: 1 FUTURE ?Priority: Routine ?Future Order Information [...] on filedocumented in this encounter Care Teams Oracle Database Developer Relationship Specialty Start Date End Date Ashvin Santiago MD PCP - General Internal Medicine 02/11/17 05/16/21 Sandra Clemente MD [address] [place] [address] PCP - General Internal Medicine 05/17/21 10/16/21 Jaylen Newman MD [address] [place] [address] PCP - General Internal Medicine 10/17/21 09/23/22 Cira Lancaster MD [address] [place], [place] [address] PCP - General Internal Medicine 09/24/22 documented as of this encounter
--- OUTSIDE RECORDS SUMMARY | 2025-06-28 17:54 | XMS_ITS | Encounter Summary ---
Author Organization [facility] Prior to 05/08/2024 Address [address] [place] [address] Care Team Providers Care Clerk Operator Name Role Phone Jacoby Martinez MD Primary Care Provider [phone] Dianna Olmos MD Primary Care Provider Unava Sandra Burch MD Primary Care Provider [phone] Jaylen Nweman MD Primary Care Provider Unava Cira Ramos MD Primary Care Provider Reason for Visit * Reason Onset Date Comments refill request 03/31/2015 Encounter Details Date Type Department Care Team Description 03/31/2015 Refill Adult Medicine [address] [phone] Jacoby Martinez MD [address] [place] [address] [phone] refill request Social History Tobacco Use Types [...] NO Patients current insurance carrier is: Payor: [employer] / Plan: O $10 GOODING 1 / Product Type: HMO [id number] documented in this encounter Plan of Treatment Not on file documented as of this encounter Visit Diagnoses Diagnosis examination or test, unconfirmed Shingles Herpes zoster without mention of complication Rheumatoid arthritis documented in this encounter Care Teams Clerk Operator Relationship Specialty Start Date End Date Jacoby Martinez MD [address] [place] [address] PCP - General 04/14/09 02/10/17 Dianna Olmos MD [address] [place], [place] [address] PCP - General Internal Medicine 02/11/17 05/16/21 Sandra Clemente MD [address] [place] [address] PCP - General Internal Medicine 05/17/21 10/16/21 Jaylen Newman MD [address] [place] [address] PCP - General Internal Medicine 10/17/21 09/23/22 Cira Lancaster MD [address] [place] [address] PCP - General Internal Medicine 09/24/22 documented as of this encounter
--- OUTSIDE RECORDS SUMMARY | 2025-06-28 17:54 | XMS_ITS | Encounter Summary ---
Author Organization [facility] Prior to 05/08/2024 Address [address] [place] [address] Care Team Providers Care Dental Services Director Name Role Phone Cira Lancaster MD Primary Care Provider [phone] Encounter Details Date Type Department Care Team Description 11/01/2023 Home Health Certification Medical Records [address] [place] [address] [facility] Nurse [facility] [place] [address] [address] Social History Tobacco Use Types Packs/Day Years [...] on filedocumented in this encounter Care Teams Dental Services Director Relationship Specialty Start Date End Date Cira Lancaster MD [address] [place] [address] PCP - General Internal Medicine 09/24/22 documented as of this encounter
--- OUTSIDE RECORDS SUMMARY | 2025-06-28 17:54 | XMS_ITS | Clinical Summary ---
Author Organization [facility] [address] [place] [address] [place] [phone] Phone Care Team Providers Care Triage Clinician Name Role Phone Cira Lancaster MD Primary Care Provider [phone] Allergies Active Allergy Reactions Criticality Noted Date Comments [place] Anaphylaxis High 12/03/2023 Nut - Unspecified 06/02/2018 [...] Active medical supply, miscellaneous (MISCELLANEOUS MEDICAL SUPPLY [facility] Spacer/Aero Chamber Mouthpiece [facility] [place] Device by Does not apply route as needed (use with inhaler). Active Actemra ACTPen subcutaneous injection Inject 0.9 mL (162 mg total) under the skin every 14 (fourteen) days. Active EPINEPHrine (Auvi-Q) 0.3 mg/0.3 mL injection Inject 0.3 mL (0.3 mg total) into the thigh if needed for anaphylaxis. 1 each Active miscellaneous medical supply [facility] Incontinence supply, Wipes, Package of [...] split. 90 each 3 025 2025 Active omeprazole (PriLOSEC) [address] capsule Take 1 capsule (20 mg total) by mouth 1 (one) time each day. Do not crush or chew. 90 each 1 025 2025 Active tirzepatide, weight loss, (Zepbound) 2.5 mg/0.5 mL injectionIndicat ions:Class 1 obesity due to excess calories with body mass index (BMI) of 33.0 to 33.9 in adult, unspecified whether serious comorbidity present Inject 0.5 mL (2.5 mg total) under the skin every 7 (seven) days for 4 doses. 2 mL 025 2024 Active nystatin (MYCOSTATIN) 100,000 unit/gram powderIndication s:Intertrigo APPLY A THIN LAYER OF POWDER TOPICALLY TO AFFECTED AREA TWICE DAILY FOR 2 WEEKS, THEN STOP 30 g Active phentermine 15 mg capsuleIndicatio ns:BMI 33.0-33.9,adult Take 1 capsule (15 mg total) by mouth 1 (one) time each day before breakfast. Max Daily Amount: 15 mg 30 each 2 025 2024 Discontinued(A lternate therapy) nystatin (MYCOSTATIN) 100,000 unit/gram powderIndication s:Intertrigo APPLY THIN LAYER OF POWDER TOPICALLY TO AFFECTED AREA TWICE DAILY FOR 2 WEEKS THEN STOP 30 g 025 2024 Discontinued Active Problems Problem Noted Date Diagnosed Date Gastroesophageal reflux disease without esophagi tis 03/11/2025 Celiac artery stenosis 01/25/2025 DVT (deep venous thrombosis) 02/24/2024 Overview (05/15/2024): [...] on imaging of lung 11/29/2017 Seropositive rheumatoid arthritis 06/30/2009 Overview (05/15/2024): Onset [...] Encounters Date Type Department Care Team Description 06/10/2025 8:45 AM EST Office Visit Bariatric Surgery - [place] [address] [facility] [address] [place] [address] Kim Abbott MD Class 1 obesity due to excess calories with body mass index (BMI) of 33.0 to 33.9 in adult, unspecified whether serious comorbidity present (Primary Dx) 04/26/2025 2:30 PM EDT Office Visit Vascular Surgery - [place] [address] [place] [phone] Summer Shepherd PA Bilateral lower extremity edema (Primary Dx); Celiac artery stenosis (CMS/HCC V24) 04/15/2025 8:30 AM EDT Ancillary Procedure [facility] [address] [facility] [address] [place] [address] Leg swelling; Bilateral leg pain from Last 3 Months Immunizations Immunization Administration [...] HISTORICAL APPENDECTOMY OTHER SURGICAL HISTORY 02/23/2019 PROCEDURE: [place] LARYNGOSCOPY FLEXIBLE DIAGNOSTIC; COMMENT: Dr Roque TOTAL [...] for your loved ones. For example, children's lunchroom supervisor or elderly care for an older [...] on file Sexual Orientation Not on file Last Filed Vital Signs Vital Sign Reading Time Taken Comments Blood Pressure 124/72 06/10/2025 9:03 AM EST Pulse 90 06/10/2025 9:03 AM EST Temperature 36.6 C (97.8 F) 06/10/2025 9:03 AM EST Respiratory Rate 14 03/11/2025 1:54 PM EDT Oxygen Saturation 98% 03/11/2025 1:54 PM EDT Inhaled Oxygen Concentration - - Weight 79.8 kg (176 lb) 06/10/2025 9:03 AM EST Height 154.9 cm (5' 1 ) 06/10/2025 9:03 AM EST Body Mass Index 33.25 06/10/2025 9:03 AM EST Plan of Treatment Upcoming Encounters Date Type Department Care Team (Late st Contact Info) Description 09/14/2025 1:30 PM EDT Office Visit [place] [facility] [place] [address] [place], [place] [phone] Cira Lancaster MD [address] [place], [place] 11/04/2025 2:00 PM EDT Office Visit Vascular Surgery - [place] [address] [place] [phone] Summer Shepherd PA [address] [place] [phone] 12/23/2025 1:15 PM EDT Office Visit Bariatric Surgery - [place] [address] [place] [phone] Kim Abbott MD [address] [place] [phone] 03/03/2026 11:45 AM EDT Office Visit Urogynecology [address] [phone] Tita Mcgee MD [address] [facility] [address] [place] [address] Health Maintenance Due Date Last Done Comments [...] Name Priority Date/Time Associated Diagnosis Comments EXTERNAL XRAY REPORT 05/21/2025 EXTERNAL XRAY REPORT 05/21/2025 EXTERNAL XRAY REPORT 05/21/2025 EXTERNAL XRAY REPORT 05/21/2025 VAS US DUPLEX LOWER EXT VENOUS INSUFFICIENCY BILATERAL Routine 04/15/2025 9:23 AM EDT Leg swelling Bilateral leg pain EXTERNAL CLINICAL LAB 03/30/2025 EXTERNAL MAMMOGRAM REPORT 03/03/2025 LIPID PANEL WITH REFLEX TO DIRECT LDL Routine 09/10/2024 1:04 PM EST Routine physical examination HPV Routine 02/28/2024 COLONOSCOPY Routine 05/24/2020 HEPATITIS C SCREENING Routine 09/03/2019 from Last 3 Months or Most Recently Relevant to Health Maintenance Results * External Xray Report (05/21/2025) Only the most recent of4 resultswithin the time period is included. Anatomical Region Laterality Modality Radiographic Carole ging us Provider [facility] XR PROCEDURES Final Result * Vascular US duplex lower extremity venous [...] node: 3.4 x 1.1 x 0.8 cm Bottle Capping Machine Operator Details A villanueva scale, color and doppler analysis ultrasound was performed. During the study longitudinal and transverse views were obtained. Continuous wave doppler and pulsed wave doppler was performed. Overall the study quality was good. us Kathy Moreno MD CV VASCULAR PROCEDURES Final Result * External clinical lab (03/30/2025) Provider [facility] BLOOD ORDERABLES Fin al Result * External Mammogram Report (03/03/2025) Anatomical Region Laterality Modality Mammography us Provider [facility] BI PROCEDURES Final Result * Lipid panel with reflex to direct LDL (09/10/2024 1:04 PM EST) Cholesterol 159 0 - 200 mg/dL LAB CHEMISTRY METHOD 09/10/2024 4:58 PM [facility] Triglycerides 45 0 - 150 mg/dL LAB CHEMISTRY METHOD 09/10/2024 4:58 PM [facility] HDL 63 >=40 mg/dL LAB CHEMISTRY METHOD 09/10/2024 4:58 PM [facility] LDL Calculated 87 0 - 100 mg/dL LAB CHEMISTRY METHOD 09/10/2024 4:58 PM [facility] VLDL Cholesterol Mick 9 mg/dL LAB CHEMISTRY METHOD 09/10/2024 4:58 PM [facility] Non HDL Chol. (LDL+VLDL) 96 <145 mg/dL LAB CHEMISTRY METHOD 09/10/2024 4:58 PM [facility] Chol/HDL Ratio 2.5 0.0 - 4.4 LAB CHEMISTRY METHOD 09/10/2024 4:58 PM EST [facility] Blood Venous blood specimen / Unknown Venipuncture / Unknown 09/10/2024 1:04 PM EST 09/10/2024 1:04 PM EST Yelena GARCIA LAB BLOOD ORDERABLES Final Res ult [facility] [address] [place] [address], * Cervical Cancer Screening: HPV (02/28/2024) Pathologist [facility] Cervical Cancer Screening: HPV abstracted, negative Historical Provider HEALTH MAINTENANCE Final Result * Colonoscopy (05/24/2020) Pathologist [facility] Colonoscopy no interpretation , abstracted Anatomical Region Laterality Modality Other Historical Provider HEALTH MAINTENANCE Final Result * Hepatitis C Screening (09/03/2019) Pathologist [facility] Hepatitis C Screening abstracted Historical Provider HEALTH MAINTENANCE Final Result from Last 3 Months or Most Recently Relevant to Health Maintenance Insurance [facility] MEDICARE Member Subscriber Plan / Payer (Ef fective 2022-Present) Name:Sahara Riddle Relation to Subscriber:Self Name:Sahara Riddle Payer ID:[id number] Group ID:[id number] Type:Not on file Address: [address] [id number] Advance Directives Documents on File Type Date Recorded Patient Private Branch Exchange Operator Expl anation Health Care Decision (hx) 10/06/2021 HOMERO CARRENO DIRECTIVE Care Teams Triage Clinician Relationship Specialty Start Date End Date Cira Lancaster MD [address] [place] [phone] PCP - General Internal Medicine 09/24/22
--- OUTSIDE RECORDS SUMMARY | 2025-06-28 17:54 | XMS_ITS | Encounter Summary ---
Author Organization [facility] Prior to 05/08/2024 Address [address] [place] [address] Care Team Providers Care Accounting Assistant Name Role Phone Cira Lancaster MD Primary Care Provider [phone] Encounter Details Date Type Department Care Team Description 12/05/2023 Outreach Director Report Medical Records [address] [place] [address] Orthopedics, [address] [place] [address] Social History Tobacco Use Types Packs/Day Years [...] on filedocumented in this encounter Care Teams Accounting Assistant Relationship Specialty Start Date End Date Cira aLncaster MD [address] [place] [address] PCP - General Internal Medicine 09/24/22 documented as of this encounter
--- OUTSIDE RECORDS SUMMARY | 2025-06-28 17:54 | XMS_ITS | Encounter Summary ---
Author Organization [facility] Prior to 05/08/2024 Address [address] [place] [address] Care Team Providers Care Rn Medicare Name Role Phone Dianna Olmos MD Primary Care Provider Sandra Clemons MD Primary Care Provider [phone] Jaylen Newman MD Primary Care Provider Cira Mata MD Primary Care Provider [phone] Encounter Details Date Type Department Care Team Description 08/27/2020 Refill Pulmonology [address] [place] [address] Robert Davis MD [address] [facility] [address] [place] [address] Social History Tobacco Use Types [...] asthma documented in this encounter Care Teams Rn Medicare Relationship Specialty Start Date End Date Dianna Olmos MD PCP - General Internal Medicine 02/11/17 05/16/21 Sandra Clemente MD [address] [place] [address] PCP - General Internal Medicine 05/17/21 10/16/21 Jaylen Newman MD [address] [place] [address] PCP - General Internal Medicine 10/17/21 09/23/22 Cira Lancatser MD [address] [place] [address] PCP - General Internal Medicine 09/24/22 documented as of this encounter
--- OUTSIDE RECORDS SUMMARY | 2025-06-28 17:55 | XMS_ITS | Encounter Summary ---
Author Organization [facility] Prior to 05/08/2024 Address [address] [place] [address] Care Team Providers Care Line Therapist Name Role Phone Cira Lancaster MD Primary Care Provider [phone] Encounter Details Date Type Department Care Team Description 08/19/2023 Pull Tab Dealer Report Medical Records [address] [place] [address] Orthopedics, [address] [place] [address] Social History Tobacco Use Types Packs/Day Years [...] on filedocumented in this encounter Care Teams Line Therapist Relationship Specialty Start Date End Date Cira Lancaster MD [address] [place] [address] PCP - General Internal Medicine 09/24/22 documented as of this encounter
--- OUTSIDE RECORDS SUMMARY | 2025-06-28 17:55 | XMS_ITS | Encounter Summary ---
Author Organization [facility] Prior to 05/08/2024 Address [address] [place] [address] Care Team Providers Care Health And Safety Coordinator Name Role Phone Cira Lancaster MD Primary Care Provider [phone] Encounter Details Date Type Department Care Team Description 12/25/2022 Manager Speech Report Medical Records [address] [place] [address] Jarred Doss MD Social History Tobacco Use [...] filedocumented in this encounter Care Teams Health And Safety Coordinator Relationship Specialty Start Date End Date Cira Lancaster MD [address] [place] [id number] PCP - General Internal Medicine 09/24/22 documented as of this encounter
--- OUTSIDE RECORDS SUMMARY | 2025-06-28 17:55 | XMS_ITS | Encounter Summary ---
Author Organization [facility] Prior to 05/08/2024 Address [address] [place] [address] Care Team Providers Care Sox Analyst Name Role Phone Cira Lancaster MD Primary Care Provider Encounter Details Date Type Department Care Team Description 07/31/2023 Supervisor Show Operations Report Medical Records [address] [place] [address] Eliza Felix NP Social History Tobacco Use [...] on filedocumented in this encounter Care Teams Sox Analyst Relationship Specialty Start Date End Date Cira Lancaster MD [address] [place] [id number] PCP - General Internal Medicine 09/24/22 documented as of this encounter
== END 2025-06-28 15:14 | disposition home or self-care (01) ==
LOC: HO.HPODS 14:30
PROVIDERS: PCP Internal Medicine; Visit Provider Student in an Organized Health Care Education/Training Program
DX: M20.41 Other hammer toe(s) (acquired), right foot (principal); M20.42 Other hammer toe(s) (acquired), left foot; M77.41 Metatarsalgia, right foot; M77.42 Metatarsalgia, left foot; M05.79 Rheumatoid arthritis with rheumatoid factor of multiple sites without organ or systems involvement; M77.8 Other enthesopathies, not elsewhere classified
CPT/HCPCS: 20600; 99213

== ENCOUNTER → 2025-06-28 14:30 | Outpatient (BNVA) | payer OTHER, SELFPAY | PROVIDERS: PCP Internal Medicine; Visit Provider Student in an Organized Health Care Education/Training Program | DX: M20.41 Other hammer toe(s) (acquired), right foot (principal); M20.42 Other hammer toe(s) (acquired), left foot; M77.41 Metatarsalgia, right foot; M77.42 Metatarsalgia, left foot; M05.79 Rheumatoid arthritis with rheumatoid factor of multiple sites without organ or systems involvement; M77.8 Other enthesopathies, not elsewhere classified | CPT/HCPCS: 20600; 99212; J0665; J1100; J3301 ==